=== PATIENT | male | born 1960 | race American Indian/Alaskan Native ===

== ENCOUNTER 2020-02-07 14:50 | Inpatient (IN) | payer MEDICARE ==
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
--- NOTE | 2020-02-07 17:32 | XRay Report ---
CHEST 1 VIEW 5:06 PM INDICATION / CLINICAL INFORMATION: AMS. COMPARISON: 01/20/2020. FINDINGS: SUPPORT DEVICES: None. HEART / MEDIASTINUM: The heart is mildly enlarged with a left ventricular configuration. Pulmonary va sculature is normal. There is mild aortic tortuosity without aneurysm. LUNGS / PLEURA: No significant pulmonary or pleural abnormality. No pneumothorax. ADDITIONAL FINDINGS: No significant additional findings. IMPRESSION: No acute abnormality or significant change. Signer Name: Musa Morley MD Signed: 02/07/2020 5:28 PM Workstation Name: [id number]
[2020-02-07 17:49] LABS: Basophils % (Auto) 0.3 % (0.0-1.8); Eosinophils % (Auto) 0.1 % (0.0-4.3); Hemoglobin 13.1 gm/dl (11.8-15.2); Lymphocytes # (Auto) 1.2 K/mm3 (1.2-5.4); Lymphocytes % (Auto) 12.7 % (13.4-35.0); Mean Corpuscular HGB Conc 34 % (32-34); Mean Corpuscular Volume 91 fl (84-94); Monocytes # (Auto) 1.1 K/mm3 (0.0-0.8); Monocytes % (Auto) 11.5 % (0.0-7.3); Platelet Count 199 K/mm3 (140-440); Red Blood Count 4.27 M/mm3 (3.65-5.03); Red Cell Distribution Width 14.4 % (13.2-15.2)
[2020-02-07 18:02] LABS: INR 0.97 (0.87-1.13)
[2020-02-07 18:09] LABS: Albumin 3.4 g/dL (3.9-5); Calcium 8.9 mg/dL (8.4-10.2)
--- NOTE | 2020-02-07 19:02 | Cat Scan Report ---
CT head/brain wo con INDICATION / CLINICAL INFORMATION: 59 years Male; AMS. TECHNIQUE: Routine CT head without contrast. All CT scans at this location are performed using CT dos e reduction for ALARA by means of automated exposure control. COMPARISON: 02/06/2020 FINDINGS: BRAIN / INTRACRANIAL CONTENTS: Encephalomalacia seen in the watershed distributions of the right cere bral hemisphere. Similar findings seen on prior. It would be difficult to evaluate for small areas of ischemia without diffusion imaging by MRI. Fairly prominent area of encephalomalacia seen in the rig ht occipital lobe as well, in a region which would involve posterior, calcarine cortex. Again, this i s unchanged from prior. 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 Otherwise, no acute hemorrhage, mass effect, midline shift, hydrocephalus, or acute, large territori al infarct. Mild cerebral and cerebellar atrophy. There are areas of decreased attenuation in the white matter of the cerebral hemispheres. These are n onspecific findings and may be related to microangiopathy (hypertension, diabetes, atherosclerosis), given the patient's age. It might be difficult to evaluate for small areas of ischemia without diffus ion imaging by MRI. CRANIOCERVICAL JUNCTION: No significant abnormality. ORBITS: No significant abnormality of visualized orbits. SINUSES / MASTOIDS: No significant abnormality in the visualized paranasal sinuses or mastoid air garth ls. ADDITIONAL FINDINGS: Atherosclerotic disease is seen in the anterior and posterior circulation. IMPRESSION: 1. No focal mass, hemorrhage, hydrocephalus, or acute, large territorial infarct. Signer Name: Nabeel Dietrich MD, III Signed: 02/07/2020 6:58 PM Workstation Name: [id number]
[2020-02-07] MEDS ORDERED: HEPARIN 10,000 UNITS/10 ML VIAL IV ONE (19:27)
[2020-02-07] MEDS: HEPARIN/ 0.45% NACL DRIP 25,000 UNIT/500 ML BAG IV SCH (20:42)
[2020-02-08 01:23] LABS: Creatine Kinase MB 8.3 ng/mL (0.0-4.0)
[2020-02-08 05:04] LABS: Cannabinoid Screen,Urine PRESUMPTIVE POSITIVE
[2020-02-08 05:16] LABS: Amphetamine Screen,Urine PRESUMPTIVE NEGATIVE; Benzodiazepines Screen,Urine PRESUMPTIVE NEGATIVE
[2020-02-08 05:17] LABS: Cocaine Screen,Urine PRESUMPTIVE NEGATIVE; Methadone Screen,Urine PRESUMPTIVE NEGATIVE; Opiate Screen,Urine PRESUMPTIVE NEGATIVE
[2020-02-08 05:23] LABS: Bilirubin,Urine NEG (Negative); Blood,Urine MOD (Negative); Color,Urine Yellow (Yellow)
[2020-02-08 07:44] LABS: Creatine Kinase MB 6.4 ng/mL (0.0-4.0)
--- NOTE | 2020-02-08 08:13 | History and Physical Report ---
History of Present Illness Date of examination: 02/07/20 Date of admission: 02/07/20 21:09 Chief complaint: Change in mental status History of present illness: History of presenting illness, patient is a 59-year-old male who initially presented to the emergency room with complaint of altered mental status and was found to also have elevated troponin level and patient was told that he was going to be admitted and he refused and signed out AMA and was later brought back with altered mental status. There was no history of chest pain, no history of fever or chills and no history of nausea or vomiting Past History Past Medical History: CAD, COPD, hypertension, migraines, seizures, other (kidney stone, lupus, Right Eye blindness) Social history: smoking Family history: no significant family history Medications and Allergies Allergies Allergy/AdvReac Type Severity Reaction Status Date / Time No Known Allergies Allergy Unverified 01/20/20 02:37 Home Medications Medication Instructions Recorded Confirmed Last Taken Type Ibuprofen [Motrin 600 MG tab] 600 mg PO Q8H PRN #20 tablet 01/20/20 Unknown Rx traMADoL [Ultram] 50 mg PO Q6HR PRN #12 tablet 01/20/20 Unknown Rx Active Meds: Active Medications Heparin Sodium/Sodium Chloride (Heparin/ 0.45% Nacl-25,000 Unit/500 Ml) 25,000 unit in 500 mls @ 23 mls/hr IV TITR JOHANN; Protocol Last Titration: 02/08/20 06:08 Dose: 1,050 units/hr, 21 mls/hr Documented by: Review of Systems Constitutional: no weight gain, no fever, no chills, no sweats, no weakness, no malaise Eyes: bilateral: other (No Bilateral Eye blindness) Ears, nose, mouth and throat: no deferred, no ear pain, no ear discharge, no decreased hearing, no nasal congestion, no nasal discharge Cardiovascular: no chest pain, no lightheadedness, no shortness of breath, no high blood pressure Respiratory: no cough, no cough with sputum, no excessive sputum, no hemoptysis, no shortness of breath, no congestion, no wheezing, no pleurisy Gastrointestinal: no abdominal pain, no nausea, no vomiting, no diarrhea, no constipation, no change in bowel habits, no hematochezia, no loss of appetite, no early satiety, no jaundice, no early satiety Genitourinary Male: no hematuria, no flank pain, no discharge, no urinary frequency, no urinary hesitancy, no nocturia, no incontinence, no erectile dysfunction, no testicular pain, no testicular lump, no polyuria Rectal: no pain, no itching Musculoskeletal: no neck stiffness, no neck pain, no shooting arm pain, no arm numbness/tingling, no low back pain, no morning stiffness, no muscle weakness, no muscle cramps Integumentary: no rash, no pruritis, no redness, no sores, no wounds, no jaundice, no lesions, no darkening of skin, no depigmentation, no acne, no dryness, no striae, no hirsutism, no foot/leg ulcers, no onychomycosis Exam - Constitutional Vitals: Temp Pulse Resp BP Pulse Ox 98.8 F 90 20 156/111 97 02/07/20 19:54 02/08/20 06:01 02/08/20 06:01 02/08/20 06:01 02/08/20 02:00 General appearance: Present: no acute distress - EENT ENT: hearing intact - Neck Neck: Present: supple, normal ROM - Respiratory Respiratory effort: normal - Cardiovascular Rhythm: regular Heart Sounds: Present: S1 & S2. Absent: gallop, systolic murmur, diastolic murmur, click - Extremities Extremities: no ischemia, No edema Peripheral Pulses: within normal limits - Abdominal General gastrointestinal: Present: soft, non-tender, non-distended. Absent: tender, distended, rigid, hepatomegaly, splenomegaly, hernia Male genitourinary: Present: deferred - Rectal Rectal Exam: deferred - Integumentary Integumentary: Present: clear, warm, dry - Musculoskeletal Musculoskeletal: strength equal bilaterally - Psychiatric Psychiatric: appropriate mood/affect - Neurologic Neurologic: CNII-XII intact HEART Score - HEART Score Troponin: Troponin T 0.045 ng/mL (0.00-0.029) H D 02/08/20 06:55 Results - Labs CBC & Chem 7: 02/07/20 17:22 02/07/20 17:22 Labs: Laboratory Last Values WBC 9.3 K/mm3 (4.5-11.0) 02/07/20 17:22 RBC 4.27 M/mm3 (3.65-5.03) 02/07/20 17: Hgb 13.1 gm/dl (11.8-15.2) 02/07/20 17: Hct 39.0 % (35.5-45.6) 02/07/20 17: MCV 91 fl (84-94) 02/07/20 17:22 MCH 31 pg (28-32) 02/07/20 17: MCHC 34 % (32-34) 02/07/20 17: RDW 14.4 % (13.2-15.2) 02/07/20 17: Plt Count 199 K/mm3 (140-440) 02/07/20 17: Lymph % (Auto) 12.7 % (13.4-35.0) L 02/07/20 17: [place] % (Auto) 11.5 % (0.0-7.3) H 02/07/20 17: Eos % (Auto) 0.1 % (0.0-4.3) 02/07/20: Baso % (Auto) 0.3 % (0.0-1.8) 02/07/20 17: Lymph # 1.2 K/mm3 (1.2-5.4) 02/07/20 17: [place] # 1.1 K/mm3 (0.0-0.8) H 02/07/20 17: Eos # 0.0 K/mm3 (0.0-0.4) 02/07/20 17: Baso # 0.0 K/mm3 (0.0-0.1) 02/07/20: Seg Neutrophils % 75.4 % (40.0-70.0) H 02/07/20 17: Seg Neutrophils # 7.0 K/mm3 (1.8-7.7) 02/07/20 17: PT 12.7 Sec. (12.2-14.9) 02/07/20 17: INR 0.97 (0.87-1.13) 02/07/20 17: APTT 27.0 Sec. (24.2-36.6) 02/07/20 17: Heparin Anti-Xa Level 1.16 U.I./ml (0.3-0.7) H 02/08/20 03:06 Sodium 137 mmol/L (137-145) 02/07/20 17:22 Potassium 3.6 mmol/L (3.6-5.0) 02/07/20 17:22 Chloride 99.0 mmol/L (98-107) 02/07/20 17:22 Carbon Dioxide 22 mmol/L (22-30) 02/07/20 17:22 Anion Gap 20 mmol/L 02/07/20 17:22 BUN 51 mg/dL (9-20) H 02/07/20 17:22 Creatinine 2.5 mg/dL (0.8-1.5) H 02/07/20 17:22 Estimated GFR 32 ml/min 02/07/20 17:22 BUN/Creatinine Ratio 20 % 02/07/20 17:22 Glucose 75 mg/dL (75-100) 02/07/20 17:22 Calcium 8.9 mg/dL (8.4-10.2) 02/07/20 17:22 Total Bilirubin 0.60 mg/dL (0.1-1.2) 02/07/20 17:22 AST 53 units/L (5-40) H 02/07/20 17:22 ALT 33 units/L (7-56) 02/07/20 17:22 Alkaline Phosphatase 119 units/L (35-129) 02/07/20 17:22 Ammonia 20.0 umol/L (25-60) L 02/07/20 17:22 Total Creatine Kinase 620 units/L (55-170) H 02/08/20 00:17 CK-MB (CK-2) 6.4 ng/mL (0.0-4.0) H 02/08/20 06:55 CK-MB (CK-2) Rel Index 1.3 (0-4) 02/08/20 00:17 Troponin T 0.045 ng/mL (0.00-0.029) H D 02/08/20 06:55 Total Protein 7.3 g/dL (6.3-8.2) 02/07/20 17:22 Albumin 3.4 g/dL (3.9-5) L 02/07/20 17:22 Albumin/Globulin Ratio 0.9 % 02/07/20 17:22 TSH 0.550 mlU/mL (0.270-4.200) 02/07/20 17:22 Urine Color Yellow (Yellow) 02/08/20 04:30 Urine Turbidity Clear (Clear) 02/08/20 04:30 Urine pH 7.0 (5.0-7.0) 02/08/20 04:30 Ur Specific [place] 1.012 (1.003-1.030) 02/08/20 04:30 Urine Protein 100 mg/dl mg/dL (Negative) 02/08/20 04:30 Urine Glucose (UA) Neg mg/dL (Negative) 02/08/20 04:30 Urine Ketones Tr mg/dL (Negative) 02/08/20 04:30 Urine Blood Mod (Negative) 02/08/20 04:30 Urine Nitrite Neg (Negative) 02/08/20 04:30 Urine Bilirubin Neg (Negative) 02/08/20 04:30 Urine Urobilinogen 4.0 mg/dL (<2.0) 02/08/20 04:30 Ur Leukocyte Esterase Neg (Negative) 02/08/20 04:30 Urine WBC (Auto) 1.0 /HPF (0.0-6.0) 02/08/20 04:30 Urine RBC (Auto) 5.0 /HPF (0.0-6.0) 02/08/20 04:30 Urine Opiates Screen Presumptive negative 02/08/20 04:30 Urine Methadone Screen Presumptive negative 02/08/20 04:30 Ur Barbiturates Screen Presumptive negative 02/08/20 04:30 Ur Phencyclidine Scrn Presumptive negative 02/08/20 04:30 Ur Amphetamines Screen Presumptive negative 02/08/20 04:30 U Benzodiazepines Scrn Presumptive negative 02/08/20 04:30 Urine Cocaine Screen Presumptive negative 02/08/20 04:30 U Marijuana (THC) Screen Presumptive positive 02/08/20 04:30 Drugs of Abuse Note Disclamer 02/08/20 04:30 Plasma/Serum Alcohol < 0.01 % (0-0.07) 02/07/20 17:22 Funez/IV: IV Catheter Type [Left Forearm INT / Saline Lock ] Assessment and Plan - Patient Problems (1) Acute renal failure Current Visit: Yes Status: Acute Qualifiers: Acute renal failure type: unspecified Qualified Code(s): N17.9 - Acute kidney failure, unspecified Plan to address problem: 1. Nephrology Consult 2. I. V Normal saline (2) Atrial fibrillation Current Visit: Yes Status: Acute Qualifiers: Atrial fibrillation type: unspecified Qualified Code(s): I48.91 - Unspecified atrial fibrillation Plan to address problem: 1. Continue I.V heparin 2. 2 D Echocardiogram 3. cardiology consult (3) Elevated troponin Current Visit: Yes Status: Acute Plan to address problem: 1. Serial cardiac enzyme 2. Cardiology consult 3.
--- NOTE | 2020-02-08 10:32 | Consultation ---
History of Present Illness - Reason for Consult Consult date: 02/08/20 acute renal failure - History of Present Illness patient was admitted for worsening altered mental status, lab results was s ignificant elevated creatinine and troponin. CT ehad was negative for acute intracranial process. CXR was negative for pulm edema. he was started on heparin drip and renal consult was requested for renal failure Past History Past Medical History: CAD, COPD, hypertension, migraines, seizures, other (kidney stone, lupus, Right Eye blindness) Social history: smoking Family history: no significant family history Medications and Allergies Allergies Allergy/AdvReac Type Severity Reaction Status Date / Time No Known Allergies Allergy Unverified 01/20/20 02:37 Home Medications Medication Instructions Recorded Confirmed Last Taken Type Ibuprofen [Motrin 600 MG tab] 600 mg PO Q8H PRN #20 tablet 01/20/20 Unknown Rx traMADoL [Ultram] 50 mg PO Q6HR PRN #12 tablet 01/20/20 Unknown Rx Aspirin 81 mg PO DAILY 02/08/20 02/08/20 Unknown History Atorvastatin Calcium 80 mg PO DAILY 02/08/20 02/08/20 Unknown History Brilinta 90 mg PO BID 02/08/20 02/08/20 Unknown History Furosemide [Lasix] 20 mg PO QDAY 02/08/20 02/08/20 Unknown History Isosorbide Mononitrate 30 mg PO DAILY 02/08/20 02/08/20 Unknown History Lisinopril 5 mg PO DAILY 02/08/20 02/08/20 Unknown History Nitroglycerin 0.4 mg SUBLINGUAL PRN 02/08/20 02/08/20 Unknown History amLODIPine 10 mg PO DAILY 02/08/20 02/08/20 Unknown History carvediloL 6.25 mg PO BID 02/08/20 02/08/20 Unknown History Active Meds: Active Medications Amlodipine Besylate (Amlodipine) 5 mg PO QDAY JOHANN Heparin Sodium/Sodium Chloride (Heparin/ 0.45% Nacl-25,000 Unit/500 Ml) 25,000 unit in 500 mls @ 23 mls/hr IV TITR JOHANN; Protocol Last Titration: 02/08/20 06:08 Dose: 1,050 units/hr, 21 mls/hr Documented by: Sodium Chloride (Nacl 0.9% 1000 Ml) 1,000 mls @ 100 mls/hr IV DIRECT JOHANN Review of Systems ROS unobtainable: due to mental status Exam - Vital Signs Vital signs: Vital Signs Temp 97.9 F 02/07/20 17:53 - General Appearance General appearance: well-developed, well-nourished EENT: ATNC, PERRL Neck: Present: neck supple Respiratory: Clear to Ascultation Heart: irregular Gastrointestinal: Present: normoactive bowel sounds. Absent: tenderness, distended Integumentary: no rash, warm and dry Neurologic: no focal deficit Musculoskeletal: Present: other (no edema in BLE) Psychiatric: other (answers simple questions) Results - Lab Results 02/07/20 17:22 02/07/20 17:22 Most recent lab results Calcium 8.9 mg/dL (8.4-10.2) 02/07/20 17:22 Assessment and Plan Acute renal failure, prerenal azotemia? NSTEMI HTN Afib Altered mental status will start NS 100 cc/h, CXR -ve for edema UA noted for proteinuria. urine lyes, eos and secondary GN/vasculitis work up ordered renal US ordered avoid nephrotoxins renally dose meds strict I&O daily weight Gil Boone MD [phone]
[2020-02-08] MEDS ORDERED: NITROGLYCERIN 0.4 MG TAB SUBL SL PRN (10:57)
[2020-02-08] MEDS: SODIUM CHLORIDE 0.9% 1000 ML 1,000 ML IV SCH (11:00)
[2020-02-08] MEDS ORDERED: amLODIPine 5 MG TAB PO SCH (11:00)
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
--- NOTE | 2020-02-08 13:39 | Ultrasound Report ---
ULTRASOUND RENAL INDICATION / CLINICAL INFORMATION: renal failure. COMPARISON: None available. FINDINGS: RIGHT KIDNEY: Length = 10.1 cm. [normal > 9 cm] - Parenchymal Thickness = 1.4 cm. [normal > 1.5 cm] - Echogenicity: Increased - Hydronephrosis: None. - Cyst or mass: No significant abnormality. - Stones: None seen. LEFT KIDNEY: Length = 9.5 cm. [normal > 9 cm] - Parenchymal Thickness = 1.7 cm. [normal > 1.5 cm] - Echogenicity: Increased - Hydronephrosis: None. - Cyst or mass: No significant abnormality. - Stones: None seen. URINARY BLADDER: No significant abnormality. FREE FLUID: None. ADDITIONAL FINDINGS: None. IMPRESSION: Both kidneys demonstrate increased parenchymal echotexture consistent with medical renal disease. No focal renal lesion or hydronephrosis. Signer Name: Milton Hernandes Jr, MD Signed: 02/08/2020 1:34 PM Workstation Name: [id number]
[2020-02-08] MEDS ORDERED: carvediloL 6.25 MG TAB PO SCH (22:00)
[2020-02-08] MEDS: TICAGRELOR 90 MG TAB PO SCH (22:25)
[2020-02-09] MEDS: HEPARIN/ 0.45% NACL DRIP 25,000 UNIT/500 ML BAG IV SCH (00:17)
[2020-02-09 00:27] LABS: Creatinine,Urine 42.1 mg/dL (0.1-20.0)
[2020-02-09 00:32] LABS: Protein/Creatinine Ratio,Urine 0.9
[2020-02-09] MEDS: SODIUM CHLORIDE 0.9% 1000 ML 1,000 ML IV SCH ×2 (02:19→11:36)
[2020-02-09 05:34] LABS: Basophils % (Auto) 0.5 % (0.0-1.8); Eosinophils % (Auto) 0.4 % (0.0-4.3); Hemoglobin 12.7 gm/dl (11.8-15.2); Lymphocytes # (Auto) 1.4 K/mm3 (1.2-5.4); Lymphocytes % (Auto) 17.6 % (13.4-35.0); Mean Corpuscular HGB Conc 34 % (32-34); Mean Corpuscular Volume 91 fl (84-94); Monocytes % (Auto) 12.8 % (0.0-7.3); Platelet Count 168 K/mm3 (140-440); Red Blood Count 4.16 M/mm3 (3.65-5.03); Red Cell Distribution Width 14.1 % (13.2-15.2)
[2020-02-09 05:52] LABS: BUN/Creatinine Ratio 23; Blood Urea Nitrogen 21 mg/dL (9-20); Calcium 8.1 mg/dL (8.4-10.2); Hemolysis Index 10
--- NOTE | 2020-02-09 07:42 | Progress Note ---
<GEORGEEILEEN HardwickSudha - Last Filed: 02/09/20 13:09> Assessment and Plan - Patient Problems (1) Altered mental status Current Visit: Yes Status: Acute Plan to address problem: - Still having period of confusion and nonsensical conversation - 02/06 CTH: no acute abnormality - Labs unremarkable - Psych eval ordered (2) NSTEMI (non-ST elevation myocardial infarction) Current Visit: Yes Status: Acute Plan to address problem: - Cardiology consulted - TTE shows EF 25-30% with a mildly dilated LV and moderately dilated LA with trace AR. - Plan for left hear cath once renal function improves - Already on BB, statin, systemic anticoagulation (3) Atrial fibrillation Current Visit: Yes Status: Acute Qualifiers: Atrial fibrillation type: unspecified Qualified Code(s): I48.91 - Unspecified atrial fibrillation Plan to address problem: - Rate control with BB - On Heparin gtt - On Telemetry - Monitor BP per protocol (4) Acute renal failure Current Visit: Yes Status: Acute Qualifiers: Acute renal failure type: unspecified Qualified Code(s): N17.9 - Acute kidney failure, unspecified Plan to address problem: -Nephrology consult - MIVF ordered per nephrology - Renal US: both kidneys demonstrate increased parenchymal echotexture consistent with medical renal disease. No focal renal lesion or hydronephrosis - Urine lytes ordered - Trend BMP - Monitor I&O, daily weight - Avoid nephrotoxic medications (5) Hypokalemia Current Visit: Yes Status: Acute Plan to address problem: - Repleted - f/u BMP (6) Hypophosphatemia Current Visit: Yes Status: Acute Plan to address problem: - Repleted (7) Lupus Current Visit: Yes Status: Chronic History Interval history: HD 2: 59 year old male with HFrEF (25-30%), Lupus, HTN, [place], GERD, COPD, ADD, and seizures presents to the ED after being found down at home on a wellness check with a NSTEMI and PRIYA. Cardiology and nephrology are consulted. CTH was negative for acute abnormality, UDS and UA were negative. Nursing notes reviewed. Patient had a 7 beat Vtach at 2200 on 02/07. At the time of my exam, the patient was able to answer orientation questions but often went on tangents and was able to be reorientated. This morning, he has hypokalemia and hypophosphatemia which has been repleted. Hospitalist Physical - Constitutional Vitals: Temp Pulse Resp BP Pulse Ox 98.5 F 47 L 16 125/101 100 02/09/20 03:41 02/09/20 03:41 02/09/20 03:41 02/09/20 03:41 02/09/20 03:41 General appearance: Present: no acute distress - EENT Eyes: Present: PERRL, EOM intact ENT: hearing intact - Neck Neck: Present: normal ROM - Respiratory Respiratory effort: normal Respiratory: bilateral: CTA - Cardiovascular Rhythm: irregularly irregular Heart Sounds: Present: S1 & S2. Absent: systolic murmur, diastolic murmur - Extremities Extremities: no ischemia, pulses intact, pulses symmetrical, No edema - Abdominal General gastrointestinal: soft, non-tender, non-distended, normal bowel sounds - Integumentary Integumentary: Present: warm, dry (several areas of hypopigmentation on chest and arms which is contributed to lupus per pt) - Psychiatric Psychiatric: cooperative, other (multiple tangents when conversing with pt) - Neurologic Neurologic: moves all extremities - Allied Health Allied health notes reviewed: nursing HEART Score - HEART Score Troponin: WBC 8.0 K/mm3 (4.5-11.0) 02/09/20 04:25 RBC 4.16 M/mm3 (3.65-5.03) 02/09/20 04:25 Hgb 12.7 gm/dl (11.8-15.2) 02/09/20 04:25 Hct 38.0 % (35.5-45.6) 02/09/20 04:25 MCV 91 fl (84-94) 02/09/20 04:25 MCH 31 pg (28-32) 02/09/20 04:25 MCHC 34 % (32-34) 02/09/20 04:25 RDW 14.1 % (13.2-15.2) 02/09/20 04:25 Plt Count 168 K/mm3 (140-440) 02/09/20 04:25 Lymph % (Auto) 17.6 % (13.4-35.0) 02/09/20 04:25 [place] % (Auto) 12.8 % (0.0-7.3) H 02/09/20 04:25 Eos % (Auto) 0.4 % (0.0-4.3) 02/09/20 04:25 Baso % (Auto) 0.5 % (0.0-1.8) 02/09/20 04:25 Lymph # 1.4 K/mm3 (1.2-5.4) 02/09/20 04:25 [place] # 1.0 K/mm3 (0.0-0.8) H 02/09/20 04:25 Eos # 0.0 K/mm3 (0.0-0.4) 02/09/20 04:25 Baso # 0.0 K/mm3 (0.0-0.1) 02/09/20 04:25 Seg Neutrophils % 68.7 % (40.0-70.0) 02/09/20 04:25 Seg Neutrophils # 5.5 K/mm3 (1.8-7.7) 02/09/20 04:25 PT 12.7 Sec. (12.2-14.9) 02/07/20 17:22 INR 0.97 (0.87-1.13) 02/07/20 17:22 APTT 27.0 Sec. (24.2-36.6) 02/07/20 17:22 Heparin Anti-Xa Level 0.47 U.I./ml (0.3-0.7) 02/08/20 12:35 Sodium 136 mmol/L (137-145) L 02/09/20 04:25 Potassium 3.2 mmol/L (3.6-5.0) L 02/09/20 04:25 Chloride 102.6 mmol/L (98-107) 02/09/20 04:25 Carbon Dioxide 19 mmol/L (22-30) L 02/09/20 04:25 Anion Gap 18 mmol/L 02/09/20 04:25 BUN 21 mg/dL (9-20) H 02/09/20 04:25 Creatinine 0.9 mg/dL (0.8-1.5) D 02/09/20 04:25 Estimated GFR > 60 ml/min 02/09/20 04:25 BUN/Creatinine Ratio 23 % 02/09/20 04:25 Glucose 86 mg/dL (75-100) 02/09/20 04:25 Calcium 8.1 mg/dL (8.4-10.2) L 02/09/20 04:25 Phosphorus 1.60 mg/dL (2.5-4.5) L 02/09/20 04:25 Total Bilirubin 0.60 mg/dL (0.1-1.2) 02/07/20 17:22 AST 53 units/L (5-40) H 02/07/20 17:22 ALT 33 units/L (7-56) 02/07/20 17:22 Alkaline Phosphatase 119 units/L (35-129) 02/07/20 17:22 Ammonia 20.0 umol/L (25-60) L 02/07/20 17:22 Lactate Dehydrogenase 256 units/L (91-180) H 02/08/20 12:35 Total Creatine Kinase 484 units/L (55-170) H 02/08/20 12:35 CK-MB (CK-2) 6.4 ng/mL (0.0-4.0) H 02/08/20 06:55 CK-MB (CK-2) Rel Index 1.1 (0-4) 02/08/20 06:55 Troponin T 0.045 ng/mL (0.00-0.029) H D 02/08/20 06:55 Total Protein 7.3 g/dL (6.3-8.2) 02/07/20 17:22 Albumin 3.4 g/dL (3.9-5) L 02/07/20 17:22 Albumin/Globulin Ratio 0.9 % 02/07/20 17:22 TSH 0.550 mlU/mL (0.270-4.200) 02/07/20 17:22 Urine Color Yellow (Yellow) 02/08/20 04:30 Urine Turbidity Clear (Clear) 02/08/20 04:30 Urine pH 7.0 (5.0-7.0) 02/08/20 04:30 Ur Specific [place] 1.012 (1.003-1.030) 02/08/20 04:30 Urine Protein 100 mg/dl mg/dL (Negative) 02/08/20 04:30 Urine Glucose (UA) Neg mg/dL (Negative) 02/08/20 04:30 Urine Ketones Tr mg/dL (Negative) 02/08/20 04:30 Urine Blood Mod (Negative) 02/08/20 04:30 Urine Nitrite Neg (Negative) 02/08/20 04:30 Urine Bilirubin Neg (Negative) 02/08/20 04:30 Urine Urobilinogen 4.0 mg/dL (<2.0) 02/08/20 04:30 Ur Leukocyte Esterase Neg (Negative) 02/08/20 04:30 Urine WBC (Auto) 1.0 /HPF (0.0-6.0) 02/08/20 04:30 Urine RBC (Auto) 5.0 /HPF (0.0-6.0) 02/08/20 04:30 Urine Eosinophils None seen (None Seen) 02/08/20 00:05 Urine Creatinine 41.0 mg/dL (0.1-20.0) H 02/08/20 00:05 Urine Creatinine 42.1 mg/dL (0.1-20.0) H 02/08/20 00:05 Protein/Creatinin Ratio 0.90 02/08/20 00:05 Urine Sodium 109 mmol/L 02/08/20 00:05 Urine Urea Nitrogen 626 02/08/20 00:05 Urine Total Protein 37 mg/dL (5-11.8) H 02/08/20 00:05 Urine Opiates Screen Presumptive negative 02/08/20 04:30 Urine Methadone Screen Presumptive negative 02/08/20 04:30 Ur Barbiturates Screen Presumptive negative 02/08/20 04:30 Ur Phencyclidine Scrn Presumptive negative 02/08/20 04:30 Ur Amphetamines Screen Presumptive negative 02/08/20 04:30 U Benzodiazepines Scrn Presumptive negative 02/08/20 04:30 Urine Cocaine Screen Presumptive negative 02/08/20 04:30 U Marijuana (THC) Screen Presumptive positive 02/08/20 04:30 Drugs of Abuse Note Disclamer 02/08/20 04:30 Plasma/Serum Alcohol < 0.01 % (0-0.07) 02/07/20 17:22 Hep Bs Antigen Non-reactive (Negative) 02/08/20 12:35 Hepatitis C Antibody Reactive (NonReactive) A 02/08/20 12:35 Schistocytes Smear Rare 02/08/20 12:35 Results - Labs CBC & Chem 7: 02/09/20 04:25 02/09/20 04:25 Labs: Laboratory Last Values WBC 8.0 K/mm3 (4.5-11.0) 02/09/20 04:25 RBC 4.16 M/mm3 (3.65-5.03) 02/09/20 04:25 Hgb 12.7 gm/dl (11.8-15.2) 02/09/20 04:25 Hct 38.0 % (35.5-45.6) 02/09/20 04:25 MCV 91 fl (84-94) 02/09/20 04:25 MCH 31 pg (28-32) 02/09/20 04:25 MCHC 34 % (32-34) 02/09/20 04:25 RDW 14.1 % (13.2-15.2) 02/09/20 04:25 Plt Count 168 K/mm3 (140-440) 02/09/20 04:25 Lymph % (Auto) 17.6 % (13.4-35.0) 02/09/20 04:25 [place] % (Auto) 12.8 % (0.0-7.3) H 02/09/20 04:25 Eos % (Auto) 0.4 % (0.0-4.3) 02/09/20 04:25 Baso % (Auto) 0.5 % (0.0-1.8) 02/09/20 04:25 Lymph # 1.4 K/mm3 (1.2-5.4) 02/09/20 04:25 [place] # 1.0 K/mm3 (0.0-0.8) H 02/09/20 04:25 Eos # 0.0 K/mm3 (0.0-0.4) 02/09/20 04:25 Baso # 0.0 K/mm3 (0.0-0.1) 02/09/20 04:25 Seg Neutrophils % 68.7 % (40.0-70.0) 02/09/20 04:25 Seg Neutrophils # 5.5 K/mm3 (1.8-7.7) 02/09/20 04:25 PT 12.7 Sec. (12.2-14.9) 02/07/20 17:22 INR 0.97 (0.87-1.13) 02/07/20 17:22 APTT 27.0 Sec. (24.2-36.6) 02/07/20 17:22 Heparin Anti-Xa Level 0.47 U.I./ml (0.3-0.7) 02/08/20 12:35 Sodium 136 mmol/L (137-145) L 02/09/20 04:25 Potassium 3.2 mmol/L (3.6-5.0) L 02/09/20 04:25 Chloride 102.6 mmol/L (98-107) 02/09/20 04:25 Carbon Dioxide 19 mmol/L (22-30) L 02/09/20 04:25 Anion Gap 18 mmol/L 02/09/20 04:25 BUN 21 mg/dL (9-20) H 02/09/20 04:25 Creatinine 0.9 mg/dL (0.8-1.5) D 02/09/20 04:25 Estimated GFR > 60 ml/min 02/09/20 04:25 BUN/Creatinine Ratio 23 % 02/09/20 04:25 Glucose 86 mg/dL (75-100) 02/09/20 04:25 Calcium 8.1 mg/dL (8.4-10.2) L 02/09/20 04:25 Phosphorus 1.60 mg/dL (2.5-4.5) L 02/09/20 04:25 Total Bilirubin 0.60 mg/dL (0.1-1.2) 02/07/20 17:22 AST 53 units/L (5-40) H 02/07/20 17:22 ALT 33 units/L (7-56) 02/07/20 17:22 Alkaline Phosphatase 119 units/L (35-129) 02/07/20 17:22 Ammonia 20.0 umol/L (25-60) L 02/07/20 17:22 Lactate Dehydrogenase 256 units/L (91-180) H 02/08/20 12:35 Total Creatine Kinase 484 units/L (55-170) H 02/08/20 12:35 CK-MB (CK-2) 6.4 ng/mL (0.0-4.0) H 02/08/20 06:55 CK-MB (CK-2) Rel Index 1.1 (0-4) 02/08/20 06:55 Troponin T 0.045 ng/mL (0.00-0.029) H D 02/08/20 06:55 Total Protein 7.3 g/dL (6.3-8.2) 02/07/20 17:22 Albumin 3.4 g/dL (3.9-5) L 02/07/20 17: Albumin/Globulin Ratio 0.9 % 02/07/20 17:22 TSH 0.550 mlU/mL (0.270-4.200) 02/07/20 17:22 Urine Color Yellow (Yellow) 02/08/20 04:30 Urine Turbidity Clear (Clear) 02/08/20 04:30 Urine pH 7.0 (5.0-7.0) 02/08/20 04:30 Ur Specific [place] 1.012 (1.003-1.030) 02/08/20 04:30 Urine Protein 100 mg/dl mg/dL (Negative) 02/08/20 04:30 Urine Glucose (UA) Neg mg/dL (Negative) 02/08/20 04:30 Urine Ketones Tr mg/dL (Negative) 02/08/20 04:30 Urine Blood Mod (Negative) 02/08/20 04:30 Urine Nitrite Neg (Negative) 02/08/20 04:30 Urine Bilirubin Neg (Negative) 02/08/20 04:30 Urine Urobilinogen 4.0 mg/dL (<2.0) 02/08/20 04:30 Ur Leukocyte Esterase Neg (Negative) 02/08/20 04:30 Urine WBC (Auto) 1.0 /HPF (0.0-6.0) 02/08/20 04:30 Urine RBC (Auto) 5.0 /HPF (0.0-6.0) 02/08/20 04:30 Urine Eosinophils None seen (None Seen) 02/08/20 00:05 Urine Creatinine 41.0 mg/dL (0.1-20.0) H 02/08/20 00:05 Urine Creatinine 42.1 mg/dL (0.1-20.0) H 02/08/20 00:05 Protein/Creatinin Ratio 0.90 02/08/20 00:05 Urine Sodium 109 mmol/L 02/08/20 00:05 Urine Urea Nitrogen 626 02/08/20 00:05 Urine Total Protein 37 mg/dL (5-11.8) H 02/08/20 00:05 Urine Opiates Screen Presumptive negative 02/08/20 04:30 Urine Methadone Screen Presumptive negative 02/08/20 04:30 Ur Barbiturates Screen Presumptive negative 02/08/20 04:30 Ur Phencyclidine Scrn Presumptive negative 02/08/20 04:30 Ur Amphetamines Screen Presumptive negative 02/08/20 04:30 U Benzodiazepines Scrn Presumptive negative 02/08/20 04:30 Urine Cocaine Screen Presumptive negative 02/08/20 04:30 U Marijuana (THC) Screen Presumptive positive 02/08/20 04:30 Drugs of Abuse Note Disclamer 02/08/20 04:30 Plasma/Serum Alcohol < 0.01 % (0-0.07) 02/07/20 17:22 Hep Bs Antigen Non-reactive (Negative) 02/08/20 12:35 Hepatitis C Antibody Reactive (NonReactive) A 02/08/20 12:35 Schistocytes Smear Rare 02/08/20 12:35 - Diagnostic Impressions Diagnostic Impressions: Echocardiogram 02/08/20 06:00 Transthoracic Echocardiogram Indication: Afib and Elevated Tropnin BP: 156/111 HR: 83 Conclusions *The left ventricular chamber size is mildly dilated. *There is diffuse global hypokinesis of the left ventricle. *The estimated ejection fraction is 25-30%. *Global left ventricular systolic function is moderate to severely decreased. *The left ventricular diastolic filling pattern is consistent with elevated left ventricular end-diastolic pressure. *The left atrium is moderately dilated. *The right ventricular cavity size is normal. *Moderate aortic leaflet calcification is visualized. *There is trace of aortic regurgitation. Findings Procedure Info: The study was technically limited due to the patient's inability to lay in the left lateral decubitus position. Patient has altered mental status. Patient unable to consent to optison. Left Ventricle: The left ventricular chamber size is mildly dilated. There is diffuse global hypokinesis of the left ventricle. Global left ventricular systolic function is moderate to severely decreased. There is "smoke" noted in LV,suggesting low cardiac output. The estimated ejection fraction is 25-30%. Abnormal left ventricular diastolic function is observed. The left ventricular diastolic filling pattern is consistent with elevated left ventricular end-diastolic pressure. Left Atrium: The left atrium is moderately dilated. Right Ventricle: The right ventricular cavity size is normal. Right Atrium: The right atrial cavity size is normal. Aortic Valve: The aortic valve is trileaflet. Moderate aortic leaflet calcification is visualized. There is trace of aortic regurgitation. Mitral Valve: The mitral valve leaflets are mildly thickened. There is mild mitral regurgitation. Tricuspid Valve: The tricuspid valve leaflets are normal. There is trace tricuspid regurgitation. The right ventricular systolic pressure is calculated at 16 mmHg. Pulmonic Valve: The pulmonic valve is not well visualized. There is trace pulmonic regurgitation. Pericardium: There is no pericardial effusion. Aorta: The aorta appears normal. Venous: The inferior vena cava appears normal in size. Measurements Chambers 2D Name Value Normal Range IVSd (2D) 0.99 cm (0.6 - 1.1) LVPWd (2D) 1.12 cm (0.6 - 1.1) LVIDd (2D) 5.32 cm (3.7 - 5.6) LVIDs (2D) 4.92 cm (2 - 3.8) LV FS (2D) 7.6 % - EF Teichholz (2D) 16.74 % - Ao root diameter (2D) 2.96 cm (2 - 3.7) Volumes/Mass Name Value Normal Range LA ESV SP 4CH (A/L) 96.01 ml - LA ESV SP 2CH (A/L) 132.95 ml - LA ESV BP (A/L) 113.42 ml - LA ESV BP (A/L) index 56.99 ml/m2 - LA ESV SP 4CH (MOD) 89.34 ml - LA ESV SP 2CH (MOD) 131.06 ml - LA ESV BP (MOD) 108.03 ml - LA ESV BP (MOD) index 54.29 ml/m2 - LV EDV SP 4CH (MOD) 194.84 ml - LV ESV SP 4CH (MOD) 146.24 ml - EF SP 4CH (MOD) 24.94 % - LV EDV SP 2CH (MOD) 210.28 ml - LV ESV SP 2CH (MOD) 174.07 ml - EF SP 2CH (MOD) 17.22 % - LV EDV BP 208.25 ml - LV ESV BP 165.16 ml - BP EF (MOD) 20.69 % - Diastolic/Systolic Function Name Value Normal Range MV E-wave Vmax 1.23 m/sec - MV deceleration time 152.48 msec - MV A-wave Vmax 0.82 m/sec - MV E:A ratio 1.51 ratio - Aortic Valve Name Value Normal Range AV Vmax 1.31 m/sec - AV VTI 19.56 cm - AV peak gradient 6.89 mmHg - AV mean gradient 3.88 mmHg - LVOT diameter 2.12 cm - LVOT Vmax 1.09 m/sec - LVOT VTI 14.03 cm - LVOT peak gradient 4.72 mmHg - LVOT mean gradient 2.13 mmHg - SV LVOT 49.69 ml - ANGELO (continuity Vmax) 2.93 cm2 - ANGELO (continuity VTI) 2.54 cm2 - Ascending Ao 3.3 cm - Mitral Valve Name Value Normal Range MV Vmax 1.29 m/sec - MV VTI 21.22 cm - MV peak gradient 6.65 mmHg - MV mean gradient 1.71 mmHg - MV PHT 72.99 msec - MVA (PHT) 3.01 cm2 - MVA (continuity VTI) 2.34 cm2 - Tricuspid Valve Name Value Normal Range TR Vmax 1.82 m/sec - TR peak gradient 13 mmHg - RAP 3 mmHg - RVSP 16 mmHg - IVC diameter 1.82 cm (1.2 - 2.3) Pulmonic Valve/Qp:Qs Name Value Normal Range PV Vmax 1 m/sec - PV VTI 14.44 cm - PV peak gradient 4.04 mmHg - PV mean gradient 1.91 mmHg - RVOT Vmax 0.92 m/sec - RVOT VTI 14.18 cm - RVOT peak gradient 3.38 mmHg - Funez/IV: Voiding Method Urinal IV Catheter Type [Right INT / Saline Lock Forearm] IV Catheter Type [Left Forearm INT / Saline Lock ] Active Medications - Current Medications Current Medications: Generic Name Dose Route Start Last Admin Trade Name Freq PRN Reason Stop Dose Admin Amlodipine Besylate 10 mg 02/09/20 10:00 Amlodipine PO DAILY [facility] Atorvastatin Calcium 80 mg 02/09/20 10:00 Lipitor PO DAILY [facility] Carvedilol 6.25 mg 02/08/20 22:00 02/08/20 22:25 Coreg PO 6.25 mg BID JOHANN Administration Furosemide 20 mg 02/09/20 10:00 Lasix PO QDAY [facility] Heparin Sodium/Sodium Chloride 25,000 unit in 500 mls @ 23 mls/hr 02/07/20 20:00 02/09/20 00:17 Heparin/ 0.45% Nacl-25,000 Unit/500 Ml IV 1,050 units/hr TITR JOHANN 21 mls/hr Administration Protocol 1,150 UNITS/HR Sodium Chloride 1,000 mls @ 100 mls/hr 02/08/20 10:30 02/09/20 02:19 Nacl 0.9% 1000 Ml IV 100 mls/hr DIRECT JOHANN Administration Isosorbide Mononitrate 30 mg 02/09/20 10:00 Imdur PO DAILY JOHANN Nitroglycerin 0.4 mg 02/08/20 10:57 Nitrostat SL .Q5MIN PRN Chest Pain Ticagrelor 90 mg 02/08/20 22:00 02/08/20 22:25 Brilinta PO 90 mg BID JOHANN Administration <YONATAN CARTER - Last Filed: 02/10/20 08:15> Assessment and Plan Assessment and plan: I saw and evaluated the patient. I agree with the findings and the plan of care as documented in the Nurse Practitioner's~note, with the following corrections and additions. Hospitalist Physical - Constitutional Vitals: Temp Pulse Resp BP Pulse Ox 98.0 F 48 L 20 132/97 100 02/10/20 03:55 02/10/20 03:55 02/10/20 03:55 02/10/20 03:55 02/10/20 03:55 HEART Score - HEART Score Troponin: Troponin T 0.045 ng/mL (0.00-0.029) H D 02/08/20 06:55 Results - Labs CBC & Chem 7: 02/10/20 05:43 02/10/20 05:43 Labs: Laboratory Last Values WBC 5.9 K/mm3 (4.5-11.0) 02/10/20 05:43 RBC 3.71 M/mm3 (3.65-5.03) 02/10/20 05:43 Hgb 11.6 gm/dl (11.8-15.2) L 02/10/20 05:43 Hct 33.7 % (35.5-45.6) L 02/10/20 05:43 MCV 91 fl (84-94) 02/10/20 05:43 MCH 31 pg (28-32) 02/10/20 05:43 MCHC 34 % (32-34) 02/10/20 05:43 RDW 14.2 % (13.2-15.2) 02/10/20 05:43 Plt Count 168 K/mm3 (140-440) 02/10/20 05:43 Lymph % (Auto) 21.5 % (13.4-35.0) 02/10/20 05:43 [place] % (Auto) 9.1 % (0.0-7.3) H 02/10/20 05:43 Eos % (Auto) 1.0 % (0.0-4.3) 02/10/20 05:43 Baso % (Auto) 0.7 % (0.0-1.8) 02/10/20 05:43 Lymph # 1.3 K/mm3 (1.2-5.4) 02/10/20 05:43 [place] # 0.5 K/mm3 (0.0-0.8) 02/10/20 05:43 Eos # 0.1 K/mm3 (0.0-0.4) 02/10/20 05:43 Baso # 0.0 K/mm3 (0.0-0.1) 02/10/20 05:43 Seg Neutrophils % 67.7 % (40.0-70.0) 02/10/20 05:43 Seg Neutrophils # 4.0 K/mm3 (1.8-7.7) 02/10/20 05:43 PT 12.7 Sec. (12.2-14.9) 02/07/20 17:22 INR 0.97 (0.87-1.13) 02/07/20 17:22 APTT 27.0 Sec. (24.2-36.6) 02/07/20 17:22 Heparin Anti-Xa Level 0.59 U.I./ml (0.3-0.7) 02/09/20 13:53 Sodium 132 mmol/L (137-145) L 02/10/20 05:43 Potassium 3.3 mmol/L (3.6-5.0) L 02/10/20 05:43 Chloride 101.8 mmol/L (98-107) 02/10/20 05:43 Carbon Dioxide 19 mmol/L (22-30) L 02/10/20 05:43 Anion Gap 15 mmol/L 02/10/20 05:43 BUN 20 mg/dL (9-20) 02/10/20 05:43 Creatinine 0.8 mg/dL (0.8-1.5) 02/10/20 05:43 Estimated GFR > 60 ml/min 02/10/20 05:43 BUN/Creatinine Ratio 25 % 02/10/20 05:43 Glucose 92 mg/dL (75-100) 02/10/20 05:43 Calcium 7.9 mg/dL (8.4-10.2) L 02/10/20 05:43 Phosphorus 2.60 mg/dL (2.5-4.5) D 02/10/20 05:43 Total Bilirubin 0.60 mg/dL (0.1-1.2) 02/07/20 17:22 AST 53 units/L (5-40) H 02/07/20 17:22 ALT 33 units/L (7-56) 02/07/20 17:22 Alkaline Phosphatase 119 units/L (35-129) 02/07/20 17:22 Ammonia 20.0 umol/L (25-60) L 02/07/20 17:22 Lactate Dehydrogenase 256 units/L (91-180) H 02/08/20 12:35 Total Creatine Kinase 484 units/L (55-170) H 02/08/20 12:35 CK-MB (CK-2) 6.4 ng/mL (0.0-4.0) H 02/08/20 06:55 CK-MB (CK-2) Rel Index 1.1 (0-4) 02/08/20 06:55 Troponin T 0.045 ng/mL (0.00-0.029) H D 02/08/20 06:55 Total Protein 7.3 g/dL (6.3-8.2) 02/07/20 17:22 Albumin 3.4 g/dL (3.9-5) L 02/07/20 17:22 Albumin/Globulin Ratio 0.9 % 02/07/20 17:22 TSH 0.550 mlU/mL (0.270-4.200) 02/07/20 17:22 Urine Color Yellow (Yellow) 02/08/20 04:30 Urine Turbidity Clear (Clear) 02/08/20 04:30 Urine pH 7.0 (5.0-7.0) 02/08/20 04:30 Ur Specific [place] 1.012 (1.003-1.030) 02/08/20 04:30 Urine Protein 100 mg/dl mg/dL (Negative) 02/08/20 04:30 Urine Glucose (UA) Neg mg/dL (Negative) 02/08/20 04:30 Urine Ketones Tr mg/dL (Negative) 02/08/20 04:30 Urine Blood Mod (Negative) 02/08/20 04:30 Urine Nitrite Neg (Negative) 02/08/20 04:30 Urine Bilirubin Neg (Negative) 02/08/20 04:30 Urine Urobilinogen 4.0 mg/dL (<2.0) 02/08/20 04:30 Ur Leukocyte Esterase Neg (Negative) 02/08/20 04:30 Urine WBC (Auto) 1.0 /HPF (0.0-6.0) 02/08/20 04:30 Urine RBC (Auto) 5.0 /HPF (0.0-6.0) 02/08/20 04:30 Urine Eosinophils None seen (None Seen) 02/08/20 00:05 Urine Creatinine 41.0 mg/dL (0.1-20.0) H 02/08/20 00:05 Urine Creatinine 42.1 mg/dL (0.1-20.0) H 02/08/20 00:05 Protein/Creatinin Ratio 0.90 02/08/20 00:05 Urine Sodium 109 mmol/L 02/08/20 00:05 Urine Urea Nitrogen 626 02/08/20 00:05 Urine Total Protein 37 mg/dL (5-11.8) H 02/08/20 00:05 Urine Opiates Screen Presumptive negative 02/08/20 04:30 Urine Methadone Screen Presumptive negative 02/08/20 04:30 Ur Barbiturates Screen Presumptive negative 02/08/20 04:30 Ur Phencyclidine Scrn Presumptive negative 02/08/20 04:30 Ur Amphetamines Screen Presumptive negative 02/08/20 04:30 U Benzodiazepines Scrn Presumptive negative 02/08/20 04:30 Urine Cocaine Screen Presumptive negative 02/08/20 04:30 U Marijuana (THC) Screen Presumptive positive 02/08/20 04:30 Drugs of Abuse Note Disclamer 02/08/20 04:30 Plasma/Serum Alcohol < 0.01 % (0-0.07) 02/07/20 17:22 Hep Bs Antigen Non-reactive (Negative) 02/08/20 12:35 Hepatitis C Antibody Reactive (NonReactive) A 02/08/20 12:35 Schistocytes Smear Rare 02/08/20 12:35 Microbiology: Microbiology 02/09/20 19:17 Peripheral/Venous Blood Culture - Preliminary Culture in Progress 02/09/20 19:17 Peripheral/Venous Blood Culture - Preliminary Culture in Progress - Diagnostic Impressions Diagnostic Impressions: Echocardiogram 02/08/20 06:00 Transthoracic Echocardiogram Indication: Afib and Elevated Tropnin BP: 156/111 HR: 83 Conclusions *The left ventricular chamber size is mildly dilated. *There is diffuse global hypokinesis of the left ventricle. *The estimated ejection fraction is 25-30%. *Global left ventricular systolic function is moderate to severely decreased. *The left ventricular diastolic filling pattern is consistent with elevated left ventricular end-diastolic pressure. *The left atrium is moderately dilated. *The right ventricular cavity size is normal. *Moderate aortic leaflet calcification is visualized. *There is trace of aortic regurgitation. Findings Procedure Info: The study was technically limited due to the patient's inability to lay in the left lateral decubitus position. Patient has altered mental status. Patient unable to consent to optison. Left Ventricle: The left ventricular chamber size is mildly dilated. There is diffuse global hypokinesis of the left ventricle. Global left ventricular systolic function is moderate to severely decreased. There is "smoke" noted in LV,suggesting low cardiac output. The estimated ejection fraction is 25-30%. Abnormal left ventricular diastolic function is observed. The left ventricular diastolic filling pattern is consistent with elevated left ventricular end-diastolic pressure. Left Atrium: The left atrium is moderately dilated. Right Ventricle: The right ventricular cavity size is normal. Right Atrium: The right atrial cavity size is normal. Aortic Valve: The aortic valve is trileaflet. Moderate aortic leaflet calcification is visualized. There is trace of aortic regurgitation. Mitral Valve: The mitral valve leaflets are mildly thickened. There is mild mitral regurgitation. Tricuspid Valve: The tricuspid valve leaflets are normal. There is trace tricuspid regurgitation. The right ventricular systolic pressure is calculated at 16 mmHg. Pulmonic Valve: The pulmonic valve is not well visualized. There is trace pulmonic regurgitation. Pericardium: There is no pericardial effusion. Aorta: The aorta appears normal. Venous: The inferior vena cava appears normal in size. Measurements Chambers 2D Name Value Normal Range IVSd (2D) 0.99 cm (0.6 - 1.1) LVPWd (2D) 1.12 cm (0.6 - 1.1) LVIDd (2D) 5.32 cm (3.7 - 5.6) LVIDs (2D) 4.92 cm (2 - 3.8) LV FS (2D) 7.6 % - EF Teichholz (2D) 16.74 % - Ao root diameter (2D) 2.96 cm (2 - 3.7) Volumes/Mass Name Value Normal Range LA ESV SP 4CH (A/L) 96.01 ml - LA ESV SP 2CH (A/L) 132.95 ml - LA ESV BP (A/L) 113.42 ml - LA ESV BP (A/L) index 56.99 ml/m2 - LA ESV SP 4CH (MOD) 89.34 ml - LA ESV SP 2CH (MOD) 131.06 ml - LA ESV BP (MOD) 108.03 ml - LA ESV BP (MOD) index 54.29 ml/m2 - LV EDV SP 4CH (MOD) 194.84 ml - LV ESV SP 4CH (MOD) 146.24 ml - EF SP 4CH (MOD) 24.94 % - LV EDV SP 2CH (MOD) 210.28 ml - LV ESV SP 2CH (MOD) 174.07 ml - EF SP 2CH (MOD) 17.22 % - LV EDV BP 208.25 ml - LV ESV BP 165.16 ml - BP EF (MOD) 20.69 % - Diastolic/Systolic Function Name Value Normal Range MV E-wave Vmax 1.23 m/sec - MV deceleration time 152.48 msec - MV A-wave Vmax 0.82 m/sec - MV E:A ratio 1.51 ratio - Aortic Valve Name Value Normal Range AV Vmax 1.31 m/sec - AV VTI 19.56 cm - AV peak gradient 6.89 mmHg - AV mean gradient 3.88 mmHg - LVOT diameter 2.12 cm - LVOT Vmax 1.09 m/sec - LVOT VTI 14.03 cm - LVOT peak gradient 4.72 mmHg - LVOT mean gradient 2.13 mmHg - SV LVOT 49.69 ml - ANGELO (continuity Vmax) 2.93 cm2 - ANGELO (continuity VTI) 2.54 cm2 - Ascending Ao 3.3 cm - Mitral Valve Name Value Normal Range MV Vmax 1.29 m/sec - MV VTI 21.22 cm - MV peak gradient 6.65 mmHg - MV mean gradient 1.71 mmHg - MV PHT 72.99 msec - MVA (PHT) 3.01 cm2 - MVA (continuity VTI) 2.34 cm2 - Tricuspid Valve Name Value Normal Range TR Vmax 1.82 m/sec - TR peak gradient 13 mmHg - RAP 3 mmHg - RVSP 16 mmHg - IVC diameter 1.82 cm (1.2 - 2.3) Pulmonic Valve/Qp:Qs Name Value Normal Range PV Vmax 1 m/sec - PV VTI 14.44 cm - PV peak gradient 4.04 mmHg - PV mean gradient 1.91 mmHg - RVOT Vmax 0.92 m/sec - RVOT VTI 14.18 cm - RVOT peak gradient 3.38 mmHg - Funez/IV: Voiding Method Condom Catheter IV Catheter Type [Right INT / Saline Lock Forearm] IV Catheter Type [Left Forearm INT / Saline Lock ] Active Medications - Current Medications Current Medications: Generic Name Dose Route Start Last Admin Trade Name Artemq PRN Reason Stop Dose Admin Amlodipine Besylate 10 mg 02/09/20 10:00 02/09/20 11:28 Amlodipine PO 10 mg DAILY JOHANN Administration Atorvastatin Calcium 80 mg 02/09/20 10:00 02/09/20 11:27 Lipitor PO 80 mg DAILY JOHANN Administration Carvedilol 3.125 mg 02/09/20 11:00 02/09/20 22:24 Coreg PO 3.125 mg BID JOHANN Administration Furosemide 20 mg 02/09/20 10:00 02/09/20 11:27 Lasix PO 20 mg QDAY JOHANN Administration Heparin Sodium/Sodium Chloride 25,000 unit in 500 mls @ 23 mls/hr 02/07/20 20:00 02/10/20 00:42 Heparin/ 0.45% Nacl-25,000 Unit/500 Ml IV 1,050 units/hr TITR JOHANN 21 mls/hr Administration Protocol 1,150 UNITS/HR Isosorbide Mononitrate 30 mg 02/09/20 10:00 02/09/20 11:27 Imdur PO 30 mg DAILY JOHANN Administration Nitroglycerin 0.4 mg 02/08/20 10:57 Nitrostat SL .Q5MIN PRN Chest Pain Ticagrelor 90 mg 02/08/20 22:00 02/09/20 22:29 Brilinta PO 90 mg BID JOHANN Administration Nutrition/Malnutrition Assess - Dietary Evaluation Nutrition/Malnutrition Findings: Nutrition Notes Start: 02/09/20 14:18 Freq: Status: Active Protocol: Document 02/09/20 14:18 LM (Rec: 02/09/20 14:33 LM [id number]) Nutrition Notes Need for 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 pt stated his UBW is 175 lb but does not know when he last weighed this. Pt with orbital and muscle wasting. Burn Absent Trauma Absent GI Symptoms None Minimum of two criteria Yes Body Fat Depletion Moderate depletion (severe) Muscle Mass Mild Depletion (non-severe) #1 Nutrition Diagnosis Malnutrition Etiology chronic illness As Evidenced by Signs and Symptoms pt with orbital and muscle wasting Is patient on ventilator? No Is Patient Ambulatory and/or Out of Bed Yes REE-([place]-St. Jeor-ambulatory/OOB) [ 1925.144 NUTR.[id number]] Kcal/Kg value to use for calculation 38 Approximate Energy Requirements Using 2345 kcal/Kg Calculation Used for Recommendations Kcal/kg Additional Notes Protein: (0.8-1.5g/kg) PRIYA and malnutrition Fluid: 1ml/kcal Nutrition Intervention Change Diet Order: continue Add Supplement/Snack (indicate name/kcal Ensure Enlive strawberry BID /protein ) Provides kCal: 700 Provides Protein (gm) 40 Goal #1 Meet at least 80% of energy and protein needs Anticipated Discharge Needs: cardiac with ONS daily Follow-Up By: 02/11/20 Additional Comments F/U for intakes
[2020-02-09] MEDS ORDERED: POTASSIUM CHLORIDE ER 20 MEQ TAB PO ONE (10:00)
--- NOTE | 2020-02-09 10:38 | Progress Note ---
Assessment and Plan Pt states today that he has "10 stents" in his heart and has been told he has a "weak heart" in the past. He is still withdrawn and lethargic, unable to obtain any additional medical history. Agree with present cardiac regimen, including home cardiac medications and heparin gtt. No ACEI/ARB at this time in setting of renal insufficiency. No current clinical evidence of acutely decompensated HF. Will attempt to obtain additional medical history and/or medical records once pt's mental status improves. Will follow. The patient has been seen in conjunction with Dr. Quiroz who agrees with the assessment and plan of care. - Patient Problems (1) Altered mental status Current Visit: Yes Status: Acute Plan to address problem: head CT NAF (2) NSTEMI (non-ST elevation myocardial infarction) Current Visit: Yes Status: Acute Plan to address problem: suspect type II (3) Acute renal failure Current Visit: Yes Status: Acute Qualifiers: Acute renal failure type: unspecified Qualified Code(s): N17.9 - Acute kidney failure, unspecified (4) Atrial fibrillation Current Visit: Yes Status: Acute Qualifiers: Atrial fibrillation type: unspecified Qualified Code(s): I48.91 - Unspecified atrial fibrillation (5) Cardiomyopathy Current Visit: Yes Status: Chronic (6) Hepatitis C Current Visit: Yes Status: Acute (7) Lupus Current Visit: Yes Status: Chronic Subjective Date of service: 02/09/20 Principal diagnosis: AMS Interval history: pt resting in bed, still withdrawn and lethargic. tele reviewed - in AFib with HR 60s, SVR HR 40s noted overnight while asleep. Objective Last Vital Signs Temp 100.1 F H 02/09/20 07:57 Pulse 55 L 02/09/20 07:57 Resp 18 02/09/20 07:57 BP 143/102 02/09/20 07:57 Pulse Ox 99 02/09/20 07:57 - Physical Examination General: No Apparent Distress (withdrawn, lethargic) HEENT: Positive: PERRL Neck: Positive: neck supple, trachea midline Cardiac: Positive: irregularly irregular, S1/S2 Lungs: Positive: Decreased Breath Sounds Neuro: Positive: Other (sleepy, no focal deficits noted) Abdomen: Negative: Tender Skin: Negative: Rash Musculoskeletal: No Pain Extremities: Absent: edema - Labs and Meds Cardiac Enzymes 02/08/20 Range/Units 12:35 Lactate Dehydrogenase 256 H (91-180) units/L CBC 02/09/20 Range/Units 04:25 WBC 8.0 (4.5-11.0) K/mm3 RBC 4.16 (3.65-5.03) M/mm3 Hgb 12.7 (11.8-15.2) gm/dl Hct 38.0 (35.5-45.6) % Plt Count 168 (140-440) K/mm3 Lymph # 1.4 (1.2-5.4) K/mm3 Roberts # 1.0 H (0.0-0.8) K/mm3 Eos # 0.0 (0.0-0.4) K/mm3 Baso # 0.0 (0.0-0.1) K/mm3 Comprehensive Metabolic Panel 02/09/20 Range/Units 04:25 Sodium 136 L (137-145) mmol/L Potassium 3.2 L (3.6-5.0) mmol/L Chloride 102.6 (98-107) mmol/L Carbon Dioxide 19 L (22-30) mmol/L BUN 21 H (9-20) mg/dL Creatinine 0.9 D (0.8-1.5) mg/dL Glucose 86 (75-100) mg/dL Calcium 8.1 L (8.4-10.2) mg/dL - Imaging and Cardiology EKG: report reviewed, image reviewed Echo: report reviewed (EF 25-30%, LV mildly dilated, LA mod dilated, trace AR. ) - Telemetry EKG Rhythm: Atrial Fibrillation
[2020-02-09] MEDS ORDERED: carvediloL 6.25 MG TAB PO SCH (10:40)
[2020-02-09] MEDS: FUROSEMIDE 20 MG TAB PO SCH (11:27)
[2020-02-09] MEDS: TICAGRELOR 90 MG TAB PO SCH ×2 (11:27→22:29)
[2020-02-09] MEDS: K-PHOS NEUTRAL 250 MG TAB PO SCH ×3 (11:27→22:24)
[2020-02-09] MEDS: amLODIPine 10 MG TAB PO SCH (11:28)
[2020-02-09] MEDS: carvediloL 3.125 MG TAB PO SCH ×2 (11:31→22:24)
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
--- NOTE | 2020-02-09 15:07 | Progress Note ---
Assessment and Plan Acute renal failure, prerenal azotemia? NSTEMI Hypertension Afib Altered mental status Hypophospahtemia Hypokalemia -Renal labs reviewed. Serum creatinine normalized to 0.9 today, has good UOP of 1300 ml -On NS@ 100 ml/hr, will D/C given patient's EF of 25-30%, monitor volume status -On Lasix 20 mg po daily -Urine lytes reviewed. No significant proteinuria and no urine eosinophils noted. -Secondary GN/vasculitis work up- in progress -Renal US showed Medical Renal Disease. No hydronephrosis -Hypophospatemia/Hypokalemia- in repletion with K-phos -Avoid nephrotoxic agents -Renally dose medications -Strict I&O monitoring -Obtain daily weights -Continue to monitor Subjective Date of service: 02/09/20 Principal diagnosis: AMS Interval history: Patient seen lying in bed. Patient speaks slowly but answers questions. No family at bedside. Objective - Vital Signs Vital signs: Vital Signs - 12hr 02/09/20 02/09/20 03:41 07:57 Temperature 98.5 F 100.1 F H Pulse Rate 47 L 55 L Respiratory 16 18 Rate Blood Pressure 125/101 143/102 O2 Sat by Pulse 100 99 Oximetry - General Appearance General appearance: chronically ill, fatigue EENT: ATNC, PERRL, hearing intact, vision intact Neck: no JVD, supple Respiratory: Present: Decreased Breath Sounds Cardiology: S1S2 Gastrointestinal: normoactive bowel sounds Integumentary: warm and dry Neurologic: alert and oriented x3 Musculoskeletal: joint swelling - Lab 02/09/20 04:25 02/09/20 04:25 Most recent lab results Calcium 8.1 mg/dL (8.4-10.2) L 02/09/20 04:25 Phosphorus 1.60 mg/dL (2.5-4.5) L 02/09/20 04:25 Urine Creatinine 41.0 mg/dL (0.1-20.0) H 02/08/20 00:05 Urine Creatinine 42.1 mg/dL (0.1-20.0) H 02/08/20 00:05 Urine Sodium 109 mmol/L 02/08/20 00:05 Urine Total Protein 37 mg/dL (5-11.8) H 02/08/20 00:05 Medications & Allergies - Medications Allergies/Adverse Reactions: Allergies No Known Allergies Allergy (Unverified 01/20/20 02:37) Home Medications: Home Medications Medication Instructions Recorded Confirmed Last Taken Type Ibuprofen [Motrin 600 MG tab] 600 mg PO Q8H PRN #20 tablet 01/20/20 Unknown Rx traMADoL [Ultram] 50 mg PO Q6HR PRN #12 tablet 01/20/20 Unknown Rx Aspirin 81 mg PO DAILY 02/08/20 02/08/20 Unknown History Atorvastatin Calcium 80 mg PO DAILY 02/08/20 02/08/20 Unknown History Brilinta 90 mg PO BID 02/08/20 02/08/20 Unknown History Furosemide [Lasix] 20 mg PO QDAY 02/08/20 02/08/20 Unknown History Isosorbide Mononitrate 30 mg PO DAILY 02/08/20 02/08/20 Unknown History Lisinopril 5 mg PO DAILY 02/08/20 02/08/20 Unknown History Nitroglycerin 0.4 mg SUBLINGUAL PRN 02/08/20 02/08/20 Unknown History amLODIPine 10 mg PO DAILY 02/08/20 02/08/20 Unknown History carvediloL 6.25 mg PO BID 02/08/20 02/08/20 Unknown History Active Medications: Generic Name Dose Route Start Last Admin Trade Name Blue PRN Reason Stop Dose Admin Amlodipine Besylate 10 mg 02/09/20 10:00 02/09/20 11:28 Amlodipine PO 10 mg DAILY JOHANN Administration Atorvastatin Calcium 80 mg 02/09/20 10:00 02/09/20 11:27 Lipitor PO 80 mg DAILY JOHANN Administration Carvedilol 3.125 mg 02/09/20 11:00 02/09/20 11:31 Coreg PO 3.125 mg BID JOHANN Administration Furosemide 20 mg 02/09/20 10:00 02/09/20 11:27 Lasix PO 20 mg QDAY JOHANN Administration Heparin Sodium/Sodium Chloride 25,000 unit in 500 mls @ 23 mls/hr 02/07/20 20:00 02/09/20 00:17 Heparin/ 0.45% Nacl-25,000 Unit/500 Ml IV 1,050 units/hr TITR JOHANN 21 mls/hr Administration Protocol 1,150 UNITS/HR Sodium Chloride 1,000 mls @ 100 mls/hr 02/08/20 10:30 02/09/20 11:36 Nacl 0.9% 1000 Ml IV 100 mls/hr DIRECT JOHANN Administration Isosorbide Mononitrate 30 mg 02/09/20 10:00 02/09/20 11:27 Imdur PO 30 mg DAILY JOHANN Administration Nitroglycerin 0.4 mg 02/08/20 10:57 Nitrostat SL .Q5MIN PRN Chest Pain Sodium Phosphate 250 mg 02/09/20 10:00 02/09/20 11:27 K-Phos Neutral PO 02/10/20 08:00 250 mg QID JOHANN Administration Ticagrelor 90 mg 02/08/20 22:00 02/09/20 11:27 Brilinta PO 90 mg BID JOHANN Administration
[2020-02-10] MEDS: HEPARIN/ 0.45% NACL DRIP 25,000 UNIT/500 ML BAG IV SCH ×2 (00:42→23:50)
[2020-02-10 06:03] LABS: Basophils % (Auto) 0.7 % (0.0-1.8); Eosinophils # (Auto) 0.1 K/mm3 (0.0-0.4); Hematocrit 33.7 % (35.5-45.6); Hemoglobin 11.6 gm/dl (11.8-15.2); Lymphocytes # (Auto) 1.3 K/mm3 (1.2-5.4); Lymphocytes % (Auto) 21.5 % (13.4-35.0); Mean Corpuscular HGB Conc 34 % (32-34); Mean Corpuscular Volume 91 fl (84-94); Monocytes # (Auto) 0.5 K/mm3 (0.0-0.8); Monocytes % (Auto) 9.1 % (0.0-7.3); Platelet Count 168 K/mm3 (140-440); Red Blood Count 3.71 M/mm3 (3.65-5.03); Red Cell Distribution Width 14.2 % (13.2-15.2)
[2020-02-10 06:15] LABS: BUN/Creatinine Ratio 25; Blood Urea Nitrogen 20 mg/dL (9-20); Calcium 7.9 mg/dL (8.4-10.2); Hemolysis Index 6
--- NOTE | 2020-02-10 10:09 | Progress Note ---
<GEORGEEILEEN MuluSudha - Last Filed: 02/10/20 16:01> Assessment and Plan Assessment and plan: 59 year old male with HFrEF (25-30%), Lupus, HTN, HI, GERD, COPD, ADD, and seizures presents to the ED after being found down at home on a wellness check with a NSTEMI and PRIYA. Cardiology and nephrology are consulted. CTH was negative for acute abnormality, UDS and UA were negative. - Patient Problems (1) Altered mental status Current Visit: Yes Status: Acute Plan to address problem: - Still having periods of confusion but drastically improved. Reported to be confused overnight - 02/06 CTH: no acute abnormality - Labs unremarkable, NH3 20 - Psych evaluation completed and signed off at this time (2) NSTEMI (non-ST elevation myocardial infarction) Current Visit: Yes Status: Acute Plan to address problem: - Cardiology consulted - TTE shows EF 25-30% with a mildly dilated LV and moderately dilated LA with trace AR. - Plan for left heart cath once renal function improves - Already on BB, statin, systemic anticoagulation; may need to decrease BB dose re bradycardia (3) Atrial fibrillation Current Visit: Yes Status: Acute Qualifiers: Atrial fibrillation type: unspecified Qualified Code(s): I48.91 - Unspecified atrial fibrillation Plan to address problem: - Rate control with BB - On Heparin gtt, will ask cardio if okay to transition over to PO anticoagulation - On Telemetry - Monitor BP per protocol (4) Acute renal failure Current Visit: Yes Status: Acute Qualifiers: Acute renal failure type: unspecified Qualified Code(s): N17.9 - Acute kidney failure, unspecified Plan to address problem: -Nephrology consult - Renal US: both kidneys demonstrate increased parenchymal echotexture consistent with medical renal disease. No focal renal lesion or hydronephrosis - Urine lytes ordered - Trend BMP - Monitor I&O, daily weight - Avoid nephrotoxic medications (5) Hypokalemia Current Visit: Yes Status: Acute Plan to address problem: - Replete as needed (6) Lupus Current Visit: Yes Status: Chronic (7) DVT prophylaxis Current Visit: Yes Status: Acute Plan to address problem: - On heparin gtt - SCDs while in bed History Interval history: HD 3: 59 year old male with HFrEF (25-30%), Lupus, HTN, HI, GERD, COPD, ADD, and seizures presents to the ED after being found down at home on a wellness check with a NSTEMI and PRIYA. Cardiology and nephrology are consulted. CTH was negative for acute abnormality, UDS and UA were negative. Still having periods of confusion but much more in the present today and able to hold a conversation. Per nursing he attempted to call 911 last night. Nursing notes reviewed. HD 2: Patient had a 7 beat Vtach at 2200.Electrolytes repleted (K and Phos). . Hospitalist Physical - Constitutional Vitals: Temp Pulse Resp BP Pulse Ox 98.0 F 48 L 20 132/97 100 02/10/20 03:55 02/10/20 03:55 02/10/20 03:55 02/10/20 03:55 02/10/20 03:55 General appearance: Present: no acute distress HEART Score - HEART Score Troponin: Troponin T 0.045 ng/mL (0.00-0.029) H D 02/08/20 06:55 Results - Labs CBC & Chem 7: 02/10/20 05:43 02/10/20 05:43 Labs: Laboratory Last Values WBC 5.9 K/mm3 (4.5-11.0) 02/10/20 05:43 RBC 3.71 M/mm3 (3.65-5.03) 02/10/20 05:43 Hgb 11.6 gm/dl (11.8-15.2) L 02/10/20 05:43 Hct 33.7 % (35.5-45.6) L 02/10/20 05:43 MCV 91 fl (84-94) 02/10/20 05:43 MCH 31 pg (28-32) 02/10/20 05:43 MCHC 34 % (32-34) 02/10/20 05:43 RDW 14.2 % (13.2-15.2) 02/10/20 05:43 Plt Count 168 K/mm3 (140-440) 02/10/20 05:43 Lymph % (Auto) 21.5 % (13.4-35.0) 02/10/20 05:43 Hall % (Auto) 9.1 % (0.0-7.3) H 02/10/20 05:43 Eos % (Auto) 1.0 % (0.0-4.3) 02/10/20 05:43 Baso % (Auto) 0.7 % (0.0-1.8) 02/10/20 05:43 Lymph # 1.3 K/mm3 (1.2-5.4) 02/10/20 05:43 Hall # 0.5 K/mm3 (0.0-0.8) 02/10/20 05:43 Eos # 0.1 K/mm3 (0.0-0.4) 02/10/20 05:43 Baso # 0.0 K/mm3 (0.0-0.1) 02/10/20 05:43 Seg Neutrophils % 67.7 % (40.0-70.0) 02/10/20 05:43 Seg Neutrophils # 4.0 K/mm3 (1.8-7.7) 02/10/20 05:43 PT 12.7 Sec. (12.2-14.9) 02/07/20 17:22 INR 0.97 (0.87-1.13) 02/07/20 17:22 APTT 27.0 Sec. (24.2-36.6) 02/07/20 17:22 Heparin Anti-Xa Level 0.59 U.I./ml (0.3-0.7) 02/09/20 13:53 Sodium 132 mmol/L (137-145) L 02/10/20 05:43 Potassium 3.3 mmol/L (3.6-5.0) L 02/10/20 05:43 Chloride 101.8 mmol/L (98-107) 02/10/20 05:43 Carbon Dioxide 19 mmol/L (22-30) L 02/10/20 05:43 Anion Gap 15 mmol/L 02/10/20 05:43 BUN 20 mg/dL (9-20) 02/10/20 05:43 Creatinine 0.8 mg/dL (0.8-1.5) 02/10/20 05:43 Estimated GFR > 60 ml/min 02/10/20 05:43 BUN/Creatinine Ratio 25 % 02/10/20 05:43 Glucose 92 mg/dL (75-100) 02/10/20 05:43 Calcium 7.9 mg/dL (8.4-10.2) L 02/10/20 05:43 Phosphorus 2.60 mg/dL (2.5-4.5) D 02/10/20 05:43 Total Bilirubin 0.60 mg/dL (0.1-1.2) 02/07/20 17:22 AST 53 units/L (5-40) H 02/07/20 17:22 ALT 33 units/L (7-56) 02/07/20 17:22 Alkaline Phosphatase 119 units/L (35-129) 02/07/20 17:22 Ammonia 20.0 umol/L (25-60) L 02/07/20 17:22 Lactate Dehydrogenase 256 units/L (91-180) H 02/08/20 12:35 Total Creatine Kinase 484 units/L (55-170) H 02/08/20 12:35 CK-MB (CK-2) 6.4 ng/mL (0.0-4.0) H 02/08/20 06:55 CK-MB (CK-2) Rel Index 1.1 (0-4) 02/08/20 06:55 Troponin T 0.045 ng/mL (0.00-0.029) H D 02/08/20 06:55 Total Protein 7.3 g/dL (6.3-8.2) 02/07/20 17:22 Albumin 3.4 g/dL (3.9-5) L 02/07/20 17:22 Albumin/Globulin Ratio 0.9 % 02/07/20 17:22 TSH 0.550 mlU/mL (0.270-4.200) 02/07/20 17:22 Urine Color Yellow (Yellow) 02/08/20 04:30 Urine Turbidity Clear (Clear) 02/08/20 04:30 Urine pH 7.0 (5.0-7.0) 02/08/20 04:30 Ur Specific Stephens 1.012 (1.003-1.030) 02/08/20 04:30 Urine Protein 100 mg/dl mg/dL (Negative) 02/08/20 04:30 Urine Glucose (UA) Neg mg/dL (Negative) 02/08/20 04:30 Urine Ketones Tr mg/dL (Negative) 02/08/20 04:30 Urine Blood Mod (Negative) 02/08/20 04:30 Urine Nitrite Neg (Negative) 02/08/20 04:30 Urine Bilirubin Neg (Negative) 02/08/20 04:30 Urine Urobilinogen 4.0 mg/dL (<2.0) 02/08/20 04:30 Ur Leukocyte Esterase Neg (Negative) 02/08/20 04:30 Urine WBC (Auto) 1.0 /HPF (0.0-6.0) 02/08/20 04:30 Urine RBC (Auto) 5.0 /HPF (0.0-6.0) 02/08/20 04:30 Urine Eosinophils None seen (None Seen) 02/08/20 00:05 Urine Creatinine 41.0 mg/dL (0.1-20.0) H 02/08/20 00:05 Urine Creatinine 42.1 mg/dL (0.1-20.0) H 02/08/20 00:05 Protein/Creatinin Ratio 0.90 02/08/20 00:05 Urine Sodium 109 mmol/L 02/08/20 00:05 Urine Urea Nitrogen 626 02/08/20 00:05 Urine Total Protein 37 mg/dL (5-11.8) H 02/08/20 00:05 Urine Opiates Screen Presumptive negative 02/08/20 04:30 Urine Methadone Screen Presumptive negative 02/08/20 04:30 Ur Barbiturates Screen Presumptive negative 02/08/20 04:30 Ur Phencyclidine Scrn Presumptive negative 02/08/20 04:30 Ur Amphetamines Screen Presumptive negative 02/08/20 04:30 U Benzodiazepines Scrn Presumptive negative 02/08/20 04:30 Urine Cocaine Screen Presumptive negative 02/08/20 04:30 U Marijuana (THC) Screen Presumptive positive 02/08/20 04:30 Drugs of Abuse Note Disclamer 02/08/20 04:30 Plasma/Serum Alcohol < 0.01 % (0-0.07) 02/07/20 17:22 Hep Bs Antigen Non-reactive (Negative) 02/08/20 12:35 Hepatitis C Antibody Reactive (NonReactive) A 02/08/20 12:35 Schistocytes Smear Rare 02/08/20 12:35 Microbiology: Microbiology 02/09/20 19:17 Peripheral/Venous Blood Culture - Preliminary Culture in Progress 02/09/20 19:17 Peripheral/Venous Blood Culture - Preliminary Culture in Progress - Diagnostic Impressions Diagnostic Impressions: Echocardiogram 02/08/20 06:00 Transthoracic Echocardiogram Indication: Afib and Elevated Tropnin BP: 156/111 HR: 83 Conclusions *The left ventricular chamber size is mildly dilated. *There is diffuse global hypokinesis of the left ventricle. *The estimated ejection fraction is 25-30%. *Global left ventricular systolic function is moderate to severely decreased. *The left ventricular diastolic filling pattern is consistent with elevated left ventricular end-diastolic pressure. *The left atrium is moderately dilated. *The right ventricular cavity size is normal. *Moderate aortic leaflet calcification is visualized. *There is trace of aortic regurgitation. Findings Procedure Info: The study was technically limited due to the patient's inability to lay in the left lateral decubitus position. Patient has altered mental status. Patient unable to consent to optison. Left Ventricle: The left ventricular chamber size is mildly dilated. There is diffuse global hypokinesis of the left ventricle. Global left ventricular systolic function is moderate to severely decreased. There is "smoke" noted in LV,suggesting low cardiac output. The estimated ejection fraction is 25-30%. Abnormal left ventricular diastolic function is observed. The left ventricular diastolic filling pattern is consistent with elevated left ventricular end-diastolic pressure. Left Atrium: The left atrium is moderately dilated. Right Ventricle: The right ventricular cavity size is normal. Right Atrium: The right atrial cavity size is normal. Aortic Valve: The aortic valve is trileaflet. Moderate aortic leaflet calcification is visualized. There is trace of aortic regurgitation. Mitral Valve: The mitral valve leaflets are mildly thickened. There is mild mitral regurgitation. Tricuspid Valve: The tricuspid valve leaflets are normal. There is trace tricuspid regurgitation. The right ventricular systolic pressure is calculated at 16 mmHg. Pulmonic Valve: The pulmonic valve is not well visualized. There is trace pulmonic regurgitation. Pericardium: There is no pericardial effusion. Aorta: The aorta appears normal. Venous: The inferior vena cava appears normal in size. Measurements Chambers 2D Name Value Normal Range IVSd (2D) 0.99 cm (0.6 - 1.1) LVPWd (2D) 1.12 cm (0.6 - 1.1) LVIDd (2D) 5.32 cm (3.7 - 5.6) LVIDs (2D) 4.92 cm (2 - 3.8) LV FS (2D) 7.6 % - EF Teichholz (2D) 16.74 % - Ao root diameter (2D) 2.96 cm (2 - 3.7) Volumes/Mass Name Value Normal Range LA ESV SP 4CH (A/L) 96.01 ml - LA ESV SP 2CH (A/L) 132.95 ml - LA ESV BP (A/L) 113.42 ml - LA ESV BP (A/L) index 56.99 ml/m2 - LA ESV SP 4CH (MOD) 89.34 ml - LA ESV SP 2CH (MOD) 131.06 ml - LA ESV BP (MOD) 108.03 ml - LA ESV BP (MOD) index 54.29 ml/m2 - LV EDV SP 4CH (MOD) 194.84 ml - LV ESV SP 4CH (MOD) 146.24 ml - EF SP 4CH (MOD) 24.94 % - LV EDV SP 2CH (MOD) 210.28 ml - LV ESV SP 2CH (MOD) 174.07 ml - EF SP 2CH (MOD) 17.22 % - LV EDV BP 208.25 ml - LV ESV BP 165.16 ml - BP EF (MOD) 20.69 % - Diastolic/Systolic Function Name Value Normal Range MV E-wave Vmax 1.23 m/sec - MV deceleration time 152.48 msec - MV A-wave Vmax 0.82 m/sec - MV E:A ratio 1.51 ratio - Aortic Valve Name Value Normal Range AV Vmax 1.31 m/sec - AV VTI 19.56 cm - AV peak gradient 6.89 mmHg - AV mean gradient 3.88 mmHg - LVOT diameter 2.12 cm - LVOT Vmax 1.09 m/sec - LVOT VTI 14.03 cm - LVOT peak gradient 4.72 mmHg - LVOT mean gradient 2.13 mmHg - SV LVOT 49.69 ml - ANGELO (continuity Vmax) 2.93 cm2 - ANGELO (continuity VTI) 2.54 cm2 - Ascending Ao 3.3 cm - Mitral Valve Name Value Normal Range MV Vmax 1.29 m/sec - MV VTI 21.22 cm - MV peak gradient 6.65 mmHg - MV mean gradient 1.71 mmHg - MV PHT 72.99 msec - MVA (PHT) 3.01 cm2 - MVA (continuity VTI) 2.34 cm2 - Tricuspid Valve Name Value Normal Range TR Vmax 1.82 m/sec - TR peak gradient 13 mmHg - RAP 3 mmHg - RVSP 16 mmHg - IVC diameter 1.82 cm (1.2 - 2.3) Pulmonic Valve/Qp:Qs Name Value Normal Range PV Vmax 1 m/sec - PV VTI 14.44 cm - PV peak gradient 4.04 mmHg - PV mean gradient 1.91 mmHg - RVOT Vmax 0.92 m/sec - RVOT VTI 14.18 cm - RVOT peak gradient 3.38 mmHg - Funez/IV: Voiding Method Condom Catheter IV Catheter Type [Right INT / Saline Lock Forearm] IV Catheter Type [Left Forearm INT / Saline Lock ] Active Medications - Current Medications Current Medications: Generic Name Dose Route Start Last Admin Trade Name Freq PRN Reason Stop Dose Admin Amlodipine Besylate 10 mg 02/09/20 10:00 02/09/20 11:28 Amlodipine PO 10 mg DAILY JOHANN Administration Atorvastatin Calcium 80 mg 02/09/20 10:00 02/09/20 11:27 Lipitor PO 80 mg DAILY JOHANN Administration Carvedilol 3.125 mg 02/09/20 11:00 02/09/20 22:24 Coreg PO 3.125 mg BID JOHANN Administration Furosemide 20 mg 02/09/20 10:00 02/09/20 11:27 Lasix PO 20 mg QDAY JOHANN Administration Heparin Sodium/Sodium Chloride 25,000 unit in 500 mls @ 23 mls/hr 02/07/20 20:00 02/10/20 00:42 Heparin/ 0.45% Nacl-25,000 Unit/500 Ml IV 1,050 units/hr TITR JOHANN 21 mls/hr Administration Protocol 1,150 UNITS/HR Isosorbide Mononitrate 30 mg 02/09/20 10:00 02/09/20 11:27 Imdur PO 30 mg DAILY JOHANN Administration Nitroglycerin 0.4 mg 02/08/20 10:57 Nitrostat SL .Q5MIN PRN Chest Pain Ticagrelor 90 mg 02/08/20 22:00 02/09/20 22:29 Brilinta PO 90 mg BID JOHANN Administration Nutrition/Malnutrition Assess - Dietary Evaluation Nutrition/Malnutrition Findings: Nutrition Notes Start: 02/09/20 14:18 Freq: Status: Active Protocol: Document 02/09/20 14:18 LM (Rec: 02/09/20 14:33 LM [id number]) Nutrition Notes Need for 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 Pt stated he ate his breakfast this AM and was eating well [employer]. pt stated his UBW is 175 lb but does not know when he last weighed this. Pt with orbital and muscle wasting. Burn Absent Trauma Absent GI Symptoms None Minimum of two criteria Yes Body Fat Depletion Moderate depletion (severe) Muscle Mass Mild Depletion (non-severe) #1 Nutrition Diagnosis Malnutrition Etiology chronic illness As Evidenced by Signs and Symptoms pt with orbital and muscle wasting Is patient on ventilator? No Is Patient Ambulatory and/or Out of Bed Yes REE-([place]-St. Jeor-ambulatory/OOB) [ 1925.144 [id number]] Kcal/Kg value to use for calculation 38 Approximate Energy Requirements Using 2345 kcal/Kg Calculation Used for Recommendations Kcal/kg Additional Notes Protein: (0.8-1.5g/kg) PRIYA and malnutrition Fluid: 1ml/kcal Nutrition Intervention Change Diet Order: continue Add Supplement/Snack (indicate name/kcal Ensure Enlive strawberry BID /protein ) Provides kCal: 700 Provides Protein (gm) 40 Goal #1 Meet at least 80% of energy and protein needs Anticipated Discharge Needs: cardiac with ONS daily Follow-Up By: 02/11/20 Additional Comments F/U for intakes <YONATAN CARTER - Last Filed: 02/10/20 18:49> Assessment and Plan Assessment and plan: I saw and evaluated the patient. I agree with the findings and the plan of care as documented in the Nurse Practitioner's~note, with the following corrections and additions. Replace K, Monitor renal improvement. Await final cardiology plan Hospitalist Physical - Constitutional Vitals: Temp Pulse Resp BP Pulse Ox 98.0 F 75 20 132/97 96 07/16/20 03:55 02/10/20 14:00 02/10/20 03:55 02/10/20 03:55 02/10/20 10:00 HEART Score - HEART Score Troponin: Troponin T 0.045 ng/mL (0.00-0.029) H D 02/08/20 06:55 Results - Labs CBC & Chem 7: 02/10/20 05:43 02/10/20 05:43 Labs: Laboratory Last Values WBC 5.9 K/mm3 (4.5-11.0) 02/10/20 05:43 RBC 3.71 M/mm3 (3.65-5.03) 02/10/20 05:43 Hgb 11.6 gm/dl (11.8-15.2) L 02/10/20 05:43 Hct 33.7 % (35.5-45.6) L 02/10/20 05:43 MCV 91 fl (84-94) 02/10/20 05:43 MCH 31 pg (28-32) 02/10/20 05:43 MCHC 34 % (32-34) 02/10/20 05:43 RDW 14.2 % (13.2-15.2) 02/10/20 05:43 Plt Count 168 K/mm3 (140-440) 02/10/20 05:43 Lymph % (Auto) 21.5 % (13.4-35.0) 02/10/20 05:43 Hall % (Auto) 9.1 % (0.0-7.3) H 02/10/20 05:43 Eos % (Auto) 1.0 % (0.0-4.3) 02/10/20 05:43 Baso % (Auto) 0.7 % (0.0-1.8) 02/10/20 05:43 Lymph # 1.3 K/mm3 (1.2-5.4) 02/10/20 05:43 Hall # 0.5 K/mm3 (0.0-0.8) 02/10/20 05:43 Eos # 0.1 K/mm3 (0.0-0.4) 02/10/20 05:43 Baso # 0.0 K/mm3 (0.0-0.1) 02/10/20 05:43 Seg Neutrophils % 67.7 % (40.0-70.0) 02/10/20 05:43 Seg Neutrophils # 4.0 K/mm3 (1.8-7.7) 02/10/20 05:43 PT 12.7 Sec. (12.2-14.9) 02/07/20 17:22 INR 0.97 (0.87-1.13) 02/07/20 17:22 APTT 27.0 Sec. (24.2-36.6) 02/07/20 17:22 Heparin Anti-Xa Level 0.71 U.I./ml (0.3-0.7) H 02/10/20 13:41 Sodium 132 mmol/L (137-145) L 02/10/20 05:43 Potassium 3.3 mmol/L (3.6-5.0) L 02/10/20 05:43 Chloride 101.8 mmol/L (98-107) 02/10/20 05:43 Carbon Dioxide 19 mmol/L (22-30) L 02/10/20 05:43 Anion Gap 15 mmol/L 02/10/20 05:43 BUN 20 mg/dL (9-20) 02/10/20 05:43 Creatinine 0.8 mg/dL (0.8-1.5) 02/10/20 05:43 Estimated GFR > 60 ml/min 02/10/20 05:43 BUN/Creatinine Ratio 25 % 02/10/20 05:43 Glucose 92 mg/dL (75-100) 02/10/20 05:43 Calcium 7.9 mg/dL (8.4-10.2) L 02/10/20 05:43 Phosphorus 2.60 mg/dL (2.5-4.5) D 02/10/20 05:43 Total Bilirubin 0.60 mg/dL (0.1-1.2) 02/07/20 17:22 AST 53 units/L (5-40) H 02/07/20 17:22 ALT 33 units/L (7-56) 02/07/20 17:22 Alkaline Phosphatase 119 units/L (35-129) 02/07/20 17:22 Ammonia 20.0 umol/L (25-60) L 02/07/20 17:22 Lactate Dehydrogenase 256 units/L (91-180) H 02/08/20 12:35 Total Creatine Kinase 484 units/L (55-170) H 02/08/20 12:35 CK-MB (CK-2) 6.4 ng/mL (0.0-4.0) H 02/08/20 06:55 CK-MB (CK-2) Rel Index 1.1 (0-4) 02/08/20 06:55 Troponin T 0.045 ng/mL (0.00-0.029) H D 02/08/20 06:55 Total Protein 7.3 g/dL (6.3-8.2) 02/07/20 17:22 Albumin 3.4 g/dL (3.9-5) L 02/07/20 17:22 Albumin/Globulin Ratio 0.9 % 02/07/20 17:22 TSH 0.550 mlU/mL (0.270-4.200) 02/07/20 17:22 Urine Color Yellow (Yellow) 02/08/20 04:30 Urine Turbidity Clear (Clear) 02/08/20 04:30 Urine pH 7.0 (5.0-7.0) 02/08/20 04:30 Ur Specific Stephens 1.012 (1.003-1.030) 02/08/20 04:30 Urine Protein 100 mg/dl mg/dL (Negative) 02/08/20 04:30 Urine Glucose (UA) Neg mg/dL (Negative) 02/08/20 04:30 Urine Ketones Tr mg/dL (Negative) 02/08/20 04:30 Urine Blood Mod (Negative) 02/08/20 04:30 Urine Nitrite Neg (Negative) 02/08/20 04:30 Urine Bilirubin Neg (Negative) 02/08/20 04:30 Urine Urobilinogen 4.0 mg/dL (<2.0) 02/08/20 04:30 Ur Leukocyte Esterase Neg (Negative) 02/08/20 04:30 Urine WBC (Auto) 1.0 /HPF (0.0-6.0) 02/08/20 04:30 Urine RBC (Auto) 5.0 /HPF (0.0-6.0) 02/08/20 04:30 Urine Eosinophils None seen (None Seen) 02/08/20 00:05 Urine Creatinine 41.0 mg/dL (0.1-20.0) H 02/08/20 00:05 Urine Creatinine 42.1 mg/dL (0.1-20.0) H 02/08/20 00:05 Protein/Creatinin Ratio 0.90 02/08/20 00:05 Urine Sodium 109 mmol/L 02/08/20 00:05 Urine Urea Nitrogen 626 02/08/20 00:05 Urine Total Protein 37 mg/dL (5-11.8) H 02/08/20 00:05 Urine Opiates Screen Presumptive negative 02/08/20 04:30 Urine Methadone Screen Presumptive negative 02/08/20 04:30 Ur Barbiturates Screen Presumptive negative 02/08/20 04:30 Ur Phencyclidine Scrn Presumptive negative 02/08/20 04:30 Ur Amphetamines Screen Presumptive negative 02/08/20 04:30 U Benzodiazepines Scrn Presumptive negative 02/08/20 04:30 Urine Cocaine Screen Presumptive negative 02/08/20 04:30 U Marijuana (THC) Screen Presumptive positive 02/08/20 04:30 Drugs of Abuse Note Disclamer 02/08/20 04:30 Plasma/Serum Alcohol < 0.01 % (0-0.07) 02/07/20 17:22 Hep Bs Antigen Non-reactive (Negative) 02/08/20 12:35 Hepatitis C Antibody Reactive (NonReactive) A 02/08/20 12:35 Schistocytes Smear Rare 02/08/20 12:35 Microbiology: Microbiology 02/09/20 19:17 Peripheral/Venous Blood Culture - Preliminary Culture in Progress 02/09/20 19:17 Peripheral/Venous Blood Culture - Preliminary Culture in Progress - Diagnostic Impressions Diagnostic Impressions: Echocardiogram 02/08/20 06:00 Transthoracic Echocardiogram Indication: Afib and Elevated Tropnin BP: 156/111 HR: 83 Conclusions *The left ventricular chamber size is mildly dilated. *There is diffuse global hypokinesis of the left ventricle. *The estimated ejection fraction is 25-30%. *Global left ventricular systolic function is moderate to severely decreased. *The left ventricular diastolic filling pattern is consistent with elevated left ventricular end-diastolic pressure. *The left atrium is moderately dilated. *The right ventricular cavity size is normal. *Moderate aortic leaflet calcification is visualized. *There is trace of aortic regurgitation. Findings Procedure Info: The study was technically limited due to the patient's inability to lay in the left lateral decubitus position. Patient has altered mental status. Patient unable to consent to optison. Left Ventricle: The left ventricular chamber size is mildly dilated. There is diffuse global hypokinesis of the left ventricle. Global left ventricular systolic function is moderate to severely decreased. There is "smoke" noted in LV,suggesting low cardiac output. The estimated ejection fraction is 25-30%. Abnormal left ventricular diastolic function is observed. The left ventricular diastolic filling pattern is consistent with elevated left ventricular end-diastolic pressure. Left Atrium: The left atrium is moderately dilated. Right Ventricle: The right ventricular cavity size is normal. Right Atrium: The right atrial cavity size is normal. Aortic Valve: The aortic valve is trileaflet. Moderate aortic leaflet calcification is visualized. There is trace of aortic regurgitation. Mitral Valve: The mitral valve leaflets are mildly thickened. There is mild mitral regurgitation. Tricuspid Valve: The tricuspid valve leaflets are normal. There is trace tricuspid regurgitation. The right ventricular systolic pressure is calculated at 16 mmHg. Pulmonic Valve: The pulmonic valve is not well visualized. There is trace pulmonic regurgitation. Pericardium: There is no pericardial effusion. Aorta: The aorta appears normal. Venous: The inferior vena cava appears normal in size. Measurements Chambers 2D Name Value Normal Range IVSd (2D) 0.99 cm (0.6 - 1.1) LVPWd (2D) 1.12 cm (0.6 - 1.1) LVIDd (2D) 5.32 cm (3.7 - 5.6) LVIDs (2D) 4.92 cm (2 - 3.8) LV FS (2D) 7.6 % - EF Teichholz (2D) 16.74 % - Ao root diameter (2D) 2.96 cm (2 - 3.7) Volumes/Mass Name Value Normal Range LA ESV SP 4CH (A/L) 96.01 ml - LA ESV SP 2CH (A/L) 132.95 ml - LA ESV BP (A/L) 113.42 ml - LA ESV BP (A/L) index 56.99 ml/m2 - LA ESV SP 4CH (MOD) 89.34 ml - LA ESV SP 2CH (MOD) 131.06 ml - LA ESV BP (MOD) 108.03 ml - LA ESV BP (MOD) index 54.29 ml/m2 - LV EDV SP 4CH (MOD) 194.84 ml - LV ESV SP 4CH (MOD) 146.24 ml - EF SP 4CH (MOD) 24.94 % - LV EDV SP 2CH (MOD) 210.28 ml - LV ESV SP 2CH (MOD) 174.07 ml - EF SP 2CH (MOD) 17.22 % - LV EDV BP 208.25 ml - LV ESV BP 165.16 ml - BP EF (MOD) 20.69 % - Diastolic/Systolic Function Name Value Normal Range MV E-wave Vmax 1.23 m/sec - MV deceleration time 152.48 msec - MV A-wave Vmax 0.82 m/sec - MV E:A ratio 1.51 ratio - Aortic Valve Name Value Normal Range AV Vmax 1.31 m/sec - AV VTI 19.56 cm - AV peak gradient 6.89 mmHg - AV mean gradient 3.88 mmHg - LVOT diameter 2.12 cm - LVOT Vmax 1.09 m/sec - LVOT VTI 14.03 cm - LVOT peak gradient 4.72 mmHg - LVOT mean gradient 2.13 mmHg - SV LVOT 49.69 ml - ANGELO (continuity Vmax) 2.93 cm2 - ANGELO (continuity VTI) 2.54 cm2 - Ascending Ao 3.3 cm - Mitral Valve Name Value Normal Range MV Vmax 1.29 m/sec - MV VTI 21.22 cm - MV peak gradient 6.65 mmHg - MV mean gradient 1.71 mmHg - MV PHT 72.99 msec - MVA (PHT) 3.01 cm2 - MVA (continuity VTI) 2.34 cm2 - Tricuspid Valve Name Value Normal Range TR Vmax 1.82 m/sec - TR peak gradient 13 mmHg - RAP 3 mmHg - RVSP 16 mmHg - IVC diameter 1.82 cm (1.2 - 2.3) Pulmonic Valve/Qp:Qs Name Value Normal Range PV Vmax 1 m/sec - PV VTI 14.44 cm - PV peak gradient 4.04 mmHg - PV mean gradient 1.91 mmHg - RVOT Vmax 0.92 m/sec - RVOT VTI 14.18 cm - RVOT peak gradient 3.38 mmHg - Funez/IV: Voiding Method Condom Catheter IV Catheter Type [Right INT / Saline Lock Forearm] IV Catheter Type [Left Forearm INT / Saline Lock ] Active Medications - Current Medications Current Medications: Generic Name Dose Route Start Last Admin Trade Name Freq PRN Reason Stop Dose Admin Amlodipine Besylate 10 mg 02/09/20 10:00 02/10/20 12:54 Amlodipine PO 10 mg DAILY JOHANN Administration Atorvastatin Calcium 80 mg 02/09/20 10:00 02/10/20 12:57 Lipitor PO 80 mg DAILY JOHANN Administration Carvedilol 3.125 mg 02/09/20 11:00 02/10/20 12:55 Coreg PO 3.125 mg BID JOHANN Administration Furosemide 20 mg 02/09/20 10:00 02/10/20 12:55 Lasix PO 20 mg QDAY JOHANN Administration Heparin Sodium/Sodium Chloride 25,000 unit in 500 mls @ 23 mls/hr 02/07/20 20:00 02/10/20 16:00 Heparin/ 0.45% Nacl-25,000 Unit/500 Ml IV 1,000 units/hr TITR JOHANN 20 mls/hr Titration Protocol 1,150 UNITS/HR Isosorbide Mononitrate 30 mg 02/09/20 10:00 02/10/20 12:54 Imdur PO 30 mg DAILY JOHANN Administration Nitroglycerin 0.4 mg 02/08/20 10:57 Nitrostat SL .Q5MIN PRN Chest Pain Ticagrelor 90 mg 02/08/20 22:00 02/10/20 12:54 Brilinta PO 90 mg BID JOHANN Administration Nutrition/Malnutrition Assess - Dietary Evaluation Nutrition/Malnutrition Findings: Nutrition Notes Start: 02/09/20 14:18 Freq: Status: Active Protocol: Document 02/09/20 14:18 LM (Rec: 02/09/20 14:33 LM [id number]) Nutrition Notes Need for 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 Pt stated he ate his breakfast this AM and was eating well [employer]. pt stated his UBW is 175 lb but does not know when he last weighed this. Pt with orbital and muscle wasting. Burn Absent Trauma Absent GI Symptoms None Minimum of two criteria Yes Body Fat Depletion Moderate depletion (severe) Muscle Mass Mild Depletion (non-severe) #1 Nutrition Diagnosis Malnutrition Etiology chronic illness As Evidenced by Signs and Symptoms pt with orbital and muscle wasting Is patient on ventilator? No Is Patient Ambulatory and/or Out of Bed Yes REE-([place]-St. Jeor-ambulatory/OOB) [ 1925.144 NUTR.[id number]] Kcal/Kg value to use for calculation 38 Approximate Energy Requirements Using 2345 kcal/Kg Calculation Used for Recommendations Kcal/kg Additional Notes Protein: (0.8-1.5g/kg) PRIYA and malnutrition Fluid: 1ml/kcal Nutrition Intervention Change Diet Order: continue Add Supplement/Snack (indicate name/kcal Ensure Enlive strawberry BID /protein ) Provides kCal: 700 Provides Protein (gm) 40 Goal #1 Meet at least 80% of energy and protein needs Anticipated Discharge Needs: cardiac with ONS daily Follow-Up By: 02/11/20 Additional Comments F/U for intakes
[2020-02-10] MEDS ORDERED: POTASSIUM CHLORIDE ER 20 MEQ TAB PO ONE (11:00)
--- NOTE | 2020-02-10 11:09 | Progress Note ---
Assessment and Plan Pt states today that he has "10 stents" in his heart and has been told he has a "weak heart" in the past. He is still withdrawn and lethargic, unable to obtain any additional medical history. Agree with present cardiac regimen, including home cardiac medications and heparin gtt. No ACEI/ARB at this time in setting of renal insufficiency. No current clinical evidence of acutely decompensated HF. Will attempt to obtain additional medical history and/or medical records once pt's mental status improves. Psych w/u in progress. Will follow. The patient has been seen in conjunction with Dr. Quiroz who agrees with the assessment and plan of care. - Patient Problems (1) Altered mental status Current Visit: Yes Status: Acute Plan to address problem: head CT NAF (2) NSTEMI (non-ST elevation myocardial infarction) Current Visit: Yes Status: Acute Plan to address problem: suspect type II (3) Acute renal failure Current Visit: Yes Status: Acute Qualifiers: Acute renal failure type: unspecified Qualified Code(s): N17.9 - Acute kidney failure, unspecified (4) Atrial fibrillation Current Visit: Yes Status: Acute Qualifiers: Atrial fibrillation type: unspecified Qualified Code(s): I48.91 - Unspecified atrial fibrillation (5) Cardiomyopathy Current Visit: Yes Status: Chronic (6) Hepatitis C Current Visit: Yes Status: Acute (7) Lupus Current Visit: Yes Status: Chronic Subjective Date of service: 02/10/20 Principal diagnosis: AMS Interval history: pt resting in bed, still withdrawn and lethargic. tele reviewed - in AFib with HR 80s with 10 and 16 beat runs NSVT noted overnight. Objective Last Vital Signs Temp 98.0 F 02/10/20 03:55 Pulse 48 L 02/10/20 03:55 Resp 20 02/10/20 03:55 BP 132/97 02/10/20 03:55 Pulse Ox 100 02/10/20 03:55 - Physical Examination General: No Apparent Distress (withdrawn, lethargic) HEENT: Positive: PERRL Neck: Positive: neck supple, trachea midline Cardiac: Positive: irregularly irregular, S1/S2 Lungs: Positive: Decreased Breath Sounds Neuro: Positive: Other (sleepy, no focal deficits noted) Abdomen: Negative: Tender Skin: Negative: Rash Musculoskeletal: No Pain Extremities: Absent: edema - Labs and Meds CBC 02/10/20 Range/Units 05:43 WBC 5.9 (4.5-11.0) K/mm3 RBC 3.71 (3.65-5.03) M/mm3 Hgb 11.6 L (11.8-15.2) gm/dl Hct 33.7 L (35.5-45.6) % Plt Count 168 (140-440) K/mm3 Lymph # 1.3 (1.2-5.4) K/mm3 [place] # 0.5 (0.0-0.8) K/mm3 Eos # 0.1 (0.0-0.4) K/mm3 Baso # 0.0 (0.0-0.1) K/mm3 Comprehensive Metabolic Panel 02/10/20 Range/Units 05:43 Sodium 132 L (137-145) mmol/L Potassium 3.3 L (3.6-5.0) mmol/L Chloride 101.8 (98-107) mmol/L Carbon Dioxide 19 L (22-30) mmol/L BUN 20 (9-20) mg/dL Creatinine 0.8 (0.8-1.5) mg/dL Glucose 92 (75-100) mg/dL Calcium 7.9 L (8.4-10.2) mg/dL - Imaging and Cardiology EKG: report reviewed, image reviewed Echo: report reviewed (EF 25-30%, LV mildly dilated, LA mod dilated, trace AR. )
[2020-02-10] MEDS: TICAGRELOR 90 MG TAB PO SCH ×2 (12:54→22:44)
[2020-02-10] MEDS: amLODIPine 10 MG TAB PO SCH (12:54)
[2020-02-10] MEDS: carvediloL 3.125 MG TAB PO SCH ×2 (12:55→22:44)
[2020-02-10] MEDS: FUROSEMIDE 20 MG TAB PO SCH (12:55)
--- NOTE | 2020-02-10 13:16 | Progress Note ---
Assessment and Plan Acute renal failure, prerenal azotemia? NSTEMI Hypertension Afib Altered mental status Hypophospahtemia Hypokalemia -Cr is stable, off IVF -On Lasix 20 mg po daily -Urine lytes reviewed. No significant proteinuria and no urine eosinophils noted. -Secondary GN/vasculitis work up- in progress -Renal US showed Medical Renal Disease. No hydronephrosis -Hypophospatemia/Hypokalemia- in repletion with K-phos -Avoid nephrotoxic agents -Renally dose medications -Strict I&O monitoring -Obtain daily weights -Continue to monitor Gil Boone MD [phone] Subjective Date of service: 02/10/20 Principal diagnosis: AMS Interval history: denies acute issues Objective - Vital Signs Vital signs: Vital Signs - 12hr 02/10/20 02/10/20 02:55 03:55 Temperature 98.0 F Pulse Rate 48 L 48 L Respiratory 20 Rate Blood Pressure 132/97 O2 Sat by Pulse 100 Oximetry - General Appearance General appearance: well-developed, cachectic EENT: ATNC, PERRL, mucous membranes moist Neck: no JVD, no carotid bruit Respiratory: Present: Clear to Ascultation. Absent: Rales, Ronchi Cardiology: regular, S1S2 Gastrointestinal: normoactive bowel sounds, no tenderness, no distended Integumentary: no rash, warm and dry Neurologic: no focal deficit, no asterixis Musculoskeletal: other (no edema in BLE) Psychiatric: cooperative - Lab 02/10/20 05:43 02/10/20 05:43 Most recent lab results Calcium 7.9 mg/dL (8.4-10.2) L 02/10/20 05:43 Phosphorus 2.60 mg/dL (2.5-4.5) D 02/10/20 05:43 Urine Creatinine 41.0 mg/dL (0.1-20.0) H 02/08/20 00:05 Urine Creatinine 42.1 mg/dL (0.1-20.0) H 02/08/20 00:05 Urine Sodium 109 mmol/L 02/08/20 00:05 Urine Total Protein 37 mg/dL (5-11.8) H 02/08/20 00:05 Medications & Allergies - Medications Allergies/Adverse Reactions: Allergies No Known Allergies Allergy (Unverified 01/20/20 02:37) Home Medications: Home Medications Medication Instructions Recorded Confirmed Last Taken Type Ibuprofen [Motrin 600 MG tab] 600 mg PO Q8H PRN #20 tablet 01/20/20 Unknown Rx traMADoL [Ultram] 50 mg PO Q6HR PRN #12 tablet 01/20/20 Unknown Rx Aspirin 81 mg PO DAILY 02/08/20 02/08/20 Unknown History Atorvastatin Calcium 80 mg PO DAILY 02/08/20 02/08/20 Unknown History Brilinta 90 mg PO BID 02/08/20 02/08/20 Unknown History Furosemide [Lasix] 20 mg PO QDAY 02/08/20 02/08/20 Unknown History Isosorbide Mononitrate 30 mg PO DAILY 02/08/20 02/08/20 Unknown History Lisinopril 5 mg PO DAILY 02/08/20 02/08/20 Unknown History Nitroglycerin 0.4 mg SUBLINGUAL PRN 02/08/20 02/08/20 Unknown History amLODIPine 10 mg PO DAILY 02/08/20 02/08/20 Unknown History carvediloL 6.25 mg PO BID 02/08/20 02/08/20 Unknown History Active Medications: Generic Name Dose Route Start Last Admin Trade Name Freq PRN Reason Stop Dose Admin Amlodipine Besylate 10 mg 02/09/20 10:00 02/10/20 12:54 Amlodipine PO 10 mg DAILY JOHANN Administration Atorvastatin Calcium 80 mg 02/09/20 10:00 02/10/20 12:57 Lipitor PO 80 mg DAILY JOHANN Administration Carvedilol 3.125 mg 02/09/20 11:00 02/10/20 12:55 Coreg PO 3.125 mg BID JOHANN Administration Furosemide 20 mg 02/09/20 10:00 02/10/20 12:55 Lasix PO 20 mg QDAY JOHANN Administration Heparin Sodium/Sodium Chloride 25,000 unit in 500 mls @ 23 mls/hr 02/07/20 20:00 02/10/20 00:42 Heparin/ 0.45% Nacl-25,000 Unit/500 Ml IV 1,050 units/hr TITR JOHANN 21 mls/hr Administration Protocol 1,150 UNITS/HR Isosorbide Mononitrate 30 mg 02/09/20 10:00 02/10/20 12:54 Imdur PO 30 mg DAILY JOHANN Administration Nitroglycerin 0.4 mg 02/08/20 10:57 Nitrostat SL .Q5MIN PRN Chest Pain Ticagrelor 90 mg 02/08/20 22:00 02/10/20 12:54 Brilinta PO 90 mg BID JOHANN Administration
[2020-02-11 04:48] LABS: Basophils # (Auto) 0.1 K/mm3 (0.0-0.1); Basophils % (Auto) 1.3 % (0.0-1.8); Eosinophils # (Auto) 0.1 K/mm3 (0.0-0.4); Eosinophils % (Auto) 1.2 % (0.0-4.3); Hematocrit 31.4 % (35.5-45.6); Hemoglobin 10.4 gm/dl (11.8-15.2); Lymphocytes # (Auto) 1.3 K/mm3 (1.2-5.4); Lymphocytes % (Auto) 15.6 % (13.4-35.0); Mean Corpuscular HGB Conc 33 % (32-34); Mean Corpuscular Volume 95 fl (84-94); Monocytes # (Auto) 0.7 K/mm3 (0.0-0.8); Monocytes % (Auto) 8.7 % (0.0-7.3); Platelet Count 179 K/mm3 (140-440); Red Blood Count 3.29 M/mm3 (3.65-5.03); Red Cell Distribution Width 14.9 % (13.2-15.2)
[2020-02-11 06:17] LABS: BUN/Creatinine Ratio 25; Blood Urea Nitrogen 20 mg/dL (9-20); Calcium 8.5 mg/dL (8.4-10.2); Hemolysis Index 4
--- NOTE | 2020-02-11 08:20 | Progress Note ---
<GEORGEEILEEN MuluSudha - Last Filed: 02/11/20 15:05> Assessment and Plan Assessment and plan: 59 year old male with HFrEF (25-30%), Lupus, HTN, [place], GERD, COPD, ADD, and seizures presents to the ED for a second visit on the same day after leaving AMA for confusion after being found in a parking lot with Metabolic encephalopathy, Afib w/ RVR and PRIYA.Cardiology and nephrology are consulted. CTH was negative for acute abnormality, UDS and UA were negative.He was started on heparin gtt but transitioned to PO anticoagulation, PRIYA has resolved and metabolic encephalopathy improved. - Patient Problems (1) Metabolic encephalopathy Current Visit: Yes Status: Acute Plan to address problem: Still having periods of confusion but drastically improved. Reported to be confused overnight - 02/06 CTH: no acute abnormality - Labs unremarkable, NH3 20 - Psych evaluation completed and signed off at this time (2) NSTEMI (non-ST elevation myocardial infarction) Current Visit: Yes Status: Acute Plan to address problem: - Cardiology consulted - TTE shows EF 25-30% with a mildly dilated LV and moderately dilated LA with trace AR. - Plan for left heart cath once renal function improves per cardiology - Continue Coreg , Atorvastatin, Lasix, Imdur, Amlodipine, systemic anticoagulation (3) Atrial fibrillation Current Visit: Yes Status: Acute Qualifiers: Atrial fibrillation type: unspecified Qualified Code(s): I48.91 - Unspecified atrial fibrillation Plan to address problem: - Cardiology consulted - TTE shows EF 25-30% with a mildly dilated LV and moderately dilated LA with trace AR. - Plan for left heart cath once renal function improves per cardiology - Continue on Coreg, systemic anticoagulation, Lasix, Imdur, Amlodipine - On Telemetry - Monitor BP per protocol (4) Acute renal failure Current Visit: Yes Status: Acute Qualifiers: Acute renal failure type: unspecified Qualified Code(s): N17.9 - Acute kidney failure, unspecified Plan to address problem: -Nephrology consult - Renal US: both kidneys demonstrate increased parenchymal echotexture consistent with medical renal disease. No focal renal lesion or hydronephrosis - Trend BMP - Monitor I&O, daily weight - Avoid nephrotoxic medications (5) Lupus Current Visit: Yes Status: Chronic (6) HTN (hypertension) Current Visit: Yes Status: Acute Plan to address problem: -Cardiology consulted - TTE shows EF 25-30% with a mildly dilated LV and moderately dilated LA with trace AR. - Continue on Coreg, Lasix, Imdur, Amlodipine - On Telemetry - Monitor BP per protocol (7) DVT prophylaxis Current Visit: Yes Status: Acute Plan to address problem: - On PO Brilinta and plavix - SCDs while in bed History Interval history: HD 4: 59 year old male with HFrEF (25-30%), Lupus, HTN, [place], GERD, COPD, ADD, and seizures presents to the ED for a second visit on the same day after leaving AMA for confusion after being found in a parking lot with AMS, Afib w/ RVR and PRIYA. Cardiology and nephrology are consulted. CTH was negative for acute abnormality, UDS and UA were negative. Today he is more alert and orientated and more conve rsant. HD 3: Started on brilintia PO, mental status seems improved during the day but nursing reports attempts to call 911 overnight. HD 2: Patient had a 7 beat Vtach at 2200.Electrolytes repleted (K and Phos). . Hospitalist Physical - Constitutional Vitals: Temp Pulse Resp BP Pulse Ox 98.7 F 75 16 132/105 100 02/10/20 22:12 02/11/20 06:00 02/10/20 23:00 02/10/20 22:44 02/10/20 22:12 General appearance: Present: no acute distress HEART Score - HEART Score Troponin: Troponin T 0.045 ng/mL (0.00-0.029) H D 02/08/20 06:55 Results - Labs CBC & Chem 7: 02/11/20 04:14 02/11/20 05:47 Labs: Laboratory Last Values WBC 8.2 K/mm3 (4.5-11.0) 02/11/20 04:14 RBC 3.29 M/mm3 (3.65-5.03) L 02/11/20 04:14 Hgb 10.4 gm/dl (11.8-15.2) L 02/11/20 04:14 Hct 31.4 % (35.5-45.6) L 02/11/20 04:14 MCV 95 fl (84-94) H 02/11/20 04:14 MCH 32 pg (28-32) 02/11/20 04:14 MCHC 33 % (32-34) 02/11/20 04:14 RDW 14.9 % (13.2-15.2) 02/11/20 04:14 Plt Count 179 K/mm3 (140-440) 02/11/20 04:14 Lymph % (Auto) 15.6 % (13.4-35.0) 02/11/20 04:14 [place] % (Auto) 8.7 % (0.0-7.3) H 02/11/20 04:14 Eos % (Auto) 1.2 % (0.0-4.3) 02/11/20 04:14 Baso % (Auto) 1.3 % (0.0-1.8) 02/11/20 04:14 Lymph # 1.3 K/mm3 (1.2-5.4) 02/11/20 04:14 [place] # 0.7 K/mm3 (0.0-0.8) 02/11/20 04:14 Eos # 0.1 K/mm3 (0.0-0.4) 02/11/20 04:14 Baso # 0.1 K/mm3 (0.0-0.1) 02/11/20 04:14 Seg Neutrophils % 73.2 % (40.0-70.0) H 02/11/20 04:14 Seg Neutrophils # 6.0 K/mm3 (1.8-7.7) 02/11/20 04:14 PT 12.7 Sec. (12.2-14.9) 02/07/20 17:22 INR 0.97 (0.87-1.13) 02/07/20 17:22 APTT 27.0 Sec. (24.2-36.6) 02/07/20 17:22 Heparin Anti-Xa Level 0.96 U.I./ml (0.3-0.7) H 02/11/20 05:47 Sodium 135 mmol/L (137-145) L 02/11/20 05:47 Potassium 4.1 mmol/L (3.6-5.0) D 02/11/20 05:47 Chloride 102.1 mmol/L (98-107) 02/11/20 05:47 Carbon Dioxide 21 mmol/L (22-30) L 02/11/20 05:47 Anion Gap 16 mmol/L 02/11/20 05:47 BUN 20 mg/dL (9-20) 02/11/20 05:47 Creatinine 0.8 mg/dL (0.8-1.5) 02/11/20 05:47 Estimated GFR > 60 ml/min 02/11/20 05:47 BUN/Creatinine Ratio 25 % 02/11/20 05:47 Glucose 94 mg/dL (75-100) 02/11/20 05:47 Calcium 8.5 mg/dL (8.4-10.2) 02/11/20 05:47 Phosphorus 3.00 mg/dL (2.5-4.5) 02/11/20 05:47 Total Bilirubin 0.60 mg/dL (0.1-1.2) 02/07/20 17:22 AST 53 units/L (5-40) H 02/07/20 17:22 ALT 33 units/L (7-56) 02/07/20 17:22 Alkaline Phosphatase 119 units/L (35-129) 02/07/20 17:22 Ammonia 20.0 umol/L (25-60) L 02/07/20 17:22 Lactate Dehydrogenase 256 units/L (91-180) H 02/08/20 12:35 Total Creatine Kinase 484 units/L (55-170) H 02/08/20 12:35 CK-MB (CK-2) 6.4 ng/mL (0.0-4.0) H 02/08/20 06:55 CK-MB (CK-2) Rel Index 1.1 (0-4) 02/08/20 06:55 Troponin T 0.045 ng/mL (0.00-0.029) H D 02/08/20 06:55 Total Protein 7.3 g/dL (6.3-8.2) 02/07/20 17:22 Albumin 3.4 g/dL (3.9-5) L 02/07/20 17:22 Albumin/Globulin Ratio 0.9 % 02/07/20 17:22 TSH 0.550 mlU/mL (0.270-4.200) 02/07/20 17:22 Urine Color Yellow (Yellow) 02/08/20 04:30 Urine Turbidity Clear (Clear) 02/08/20 04:30 Urine pH 7.0 (5.0-7.0) 02/08/20 04:30 Ur Specific [place] 1.012 (1.003-1.030) 02/08/20 04:30 Urine Protein 100 mg/dl mg/dL (Negative) 02/08/20 04:30 Urine Glucose (UA) Neg mg/dL (Negative) 02/08/20 04:30 Urine Ketones Tr mg/dL (Negative) 02/08/20 04:30 Urine Blood Mod (Negative) 02/08/20 04:30 Urine Nitrite Neg (Negative) 02/08/20 04:30 Urine Bilirubin Neg (Negative) 02/08/20 04:30 Urine Urobilinogen 4.0 mg/dL (<2.0) 02/08/20 04:30 Ur Leukocyte Esterase Neg (Negative) 02/08/20 04:30 Urine WBC (Auto) 1.0 /HPF (0.0-6.0) 02/08/20 04:30 Urine RBC (Auto) 5.0 /HPF (0.0-6.0) 02/08/20 04:30 Urine Eosinophils None seen (None Seen) 02/08/20 00:05 Urine Creatinine 41.0 mg/dL (0.1-20.0) H 02/08/20 00:05 Urine Creatinine 42.1 mg/dL (0.1-20.0) H 02/08/20 00:05 Protein/Creatinin Ratio 0.90 02/08/20 00:05 Urine Sodium 109 mmol/L 02/08/20 00:05 Urine Urea Nitrogen 626 02/08/20 00:05 Urine Total Protein 37 mg/dL (5-11.8) H 02/08/20 00:05 Urine Opiates Screen Presumptive negative 02/08/20 04:30 Urine Methadone Screen Presumptive negative 02/08/20 04:30 Ur Barbiturates Screen Presumptive negative 02/08/20 04:30 Ur Phencyclidine Scrn Presumptive negative 02/08/20 04:30 Ur Amphetamines Screen Presumptive negative 02/08/20 04:30 U Benzodiazepines Scrn Presumptive negative 02/08/20 04:30 Urine Cocaine Screen Presumptive negative 02/08/20 04:30 U Marijuana (THC) Screen Presumptive positive 07/14/20 04:30 Drugs of Abuse Note Disclamer 02/08/20 04:30 Plasma/Serum Alcohol < 0.01 % (0-0.07) 02/07/20 17:22 Hep Bs Antigen Non-reactive (Negative) 02/08/20 12:35 Hepatitis C Antibody Reactive (NonReactive) A 02/08/20 12:35 Schistocytes Smear Rare 02/08/20 12:35 Microbiology: Microbiology 02/09/20 19:17 Peripheral/Venous Blood Culture - Preliminary NO GROWTH AFTER 24 HOURS 02/09/20 19:17 Peripheral/Venous Blood Culture - Preliminary NO GROWTH AFTER 24 HOURS - Diagnostic Impressions Diagnostic Impressions: Echocardiogram 02/08/20 06:00 Transthoracic Echocardiogram Indication: Afib and Elevated Tropnin BP: 156/111 HR: 83 Conclusions *The left ventricular chamber size is mildly dilated. *There is diffuse global hypokinesis of the left ventricle. *The estimated ejection fraction is 25-30%. *Global left ventricular systolic function is moderate to severely decreased. *The left ventricular diastolic filling pattern is consistent with elevated left ventricular end-diastolic pressure. *The left atrium is moderately dilated. *The right ventricular cavity size is normal. *Moderate aortic leaflet calcification is visualized. *There is trace of aortic regurgitation. Findings Procedure Info: The study was technically limited due to the patient's inability to lay in the left lateral decubitus position. Patient has altered mental status. Patient unable to consent to optison. Left Ventricle: The left ventricular chamber size is mildly dilated. There is diffuse global hypokinesis of the left ventricle. Global left ventricular systolic function is moderate to severely decreased. There is "smoke" noted in LV,suggesting low cardiac output. The estimated ejection fraction is 25-30%. Abnormal left ventricular diastolic function is observed. The left ventricular diastolic filling pattern is consistent with elevated left ventricular end-diastolic pressure. Left Atrium: The left atrium is moderately dilated. Right Ventricle: The right ventricular cavity size is normal. Right Atrium: The right atrial cavity size is normal. Aortic Valve: The aortic valve is trileaflet. Moderate aortic leaflet calcification is visualized. There is trace of aortic regurgitation. Mitral Valve: The mitral valve leaflets are mildly thickened. There is mild mitral regurgitation. Tricuspid Valve: The tricuspid valve leaflets are normal. There is trace tricuspid regurgitation. The right ventricular systolic pressure is calculated at 16 mmHg. Pulmonic Valve: The pulmonic valve is not well visualized. There is trace pulmonic regurgitation. Pericardium: There is no pericardial effusion. Aorta: The aorta appears normal. Venous: The inferior vena cava appears normal in size. Measurements Chambers 2D Name Value Normal Range IVSd (2D) 0.99 cm (0.6 - 1.1) LVPWd (2D) 1.12 cm (0.6 - 1.1) LVIDd (2D) 5.32 cm (3.7 - 5.6) LVIDs (2D) 4.92 cm (2 - 3.8) LV FS (2D) 7.6 % - EF Teichholz (2D) 16.74 % - Ao root diameter (2D) 2.96 cm (2 - 3.7) Volumes/Mass Name Value Normal Range LA ESV SP 4CH (A/L) 96.01 ml - LA ESV SP 2CH (A/L) 132.95 ml - LA ESV BP (A/L) 113.42 ml - LA ESV BP (A/L) index 56.99 ml/m2 - LA ESV SP 4CH (MOD) 89.34 ml - LA ESV SP 2CH (MOD) 131.06 ml - LA ESV BP (MOD) 108.03 ml - LA ESV BP (MOD) index 54.29 ml/m2 - LV EDV SP 4CH (MOD) 194.84 ml - LV ESV SP 4CH (MOD) 146.24 ml - EF SP 4CH (MOD) 24.94 % - LV EDV SP 2CH (MOD) 210.28 ml - LV ESV SP 2CH (MOD) 174.07 ml - EF SP 2CH (MOD) 17.22 % - LV EDV BP 208.25 ml - LV ESV BP 165.16 ml - BP EF (MOD) 20.69 % - Diastolic/Systolic Function Name Value Normal Range MV E-wave Vmax 1.23 m/sec - MV deceleration time 152.48 msec - MV A-wave Vmax 0.82 m/sec - MV E:A ratio 1.51 ratio - Aortic Valve Name Value Normal Range AV Vmax 1.31 m/sec - AV VTI 19.56 cm - AV peak gradient 6.89 mmHg - AV mean gradient 3.88 mmHg - LVOT diameter 2.12 cm - LVOT Vmax 1.09 m/sec - LVOT VTI 14.03 cm - LVOT peak gradient 4.72 mmHg - LVOT mean gradient 2.13 mmHg - SV LVOT 49.69 ml - ANGELO (continuity Vmax) 2.93 cm2 - ANGELO (continuity VTI) 2.54 cm2 - Ascending Ao 3.3 cm - Mitral Valve Name Value Normal Range MV Vmax 1.29 m/sec - MV VTI 21.22 cm - MV peak gradient 6.65 mmHg - MV mean gradient 1.71 mmHg - MV PHT 72.99 msec - MVA (PHT) 3.01 cm2 - MVA (continuity VTI) 2.34 cm2 - Tricuspid Valve Name Value Normal Range TR Vmax 1.82 m/sec - TR peak gradient 13 mmHg - RAP 3 mmHg - RVSP 16 mmHg - IVC diameter 1.82 cm (1.2 - 2.3) Pulmonic Valve/Qp:Qs Name Value Normal Range PV Vmax 1 m/sec - PV VTI 14.44 cm - PV peak gradient 4.04 mmHg - PV mean gradient 1.91 mmHg - RVOT Vmax 0.92 m/sec - RVOT VTI 14.18 cm - RVOT peak gradient 3.38 mmHg - Funez/IV: Voiding Method Condom Catheter IV Catheter Type [Right INT / Saline Lock Forearm] IV Catheter Type [Left Forearm INT / Saline Lock ] Active Medications - Current Medications Current Medications: Generic Name Dose Route Start Last Admin Trade Name Freq PRN Reason Stop Dose Admin Amlodipine Besylate 10 mg 02/09/20 10:00 02/10/20 12:54 Amlodipine PO 10 mg DAILY JOHANN Administration Atorvastatin Calcium 80 mg 02/09/20 10:02/10/20 12:57 Lipitor PO 80 mg DAILY JOHANN Administration Carvedilol 3.125 mg 02/09/20 11:00 02/10/20 22:44 Coreg PO 3.125 mg BID JOHANN Administration Furosemide 20 mg 02/09/20 10:02/10/20 12:55 Lasix PO 20 mg QDAY JOHANN Administration Heparin Sodium/Sodium Chloride 25,000 unit in 500 mls @ 23 mls/hr 02/07/20 20:00 02/11/20 06:27 Heparin/ 0.45% Nacl-25,000 Unit/500 Ml IV 0 units/hr TITR JOHANN 0 mls/hr Titration Protocol 1,150 UNITS/HR Isosorbide Mononitrate 30 mg 02/09/20 10:00 02/10/20 12:54 Imdur PO 30 mg DAILY JOHANN Administration Nitroglycerin 0.4 mg 02/08/20 10:57 Nitrostat SL .Q5MIN PRN Chest Pain Ticagrelor 90 mg 02/08/20 22:00 02/10/20 22:44 Brilinta PO 90 mg BID JOHANN Administration Nutrition/Malnutrition Assess - Dietary Evaluation Nutrition/Malnutrition Findings: Nutrition Notes Start: 02/09/20 14:18 Freq: Status: Active Protocol: Document 02/09/20 14:18 LM (Rec: 02/09/20 14:33 LM [id number]) Nutrition Notes Need for Assessment generated from: [email or web address] [email or web address],MST Initial or Follow up Assessment Current Diagnosis Acute Kidney Injury,COPD, Coronary Artery Disease, Hypertension Other Pertinent Diagnosis afib, seizures, lupus Current Diet low sodium Labs/Tests Na 136 K 3.2 BUN 21 Phos 1.6 Pertinent Medications NS at 100ml/hr Height 6 ft 1 in Weight 61.7 kg [place] Body Weight (kg) 83.63 BMI 17.9 Weight change and time frame 22% wt loss (time frame unknown) Weight Status Underweight Subjective/Other Information RN screen for MST. Pt stated he ate his breakfast this AM and was eating well [employer]. pt stated his UBW is 175 lb but does not know when he last weighed this. Pt with orbital and muscle wasting. Burn Absent Trauma Absent GI Symptoms None Minimum of two criteria Yes Body Fat Depletion Moderate depletion (severe) Muscle Mass Mild Depletion (non-severe) #1 Nutrition Diagnosis Malnutrition Etiology chronic illness As Evidenced by Signs and Symptoms pt with orbital and muscle wasting Is patient on ventilator? No Is Patient Ambulatory and/or Out of Bed Yes REE-([place]-St. Jeor-ambulatory/OOB) [ 1925.144 [id number]] Kcal/Kg value to use for calculation 38 Approximate Energy Requirements Using 2345 kcal/Kg Calculation Used for Recommendations Kcal/kg Additional Notes Protein: (0.8-1.5g/kg) PRIYA and malnutrition Fluid: 1ml/kcal Nutrition Intervention Change Diet Order: continue Add Supplement/Snack (indicate name/kcal Ensure Enlive strawberry BID /protein ) Provides kCal: 700 Provides Protein (gm) 40 Goal #1 Meet at least 80% of energy and protein needs Anticipated Discharge Needs: cardiac with ONS daily Follow-Up By: 02/11/20 Additional Comments F/U for intakes <YONATAN CARTER - Last Filed: 02/12/20 07:33> Assessment and Plan Assessment and plan: I saw and evaluated the patient. I agree with the findings and the plan of care as documented in the Nurse Practitioner's~note, with the following corrections and additions. Patients mental status remains a concern. I have reviewed prior charts, and have tried to contact family but without success Hospitalist Physical - Constitutional Vitals: Temp Pulse Resp BP Pulse Ox 98.2 F 60 16 130/88 100 02/12/20 04:07 02/12/20 04:07 02/12/20 04:07 02/12/20 04:07 02/12/20 04:07 HEART Score - HEART Score Troponin: Troponin T 0.045 ng/mL (0.00-0.029) H D 02/08/20 06:55 Results - Labs CBC & Chem 7: 02/12/20 04:50 02/12/20 04:50 Labs: Laboratory Last Values WBC 10.6 K/mm3 (4.5-11.0) 02/12/20 04:50 RBC 2.93 M/mm3 (3.65-5.03) L 02/12/20 04:50 Hgb 9.1 gm/dl (11.8-15.2) L 02/12/20 04:50 Hct 26.8 % (35.5-45.6) L 02/12/20 04:50 MCV 92 fl (84-94) 02/12/20 04:50 MCH 31 pg (28-32) 02/12/20 04:50 MCHC 34 % (32-34) 02/12/20 04:50 RDW 13.9 % (13.2-15.2) 02/12/20 04:50 Plt Count 161 K/mm3 (140-440) 02/12/20 04:50 Lymph % (Auto) 14.3 % (13.4-35.0) 02/12/20 04:50 [place] % (Auto) 9.3 % (0.0-7.3) H 02/12/20 04:50 Eos % (Auto) 0.5 % (0.0-4.3) 02/12/20 04:50 Baso % (Auto) 0.4 % (0.0-1.8) 02/12/20 04:50 Lymph # 1.5 K/mm3 (1.2-5.4) 02/12/20 04:50 [place] # 1.0 K/mm3 (0.0-0.8) H 02/12/20 04:50 Eos # 0.1 K/mm3 (0.0-0.4) 02/12/20 04:50 Baso # 0.0 K/mm3 (0.0-0.1) 02/12/20 04:50 Seg Neutrophils % 75.5 % (40.0-70.0) H 02/12/20 04:50 Seg Neutrophils # 8.0 K/mm3 (1.8-7.7) H 02/12/20 04:50 PT 12.7 Sec. (12.2-14.9) 02/07/20 17:22 INR 0.97 (0.87-1.13) 02/07/20 17:22 APTT 27.0 Sec. (24.2-36.6) 02/07/20 17:22 Heparin Anti-Xa Level 0.96 U.I./ml (0.3-0.7) H 02/11/20 05:47 Sodium 134 mmol/L (137-145) L 02/12/20 04:50 Potassium 3.9 mmol/L (3.6-5.0) 02/12/20 04:50 Chloride 102.1 mmol/L (98-107) 02/12/20 04:50 Carbon Dioxide 18 mmol/L (22-30) L 02/12/20 04:50 Anion Gap 18 mmol/L 02/12/20 04:50 BUN 26 mg/dL (9-20) H 02/12/20 04:50 Creatinine 1.1 mg/dL (0.8-1.5) 02/12/20 04:50 Estimated GFR > 60 ml/min 02/12/20 04:50 BUN/Creatinine Ratio 24 % 02/12/20 04:50 Glucose 93 mg/dL (75-100) 02/12/20 04:50 Calcium 8.6 mg/dL (8.4-10.2) 02/12/20 04:50 Phosphorus 3.60 mg/dL (2.5-4.5) 02/12/20 04:50 Total Bilirubin 0.60 mg/dL (0.1-1.2) 02/07/20 17:22 AST 53 units/L (5-40) H 02/07/20 17:22 ALT 33 units/L (7-56) 02/07/20 17:22 Alkaline Phosphatase 119 units/L (35-129) 02/07/20 17:22 Ammonia 20.0 umol/L (25-60) L 02/07/20 17:22 Lactate Dehydrogenase 256 units/L (91-180) H 02/08/20 12:35 Total Creatine Kinase 484 units/L (55-170) H 02/08/20 12:35 CK-MB (CK-2) 6.4 ng/mL (0.0-4.0) H 02/08/20 06:55 CK-MB (CK-2) Rel Index 1.1 (0-4) 02/08/20 06:55 Troponin T 0.045 ng/mL (0.00-0.029) H D 02/08/20 06:55 Total Protein 7.3 g/dL (6.3-8.2) 02/07/20 17:22 Albumin 3.4 g/dL (3.9-5) L 02/07/20 17:22 Albumin/Globulin Ratio 0.9 % 02/07/20 17:22 TSH 0.550 mlU/mL (0.270-4.200) 02/07/20 17:22 Urine Color Yellow (Yellow) 02/08/20 04:30 Urine Turbidity Clear (Clear) 02/08/20 04:30 Urine pH 7.0 (5.0-7.0) 02/08/20 04:30 Ur Specific [place] 1.012 (1.003-1.030) 02/08/20 04:30 Urine Protein 100 mg/dl mg/dL (Negative) 02/08/20 04:30 Urine Glucose (UA) Neg mg/dL (Negative) 02/08/20 04:30 Urine Ketones Tr mg/dL (Negative) 02/08/20 04:30 Urine Blood Mod (Negative) 02/08/20 04:30 Urine Nitrite Neg (Negative) 02/08/20 04:30 Urine Bilirubin Neg (Negative) 02/08/20 04:30 Urine Urobilinogen 4.0 mg/dL (<2.0) 02/08/20 04:30 Ur Leukocyte Esterase Neg (Negative) 02/08/20 04:30 Urine WBC (Auto) 1.0 /HPF (0.0-6.0) 02/08/20 04:30 Urine RBC (Auto) 5.0 /HPF (0.0-6.0) 02/08/20 04:30 Urine Eosinophils None seen (None Seen) 02/08/20 00:05 Urine Creatinine 41.0 mg/dL (0.1-20.0) H 02/08/20 00:05 Urine Creatinine 42.1 mg/dL (0.1-20.0) H 02/08/20 00:05 Protein/Creatinin Ratio 0.90 02/08/20 00:05 Urine Sodium 109 mmol/L 02/08/20 00:05 Urine Urea Nitrogen 626 02/08/20 00:05 Urine Total Protein 37 mg/dL (5-11.8) H 02/08/20 00:05 Urine Opiates Screen Presumptive negative 02/08/20 04:30 Urine Methadone Screen Presumptive negative 02/08/20 04:30 Ur Barbiturates Screen Presumptive negative 02/08/20 04:30 Ur Phencyclidine Scrn Presumptive negative 02/08/20 04:30 Ur Amphetamines Screen Presumptive negative 02/08/20 04:30 U Benzodiazepines Scrn Presumptive negative 02/08/20 04:30 Urine Cocaine Screen Presumptive negative 02/08/20 04:30 U Marijuana (THC) Screen Presumptive positive 02/08/20 04:30 Drugs of Abuse Note Disclamer 02/08/20 04:30 Plasma/Serum Alcohol < 0.01 % (0-0.07) 02/07/20 17:22 Hep Bs Antigen Non-reactive (Negative) 02/08/20 12:35 Hepatitis C Antibody Reactive (NonReactive) A 02/08/20 12:35 Schistocytes Smear Rare 02/08/20 12:35 Microbiology: Microbiology 02/09/20 19:17 Peripheral/Venous Blood Culture - Preliminary NO GROWTH AFTER 48 HOURS 02/09/20 19:17 Peripheral/Venous Blood Culture - Preliminary NO GROWTH AFTER 48 HOURS - Diagnostic Impressions Diagnostic Impressions: Echocardiogram 02/08/20 06:00 Transthoracic Echocardiogram Indication: Afib and Elevated Tropnin BP: 156/111 HR: 83 Conclusions *The left ventricular chamber size is mildly dilated. *There is diffuse global hypokinesis of the left ventricle. *The estimated ejection fraction is 25-30%. *Global left ventricular systolic function is moderate to severely decreased. *The left ventricular diastolic filling pattern is consistent with elevated left ventricular end-diastolic pressure. *The left atrium is moderately dilated. *The right ventricular cavity size is normal. *Moderate aortic leaflet calcification is visualized. *There is trace of aortic regurgitation. Findings Procedure Info: The study was technically limited due to the patient's inability to lay in the left lateral decubitus position. Patient has altered mental status. Patient unable to consent to optison. Left Ventricle: The left ventricular chamber size is mildly dilated. There is diffuse global hypokinesis of the left ventricle. Global left ventricular systolic function is moderate to severely decreased. There is "smoke" noted in LV,suggesting low cardiac output. The estimated ejection fraction is 25-30%. Abnormal left ventricular diastolic function is observed. The left ventricular diastolic filling pattern is consistent with elevated left ventricular end-diastolic pressure. Left Atrium: The left atrium is moderately dilated. Right Ventricle: The right ventricular cavity size is normal. Right Atrium: The right atrial cavity size is normal. Aortic Valve: The aortic valve is trileaflet. Moderate aortic leaflet calcification is visualized. There is trace of aortic regurgitation. Mitral Valve: The mitral valve leaflets are mildly thickened. There is mild mitral regurgitation. Tricuspid Valve: The tricuspid valve leaflets are normal. There is trace tricuspid regurgitation. The right ventricular systolic pressure is calculated at 16 mmHg. Pulmonic Valve: The pulmonic valve is not well visualized. There is trace pulmonic regurgitation. Pericardium: There is no pericardial effusion. Aorta: The aorta appears normal. Venous: The inferior vena cava appears normal in size. Measurements Chambers 2D Name Value Normal Range IVSd (2D) 0.99 cm (0.6 - 1.1) LVPWd (2D) 1.12 cm (0.6 - 1.1) LVIDd (2D) 5.32 cm (3.7 - 5.6) LVIDs (2D) 4.92 cm (2 - 3.8) LV FS (2D) 7.6 % - EF Teichholz (2D) 16.74 % - Ao root diameter (2D) 2.96 cm (2 - 3.7) Volumes/Mass Name Value Normal Range LA ESV SP 4CH (A/L) 96.01 ml - LA ESV SP 2CH (A/L) 132.95 ml - LA ESV BP (A/L) 113.42 ml - LA ESV BP (A/L) index 56.99 ml/m2 - LA ESV SP 4CH (MOD) 89.34 ml - LA ESV SP 2CH (MOD) 131.06 ml - LA ESV BP (MOD) 108.03 ml - LA ESV BP (MOD) index 54.29 ml/m2 - LV EDV SP 4CH (MOD) 194.84 ml - LV ESV SP 4CH (MOD) 146.24 ml - EF SP 4CH (MOD) 24.94 % - LV EDV SP 2CH (MOD) 210.28 ml - LV ESV SP 2CH (MOD) 174.07 ml - EF SP 2CH (MOD) 17.22 % - LV EDV BP 208.25 ml - LV ESV BP 165.16 ml - BP EF (MOD) 20.69 % - Diastolic/Systolic Function Name Value Normal Range MV E-wave Vmax 1.23 m/sec - MV deceleration time 152.48 msec - MV A-wave Vmax 0.82 m/sec - MV E:A ratio 1.51 ratio - Aortic Valve Name Value Normal Range AV Vmax 1.31 m/sec - AV VTI 19.56 cm - AV peak gradient 6.89 mmHg - AV mean gradient 3.88 mmHg - LVOT diameter 2.12 cm - LVOT Vmax 1.09 m/sec - LVOT VTI 14.03 cm - LVOT peak gradient 4.72 mmHg - LVOT mean gradient 2.13 mmHg - SV LVOT 49.69 ml - ANGELO (continuity Vmax) 2.93 cm2 - ANGELO (continuity VTI) 2.54 cm2 - Ascending Ao 3.3 cm - Mitral Valve Name Value Normal Range MV Vmax 1.29 m/sec - MV VTI 21.22 cm - MV peak gradient 6.65 mmHg - MV mean gradient 1.71 mmHg - MV PHT 72.99 msec - MVA (PHT) 3.01 cm2 - MVA (continuity VTI) 2.34 cm2 - Tricuspid Valve Name Value Normal Range TR Vmax 1.82 m/sec - TR peak gradient 13 mmHg - RAP 3 mmHg - RVSP 16 mmHg - IVC diameter 1.82 cm (1.2 - 2.3) Pulmonic Valve/Qp:Qs Name Value Normal Range PV Vmax 1 m/sec - PV VTI 14.44 cm - PV peak gradient 4.04 mmHg - PV mean gradient 1.91 mmHg - RVOT Vmax 0.92 m/sec - RVOT VTI 14.18 cm - RVOT peak gradient 3.38 mmHg - Funez/IV: Voiding Method Diaper IV Catheter Type [Right INT / Saline Lock Forearm] IV Catheter Type [Left Forearm INT / Saline Lock ] Active Medications - Current Medications Current Medications: Generic Name Dose Route Start Last Admin Trade Name Freq PRN Reason Stop Dose Admin Amlodipine Besylate 10 mg 02/09/20 10:00 02/11/20 11:22 Amlodipine PO 10 mg DAILY JOHANN Administration Apixaban 5 mg 02/11/20 22:00 02/12/20 00:32 Eliquis PO 5 mg Q12HR JOHANN Administration Protocol Atorvastatin Calcium 80 mg 02/09/20 10:00 02/11/20 11:29 Lipitor PO 80 mg DAILY JOHANN Administration Carvedilol 3.125 mg 02/09/20 11:00 02/12/20 00:32 Coreg PO 3.125 mg BID JOHANN Administration Clopidogrel Bisulfate 75 mg 02/12/20 10:00 Plavix PO QDAY JOHANN Furosemide 20 mg 02/09/20 10:00 02/11/20 11:23 Lasix PO 20 mg QDAY JOHANN Administration Isosorbide Mononitrate 30 mg 02/09/20 10:00 02/11/20 11:23 Imdur PO 30 mg DAILY JOHANN Administration Nitroglycerin 0.4 mg 02/08/20 10:57 Nitrostat SL .Q5MIN PRN Chest Pain Nutrition/Malnutrition Assess - Dietary Evaluation Nutrition/Malnutrition Findings: Nutrition Notes Start: 02/09/20 14:18 Freq: Status: Active Protocol: Document 02/11/20 14:51 LM (Rec: 02/11/20 14:55 LM [email or web address]) Nutrition Notes Initial or Follow up Reassessment Current Diagnosis Acute Kidney Injury,COPD, Coronary Artery Disease, Hypertension Other Pertinent Diagnosis afib, seizures, lupus Current Diet low sodium Labs/Tests Na 135 Pertinent Medications Reviewed Height 6 ft 1 in Weight 61.7 kg [place] Body Weight (kg) 83.63 BMI 17.9 Weight Status Underweight Subjective/Other Information Pt ate 100% of breakfast and Ensure. Pt likes Ensure. Percent of energy/protein needs met: 100%/100% (PO and ONS) Burn Absent Trauma Absent GI Symptoms None Current % PO Good (75-100%) Minimum of two criteria Yes Body Fat Depletion Moderate depletion (severe) Muscle Mass Mild Depletion (non-severe) #1 Nutrition Diagnosis Malnutrition Diagnosis Progress(for reassessment Continues documentation) Is patient on ventilator? No Is Patient Ambulatory and/or Out of Bed Yes REE-([place]-St. Jeor-ambulatory/OOB) [ 1925.144 NUTR.[id number]] Kcal/Kg value to use for calculation 38 Approximate Energy Requirements Using 2345 kcal/Kg Calculation Used for Recommendations Kcal/kg Additional Notes Protein: 50-93g (0.8-1.5g/kg) PRIYA and malnutrition Fluid: 1ml/kcal Nutrition Intervention Change Diet Order: continue Add Supplement/Snack (indicate name/kcal Ensure Enlive strawberry BID /protein ) Provides kCal: 700 Provides Protein (gm) 40 Goal #1 Meet at least 80% of energy and protein needs Anticipated Discharge Needs: cardiac with ONS daily Follow-Up By: 02/16/20 Additional Comments F/U for stable intakes
--- NOTE | 2020-02-11 10:24 | Progress Note ---
Assessment and Plan Currently stable cardiac status. Pt may discharge from cardiology standpoint. Pt states today that he has "10 stents" in his heart and has been told he has a "weak heart" in the past. He is still unable to obtain any additional medical history. D/c heparin gtt and initiate Eliquis 5mg BID. Convert brilinta to plavix. No ASA to avoid triple anticoagulant therapy. Cont all other present cardiac management. Recommend pt follow up in our office with Dr. Quiroz within 2 weeks of discharge ([phone]). The patient has been seen in conjunction with Dr. Quiroz who agrees with the assessment and plan of care. - Patient Problems (1) Altered mental status Current Visit: Yes Status: Acute Plan to address problem: head CT NAF (2) NSTEMI (non-ST elevation myocardial infarction) Current Visit: Yes Status: Acute Plan to address problem: suspect type II (3) Acute renal failure Current Visit: Yes Status: Acute Qualifiers: Acute renal failure type: unspecified Qualified Code(s): N17.9 - Acute kidney failure, unspecified (4) Atrial fibrillation Current Visit: Yes Status: Acute Qualifiers: Atrial fibrillation type: unspecified Qualified Code(s): I48.91 - Unspecified atrial fibrillation (5) Cardiomyopathy Current Visit: Yes Status: Chronic (6) Hepatitis C Current Visit: Yes Status: Acute (7) Lupus Current Visit: Yes Status: Chronic Subjective Date of service: 02/11/20 Principal diagnosis: AMS Interval history: pt resting in bed, alert, no current complaints. tele reviewed - in AFib with HR 80s. Objective Last Vital Signs Temp 98.7 F 02/10/20 22:12 Pulse 75 02/11/20 06:00 Resp 16 02/11/20 08:23 BP 132/105 02/10/20 22:44 Pulse Ox 100 02/10/20 22:12 - Physical Examination General: No Apparent Distress HEENT: Positive: PERRL Neck: Positive: neck supple, trachea midline Cardiac: Positive: irregularly irregular, S1/S2 Lungs: Positive: Decreased Breath Sounds Neuro: Positive: Grossly Intact Abdomen: Negative: Tender Skin: Negative: Rash Musculoskeletal: No Pain Extremities: Absent: edema - Labs and Meds CBC 02/11/20 Range/Units 04:14 WBC 8.2 (4.5-11.0) K/mm3 RBC 3.29 L (3.65-5.03) M/mm3 Hgb 10.4 L (11.8-15.2) gm/dl Hct 31.4 L (35.5-45.6) % Plt Count 179 (140-440) K/mm3 Lymph # 1.3 (1.2-5.4) K/mm3 [place] # 0.7 (0.0-0.8) K/mm3 Eos # 0.1 (0.0-0.4) K/mm3 Baso # 0.1 (0.0-0.1) K/mm3 Comprehensive Metabolic Panel 02/11/20 Range/Units 05:47 Sodium 135 L (137-145) mmol/L Potassium 4.1 D (3.6-5.0) mmol/L Chloride 102.1 (98-107) mmol/L Carbon Dioxide 21 L (22-30) mmol/L BUN 20 (9-20) mg/dL Creatinine 0.8 (0.8-1.5) mg/dL Glucose 94 (75-100) mg/dL Calcium 8.5 (8.4-10.2) mg/dL - Imaging and Cardiology EKG: report reviewed, image reviewed Echo: report reviewed (EF 25-30%, LV mildly dilated, LA mod dilated, trace AR. ) - Telemetry EKG Rhythm: Atrial Fibrillation
--- NOTE | 2020-02-11 10:25 | Progress Note ---
Assessment and Plan Acute renal failure, prerenal azotemia? NSTEMI Hypertension Afib Altered mental status Hypophospahtemia Hypokalemia -PRIYA resolved -Avoid nephrotoxic agents -Renally dose medications -Strict I&O monitoring -Obtain daily weights -Continue to monitor will sign off, please reconsult if needed. Gil Boone MD [phone] Subjective Date of service: 02/11/20 Principal diagnosis: AMS Interval history: no overnight events Objective - Vital Signs Vital signs: Vital Signs - 12hr 02/10/20 02/10/20 02/11/20 22:44 23:00 06:00 Pulse Rate 77 75 Respiratory 16 Rate Blood Pressure 132/105 02/11/20 08:23 Pulse Rate Respiratory 16 Rate Blood Pressure - Lab 02/11/20 04:14 02/11/20 05:47 Most recent lab results Calcium 8.5 mg/dL (8.4-10.2) 02/11/20 05:47 Phosphorus 3.00 mg/dL (2.5-4.5) 02/11/20 05:47 Urine Creatinine 41.0 mg/dL (0.1-20.0) H 02/08/20 00:05 Urine Creatinine 42.1 mg/dL (0.1-20.0) H 02/08/20 00:05 Urine Sodium 109 mmol/L 02/08/20 00:05 Urine Total Protein 37 mg/dL (5-11.8) H 02/08/20 00:05 Medications & Allergies - Medications Allergies/Adverse Reactions: Allergies No Known Allergies Allergy (Unverified 01/20/20 02:37) Home Medications: Home Medications Medication Instructions Recorded Confirmed Last Taken Type Ibuprofen [Motrin 600 MG tab] 600 mg PO Q8H PRN #20 tablet 01/20/20 Unknown Rx traMADoL [Ultram] 50 mg PO Q6HR PRN #12 tablet 01/20/20 Unknown Rx Aspirin 81 mg PO DAILY 02/08/20 02/08/20 Unknown History Atorvastatin Calcium 80 mg PO DAILY 02/08/20 02/08/20 Unknown History Brilinta 90 mg PO BID 02/08/20 02/08/20 Unknown History Furosemide [Lasix] 20 mg PO QDAY 02/08/20 02/08/20 Unknown History Isosorbide Mononitrate 30 mg PO DAILY 02/08/20 02/08/20 Unknown History Lisinopril 5 mg PO DAILY 02/08/20 02/08/20 Unknown History Nitroglycerin 0.4 mg SUBLINGUAL PRN 02/08/20 02/08/20 Unknown History amLODIPine 10 mg PO DAILY 02/08/20 02/08/20 Unknown History carvediloL 6.25 mg PO BID 02/08/20 02/08/20 Unknown History Active Medications: Generic Name Dose Route Start Last Admin Trade Name Blue PRN Reason Stop Dose Admin Amlodipine Besylate 10 mg 02/09/20 10:00 02/10/20 12:54 Amlodipine PO 10 mg DAILY JOHANN Administration Apixaban 5 mg 02/11/20 22:00 Eliquis PO Q12HR [facility] Protocol Atorvastatin Calcium 80 mg 02/09/20 10:00 02/10/20 12:57 Lipitor PO 80 mg DAILY JOHANN Administration Carvedilol 3.125 mg 02/09/20 11:00 02/10/20 22:44 Coreg PO 3.125 mg BID JOHANN Administration Clopidogrel Bisulfate 300 mg 02/11/20 10:19 Plavix PO 02/11/20 10:20 ONCE ONE Clopidogrel Bisulfate 75 mg 02/12/20 10:00 Plavix PO QDAY JOHANN Furosemide 20 mg 02/09/20 10:00 02/10/20 12:55 Lasix PO 20 mg QDAY JOHANN Administration Isosorbide Mononitrate 30 mg 02/09/20 10:00 02/10/20 12:54 Imdur PO 30 mg DAILY JOHANN Administration Nitroglycerin 0.4 mg 02/08/20 10:57 Nitrostat SL .Q5MIN PRN Chest Pain
[2020-02-11] MEDS: amLODIPine 10 MG TAB PO SCH (11:22)
[2020-02-11] MEDS: carvediloL 3.125 MG TAB PO SCH (11:23)
[2020-02-11] MEDS: FUROSEMIDE 20 MG TAB PO SCH (11:23)
--- NOTE | 2020-02-11 11:32 | Discharge Summary ---
<GEORGEEILEEN HSudha - Last Filed: 02/11/20 12:00> Providers - Providers Date of Admission: 02/07/20 21:09 Attending physician: YONATAN CARTER MD 02/08/20 06:00 Consult to Physician [CONS] Routine Comment: Consulting Provider: JOYCE KUHN Physician Instructions: Reason For Exam: A. Fibralation , Elevated Troponin, History of CHF Physical Therapy Evaluation and Treat [CONS] Routine Comment: Reason For Exam: weakness 02/08/20 08:22 Consult to Physician [CONS] Routine Comment: Consulting Provider: CAMERON HELLER Physician Instructions: Reason For Exam: brigette 02/09/20 12:34 psychiatry consult [Consult to Mental Health] [CONS] Routine Reason For Exam: AMS Primary care physician: INSTRUCTOR WARPER Hospitalization Reason for admission: Atrial fibrallatioan with Rapis Ventricular response, acute kidney injury Condition: Fair Hospital course: 59 year old male with HFrEF (25-30%), Lupus, HTN, MO, GERD, COPD, ADD, and seizures presented to the ED confusion found to be in Atrial fibrillation with rapid ventricular response,a cute kidney injury and metabolic encephalopathy. He was initiated on heparin IV and eventually transitioned to oral Eliqus 5mg BID. He will also be discharged on Plavix and instructed to avoid aspirin. His acute kidney injury and metabolic encephalopathy have resolved. His hypertension is controlled on amlodipine, coreg, lasix and imdur. Cardiology recommends he follows up with Dr. Tidwell within 2 weeks of discharge ([phone]). - Patient Problems (1) Metabolic encephalopathy (2) NSTEMI (non-ST elevation myocardial infarction) (3) Atrial fibrillation (4) Acute renal failure (5) Lupus (6) HTN (hypertension) Disposition: DC- TO HOME OR SELFCARE - Discharge Diagnoses (1) Atrial fibrillation Status: Acute Qualifiers: Atrial fibrillation type: unspecified Qualified Code(s): I48.91 - Unspecified atrial fibrillation (2) Lupus Status: Chronic (3) HTN (hypertension) Status: Acute Core Measure Documentation - Palliative Care Palliative Care/ Comfort Measures: Not Applicable - Core Measures Any of the following diagnoses?: history only Exam - Constitutional Vitals: Temp Pulse Resp BP Pulse Ox 98.7 F 66 16 113/81 100 02/10/20 22:12 02/11/20 11:23 02/11/20 08:23 02/11/20 11:23 02/10/20 22:12 General appearance: Present: no acute distress - EENT Eyes: Present: PERRL, EOM intact ENT: hearing intact - Neck Neck: Present: supple, normal ROM - Respiratory Respiratory effort: normal Respiratory: bilateral: CTA - Cardiovascular Rhythm: irregularly irregular Heart Sounds: Present: S1 & S2. Absent: gallop, systolic murmur, diastolic murmur - Extremities Extremities: no ischemia, pulses intact, pulses symmetrical, No edema Peripheral Pulses: within normal limits - Abdominal General gastrointestinal: Present: soft, non-tender, normal bowel sounds - Integumentary Integumentary: Present: warm, dry - Musculoskeletal Musculoskeletal: strength equal bilaterally - Psychiatric Psychiatric: appropriate mood/affect, cooperative - Neurologic Neurologic: CNII-XII intact, no focal deficits, moves all extremities - Allied Health Allied health notes reviewed: nursing, PT, OT, social work Plan Activity: no restrictions Weight Bearing Status: Full Weight Bearing Diet: low fat, low cholesterol Follow up with: MATA SINCLAIR MD [Primary Care Provider] - 3-5 Days NANDO TIDWELL MD [Staff Physician] - 7 Days MARLENA LABOY MD [Staff Physician] - 7 Days Prescriptions: carvediloL [Coreg] 3.125 mg PO BID #60 tablet Apixaban [Eliquis] 5 mg PO Q12HR #60 tablet Clopidogrel [Plavix] 75 mg PO QDAY #30 tablet <YONATAN CARTER - Last Filed: 02/13/20 09:53> Providers - Providers Date of Admission: 02/07/20 21:09 Attending physician: YONATAN CARTER MD 02/08/20 06:00 Consult to Physician [CONS] Routine Comment: Consulting Provider: JOYCE KUHN Physician Instructions: Reason For Exam: A. Fibralation , Elevated Troponin, History of CHF Physical Therapy Evaluation and Treat [CONS] Routine Comment: Reason For Exam: weakness 02/08/20 08:22 Consult to Physician [CONS] Routine Comment: Consulting Provider: CAMERON HELLER Physician Instructions: Reason For Exam: brigette 02/09/20 12:34 psychiatry consult [Consult to Mental Health] [CONS] Routine Reason For Exam: AMS Primary care physician: INSTRUCTOR WARPER Hospitalization Hospital course: [place] [phone] - she answered and was states that the spouse does not have a phone but that his son has, she gave me the sons number as Pratik Gaines [phone] which I could not leave a message but sent a sms notification to call the floor. No information was given to Ms rodriguez Patient still has periods of confusion and I believe he has a baseline dementia. Exam - Constitutional Vitals: Temp Pulse Resp BP Pulse Ox 98.7 F 66 16 113/81 100 02/10/20 22:12 02/11/20 11:23 02/11/20 08:23 02/11/20 11:23 02/10/20 22:12
[2020-02-11] MEDS ORDERED: CLOPIDOGREL 300 MG TAB PO ONE (12:00)
[2020-02-11] MEDS: TICAGRELOR 90 MG TAB PO SCH (13:09)
[2020-02-12] MEDS: APIXABAN 5 MG TAB PO SCH ×3 (00:32→22:28)
[2020-02-12] MEDS: carvediloL 3.125 MG TAB PO SCH ×3 (00:32→22:28)
[2020-02-12 06:22] LABS: Basophils % (Auto) 0.4 % (0.0-1.8); Eosinophils # (Auto) 0.1 K/mm3 (0.0-0.4); Eosinophils % (Auto) 0.5 % (0.0-4.3); Hematocrit 26.8 % (35.5-45.6); Hemoglobin 9.1 gm/dl (11.8-15.2); Lymphocytes # (Auto) 1.5 K/mm3 (1.2-5.4); Lymphocytes % (Auto) 14.3 % (13.4-35.0); Mean Corpuscular HGB Conc 34 % (32-34); Mean Corpuscular Volume 92 fl (84-94); Monocytes % (Auto) 9.3 % (0.0-7.3); Platelet Count 161 K/mm3 (140-440); Red Blood Count 2.93 M/mm3 (3.65-5.03); Red Cell Distribution Width 13.9 % (13.2-15.2)
[2020-02-12 06:41] LABS: BUN/Creatinine Ratio 24; Blood Urea Nitrogen 26 mg/dL (9-20); Calcium 8.6 mg/dL (8.4-10.2); Hemolysis Index 2
[2020-02-12] MEDS: CLOPIDOGREL 75 MG TAB PO SCH (10:59)
[2020-02-12] MEDS: FUROSEMIDE 20 MG TAB PO SCH (11:00)
[2020-02-12] MEDS: amLODIPine 10 MG TAB PO SCH (11:00)
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
[2020-02-12 11:47] LABS: Myeloperoxidase Antibody <1.0 AI (<1.0)
[2020-02-13 06:10] LABS: Basophils % (Auto) 0.3 % (0.0-1.8); Eosinophils % (Auto) 0.3 % (0.0-4.3); Hematocrit 25.8 % (35.5-45.6); Hemoglobin 8.7 gm/dl (11.8-15.2); Lymphocytes # (Auto) 1.2 K/mm3 (1.2-5.4); Mean Corpuscular HGB Conc 34 % (32-34); Mean Corpuscular Volume 92 fl (84-94); Monocytes # (Auto) 1.2 K/mm3 (0.0-0.8); Monocytes % (Auto) 7.8 % (0.0-7.3); Platelet Count 182 K/mm3 (140-440); Red Blood Count 2.79 M/mm3 (3.65-5.03); Red Cell Distribution Width 14.8 % (13.2-15.2)
[2020-02-13 06:24] LABS: BUN/Creatinine Ratio 26; Blood Urea Nitrogen 29 mg/dL (9-20); Calcium 8.7 mg/dL (8.4-10.2); Hemolysis Index 6
[2020-02-13] MEDS: FUROSEMIDE 20 MG TAB PO SCH (10:20)
[2020-02-13] MEDS: carvediloL 3.125 MG TAB PO SCH ×2 (10:20→21:39)
[2020-02-13] MEDS: CLOPIDOGREL 75 MG TAB PO SCH (10:20)
[2020-02-13] MEDS: amLODIPine 10 MG TAB PO SCH (10:20)
[2020-02-13] MEDS: APIXABAN 5 MG TAB PO SCH ×2 (10:20→21:38)
[2020-02-13] MEDS ORDERED: ACETAMINOPHEN 325 MG TAB PO PRN (21:44)
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
[2020-02-14 06:33] LABS: Basophils # (Auto) 0.2 K/mm3 (0.0-0.1); Basophils % (Auto) 1.3 % (0.0-1.8); Eosinophils # (Auto) 0.1 K/mm3 (0.0-0.4); Eosinophils % (Auto) 0.5 % (0.0-4.3); Hematocrit 23.2 % (35.5-45.6); Hemoglobin 7.8 gm/dl (11.8-15.2); Lymphocytes # (Auto) 1.2 K/mm3 (1.2-5.4); Lymphocytes % (Auto) 9.6 % (13.4-35.0); Mean Corpuscular HGB Conc 34 % (32-34); Mean Corpuscular Volume 93 fl (84-94); Monocytes # (Auto) 0.7 K/mm3 (0.0-0.8); Monocytes % (Auto) 5.8 % (0.0-7.3); Platelet Count 203 K/mm3 (140-440); Red Cell Distribution Width 14.6 % (13.2-15.2)
[2020-02-14 06:47] LABS: BUN/Creatinine Ratio 22; Blood Urea Nitrogen 20 mg/dL (9-20); Calcium 8.4 mg/dL (8.4-10.2); Hemolysis Index 2
[2020-02-14] MEDS: APIXABAN 5 MG TAB PO SCH ×2 (09:09→21:25)
[2020-02-14] MEDS: CLOPIDOGREL 75 MG TAB PO SCH (09:09)
[2020-02-14] MEDS: carvediloL 3.125 MG TAB PO SCH ×2 (09:09→21:25)
[2020-02-14] MEDS: FUROSEMIDE 20 MG TAB PO SCH (09:10)
[2020-02-14] MEDS: amLODIPine 10 MG TAB PO SCH (09:10)
--- NOTE | 2020-02-14 09:22 | Progress Note ---
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 LA ESV BP (MOD) 108.03 ml - LA ESV BP (MOD) index 54.29 ml/m2 - LV EDV SP 4CH (MOD) 194.84 ml - LV ESV SP 4CH (MOD) 146.24 ml - EF SP 4CH (MOD) 24.94 % - LV EDV SP 2CH (MOD) 210.28 ml - LV ESV SP 2CH (MOD) 174.07 ml - EF SP 2CH (MOD) 17.22 % - LV EDV BP 208.25 ml - LV ESV BP 165.16 ml - BP EF (MOD) 20.69 % - Diastolic/Systolic Function Name Value Normal Range MV E-wave Vmax 1.23 m/sec - MV deceleration time 152.48 msec - MV A-wave Vmax 0.82 m/sec - MV E:A ratio 1.51 ratio - Aortic Valve Name Value Normal Range AV Vmax 1.31 m/sec - AV VTI 19.56 cm - AV peak gradient 6.89 mmHg - AV mean gradient 3.88 mmHg - LVOT diameter 2.12 cm - LVOT Vmax 1.09 m/sec - LVOT VTI 14.03 cm - LVOT peak gradient 4.72 mmHg - LVOT mean gradient 2.13 mmHg - SV LVOT 49.69 ml - ANGELO (continuity Vmax) 2.93 cm2 - ANGELO (continuity VTI) 2.54 cm2 - Ascending Ao 3.3 cm - Mitral Valve Name Value Normal Range MV Vmax 1.29 m/sec - MV VTI 21.22 cm - MV peak gradient 6.65 mmHg - MV mean gradient 1.71 mmHg - MV PHT 72.99 msec - MVA (PHT) 3.01 cm2 - MVA (continuity VTI) 2.34 cm2 - Tricuspid Valve Name Value Normal Range TR Vmax 1.82 m/sec - TR peak gradient 13 mmHg - RAP 3 mmHg - RVSP 16 mmHg - IVC diameter 1.82 cm (1.2 - 2.3) Pulmonic Valve/Qp:Qs Name Value Normal Range PV Vmax 1 m/sec - PV VTI 14.44 cm - PV peak gradient 4.04 mmHg - PV mean gradient 1.91 mmHg - RVOT Vmax 0.92 m/sec - RVOT VTI 14.18 cm - RVOT peak gradient 3.38 mmHg - Funez/IV: Voiding Method Toilet IV Catheter Type [Right INT / Saline Lock Forearm] IV Catheter Type [Left Forearm INT / Saline Lock ] Active Medications - Current Medications Current Medications: Generic Name Dose Route Start Last Admin Trade Name Freq PRN Reason Stop Dose Admin Acetaminophen 650 mg 02/13/20 21:44 02/13/20 21:54 Tylenol PO 650 mg Q4H PRN Administration Pain, Mild (1-3) Amlodipine Besylate 10 mg 02/09/20 10:00 02/14/20 09:10 Amlodipine PO 10 mg DAILY JOHANN Administration Apixaban 5 mg 02/11/20 22:00 02/14/20 09:09 Eliquis PO 5 mg Q12HR JOHANN Administration Protocol Atorvastatin Calcium 80 mg 02/09/20 10:00 02/14/20 09:09 Lipitor PO 80 mg DAILY JOHANN Administration Carvedilol 3.125 mg 02/09/20 11:00 02/14/20 09:09 Coreg PO 3.125 mg BID JOHANN Administration Clopidogrel Bisulfate 75 mg 02/12/20 10:00 02/14/20 09:09 Plavix PO 75 mg QDAY JOHANN Administration Furosemide 20 mg 02/09/20 10:00 02/14/20 09:10 Lasix PO 20 mg QDAY JOHANN Administration Isosorbide Mononitrate 30 mg 02/09/20 10:00 02/14/20 09:10 Imdur PO 30 mg DAILY JOHANN Administration Nitroglycerin 0.4 mg 02/08/20 10:57 Nitrostat SL .Q5MIN PRN Chest Pain Pantoprazole Sodium 40 mg 02/14/20 20:00 Protonix IV QDAY JOHANN Nutrition/Malnutrition Assess - Dietary Evaluation Nutrition/Malnutrition Findings: Nutrition Notes Start: 02/09/20 14:18 Freq: Status: Active Protocol: Document 02/11/20 14:51 LM (Rec: 02/11/20 14:55 LM [email or web address]) Nutrition Notes Initial or Follow up Reassessment Current Diagnosis Acute Kidney Injury,COPD, Coronary Artery Disease, Hypertension Other Pertinent Diagnosis afib, seizures, lupus Current Diet low sodium Labs/Tests Na 135 Pertinent Medications Reviewed Height 6 ft 1 in Weight 61.7 kg [place] Body Weight (kg) 83.63 BMI 17.9 Weight Status Underweight Subjective/Other Information Pt ate 100% of breakfast and Ensure. Pt likes Ensure. Percent of energy/protein needs met: 100%/100% (PO and ONS) Burn Absent Trauma Absent GI Symptoms None Current % PO Good (75-100%) Minimum of two criteria Yes Body Fat Depletion Moderate depletion (severe) Muscle Mass Mild Depletion (non-severe) #1 Nutrition Diagnosis Malnutrition Diagnosis Progress(for reassessment Continues documentation) Is patient on ventilator? No Is Patient Ambulatory and/or Out of Bed Yes REE-([place]-St. Jeor-ambulatory/OOB) [ 1925.144 NUTR.MSJOOB] Kcal/Kg value to use for calculation 38 Approximate Energy Requirements Using 2345 kcal/Kg Calculation Used for Recommendations Kcal/kg Additional Notes Protein: 50-93g (0.8-1.5g/kg) PRIYA and malnutrition Fluid: 1ml/kcal Nutrition Intervention Change Diet Order: continue Add Supplement/Snack (indicate name/kcal Ensure Enlive strawberry BID /protein ) Provides kCal: 700 Provides Protein (gm) 40 Goal #1 Meet at least 80% of energy and protein needs Anticipated Discharge Needs: cardiac with ONS daily Follow-Up By: 02/16/20 Additional Comments F/U for stable intakes
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
[2020-02-14] MEDS: PANTOPRAZOLE 40 MG INJ IV SCH (21:25)
[2020-02-15] MEDS: PANTOPRAZOLE 40 MG INJ IV SCH (05:34)
[2020-02-15 06:19] LABS: Basophils % (Auto) 0.3 % (0.0-1.8); Eosinophils # (Auto) 0.1 K/mm3 (0.0-0.4); Eosinophils % (Auto) 0.6 % (0.0-4.3); Hematocrit 22.8 % (35.5-45.6); Hemoglobin 7.8 gm/dl (11.8-15.2); Lymphocytes # (Auto) 1.4 K/mm3 (1.2-5.4); Lymphocytes % (Auto) 12.9 % (13.4-35.0); Mean Corpuscular HGB Conc 34 % (32-34); Mean Corpuscular Volume 91 fl (84-94); Monocytes # (Auto) 0.9 K/mm3 (0.0-0.8); Monocytes % (Auto) 8.3 % (0.0-7.3); Platelet Count 227 K/mm3 (140-440); Red Cell Distribution Width 14.5 % (13.2-15.2)
[2020-02-15 06:31] LABS: BUN/Creatinine Ratio 27; Blood Urea Nitrogen 19 mg/dL (9-20); Calcium 8.7 mg/dL (8.4-10.2); Hemolysis Index 0
--- NOTE | 2020-02-15 08:32 | Discharge Summary ---
<GEORGEEILEEN MuluSudha - Last Filed: 02/15/20 14:13> Providers - Providers Date of Admission: 02/07/20 21:09 Attending physician: MICHELLE CARTER 02/08/20 06:00 Consult to Physician [CONS] Routine Comment: Consulting Provider: JOYCE KUHN Physician Instructions: Reason For Exam: A. Fibralation , Elevated Troponin, History of CHF Physical Therapy Evaluation and Treat [CONS] Routine Comment: Reason For Exam: weakness 02/08/20 08:22 Consult to Physician [CONS] Routine Comment: Consulting Provider: CAMERON HELLER Physician Instructions: Reason For Exam: brigette 02/09/20 12:34 psychiatry consult [Consult to Mental Health] [CONS] Routine Reason For Exam: AMS Primary care physician: EMBEDDED DEVELOPER Hospitalization Condition: Good Hospital course: Hospital course: 59 year old male with HFrEF (25-30%), Lupus, HTN, [place], GERD, COPD, ADD, and seizures presented to the ED confusion found to be in Atrial fibrillation with rapid ventricular response,a cute kidney injury and metabolic encephalopathy. He was initiated on heparin IV and eventually transitioned to oral Eliqus 5mg BID. He will also be discharged on Plavix and instructed to avoid aspirin. His acute kidney injury and metabolic encephalopathy have resolved. His hypertension is controlled on amlodipine, coreg, lasix and imdur. Cardiology recommends he follows up with Dr. Tidwell within 2 weeks of discharge ([phone]). COVID- 19 negative on 02/12. Disposition: DC/[place]-03 SN[facility] - Discharge Diagnoses (1) Metabolic encephalopathy Status: Resolved (2) NSTEMI (non-ST elevation myocardial infarction) Status: Acute (3) Atrial fibrillation Status: Chronic Qualifiers: Atrial fibrillation type: unspecified Qualified Code(s): I48.91 - Unspecified atrial fibrillation (4) Lupus Status: Chronic (5) HTN (hypertension) Status: Chronic Core Measure Documentation - Palliative Care Palliative Care/ Comfort Measures: Not Applicable Exam - Constitutional Vitals: Temp Pulse Resp BP Pulse Ox 98.1 F 89 20 116/75 100 02/15/20 04:21 02/15/20 04:21 02/15/20 04:21 02/15/20 04:21 02/15/20 04:21 General appearance: Present: no acute distress - EENT Eyes: Present: PERRL, EOM intact ENT: hearing intact, clear oral mucosa - Neck Neck: Present: supple, normal ROM - Respiratory Respiratory effort: normal Respiratory: bilateral: CTA - Cardiovascular Rhythm: regularly irregular Heart Sounds: Present: S1 & S2 - Extremities Extremities: no ischemia, pulses intact, pulses symmetrical - Abdominal General gastrointestinal: Present: soft, non-tender, normal bowel sounds - Integumentary Integumentary: Present: warm, dry - Musculoskeletal Musculoskeletal: strength equal bilaterally - Psychiatric Psychiatric: appropriate mood/affect, cooperative - Neurologic Neurologic: CNII-XII intact, no focal deficits, moves all extremities - Allied Health Allied health notes reviewed: nursing, social work, case management Plan Diet: low fat, low cholesterol Follow up with: MARLENA LABOY MD [Staff Physician] - 7 Days NANDO TIDWELL MD [Staff Physician] - 7 Days PRIMARY CARE, [Primary Care Provider] - 3-5 Days Prescriptions: carvediloL [Coreg] 3.125 mg PO BID #60 tablet Apixaban [Eliquis] 5 mg PO Q12HR #60 tablet Clopidogrel [Plavix] 75 mg PO QDAY #30 tablet Pantoprazole [Protonix TAB] 40 mg PO QDAY #30 tablet <MICHELLE CARTER - Last Filed: 02/16/20 07:23> Providers - Providers Date of Admission: 02/07/20 21:09 Attending physician: MICHELLE CARTER 02/08/20 06:00 Physical Therapy Evaluation and Treat [CONS] Routine Comment: Reason For Exam: weakness 02/08/20 08:22 Consult to Physician [CONS] Routine Comment: Consulting Provider: CAMERON HELLER Physician Instructions: Reason For Exam: brigette 02/09/20 12:34 psychiatry consult [Consult to Mental Health] [CONS] Routine Reason For Exam: AMS Primary care physician: EMBEDDED DEVELOPER Core Measure Documentation - Palliative Care Palliative Care/ Comfort Measures: Not Applicable - Core Measures Any of the following diagnoses?: none Exam - Constitutional Vitals: Temp Pulse Resp BP Pulse Ox 98.2 F 89 19 122/67 99 02/15/20 07:31 02/15/20 10:00 02/15/20 10:00 02/15/20 09:39 02/15/20 10:00
[2020-02-15] MEDS: FUROSEMIDE 20 MG TAB PO SCH (09:37)
[2020-02-15] MEDS: APIXABAN 5 MG TAB PO SCH (09:37)
[2020-02-15 09:38] VITALS: BP 122/67
[2020-02-15] MEDS: CLOPIDOGREL 75 MG TAB PO SCH (09:38)
[2020-02-15] MEDS: amLODIPine 10 MG TAB PO SCH (09:39)
[2020-02-15] MEDS: carvediloL 3.125 MG TAB PO SCH (09:39)
[2020-02-15] MEDS ORDERED: PANTOPRAZOLE 40 MG TAB PO SCH (10:00)
[2020-02-15 21:14] LABS: ANA Screen, IFA Negative (Negative)
[2020-02-16 23:59] LABS: Albumin 2.5 g/dL (3.8-4.8); Gamma Globulin 1.1 g/dL (0.8-1.7)
[2020-02-17 10:06] LABS: HIV-1 Antibody Differentiation SEE SCANNED RESULTS; HIV-2 Antibody Differentiation SEE SCANNED RESULTS
== END 2020-02-15 20:45 | disposition home or self-care (01) | DRG 682 ==
LOC: ED 14:50 → 4A 21:09 → UNDOADMIN 21:09
PROVIDERS: ADMIT Internal Medicine; ATTEND Hospitalist
DX: N17.0 Acute kidney failure with tubular necrosis (principal); G93.41 Metabolic encephalopathy; I21.A1 Myocardial infarction type 2; I42.9 Cardiomyopathy, unspecified; I48.91 Unspecified atrial fibrillation; I11.0 Hypertensive heart disease with heart failure; I50.9 Heart failure, unspecified; F98.8 Other specified behavioral and emotional disorders with onset usually occurring in childhood and adolescence; H54.40 Blindness, one eye, unspecified eye; Z95.818 Presence of other cardiac implants and grafts; F17.200 Nicotine dependence, unspecified, uncomplicated; Z79.899 Other long term (current) drug therapy; Z79.01 Long term (current) use of anticoagulants; I25.10 Atherosclerotic heart disease of native coronary artery without angina pectoris; J44.9 Chronic obstructive pulmonary disease, unspecified; G43.909 Migraine, unspecified, not intractable, without status migrainosus; Z87.442 Personal history of urinary calculi; E87.6 Hypokalemia; E83.39 Other disorders of phosphorus metabolism; L93.0 Discoid lupus erythematosus; Z20.828 Contact with and (suspected) exposure to other viral communicable diseases; K21.9 Gastro-esophageal reflux disease without esophagitis
CPT/HCPCS: 36415; 70450; 71045; 76770; 80048; 80053; 80061; 80076; 80307; 80320; 81001; 82140; 82164; 82550; 82553; 82570; 83520; 83615; 84100; 84156; 84165; 84300; 84443; 84484; 84520; 85025; 85027; 85520; 85610; 85730; 86021; 86038; 86160; 86689; 86706; 86803; 87040; 89050; 93005; 93306; 96360; 99406; G0378; A9270-GY; C9113; G0480; J1644; J7030; U0003-CS

== ENCOUNTER 2020-05-13 08:29 | Inpatient (IN) | payer MEDICARE ==
[2020-05-13] MEDS ORDERED: ASPIRIN 325 MG TAB PO ONE (08:39)
--- NOTE | 2020-05-13 09:14 | XRay Report ---
CHEST 1 VIEW INDICATION / CLINICAL INFORMATION: Chest Pain. COMPARISON: 02/07/2020 FINDINGS: SUPPORT DEVICES: None. HEART / MEDIASTINUM: Mild cardiomegaly LUNGS / PLEURA: No significant pulmonary or pleural abnormality. No pneumothorax. ADDITIONAL FINDINGS: No significant additional findings. IMPRESSION: Mild cardiomegaly without acute disease or interval change from 02/07/2020 Signer Name: Rudy Dong MD FACIvonne Signed: 05/13/2020 9:09 AM Workstation Name: [id number]
[2020-05-13 10:08] LABS: Basophils % (Auto) 0.7 % (0.0-1.8); Eosinophils % (Auto) 0.5 % (0.0-4.3); Hematocrit 42.5 % (35.5-45.6); Hemoglobin 14.3 gm/dl (11.8-15.2); Lymphocytes # (Auto) 1.1 K/mm3 (1.2-5.4); Lymphocytes % (Auto) 18.9 % (13.4-35.0); Mean Corpuscular HGB Conc 34 % (32-34); Mean Corpuscular Volume 94 fl (84-94); Monocytes # (Auto) 0.3 K/mm3 (0.0-0.8); Monocytes % (Auto) 5.8 % (0.0-7.3); Platelet Count 175 K/mm3 (140-440); Red Cell Distribution Width 16.1 % (13.2-15.2)
[2020-05-13 10:46] LABS: BUN/Creatinine Ratio 21; Blood Urea Nitrogen 19 mg/dL (9-20); Calcium 9.1 mg/dL (8.4-10.2); Chol/HDL Ratio 3.29 %; HDL Cholesterol 41 mg/dL (40-59); Hemolysis Index 25; LDL Cholesterol,Direct 88 mg/dL (50-130)
--- NOTE | 2020-05-13 11:28 | Emergency Department Report ---
ED Chest Pain HPI - General Chief Complaint: Chest Pain Stated Complaint: hypertension Time Seen by Provider: 05/13/20 11:08 Source: patient, family Mode of arrival: Ambulatory Limitations: No Limitations - History of Present Illness Initial Comments: Patient is 60 years old male with history of congestive heart failure, atrial fibrillation and hypertension. Patient brought to the emergency room for evaluation of chest pain since yesterday. Patient describes his chest pain as pressure mainly to the left side with no radiation. Patient stated that pain associated with shortness of breath. Patient denied any fever or chills. No nausea or vomiting. Patient was discharged from the hospital yesterday for similar complaint. MD Complaint: chest pain Onset: during rest Pain Location: left chest Severity: moderate Severity scale (0 -10): 5 - Related Data Home Medications Medication Instructions Recorded Confirmed Last Taken Atorvastatin Calcium 80 mg PO DAILY 02/08/20 02/08/20 Unknown Furosemide [Lasix TAB] 20 mg PO QDAY 02/08/20 02/08/20 Unknown Isosorbide Mononitrate 30 mg PO DAILY 02/08/20 02/08/20 Unknown Nitroglycerin 0.4 mg SUBLINGUAL PRN 02/08/20 02/08/20 Unknown amLODIPine 10 mg PO DAILY 02/08/20 02/08/20 Unknown Previous Rx's Medication Instructions Recorded Last Taken Type traMADoL [Ultram 50 MG tab] 50 mg PO Q6HR PRN #12 tablet 01/20/20 Unknown Rx Apixaban [Eliquis] 5 mg PO Q12HR #60 tablet 02/11/20 Unknown Rx Clopidogrel [Plavix] 75 mg PO QDAY #30 tablet 02/11/20 Unknown Rx carvediloL [Coreg] 3.125 mg PO BID #60 tablet 02/11/20 Unknown Rx Pantoprazole [Protonix TAB] 40 mg PO QDAY #30 tablet 02/14/20 Unknown Rx Allergies Allergy/AdvReac Type Severity Reaction Status Date / Time No Known Allergies Allergy Unverified 01/20/20 02:37 Heart Score - HEART Score History: Moderately suspicious EKG: Non-specific Age: 45-65 Risk factors: > 3 risk factors or hx of atherosclerotic disease Troponin: 1-3x normal limit HEART Score: 6 - Critical Actions Critical Actions: 4-6 pts:12-16.6% risk of adverse cardiac event. Should be admitted ED Review of Systems ROS: Stated complaint: hypertension Other details as noted in HPI Comment: All other systems reviewed and negative Constitutional: denies: chills, fever Respiratory: shortness of breath, SOB with exertion, SOB at rest. denies: cough, wheezing Cardiovascular: denies: chest pain, palpitations Gastrointestinal: denies: abdominal pain, nausea, vomiting Musculoskeletal: denies: back pain Neurological: denies: headache, weakness, numbness, paresthesias, confusion, abnormal gait ED Past Medical Hx - Past Medical History Previous Medical History?: Yes Hx Hypertension: Yes Hx CVA: No Hx Heart Attack/AMI: Yes Hx Congestive Heart Failure: Yes Hx Deep Vein Thrombosis: No Hx Pulmonary Embolism: No Hx GERD: Yes Hx Liver Disease: No Hx Renal Disease: Yes Hx Sickle Cell Disease: No Hx Arthritis: No Hx Headaches / Migraines: Yes Hx Seizures: Yes Hx Kidney Stones: Yes Hx Psychiatric Treatment: No Hx Asthma: No Hx COPD: Yes Hx Tuberculosis: No Hx HIV: No Additional medical history: Lupus, nerve damage, blind in right eye, ADD - Surgical History Past Surgical History?: Yes Hx Coronary Stent: Yes Hx Open Heart Surgery: No Hx Internal Defibrillator: No Hx Appendectomy: No Additional Surgical History: 10 stents placed in heart, broken femur - Social History Smoking Status: Former Smoker Substance Use Type: None - Medications Home Medications: Home Medications Medication Instructions Recorded Confirmed Last Taken Type traMADoL [Ultram 50 MG tab] 50 mg PO Q6HR PRN #12 tablet 01/20/20 02/15/20 Unknown Rx Atorvastatin Calcium 80 mg PO DAILY 02/08/20 02/08/20 Unknown History Furosemide [Lasix TAB] 20 mg PO QDAY 02/08/20 02/08/20 Unknown History Isosorbide Mononitrate 30 mg PO DAILY 02/08/20 02/08/20 Unknown History Nitroglycerin 0.4 mg SUBLINGUAL PRN 02/08/20 02/08/20 Unknown History amLODIPine 10 mg PO DAILY 02/08/20 02/08/20 Unknown History Apixaban [Eliquis] 5 mg PO Q12HR #60 tablet 02/11/20 Unknown Rx Clopidogrel [Plavix] 75 mg PO QDAY #30 tablet 02/11/20 Unknown Rx carvediloL [Coreg] 3.125 mg PO BID #60 tablet 02/11/20 Unknown Rx Pantoprazole [Protonix TAB] 40 mg PO QDAY #30 tablet 02/14/20 Unknown Rx ED Physical Exam - General Limitations: No Limitations General appearance: alert, in no apparent distress - Head Head exam: Present: atraumatic, normocephalic, normal inspection - Eye Eye exam: Present: normal appearance, PERRL - ENT ENT exam: Present: normal exam, normal orophraynx, mucous membranes moist - Neck Neck exam: Present: normal inspection, full ROM. Absent: tenderness, meningismus, lymphadenopathy, thyromegaly - Respiratory Respiratory exam: Present: normal lung sounds bilaterally - Cardiovascular Cardiovascular Exam: Present: irregular rhythm - GI/Abdominal GI/Abdominal exam: Present: soft, normal bowel sounds. Absent: distended, tenderness, guarding, rebound, rigid, organomegaly, mass, bruit, pulsatile mass, hernia - Extremities Exam Extremities exam: Present: normal inspection, full ROM, normal capillary refill. Absent: tenderness - Back Exam Back exam: Present: normal inspection, full ROM. Absent: CVA tenderness (R), CVA tenderness (L) - Neurological Exam Neurological exam: Present: alert, oriented X3, CN II-XII intact, normal gait, reflexes normal. Absent: motor sensory deficit - Psychiatric Psychiatric exam: Present: normal mood, anxious - Skin Skin exam: Present: warm, intact, normal color ED Course Vital Signs 05/13/20 05/13/20 08:34 11:46 Temperature 97.6 F Pulse Rate 52 L 110 H Respiratory 26 H 38 H Rate Blood Pressure 185/142 176/110 O2 Sat by Pulse 94 98 Oximetry ED Medical Decision Making - Lab Data Result diagrams: 05/13/20 08:51 05/13/20 08:51 - EKG Data -: EKG Interpreted by Pr - EKG Data 05/13/20 12:14 Atrial fibrillation. - Radiology Data Radiology results: report reviewed - Medical Decision Making Patient is 60 years old male with history of congestive heart failure, atrial fibrillation and hypertension. Patient brought to the emergency room for evaluation of chest pain since yesterday. Patient describes his chest pain as pressure mainly to the left side with no radiation. Patient stated that pain associated with shortness of breath. Patient denied any fever or chills. No nausea or vomiting. Patient was discharged from the hospital yesterday for similar complaint. EKG showed atrial fibrillation with couplets PVCs. Patient is significant shortness of breath. Patient chest x-ray showed pulmonary edema. BNP is more than 10,000. Patient received Lasix 60 mg IV. I discussed the patient with Dr. Lamb, he agreed to admit the patient to medical service for further management. Critical Care Time: Yes Critical care time in (mins) excluding proc time.: 30 Critical care attestation.: If time is entered above; I have spent that time in minutes in the direct care of this critically ill patient, excluding procedure time. ED Disposition Clinical Impression: CHF exacerbation, Volume overload, Chest pain, Elevated troponin, Hypertensive urgency Disposition: OP ADMIT IP TO THIS HOSP Is pt being admited?: Yes Condition: Stable Instructions: Chest Pain (ED) Referrals: KRISTI MICHELLE [Primary Care Provider] - 3-5 Days
[2020-05-13] MEDS ORDERED: ASPIRIN 325 MG TAB ONE (11:45)
[2020-05-13] MEDS ORDERED: FUROSEMIDE 40 MG/4 ML INJ IV ONE ×2 (11:53→12:32)
[2020-05-13 12:08] LABS: INR 1.3 (0.87-1.13); Partial Thromboplastin Time 34.9 Sec. (24.2-36.6)
--- NOTE | 2020-05-13 12:17 | History and Physical Report ---
History of Present Illness Chief complaint: My chest hurts and I cannot breathe History of present illness: 60 YO Male with CAD S/P Stent Placement x10 on Antiplatelet therapy with Plavix, HTN, HLD, LA, Systolic/Diastolic CHF(EF 25%), Atrial Fib on Therapeutic Anticoagulation with Eliquis, Migraine ESQUEDA, Seizure Disorder, Nicotine Dependence presents to ED for evaluation. Patient states that he had experienced chest pain over the last 3 days with worsening symptoms over the last 8 hours. Patient states that his pain is currently 5/10, constant, localized to the left chest, nonradiating, worsened with exertion, relieved with rest, associated with shortness of breath. Patient acknowledges orthopnea as well as paroxysmal nocturnal dyspnea, decreased exercise tolerance. Patient transported to [facility] via private vehicle for further care and evaluation of the aforementioned symptoms. Patient seen and evaluated in the emergency department. All lab and imaging studies reviewed. Patient found to have symptoms consistent with CHF decompensation, metabolic acidosis, as well as hyponatremia. Patient admitted to telemetry and initiated on CHF protocol due to increased risk of cardiac decompensation. Cardiology team consulted in ED. Patient denies fever, chills, palpitations, productive cough, skin rash, recent ill contacts, unilateral leg swelling, calf pain, prolonged travel/immobility, medication noncompliance, known exposure to COVID-19. All medication listed at time of admission has been reconciled. Prior admission on 02/07/2020 reviewed. Advanced care planning conducted in ED. Past History Past Medical History: acute LA, atrial fib, CAD, heart failure, hypertension, hyperlipidemia, other (See HPI) Past Surgical History: Other (Cardiac stent placement, leg surgery) Social history: , lives with family. denies: smoking, alcohol abuse, prescription drug abuse Family history: diabetes, hypertension Medications and Allergies Allergies Allergy/AdvReac Type Severity Reaction Status Date / Time No Known Allergies Allergy Unverified 01/20/20 02:37 Home Medications Medication Instructions Recorded Confirmed Last Taken Type Atorvastatin Calcium 10 mg PO DAILY 02/08/20 05/13/20 05/12/20 History carvediloL [Coreg] 3.125 mg PO BID #60 tablet 02/11/20 05/13/20 05/13/20 Rx Pantoprazole [Protonix TAB] 40 mg PO QDAY #30 tablet 02/14/20 05/13/20 05/13/20 Rx Apixaban [Eliquis] 5 mg PO BID 05/13/20 05/13/20 05/12/20 History Aspirin [Adult Aspirin] 81 mg PO DAILY 05/13/20 05/13/20 05/13/20 History FLUoxetine [PROzac] 10 mg PO QDAY 05/13/20 05/13/20 05/13/20 History Lisinopril [Zestril] 5 mg PO DAILY 05/13/20 05/13/20 05/13/20 History Melatonin [Melatonin 10MG CAP] 30 mg PO QHS 05/13/20 05/13/20 05/12/20 History Tamsulosin [Flomax] 0.4 mg PO QHS 05/13/20 05/13/20 05/12/20 History Review of Systems Constitutional: no weight loss, no weight gain, no fever, no chills Ears, nose, mouth and throat: no ear pain, no ear discharge, no tinnitis, no decreased hearing, no nose pain Cardiovascular: chest pain, orthopnea, shortness of breath, dyspnea on exertion, paroxysmal nocturnal dyspnea, decreased exercise tolerance Gastrointestinal: no abdominal pain, no nausea, no vomiting, no diarrhea Genitourinary Male: no hematuria, no flank pain, no discharge, no urinary frequency, no urinary hesitancy Rectal: no pain, no incontinence, no bleeding Musculoskeletal: no neck stiffness, no neck pain, no arm numbness/tingling, no low back pain Integumentary: no rash, no pruritis, no redness, no sores, no jaundice Neurological: no transient paralysis, no paralysis, no weakness, no numbness, no tingling, no tremors Psychiatric: no anxiety, no insomnia, no change in appetite, no change in libido, no disorientation Endocrine: no cold intolerance, no polyphagia, no polydipsia, no polyuria, no excessive sweating, no flushing Hematologic/Lymphatic: no easy bruising, no lymphedema Allergic/Immunologic: no urticaria, no allergic rhinitis, no persistent infections, no anaphylaxis Exam - Constitutional Vitals: Temp Pulse Resp BP Pulse Ox 97.6 F 110 H 38 H 176/110 98 05/13/20 08:34 05/13/20 11:46 05/13/20 11:46 05/13/20 11:46 05/13/20 11:46 General appearance: Present: mild distress - EENT Eyes: Present: PERRL ENT: hearing intact, clear oral mucosa - Neck Neck: Present: supple, normal ROM - Respiratory Respiratory effort: labored, accessory muscle use Respiratory: bilateral: diminished - Cardiovascular Heart Sounds: Present: S1 & S2. Absent: rub, click - Extremities Extremities: pulses symmetrical Extremity abnormal: edema Peripheral Pulses: within normal limits - Abdominal General gastrointestinal: Present: soft, non-tender, non-distended, normal bowel sounds Male genitourinary: Present: normal - Integumentary Integumentary: Present: clear, warm, dry - Musculoskeletal Musculoskeletal: generalized weakness - Psychiatric Psychiatric: appropriate mood/affect, intact judgment & insight - Neurologic Neurologic: CNII-XII intact, moves all extremities HEART Score - HEART Score EKG: Non-specific Age: 45-65 Risk factors: > 3 risk factors or hx of atherosclerotic disease Troponin: Troponin T 0.048 ng/mL (0.00-0.029) H 05/13/20 11:23 Troponin: 1-3x normal limit - Critical Actions Critical Actions: 4-6 pts:12-16.6% risk of adverse cardiac event. Should be admitted Results - Labs CBC & Chem 7: 05/13/20 08:51 05/13/20 08:51 Labs: Abnormal lab results 05/13/20 05/13/20 05/13/20 Range/Units 08:51 08:51 11:23 RDW 16.1 H (13.2-15.2) % Lymph # (Auto) 1.1 L (1.2-5.4) K/mm3 Seg Neutrophils % 74.1 H (40.0-70.0) % PT (12.2-14.9) Sec. INR (0.87-1.13) Sodium 135 L (137-145) mmol/L Chloride 107.4 H (98-107) mmol/L Carbon Dioxide 13 L (22-30) mmol/L Glucose 129 H (75-100) mg/dL Troponin T 0.041 H 0.048 H (0.00-0.029) ng/mL NT-Pro-B Natriuret Pep (0-900) pg/mL 05/13/20 05/13/20 Range/Units 11:37 Unknown RDW (13.2-15.2) % Lymph # (Auto) (1.2-5.4) K/mm3 Seg Neutrophils % (40.0-70.0) % PT 16.5 H (12.2-14.9) Sec. INR 1.30 H (0.87-1.13) Sodium (137-145) mmol/L Chloride (98-107) mmol/L Carbon Dioxide (22-30) mmol/L Glucose (75-100) mg/dL Troponin T (0.00-0.029) ng/mL NT-Pro-B Natriuret Pep [id number] H (0-900) pg/mL Assessment and Plan - Patient Problems (1) CHF exacerbation Current Visit: Yes Status: Acute Qualifiers: Heart failure type: systolic Qualified Code(s): I50.23 - Acute on chronic systolic (congestive) heart failure Plan to address problem: Strict I/O, monitor application, daily weight, cardiology team consulted in ED, diuresis, monitor fluid balance, supplemental oxygen, afterload reduction, blood pressure control, echocardiogram from January 2020 reviewed. Further care and evaluation as per cardiology team. (2) Atrial fibrillation Current Visit: Yes Status: Acute Qualifiers: Atrial fibrillation type: longstanding persistent Qualified Code(s): I48.11 - Longstanding persistent atrial fibrillation Plan to address problem: Continue therapeutic anticoagulation, continue rate control with beta-taj therapy. Telemetry monitoring. (3) Metabolic acidosis Current Visit: Yes Status: Acute Plan to address problem: IV bicarbonate therapy, BMP, repeat BMP in a.m. (4) Hyponatremia Current Visit: Yes Status: Acute Plan to address problem: Supportive care, BMP, repeat BMP in a.m. (5) CAD (coronary artery disease) Current Visit: Yes Status: Acute Plan to address problem: Risk factor reduction therapy, antiplatelet therapy, supportive care. (6) HTN (hypertension) Current Visit: Yes Status: Acute Qualifiers: Hypertension type: essential hypertension Qualified Code(s): I10 - Essential (primary) hypertension Plan to address problem: Monitor blood pressure every shift, continue medical management, continue prehospital antihypertensive therapy. (7) Nicotine dependence Current Visit: Yes Status: Acute Qualifiers: Nicotine product type: cigarettes Substance use status: in withdrawal Qualified Code(s): F17.213 - Nicotine dependence, cigarettes, with withdrawal Plan to address problem: Supportive care, smoking cessation counseling, behavior change counseling +15 minutes (8) DVT prophylaxis Current Visit: Yes Status: Acute Plan to address problem: SCD to bilateral lower extremities while in bed, patient is ambulatory. Continue therapeutic anticoagulation (9) Advance care planning Current Visit: Yes Status: Acute Plan to address problem: Disease education conducted, patient is full code, patient knowledges understan ding and agreement with care plan, prognosis discussed, +30 minutes.
[2020-05-13] MEDS ORDERED: FUROSEMIDE 20 MG/2 ML INJ IV ONE (12:32)
[2020-05-13] MEDS ORDERED: ALBUTEROL 2.5 MG/3 ML NEBU IH PRN (12:34)
[2020-05-13] MEDS ORDERED: ACETAMINOPHEN 325 MG TAB PO PRN (12:34)
[2020-05-13] MEDS ORDERED: ONDANSETRON 4 MG/2 ML INJ IV PRN (12:34)
[2020-05-13] MEDS ORDERED: SODIUM BICARB 8.4% 50 MEQ/50 ML SYRINGE IV ONE (12:37)
[2020-05-13] MEDS ORDERED: traMADol 50 MG TAB PO PRN (12:38)
[2020-05-13] MEDS ORDERED: NON-FORMULARY EACH (Nitroglycerin 0.4 MG) SUBLINGUAL SCH (12:45)
[2020-05-13] MEDS ORDERED: NITROGLYCERIN 0.4 MG TAB SUBL SL PRN (12:47)
[2020-05-13] MEDS ORDERED: amLODIPine 10 MG TAB ONE (13:31)
[2020-05-13] MEDS: amLODIPine 10 MG TAB PO SCH (13:33)
[2020-05-13 14:01] LABS: Free T4 (Free Thyroxine) 1.43 ng/dL (0.76-1.46)
--- NOTE | 2020-05-13 15:22 | Consultation ---
History of Present Illness Consult date: 05/13/20 Requesting physician: HELENA REYES Consult reason: chest pain, congestive heart failure History of present illness: Pt is a 60 y.o. AA male who presented with complaints of SOB/REECE x 3 days prior to arrival. He states he is unable to walk more than a few steps without resting. SOB present at rest as well. Pt also reports mild intermittent left- sided chest pressure x approximately 3 days. He denies any additional cardiac complaints. No recent fever/chills. Trop minimally elevated, flat. ECG reveals no acute ischemic changes. BNP elevated. CXR reveals mild cardiomegaly and pulmonary vascular congestion. Past History Past Medical History: atrial fib, CAD (pt reported), heart failure, hepatitis, other (lupus) Past Surgical History: PTCA (pt reported) Social history: denies: smoking Medications and Allergies Allergies Allergy/AdvReac Type Severity Reaction Status Date / Time No Known Allergies Allergy Unverified 01/20/20 02:37 Home Medications Medication Instructions Recorded Confirmed Last Taken Type Atorvastatin Calcium 10 mg PO DAILY 02/08/20 05/13/20 05/12/20 History carvediloL [Coreg] 3.125 mg PO BID #60 tablet 02/11/20 05/13/20 05/13/20 Rx Pantoprazole [Protonix TAB] 40 mg PO QDAY #30 tablet 02/14/20 05/13/20 05/13/20 Rx Apixaban [Eliquis] 5 mg PO BID 05/13/20 05/13/20 05/12/20 History Aspirin [Adult Aspirin] 81 mg PO DAILY 05/13/20 05/13/20 05/13/20 History FLUoxetine [PROzac] 10 mg PO QDAY 05/13/20 05/13/20 05/13/20 History Lisinopril [Zestril] 5 mg PO DAILY 05/13/20 05/13/20 05/13/20 History Melatonin [Melatonin 10MG CAP] 30 mg PO QHS 05/13/20 05/13/20 05/12/20 History Tamsulosin [Flomax] 0.4 mg PO QHS 05/13/20 05/13/20 05/12/20 History Active Meds: Active Medications Acetaminophen (Tylenol) 650 mg PO Q4H PRN PRN Reason: Pain MILD(1-3)/Fever >100.5/ESQUEDA Albuterol (Proventil) 2.5 mg IH Q4HRT PRN PRN Reason: Shortness Of Breath Amlodipine Besylate (Amlodipine) 10 mg PO DAILY [facility] Last Admin: 05/13/20 13:33 Dose: Not Given Documented by: Apixaban (Eliquis) 5 mg PO Q12HR [facility]; Protocol Atorvastatin Calcium (Lipitor) 80 mg PO QHS [facility] Carvedilol (Coreg) 3.125 mg PO BID [facility] Clopidogrel Bisulfate (Plavix) 75 mg PO QDAY [facility] Furosemide (Lasix) 20 mg IV BID@0600,1800 [facility] Isosorbide Mononitrate (Imdur) 30 mg PO DAILY [facility] Last Admin: 05/13/20 13:32 Dose: Not Given Documented by: Nitroglycerin (Nitrostat) 0.4 mg SL .Q5MIN PRN PRN Reason: Chest Pain Ondansetron HCl (Zofran) 4 mg IV Q8H PRN PRN Reason: Nausea And Vomiting Pantoprazole Sodium (Protonix) 40 mg PO QDAY [facility] Sodium Chloride (Sodium Chloride Flush Syringe 10 Ml) 10 ml IV BID [facility] Sodium Chloride (Sodium Chloride Flush Syringe 10 Ml) 10 ml IV PRN PRN PRN Reason: LINE FLUSH Tramadol HCl (Ultram) 50 mg PO Q6HR PRN PRN Reason: PAIN Review of Systems Constitutional: no fever, no chills, no sweats Ears, nose, mouth and throat: no nasal congestion, no sore throat Cardiovascular: chest pain, orthopnea, shortness of breath, dyspnea on exertion, paroxysmal nocturnal dyspnea, no palpitations, no edema, no syncope, no lightheadedness, no claudication Respiratory: shortness of breath, dyspnea on exertion, no cough Gastrointestinal: no abdominal pain, no nausea, no vomiting, no diarrhea, no constipation Genitourinary Male: no dysuria, no flank pain Musculoskeletal: no neck stiffness, no neck pain, no myalgias Integumentary: no rash, no wounds Neurological: no head injury, no paralysis, no weakness, no parathesias, no numbness, no tingling, no seizures, no syncope, no vertigo, no headaches Endocrine: no cold intolerance, no heat intolerance, no polydipsia, no polyuria Hematologic/Lymphatic: no easy bruising, no easy bleeding Allergic/Immunologic: no urticaria Physical Examination Last Vital Signs Temp 98.1 F 05/13/20 13:00 Pulse 90 05/13/20 12:30 Resp 30 H 05/13/20 12:30 BP 150/112 05/13/20 12:30 Pulse Ox 100 05/13/20 12:30 General appearance: no acute distress HEENT: Positive: EOMI, Normocephaly, Mucus Membranes Moist Neck: Positive: neck supple, trachea midline. Negative: JVD/HJR Cardiac: Positive: irregularly irregular, S1/S2 Lungs: Positive: Decreased Breath Sounds (bilaterally) Neuro: Positive: Grossly Intact Abdomen: Positive: Soft, Active Bowel Sounds. Negative: Tender Skin: Negative: Rash Musculoskeletal: No Pain Extremities: Present: upper extr. pulses, lower extr. pulses. Absent: edema Results 05/13/20 08:51 05/13/20 08:51 Coagulation 05/13/20 Range/Units 11:37 PT 16.5 H (12.2-14.9) Sec. INR 1.30 H (0.87-1.13) APTT 34.9 (24.2-36.6) Sec. Lipids 05/13/20 Range/Units 08:51 Triglycerides 54 (2-149) mg/dL Cholesterol 135 (50-199) mg/dL HDL Cholesterol 41 (40-59) mg/dL Cholesterol/HDL Ratio 3.29 % CBC 05/13/20 Range/Units 08:51 WBC 5.6 (4.5-11.0) K/mm3 RBC 4.50 (3.65-5.03) M/mm3 Hgb 14.3 (11.8-15.2) gm/dl Hct 42.5 (35.5-45.6) % Plt Count 175 (140-440) K/mm3 Lymph # (Auto) 1.1 L (1.2-5.4) K/mm3 [place] # (Auto) 0.3 (0.0-0.8) K/mm3 Eos # (Auto) 0.0 (0.0-0.4) K/mm3 Baso # (Auto) 0.0 (0.0-0.1) K/mm3 Comprehensive Metabolic Panel 05/13/20 Range/Units 08:51 Sodium 135 L (137-145) mmol/L Potassium 4.3 (3.6-5.0) mmol/L Chloride 107.4 H (98-107) mmol/L Carbon Dioxide 13 L (22-30) mmol/L BUN 19 (9-20) mg/dL Creatinine 0.9 (0.8-1.3) mg/dL Glucose 129 H (75-100) mg/dL Calcium 9.1 (8.4-10.2) mg/dL - Imaging and Cardiology Echo: report reviewed (02/08/2020 - LV mildly dilated; EF 25-30%; LV sys fxn mod- severely reduced; elevated LVEDP; LA mod dilated; mod aortic leaflet calcification; trace AR) EKG: report reviewed, image reviewed - EKG Interpretation EKG: no acute changes EKG interpretations - EKG Supraventricular dysrhythmia: atrial fibrillation Assessment and Plan S/p IV Lasix 60mg. Initiate IV Lasix BID with strict I/Os. Closely monitor renal indices. Suspect chest pain in the setting of accelerated HTN. Trend Frank. Tele monitoring. Resume home cardiac regimen. Will optimize antihypertensive regimen as needed. Will consider ischemic eval if sx persist. Pt seen in conjunction with Dr. Quiroz, who agrees with the assessment and plan of care. - Patient Problems (1) Acute on chronic HFrEF (heart failure with reduced ejection fraction) Current Visit: Yes Status: Acute (2) Chest pain Current Visit: Yes Status: Acute (3) NSTEMI (non-ST elevation myocardial infarction) Current Visit: Yes Status: Acute Plan to address problem: suspect Type 2 in the setting of acutely decompensated HF (4) Cardiomyopathy Current Visit: Yes Status: Chronic (5) Atrial fibrillation Current Visit: Yes Status: Chronic Qualifiers: Atrial fibrillation type: unspecified Qualified Code(s): I48.91 - Unspecified atrial fibrillation Plan to address problem: on Eliquis (6) HTN (hypertension) Current Visit: Yes Status: Chronic Qualifiers: Hypertension type: essential hypertension Qualified Code(s): I10 - Essential (primary) hypertension (7) Hepatitis C Current Visit: Yes Status: Chronic (8) Lupus Current Visit: Yes Status: Chronic
[2020-05-13] MEDS: FUROSEMIDE 20 MG/2 ML INJ IV SCH (17:56)
[2020-05-13] MEDS: carvediloL 3.125 MG TAB PO SCH (21:07)
[2020-05-13] MEDS: APIXABAN 5 MG TAB PO SCH (21:07)
[2020-05-13] MEDS: TAMSULOSIN 0.4 MG CAP PO SCH (21:08)
[2020-05-13] MEDS ORDERED: APIXABAN 5 MG TAB PO SCH (22:00)
[2020-05-14 06:13] LABS: BUN/Creatinine Ratio 23; Blood Urea Nitrogen 25 mg/dL (9-20); Calcium 8.6 mg/dL (8.4-10.2); Hemolysis Index 9
[2020-05-14] MEDS: FUROSEMIDE 20 MG/2 ML INJ IV SCH ×2 (06:22→17:32)
[2020-05-14] MEDS ORDERED: ATORVASTATIN CALCIUM 80 MG PO SCH (10:00)
[2020-05-14] MEDS ORDERED: NON-FORMULARY EACH (Isosorbide Mononitrate 30 MG) PO SCH (10:00)
[2020-05-14] MEDS ORDERED: NON-FORMULARY EACH (Amlodipine 10 MG) PO SCH (10:00)
[2020-05-14] MEDS: APIXABAN 5 MG TAB PO SCH ×2 (10:04→21:51)
[2020-05-14] MEDS: FLUoxetine 10 MG TAB PO SCH (10:04)
[2020-05-14] MEDS: PANTOPRAZOLE 40 MG TAB PO SCH (10:04)
[2020-05-14] MEDS: ASPIRIN EC 81 MG TAB PO SCH (10:04)
[2020-05-14] MEDS: CLOPIDOGREL 75 MG TAB PO SCH (10:05)
[2020-05-14] MEDS: amLODIPine 10 MG TAB PO SCH (10:06)
[2020-05-14] MEDS: carvediloL 3.125 MG TAB PO SCH ×2 (10:06→21:50)
[2020-05-14] MEDS: LISINOPRIL 5 MG TAB PO SCH (10:06)
--- NOTE | 2020-05-14 20:18 | Progress Note ---
Assessment and Plan Cont IV Lasix 20mg BID with strict I/Os. Closely monitor renal indices. Suspect NSTEMI Type 2 in the setting of accelerated HTN. Cont tele monitoring. Cont other present cardiac mgmt. Plan for LifeVest placement prior to discharge. Pt seen in conjunction with Dr. Quiroz, who agrees with the assessment and plan of care. - Patient Problems (1) Acute on chronic HFrEF (heart failure with reduced ejection fraction) Current Visit: Yes Status: Acute (2) Chest pain Current Visit: Yes Status: Resolved (3) NSTEMI (non-ST elevation myocardial infarction) Current Visit: Yes Status: Acute Plan to address problem: suspect Type 2 in the setting of acutely decompensated HF (4) NSVT (nonsustained ventricular tachycardia) Current Visit: Yes Status: Acute (5) Cardiomyopathy Current Visit: Yes Status: Chronic (6) Atrial fibrillation Current Visit: Yes Status: Chronic Qualifiers: Atrial fibrillation type: unspecified Qualified Code(s): I48.91 - Unspecified atrial fibrillation Plan to address problem: on Eliquis (7) HTN (hypertension) Current Visit: Yes Status: Chronic Qualifiers: Hypertension type: essential hypertension Qualified Code(s): I10 - Essential (primary) hypertension (8) Hepatitis C Current Visit: Yes Status: Chronic (9) Lupus Current Visit: Yes Status: Chronic (10) H/O: CVA (cerebrovascular accident) Current Visit: Yes Status: Chronic (11) Medical non-compliance Current Visit: Yes Status: Chronic Subjective Date of service: 05/14/20 Principal diagnosis: A/C HFrEF Interval history: Pt resting comfortably in bed upon exam. He states he is feeling better but is still significantly short of breath. Pt denies chest pain or additional cardiac complaints. BP better today. Tele reviewed - AF w/brief runs of VT noted. Pt asymptomatic. Objective Last Vital Signs Temp 98.4 F 05/14/20 15:53 Pulse 90 05/14/20 18:00 Resp 20 05/14/20 18:00 BP 132/106 05/14/20 15:53 Pulse Ox 98 05/14/20 18:00 - Physical Examination General: No Apparent Distress HEENT: Positive: EOMI, Normocephaly, Mucus Membranes Moist Neck: Positive: neck supple, trachea midline. Negative: JVD/HJR Cardiac: Positive: irregularly irregular, S1/S2 Lungs: Positive: Decreased Breath Sounds Neuro: Positive: Grossly Intact Abdomen: Positive: Soft, Active Bowel Sounds. Negative: Tender Skin: Negative: Rash Musculoskeletal: No Pain Extremities: Present: upper extr. pulses, lower extr. pulses. Absent: edema - Labs and Meds Comprehensive Metabolic Panel 05/14/20 Range/Units 05:23 Sodium 140 (137-145) mmol/L Potassium 3.7 (3.6-5.0) mmol/L Chloride 104.0 (98-107) mmol/L Carbon Dioxide 21 L D (22-30) mmol/L BUN 25 H (9-20) mg/dL Creatinine 1.1 (0.8-1.3) mg/dL Glucose 103 H (75-100) mg/dL Calcium 8.6 (8.4-10.2) mg/dL - Imaging and Cardiology EKG: report reviewed, image reviewed Echo: report reviewed (02/08/2020 - LV mildly dilated; EF 25-30%; LV sys fxn mod- severely reduced; elevated LVEDP; LA mod dilated; mod aortic leaflet calcification; trace AR) - Telemetry EKG Rhythm: Atrial Fibrillation - EKG Supraventricular dysrhythmia: atrial fibrillation
[2020-05-14] MEDS: TAMSULOSIN 0.4 MG CAP PO SCH (21:50)
[2020-05-15] MEDS: FUROSEMIDE 20 MG/2 ML INJ IV SCH ×2 (05:16→18:01)
[2020-05-15 06:30] LABS: BUN/Creatinine Ratio 25; Blood Urea Nitrogen 25 mg/dL (9-20); Calcium 9.2 mg/dL (8.4-10.2); Hemolysis Index 2
[2020-05-15] MEDS: ASPIRIN EC 81 MG TAB PO SCH (10:14)
[2020-05-15] MEDS: LISINOPRIL 5 MG TAB PO SCH (10:15)
[2020-05-15] MEDS: carvediloL 3.125 MG TAB PO SCH (10:15)
[2020-05-15] MEDS: CLOPIDOGREL 75 MG TAB PO SCH (10:16)
[2020-05-15] MEDS: amLODIPine 10 MG TAB PO SCH (10:16)
[2020-05-15] MEDS: APIXABAN 5 MG TAB PO SCH (10:16)
[2020-05-15] MEDS: PANTOPRAZOLE 40 MG TAB PO SCH (10:16)
[2020-05-15] MEDS: FLUoxetine 10 MG TAB PO SCH (10:16)
[2020-05-15] MEDS ORDERED: SODIUM CHLORIDE 0.9% 500 ML 500 ML IV SCH (12:00)
--- NOTE | 2020-05-15 13:01 | Progress Note ---
Assessment and Plan Plan for [facility] in AM. NPO after midnight. Hold Eliquis. Continue IV Lasix 20mg BID with strict I/Os. Closely monitor renal indices. Continue tele monitoring. Continue other present cardiac mgmt. Increase Coreg as tolerated. Pt will likely require LifeVest prior to discharge or possibly as an outpatient. 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 He does not have a Site Safety Manager in [place]. Unable to obtain medical records thus far. Pt seen in conjunction with Dr. Diaz, who agrees with the assessment and plan of care. - Patient Problems (1) Acute on chronic HFrEF (heart failure with reduced ejection fraction) Current Visit: Yes Status: Acute (2) Chest pain Current Visit: Yes Status: Resolved (3) CAD (coronary artery disease) Current Visit: Yes Status: Suspected Plan to address problem: Pt reports hx of "10 heart stents" (4) NSTEMI (non-ST elevation myocardial infarction) Current Visit: Yes Status: Acute Plan to address problem: suspect Type 2 in the setting of acutely decompensated HF & accelerated HTN (5) Cardiomyopathy Current Visit: Yes Status: Chronic (6) NSVT (nonsustained ventricular tachycardia) Current Visit: Yes Status: Acute (7) Atrial fibrillation Current Visit: Yes Status: Chronic Qualifiers: Atrial fibrillation type: unspecified Qualified Code(s): I48.91 - Unspecified atrial fibrillation Plan to address problem: on Eliquis (8) HTN (hypertension) Current Visit: Yes Status: Chronic Qualifiers: Hypertension type: essential hypertension Qualified Code(s): I10 - Essential (primary) hypertension (9) Hepatitis C Current Visit: Yes Status: Chronic (10) Lupus Current Visit: Yes Status: Chronic (11) H/O: CVA (cerebrovascular accident) Current Visit: Yes Status: Chronic Plan to address problem: on Plavix (12) Medical non-compliance Current Visit: Yes Status: Chronic Subjective Date of service: 05/15/20 Principal diagnosis: A/C HFrEF Interval history: Pt resting comfortably in bed upon exam. SOB significantly improved. Pt remains orthopnic. He denies chest pain or additional cardiac complaints. Tele reviewed - AF w/brief runs of VT noted. Pt asymptomatic. BP remains stable on current regimen. Objective Last Vital Signs Temp 98.0 F 05/15/20 11:59 Pulse 54 L 10/19/20 11:59 Resp 18 05/15/20 11:59 BP 135/101 05/15/20 11:59 Pulse Ox 98 05/15/20 11:59 - Physical Examination General: No Apparent Distress HEENT: Positive: EOMI, Normocephaly, Mucus Membranes Moist Neck: Positive: neck supple, trachea midline. Negative: JVD/HJR Cardiac: Positive: irregularly irregular, S1/S2 Lungs: Positive: Decreased Breath Sounds Neuro: Positive: Grossly Intact Abdomen: Positive: Soft, Active Bowel Sounds. Negative: Tender Skin: Negative: Rash Musculoskeletal: No Pain Extremities: Present: upper extr. pulses, lower extr. pulses. Absent: edema - Labs and Meds Comprehensive Metabolic Panel 05/15/20 Range/Units 05:53 Sodium 143 (137-145) mmol/L Potassium 3.5 L (3.6-5.0) mmol/L Chloride 104.5 (98-107) mmol/L Carbon Dioxide 23 (22-30) mmol/L BUN 25 H (9-20) mg/dL Creatinine 1.0 (0.8-1.3) mg/dL Glucose 106 H (75-100) mg/dL Calcium 9.2 (8.4-10.2) mg/dL - Imaging and Cardiology EKG: report reviewed, image reviewed Echo: report reviewed (02/08/2020 - LV mildly dilated; EF 25-30%; LV sys fxn mod- severely reduced; elevated LVEDP; LA mod dilated; mod aortic leaflet calcification; trace AR) - Telemetry EKG Rhythm: Atrial Fibrillation
--- NOTE | 2020-05-15 16:59 | Progress Note ---
Assessment and Plan (1) CHF exacerbation Current Visit: Yes Status: Acute Qualifiers: Heart failure type: systolic Qualified Code(s): I50.23 - Acute on chronic systolic (congestive) heart failure Plan to address problem: Strict I/O, monitor application, daily weight, cardiology team consulted in ED, diuresis, monitor fluid balance, supplemental oxygen, afterload reduction, blood pressure control, echocardiogram from January 2020 reviewed. Further care and evaluation as per cardiology team. Cardiology consult appreciated (2) Atrial fibrillation Current Visit: Yes Status: Acute Qualifiers: Atrial fibrillation type: longstanding persistent Qualified Code(s): I48.11 - Longstanding persistent atrial fibrillation Plan to address problem: Continue therapeutic anticoagulation, continue rate control with beta-taj therapy. Telemetry monitoring. (3) Metabolic acidosis Current Visit: Yes Status: Acute Plan to address problem: IV bicarbonate therapy, BMP, repeat BMP in a.m. (4) Hyponatremia Current Visit: Yes Status: Acute Plan to address problem: Supportive care, BMP, repeat BMP in a.m. (5) CAD (coronary artery disease) Current Visit: Yes Status: Acute Plan to address problem: Risk factor reduction therapy, antiplatelet therapy, supportive care. (6) HTN (hypertension) Current Visit: Yes Status: Acute Qualifiers: Hypertension type: essential hypertension Qualified Code(s): I10 - Essential (primary) hypertension Plan to address problem: Monitor blood pressure every shift, continue medical management, continue prehospital antihypertensive therapy. (7) Nicotine dependence Current Visit: Yes Status: Acute Qualifiers: Nicotine product type: cigarettes Substance use status: in withdrawal Qualified Code(s): F17.213 - Nicotine dependence, cigarettes, with withdrawal Plan to address problem: Supportive care, smoking cessation counseling, behavior change counseling +15 minutes (8) DVT prophylaxis Current Visit: Yes Status: Acute Plan to address problem: SCD to bilateral lower extremities while in bed, patient is ambulatory. Continue therapeutic anticoagulation (9) Advance care planning Current Visit: Yes Status: Acute Plan to address problem: Disease education conducted, patient is full code, patient knowledges u nderstanding and agreement with care plan, prognosis discussed, +30 minutes. Subjective Date of service: 05/14/20 Principal diagnosis: A/C HFrEF, atrial fibrillation Interval history: 60 YO Male with CAD S/P Stent Placement x10 on Antiplatelet therapy with Plavix, HTN, HLD, HI, Systolic/Diastolic CHF(EF 25%), Atrial Fib on Therapeutic Anticoagulation with Eliquis, Migraine ESQUEDA, Seizure Disorder, Nicotine Dependence presents to ED for evaluation. Patient states that he had experienced chest pain over the last 3 days with worsening symptoms over the last 8 hours. Patient states that his pain is currently 5/10, constant, localized to the left chest, nonradiating, worsened with exertion, relieved with rest, associated with shortness of breath. Patient acknowledges orthopnea as well as paroxysmal n octurnal dyspnea, decreased exercise tolerance. Patient transported to [facility] via private vehicle for further care and evaluation of the aforementioned symptoms. Patient seen and evaluated in the emergency department. All lab and imaging studies reviewed. Patient found to have symptoms consistent with CHF decompensation, metabolic acidosis, as well as hyponatremia. Patient admitted to telemetry and initiated on CHF protocol due to increased risk of cardiac decompensation. Cardiology team consulted in ED. Patient denies fever, chills, palpitations, productive cough, skin rash, recent ill contacts, unilateral leg swelling, calf pain, prolonged travel/immobility, medication noncompliance, k nown exposure to COVID-19. All medication listed at time of admission has been reconciled. Prior admission on 02/07/2020 reviewed. Advanced care planning conducted in ED. 05/14/2020 Patient CHF orthopnea present Cardiology consult appreciated Objective - Constitutional Vitals: Vital Signs - 12hr 05/15/20 05/15/20 05/15/20 07:45 10:15 10:16 Temperature 97.6 F Pulse Rate 45 L Respiratory 20 Rate Blood Pressure 127/106 127/106 127/106 O2 Sat by Pulse 99 Oximetry 05/15/20 05/15/20 11:59 15:38 Temperature 98.0 F 98.3 F Pulse Rate 54 L 55 L Respiratory 18 18 Rate Blood Pressure 135/101 98/73 O2 Sat by Pulse 98 99 Oximetry General appearance: Present: mild distress, well-nourished - EENT Eyes: PERRL, EOM intact ENT: hearing intact, clear oral mucosa Ears: bilateral: normal - Neck Neck: supple, normal ROM - Respiratory Respiratory effort: normal Respiratory: bilateral: CTA - Breasts Breasts: normal - Cardiovascular Heart rate: 78 Rhythm: irregularly irregular Heart Sounds: Present: S1 & S2. Absent: gallop, rub Extremities: pulses intact, No edema, normal color, Full ROM - Gastrointestinal General gastrointestinal: Present: soft, non-tender, non-distended, normal bowel sounds - Genitourinary Male genitourinary: normal - Integumentary Integumentary: clear, warm, dry - Musculoskeletal Musculoskeletal: 1, strength equal bilaterally - Neurologic Neurologic: moves all extremities - Psychiatric Psychiatric: memory intact, appropriate mood/affect, intact judgment & insight - Labs CBC & Chem 7: 05/16/20 05:50 05/16/20 05:50 Labs: Abnormal lab results 05/14/20 05/15/20 Range/Units 21:26 05:53 Potassium 3.5 L (3.6-5.0) mmol/L BUN 25 H (9-20) mg/dL Glucose 106 H (75-100) mg/dL POC Glucose 122 H (70-105) HEART Score - HEART Score EKG: Non-specific Age: 45-65 Risk factors: > 3 risk factors or hx of atherosclerotic disease Troponin: Troponin T 0.045 ng/mL (0.00-0.029) H 05/13/20 12:55 Troponin: 1-3x normal limit - Critical Actions Critical Actions: 4-6 pts:12-16.6% risk of adverse cardiac event. Should be admitted
--- NOTE | 2020-05-15 17:00 | Progress Note ---
Assessment and Plan (1) CHF exacerbation Current Visit: Yes Status: Acute Qualifiers: Heart failure type: systolic Qualified Code(s): I50.23 - Acute on chronic systolic (congestive) heart failure Plan to address problem: Strict I/O, monitor application, daily weight, cardiology team consulted in ED, diuresis, monitor fluid balance, supplemental oxygen, afterload reduction, blood pressure control, echocardiogram from January 2020 reviewed. Further care and evaluation as per cardiology team. Plan for LHC in AM. NPO after midnight. Hold Eliquis. Continue IV Lasix 20mg BID with strict I/Os. Closely monitor renal indices. Continue tele monitoring. Continue other present cardiac mgmt. Increase Coreg as tolerated. Pt will likely require LifeVest prior to discharge or possibly as an outpatient. 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 He does not have a Milling Supervisor in [place]. Unable to obtain medical records thus far. (2) Atrial fibrillation Current Visit: Yes Status: Acute Qualifiers: Atrial fibrillation type: longstanding persistent Qualified Code(s): I48.11 - Longstanding persistent atrial fibrillation Plan to address problem: Continue therapeutic anticoagulation, continue rate control with beta-taj therapy. Telemetry monitoring. (3) Metabolic acidosis Current Visit: Yes Status: Acute Plan to address problem: IV bicarbonate therapy, BMP, repeat BMP in a.m. (4) Hyponatremia Current Visit: Yes Status: Acute Plan to address problem: Supportive care, BMP, repeat BMP in a.m. (5) CAD (coronary artery disease) Current Visit: Yes Status: Acute Plan to address problem: Risk factor reduction therapy, antiplatelet therapy, supportive care. (6) HTN (hypertension) Current Visit: Yes Status: Acute Qualifiers: Hypertension type: essential hypertension Qualified Code(s): I10 - Essential (primary) hypertension Plan to address problem: Monitor blood pressure every shift, continue medical management, continue prehospital antihypertensive therapy. (7) Nicotine dependence Current Visit: Yes Status: Acute Qualifiers: Nicotine product type: cigarettes Substance use status: in withdrawal Qualified Code(s): F17.213 - Nicotine dependence, cigarettes, with withdrawal Plan to address problem: Supportive care, smoking cessation counseling, behavior change counseling +15 minutes (8) DVT prophylaxis Current Visit: Yes Status: Acute Plan to address problem: SCD to bilateral lower extremities while in bed, patient is ambulatory. Continue therapeutic anticoagulation (9) Advance care planning Current Visit: Yes Status: Acute Plan to address problem: Disease education conducted, patient is full code, patient knowledges understanding and agreement with care plan, prognosis discussed, +30 minutes. Subjective Date of service: 05/15/20 Principal diagnosis: A/C HFrEF Interval history: 60 YO Male with CAD S/P Stent Placement x10 on Antiplatelet therapy with Plavix, HTN, HLD, SC, Systolic/Diastolic CHF(EF 25%), Atrial Fib on Therapeutic Anticoagulation with Eliquis, Migraine ESQUEDA, Seizure Disorder, Nicotine Dependence presents to ED for evaluation. Patient states that he had experienced chest pain over the last 3 days with worsening symptoms over the last 8 hours. Patient states that his pain is currently 5/10, constant, localized to the left chest, nonradiating, worsened with exertion, relieved with rest, associated with shortness of breath. Patient acknowledges orthopnea as well as paroxysmal nocturnal dyspnea, decreased exercise tolerance. Patient transported to [facility] via private vehicle for further care and evaluation of the aforementioned symptoms. Patient seen and evaluated in the emergency department. All lab and imaging studies reviewed. Patient found to have symptoms consistent with CHF decompensation, metabolic acidosis, as well as hyponatremia. Patient admitted to telemetry and initiated on CHF protocol due to increased risk of cardiac decompensation. Cardiology team consulted in ED. Patient denies fever, chills, palpitations, productive cough, skin rash, recent ill contacts, unilateral leg swelling, calf pain, prolonged travel/immobility, medication noncompliance, known exposure to COVID-19. All medication listed at time of admission has been reconciled. Prior admission on 02/07/2020 reviewed. Advanced care planning conducted in ED. 05/14/2020 Patient CHF orthopnea present 05/15/2020 Respiratory distress better Patient in A. fib Patient for left heart cath in the morning Objective - Constitutional Vitals: Vital Signs - 12hr 05/15/20 05/15/20 05/15/20 07:45 10:15 10:16 Temperature 97.6 F Pulse Rate 45 L Respiratory 20 Rate Blood Pressure 127/106 127/106 127/106 O2 Sat by Pulse 99 Oximetry 05/15/20 05/15/20 11:59 15:38 Temperature 98.0 F 98.3 F Pulse Rate 54 L 55 L Respiratory 18 18 Rate Blood Pressure 135/101 98/73 O2 Sat by Pulse 98 99 Oximetry General appearance: Present: no acute distress, well-nourished - EENT Eyes: PERRL, EOM intact ENT: hearing intact, clear oral mucosa Ears: bilateral: normal - Neck Neck: supple, normal ROM - Respiratory Respiratory effort: normal Respiratory: bilateral: CTA - Breasts Breasts: normal - Cardiovascular Heart rate: 78 Rhythm: irregularly irregular Heart Sounds: Present: S1 & S2. Absent: gallop, rub Extremities: pulses intact, No edema, normal color, Full ROM - Gastrointestinal General gastrointestinal: Present: soft, non-tender, non-distended, normal bowel sounds - Genitourinary Male genitourinary: normal - Integumentary Integumentary: clear, warm, dry - Musculoskeletal Musculoskeletal: 1, strength equal bilaterally - Neurologic Neurologic: moves all extremities - Psychiatric Psychiatric: memory intact, appropriate mood/affect, intact judgment & insight - Labs CBC & Chem 7: 05/16/20 05:50 05/16/20 05:50 Labs: Abnormal lab results 05/14/20 05/15/20 Range/Units 21:26 05:53 Potassium 3.5 L (3.6-5.0) mmol/L BUN 25 H (9-20) mg/dL Glucose 106 H (75-100) mg/dL POC Glucose 122 H (70-105) HEART Score - HEART Score EKG: Non-specific Age: 45-65 Risk factors: > 3 risk factors or hx of atherosclerotic disease Troponin: Troponin T 0.045 ng/mL (0.00-0.029) H 05/13/20 12:55 Troponin: 1-3x normal limit - Critical Actions Critical Actions: 4-6 pts:12-16.6% risk of adverse cardiac event. Should be admitted
[2020-05-15] MEDS ORDERED: MELATONIN 5 MG TAB PO SCH (22:00)
[2020-05-15] MEDS: carvediloL 6.25 MG TAB PO SCH (22:50)
[2020-05-15] MEDS: TAMSULOSIN 0.4 MG CAP PO SCH (22:50)
[2020-05-16] MEDS: FUROSEMIDE 20 MG/2 ML INJ IV SCH (06:03)
[2020-05-16 06:13] LABS: Basophils # (Auto) 0.1 K/mm3 (0.0-0.1); Basophils % (Auto) 1.2 % (0.0-1.8); Eosinophils # (Auto) 0.1 K/mm3 (0.0-0.4); Eosinophils % (Auto) 2.9 % (0.0-4.3); Hematocrit 37.7 % (35.5-45.6); Hemoglobin 12.6 gm/dl (11.8-15.2); Lymphocytes # (Auto) 1.1 K/mm3 (1.2-5.4); Lymphocytes % (Auto) 24.9 % (13.4-35.0); Mean Corpuscular HGB Conc 33 % (32-34); Mean Corpuscular Volume 92 fl (84-94); Monocytes # (Auto) 0.6 K/mm3 (0.0-0.8); Monocytes % (Auto) 13.6 % (0.0-7.3); Platelet Count 206 K/mm3 (140-440); Red Blood Count 4.11 M/mm3 (3.65-5.03); Red Cell Distribution Width 15.6 % (13.2-15.2)
[2020-05-16 06:23] LABS: INR 1.14 (0.87-1.13)
[2020-05-16 06:32] LABS: BUN/Creatinine Ratio 21; Blood Urea Nitrogen 25 mg/dL (9-20); Calcium 9.3 mg/dL (8.4-10.2); Hemolysis Index 13
[2020-05-16] MEDS ORDERED: SODIUM CHLORIDE 0.9% 500 ML 500 ML ONE (07:27)
[2020-05-16] MEDS ORDERED: CLOPIDOGREL 75 MG TAB ONE (07:28)
[2020-05-16] MEDS ORDERED: ASPIRIN EC 81 MG TAB PO ONE (07:28)
[2020-05-16] MEDS: ASPIRIN EC 81 MG TAB PO SCH ×2 (07:30→09:46)
[2020-05-16] MEDS: CLOPIDOGREL 75 MG TAB PO SCH ×2 (07:31→09:35)
[2020-05-16] MEDS ORDERED: HEPARIN/NS 5000 UNIT/500ML 1,000 ML IR ONE (07:58)
[2020-05-16] MEDS ORDERED: MIDAZOLAM 2 MG/2 ML INJ ONE (07:59)
[2020-05-16] MEDS ORDERED: fentaNYL 100 MCG/2 ML INJ ONE (07:59)
[2020-05-16] MEDS: NITROGLYCERIN SYRINGE 3 ML ONE ×3 (08:40→08:48)
[2020-05-16] MEDS: LIDOCAINE (2%) 20 MG/1 ML VIAL 20 ML MDV INFILTRATI ONE ×2 (08:43→08:46)
[2020-05-16] MEDS: HEPARIN 10,000 UNITS/10 ML VIAL ONE ×3 (08:45→08:48)
[2020-05-16] MEDS: VERAPAMIL 5 MG/2 ML INJ ONE ×3 (08:45→08:48)
[2020-05-16] MEDS ORDERED: traMADol 50 MG TAB PO PRN (09:17)
[2020-05-16] MEDS ORDERED: HYDROcodone/ACETAMINOPHEN 5-325 MG TAB PO PRN (09:17)
[2020-05-16] MEDS: carvediloL 6.25 MG TAB PO SCH (09:46)
[2020-05-16] MEDS: PANTOPRAZOLE 40 MG TAB PO SCH (09:46)
[2020-05-16] MEDS: FLUoxetine 10 MG TAB PO SCH (09:47)
--- NOTE | 2020-05-16 09:56 | Cardiac Catherization Report ---
LEFT HEART CATHETERIZATION CLINICAL INFORMATION: This is a 60-year-old patient with known coronary artery disease, systolic heart failure, having runs of nonsustained ventricular tachycardia with atrial fibrillation, hypertension, hyperlipidemia, here for left heart catheterization after being compensated for heart failure. Procedure was done with moderate sedation, started at 8:46, finished at 9:01, 50 minutes of moderate sedation. Procedure was done via the right radial artery, sterile technique, local anesthesia, 6-Anguillan radial sheath inserted. There was moderate to severe tortuosity of the right innominate and subclavian, engaged the left system with a JL3.5 catheter. The left main is large and patent, mild luminal irregularities. LAD is a large caliber vessel, proximal is patent, mid stent is patent. Rest of the vessel is patent. Diagonal 1 at the ostium where the stent was crossing over has a 90% lesion but is a small diagonal. Diagonal 2 is small caliber vessel, patent. Circumflex is a medium caliber vessel, proximal mid is patent. OM1 is small caliber and patent. OM2 is medium caliber and patent. Before OM3, there is a focal 95% lesion noted and then RCA engaged with JR4, is a large dominant vessel, proximal and distal stents are widely patent. PDA, PLV are medium caliber vessel with long branches are patent. LV gram done in [place] view shows severe LV dysfunction, LVEDP at 24 mmHg, LV is 119. Aortic is 116/84. No gradient across the aortic valve on pullback. 5-Anguillan catheters all taken over guidewire, 6-Anguillan radial sheath was discontinued. Radial dressing applied. No hematoma, no bleeding. SUMMARY: Left main large and patent, mild luminal irregularities. LAD mid stent patent. Diagonal 1 ostial 90% where the stent was crossed over. Diagonal 2 patent. Circumflex distally had a 95% lesion and OM1 is small caliber and patent. OM2 patent. RCA proximal to distal stents are patent. PDA, PLV are patent. Severe left ventricular dysfunction. The patient's disease in the distal circumflex is out of portion of the patient's cardiomyopathy. We will treat the patient medically. If the patient's LV function improves, consider PCI of the circumflex and discussed this in detail with the patient's mother. JOB# [id number] RUSTY/RUBI
[2020-05-16] MEDS ORDERED: FUROSEMIDE 40 MG TAB PO SCH (10:00)
[2020-05-16] MEDS ORDERED: LISINOPRIL 20 MG TAB PO SCH (10:00)
[2020-05-16] MEDS ORDERED: SPIRONOLACTONE 25 MG TAB PO SCH (10:00)
--- NOTE | 2020-05-16 10:28 | Progress Note ---
Assessment and Plan pt is compensated chf, cont lasix and aldactone and stop norvasc, cont imdur, increase lisinopril 20mg and cont coreg and asa and elquis, treat medically distal lcx lesion as pt lv dsyfunction is out of portion to lcx stenosis , life vest and discharge home and followup in office with dr guerrero and discuss with pt mother in detail. - Patient Problems (1) Hyperlipemia, mixed Current Visit: Yes Status: Chronic (2) Acute on chronic HFrEF (heart failure with reduced ejection fraction) Current Visit: Yes Status: Acute (3) Advance care planning Current Visit: Yes Status: Acute (4) Atrial fibrillation Current Visit: Yes Status: Chronic Qualifiers: Atrial fibrillation type: longstanding persistent Qualified Code(s): I48.11 - Longstanding persistent atrial fibrillation (5) HTN (hypertension) Current Visit: Yes Status: Chronic Qualifiers: Hypertension type: essential hypertension Qualified Code(s): I10 - Essential (primary) hypertension (6) NSTEMI (non-ST elevation myocardial infarction) Current Visit: Yes Status: Acute (7) NSVT (nonsustained ventricular tachycardia) Current Visit: Yes Status: Acute (8) H/O: CVA (cerebrovascular accident) Current Visit: Yes Status: Chronic (9) Hepatitis C Current Visit: Yes Status: Chronic (10) Medical non-compliance Current Visit: Yes Status: Chronic (11) CAD (coronary artery disease) Current Visit: Yes Status: Chronic Qualifiers: Coronary Disease-Associated Artery/Lesion type: [place] artery Associated angina: with stable angina Subjective Date of service: 05/16/20 Principal diagnosis: A/C HFrEF, atrial fibrillation Interval history: pt has no sob Objective Vital Signs Temp Pulse Resp BP Pulse Ox 05/16/20 04:05 98.0 F 61 18 125/81 98 05/16/20 02:00 82 05/15/20 23:38 98.0 F 42 L 18 103/60 89 05/15/20 22:50 95 H 108/85 05/15/20 19:24 97.7 F 43 L 18 108/85 95 05/15/20 15:38 98.3 F 55 L 18 98/73 99 05/15/20 11:59 98.0 F 54 L 18 135/101 98 - Physical Examination General: No Apparent Distress HEENT: Positive: EOMI, Normocephaly, Mucus Membranes Moist Neck: Positive: neck supple, trachea midline. Negative: JVD/HJR Cardiac: Positive: Irregularly Regular Lungs: Positive: clear to auscultation Neuro: Positive: Grossly Intact Abdomen: Positive: Soft, Active Bowel Sounds. Negative: Tender Skin: Negative: Rash Musculoskeletal: No Pain Extremities: Present: upper extr. pulses, lower extr. pulses. Absent: edema - Labs and Meds Coagulation 05/16/20 Range/Units 05:50 PT 14.8 (12.2-14.9) Sec. INR 1.14 H (0.87-1.13) CBC 05/16/20 Range/Units 05:50 WBC 4.5 (4.5-11.0) K/mm3 RBC 4.11 (3.65-5.03) M/mm3 Hgb 12.6 (11.8-15.2) gm/dl Hct 37.7 (35.5-45.6) % Plt Count 206 (140-440) K/mm3 Lymph # (Auto) 1.1 L (1.2-5.4) K/mm3 Ogle # (Auto) 0.6 (0.0-0.8) K/mm3 Eos # (Auto) 0.1 (0.0-0.4) K/mm3 Baso # (Auto) 0.1 (0.0-0.1) K/mm3 Comprehensive Metabolic Panel 05/16/20 Range/Units 05:50 Sodium 139 (137-145) mmol/L Potassium 3.7 (3.6-5.0) mmol/L Chloride 100.5 (98-107) mmol/L Carbon Dioxide 25 (22-30) mmol/L BUN 25 H (9-20) mg/dL Creatinine 1.2 (0.8-1.3) mg/dL Glucose 99 (75-100) mg/dL Calcium 9.3 (8.4-10.2) mg/dL - Imaging and Cardiology EKG: report reviewed, image reviewed Echo: report reviewed (02/08/2020 - LV mildly dilated; EF 25-30%; LV sys fxn mod- severely reduced; elevated LVEDP; LA mod dilated; mod aortic leaflet calcification; trace AR) Cardiac cath: report reviewed (lt main patent lad stent patent lcx distal 95% rca stents patent and severe lv dsyfunction ) - Telemetry EKG Rhythm: Atrial Fibrillation
[2020-05-16 12:16] VITALS: BP 115/65
--- NOTE | 2020-05-16 13:13 | Discharge Summary ---
Providers - Providers Date of Admission: 05/13/20 13:12 Date of discharge: 05/16/20 Attending physician: ADDY RINALDI 05/16/20 09:17 Consult to Cardiac Rehabilitation [CONS] Routine Reason For Exam: Cardiac Rehab Evaluation Primary care physician: KRISTI MICHELLE Hospitalization Condition: Stable Hospital course: 60 YO Male with CAD S/P Stent Placement x10 on Antiplatelet therapy with Plavix, HTN, HLD, MA, Systolic/Diastolic CHF(EF 25%), Atrial Fib on Therapeutic Anticoagulation with Eliquis, Migraine ESQUEDA, Seizure Disorder, Nicotine Dependence presents to ED for evaluation. Patient states that he had experienced chest pain over the last 3 days with worsening symptoms over the last 8 hours. Patient states that his pain is currently 5/10, constant, localized to the left chest, nonradiating, worsened with exertion, relieved with rest, associated with shortness of breath. Patient acknowledges orthopnea as well as paroxysmal nocturnal dyspnea, decreased exercise tolerance. Patient transported to [facility] via private vehicle for further care and evaluation of the aforementioned symptoms. Patient seen and evaluated in the emergency department. All lab and imaging studies reviewed. Patient found to have symptoms consistent with CHF decompensation, metabolic acidosis, as well as hyponatremia. Patient admitted to telemetry and initiated on CHF protocol due to increased risk of cardiac decompensation. Cardiology team consulted in ED. Patient denies fever, chills, palpitations, productive cough, skin rash, recent ill contacts, unilateral leg swelling, calf pain, prolonged travel/immobility, medication noncompliance, known exposure to COVID-19. All medication listed at time of admission has been reconciled. Prior admission on 02/07/2020 reviewed. Advanced care planning conducted in ED. 05/14/2020 Patient CHF orthopnea present 05/15/2020 Respiratory distress better Patient in A. fib Patient for left heart cath in the morning 05/16/2020. LHC showed distal lcx lesion. He will need medical treatment as per cardiology as lesion is out of proportion to cardiac dysfunction He will continue lasix, imdur, coreg, aldactone, aspirin and eliquis at discharge. He will need a lifevest which will be provided before discharge Plan to follow up with cardiology Dr Quiroz in the office in 1-2 weeks Disposition: - TO HOME OR SELFCARE Core Measure Documentation - Palliative Care Palliative Care/ Comfort Measures: Not Applicable - Core Measures Any of the following diagnoses?: none Exam - Constitutional Vitals: Temp Pulse Resp BP Pulse Ox 97.3 F L 42 L 20 115/65 97 05/16/20 12:06 05/16/20 12:06 05/16/20 12:06 05/16/20 12:06 05/16/20 12:06 General appearance: Present: no acute distress, well-nourished - EENT Eyes: Present: PERRL ENT: hearing intact, clear oral mucosa - Neck Neck: Present: supple, normal ROM - Respiratory Respiratory effort: normal Respiratory: bilateral: CTA - Cardiovascular Heart Sounds: Present: S1 & S2. Absent: rub, click - Extremities Extremities: pulses symmetrical, No edema Peripheral Pulses: within normal limits - Abdominal General gastrointestinal: Present: soft, non-tender, non-distended, normal bowel sounds Male genitourinary: Present: normal - Integumentary Integumentary: Present: clear, warm, dry - Musculoskeletal Musculoskeletal: gait normal, strength equal bilaterally - Psychiatric Psychiatric: appropriate mood/affect, intact judgment & insight - Neurologic Neurologic: CNII-XII intact, moves all extremities Plan Diet: low fat, low cholesterol, low salt Additional Instructions: Continue medications as prescribed. Coreg doise has been increased to 6.25mg twice daily. Follow up with cardiology (Dr Quiroz) in the office in 1-2 weeks. Wear lifevest at all times. Follow up with: KRISTI MICHELLE [Primary Care Provider] - 3-5 Days Prescriptions: AtorvaSTATin [Lipitor] 80 mg PO QHS #30 tablet Spironolactone [Aldactone] 25 mg PO QDAY #30 tablet carvediloL [Coreg] 6.25 mg PO BID #60 tablet Apixaban [Eliquis] 5 mg PO Q12HR #60 tablet ISOSORBIDE MONOnitrate [Imdur ER] 30 mg PO DAILY #30 tablet Furosemide [Lasix TAB] 40 mg PO QDAY #30 tablet lisinopriL [Zestril TAB] 20 mg PO DAILY #30 tablet
[2020-05-16] MEDS ORDERED: APIXABAN 5 MG TAB PO SCH (22:00)
== END 2020-05-16 18:35 | disposition home or self-care (01) | DRG 280 ==
LOC: ED 08:29 → 4A 13:12
PROVIDERS: ADMIT Internal Medicine; ATTEND Internal Medicine
PROC: 4A023N7 Measurement of Cardiac Sampling and Pressure, Left Heart, Percutaneous Approach (ICD-10-PCS; principal; 2020-05-16)
PROC: B2111ZZ Fluoroscopy of Multiple Coronary Arteries using Low Osmolar Contrast (ICD-10-PCS; 2020-05-16)
PROC: B2151ZZ Fluoroscopy of Left Heart using Low Osmolar Contrast (ICD-10-PCS; 2020-05-16)
DX: I21.4 Non-ST elevation (NSTEMI) myocardial infarction (principal); I50.23 Acute on chronic systolic (congestive) heart failure; E87.2 Acidosis; E87.1 Hypo-osmolality and hyponatremia; I42.9 Cardiomyopathy, unspecified; I48.91 Unspecified atrial fibrillation; I25.10 Atherosclerotic heart disease of native coronary artery without angina pectoris; I11.0 Hypertensive heart disease with heart failure; E78.5 Hyperlipidemia, unspecified; G43.909 Migraine, unspecified, not intractable, without status migrainosus; B19.20 Unspecified viral hepatitis C without hepatic coma; M32.9 Systemic lupus erythematosus, unspecified; G40.909 Epilepsy, unspecified, not intractable, without status epilepticus; Z83.3 Family history of diabetes mellitus; Z79.899 Other long term (current) drug therapy; Z82.49 Family history of ischemic heart disease and other diseases of the circulatory system; Z91.14 Patient's other noncompliance with medication regimen; Z86.73 Personal history of transient ischemic attack (TIA), and cerebral infarction without residual deficits
CPT/HCPCS: 36415; 71045; 80048; 80061; 82962; 83735; 83880; 84439; 84443; 84484; 85025; 85610; 85730; 87641; 93005; 93458; 96374; 96375; G0378; A9270-GY; C1894; J1644; J1940; J2250; J3010; J7040; Q9967

== ENCOUNTER 2020-12-12 09:49 | Inpatient (IN) | payer MEDICARE ==
--- NOTE | 2020-12-12 13:45 | Event Note ---
ED Screening Note Date of service: 12/12/20 Time: 13:44 ED Screening Note: 60-year-old male patient with history of seizure disorder and prior stroke presents to the emergency department for neurological evaluation. Patient states his mother called the ambulance today "because she is afraid he is going to have another stroke or seizure." Last seizure was reportedly 2 days ago, according to what the patient's mother told him. He himself cannot recall whether he experienced a seizure or a syncopal episode. He cannot recall the names of his medications. He states he has been compliant with his medications. His last stroke was 3 months ago. Poor historian. Tachycardic in triage. General: Awake, appropriately interactive, no acute distress. Neck: Supple. Full range of motion intact. Cardiovascular: Normal peripheral perfusion. Pulmonary: No respiratory distress. Patient is speaking normally without use of accessory muscles. Skin: No apparent rashes or lesions. Neurological: No facial asymmetry. Speech is clear. Follows commands. Patient is alert and oriented. Musculoskeletal: Moves all four extremities spontaneously with normal range of motion. Psych: Cooperative. Appropriate mood and affect. I have greeted and performed a focused rapid initial assessment of this patient. A comprehensive ED assessment and evaluation of the patient, analysis of all test results, and completion of the medical decision-making process will be conducted by additional ED providers. This initial assessment/diagnostic orders/clinical plan/treatment(s) is/are subject to change based on patients health status, clinical progression and re-assessment. Further treatment and workup at subsequent clinical provider's discretion. Patient/guardian urged not to elope from the ED as their condition may be serious if not clinically assessed and managed.
[2020-12-12 14:42] LABS: Hematocrit 36.4 % (35.5-45.6); Hemoglobin 12.1 gm/dl (11.8-15.2); Mean Corpuscular HGB Conc 33 % (32-34); Mean Corpuscular Volume 94 fl (84-94); Platelet Count 221 K/mm3 (140-440); Red Blood Count 3.89 M/mm3 (3.65-5.03); Red Cell Distribution Width 14.3 % (13.2-15.2)
[2020-12-12 15:08] LABS: Alanine Aminotransferase 16 units/L (7-56); BUN/Creatinine Ratio 20; Blood Urea Nitrogen 20 mg/dL (9-20); Calcium 9.6 mg/dL (8.4-10.2); Hemolysis Index 6
[2020-12-12 15:58] LABS: Total Cells Counted 100
[2020-12-12 15:59] LABS: Platelet Estimate Consistent w Auto
[2020-12-12 16:00] LABS: Ovalocytes Few
--- NOTE | 2020-12-12 17:07 | Emergency Department Report ---
HPI - General Chief Complaint: Seizure Time Seen by Provider: 12/12/20 16:44 - HPI HPI: Room 25 The patient is a 60-year-old male present with chief complaint of confusion. The patient has history of previous CVA and the mother states since then he has persistent confusion. Approximately 2 to 3 weeks ago the patient fell striking his head prompting admission to the hospital to [facility]. The patient was eventually discharged the mother states that he is still confused. She states that he does not sleep at night continuously tries to leave the house. She states she has had 3 falls since his discharge from the hospital. The mother states she is unable to care for the patient and is looking for long-term care ED Past Medical Hx - Past Medical History Previous Medical History?: Yes Hx Hypertension: Yes Hx Heart Attack/AMI: Yes Hx Congestive Heart Failure: Yes Hx GERD: Yes Hx Renal Disease: Yes Hx Headaches / Migraines: Yes Hx Seizures: Yes Hx Kidney Stones: Yes Hx COPD: Yes Additional medical history: Lupus, nerve damage, blind in right eye, ADD - Surgical History Hx Coronary Stent: Yes Additional Surgical History: 10 stents placed in heart, broken femur - Family History Family history: no significant - Social History Smoking Status: Former Smoker Substance Use Type: None - Medications Home Medications: Home Medications Medication Instructions Recorded Confirmed Last Taken Type Pantoprazole [Protonix TAB] 40 mg PO QDAY #30 tablet 02/14/20 05/13/20 05/13/20 Rx Apixaban [Eliquis] 5 mg PO BID 05/13/20 05/13/20 05/12/20 History Aspirin [Adult Aspirin] 81 mg PO DAILY 05/13/20 05/13/20 05/13/20 History FLUoxetine [PROzac] 10 mg PO QDAY 05/13/20 05/13/20 05/13/20 History Melatonin [Melatonin 10MG CAP] 30 mg PO QHS 05/13/20 05/13/20 05/12/20 History Tamsulosin [Flomax] 0.4 mg PO QHS 05/13/20 05/13/20 05/12/20 History Apixaban [Eliquis] 5 mg PO Q12HR #60 tablet 05/16/20 Unknown Rx AtorvaSTATin [Lipitor] 80 mg PO QHS #30 tablet 05/16/20 Unknown Rx Furosemide [Lasix TAB] 40 mg PO QDAY #30 tablet 05/16/20 Unknown Rx ISOSORBIDE MONOnitrate [Imdur ER] 30 mg PO DAILY #30 tablet 05/16/20 Unknown Rx Spironolactone [Aldactone] 25 mg PO QDAY #30 tablet 05/16/20 Unknown Rx carvediloL [Coreg] 6.25 mg PO BID #60 tablet 05/16/20 Unknown Rx lisinopriL [Zestril TAB] 20 mg PO DAILY #30 tablet 05/16/20 Unknown Rx ED Review of Systems ROS: Stated complaint: SEIZURE Other details as noted in HPI Comment: Unobtainable due to pts medical conditions Physical Exam - Physical Exam Vital Signs: Vital Signs 12/12/20 12/12/20 10:06 13:09 Temperature 99.2 F 98.2 F Pulse Rate 113 H 96 H Respiratory 20 20 Rate Blood Pressure 130/92 Blood Pressure 114/66 [Right] O2 Sat by Pulse 97 96 Oximetry Physical Exam: GENERAL: The patient is well-developed well-nourished male lying on stretcher not appearing to be in acute distress but slightly confused. [] HEENT: Normocephalic. Atraumatic. Extraocular motions are intact. Patient has moist mucous membranes. Blind in right eye NECK: Supple. Trachea midline CHEST/LUNGS: Clear to auscultation. There is no respiratory distress noted. HEART/CARDIOVASCULAR: Regular. There is no tachycardia. There is no gallop rub or murmur. ABDOMEN: Abdomen is soft, nontender. Patient has normal bowel sounds. There is no abdominal distention. SKIN: There is no rash. There is no edema. There is no diaphoresis. NEURO: The patient is awake, and oriented to self and year. Patient appears distracted/confused. The patient is cooperative. GCS 15. The patient has normal speech. Moves all extremities exhibits weakness in the left upper extremity from previous CVA MUSCULOSKELETAL: There is no evidence of acute injury. ED Course Vital Signs 12/12/20 12/12/20 10:06 13:09 Temperature 99.2 F 98.2 F Pulse Rate 113 H 96 H Respiratory 20 20 Rate Blood Pressure 130/92 Blood Pressure 114/66 [Right] O2 Sat by Pulse 97 96 Oximetry ED Medical Decision Making - Lab Data Result diagrams: 12/12/20 14:01 12/12/20 14:01 - EKG Data -: EKG Interpreted by Wa EKG shows normal: sinus rhythm Rate: normal - EKG Data When compared to previous EKG there are: previous EKG unavailable Interpretation: nonspecific ST-T wave jhon (T wave inversions in leads V2, V3, V5, V6) - Radiology Data Radiology results: report reviewed (CT head), image reviewed (CT head) [facility] [address] [place] [address] Cat Scan Report Signed Patient: MELINA KOVACS MR#: [id number] 5 : 1960 Acct:[id number] Age/Sex: 60 / M ADM Date: 12/12/20 Loc: ED Attending Dr: Neil soni Physician: PIPPA GREENWOOD MD Date of Service: 12/12/20 Procedure(s): CT head/brain wo con Accession Number(s): [id number] cc: PIPPA GREENWOOD MD CT head/brain wo con INDICATION / CLINICAL INFORMATION: 60 years Male; Frequent falls. TECHNIQUE: Routine CT head without contrast. All CT scans at this location are performed using CT dose reduction for ALARA by means of automated exposure control. COMPARISON: The study is compared to previous CT of 02/07/2020. FINDINGS: BRAIN / INTRACRANIAL CONTENTS: There are continued extensive areas of encephalomalacia involving right cerebral hemisphere along the border zone vascular distributions most consistent with old infarcts. There also appears to be developmental relative encephalomalacia involving lateral right temporal lobe now with prominence of the right sylvian fissure. This finding would also be compatible with old infarct though has developed from the previous study. There is a persistent old infarct involving medial right occipital lobe. There is otherwise moderate cerebral white matter disease most consistent with microvascular angiopathy. There is an old small infarct involving the right cerebellum. The motion degrades the image quality. However, there is no clear CT evidence of acute intracranial hemorrhage or significant mass effect. ORBITS: There is again notable enophthalmos which correlates with the prior study. SINUSES / MASTOIDS: No significant abnormality in the visualized paranasal sinuses or mastoid air cells. CRANIOCERVICAL JUNCTION: No significant abnormality. ADDITIONAL FINDINGS: None. IMPRESSION: 1. There is extensive microvascular angiopathy and multiple old infarcts as detailed above without clear CT evidence of acute intracranial hemorrhage. Signer Name: Adriel Garland MD Signed: 12/12/2020 7:01 PM Workstation Name: [id number] Transcribed By: MR Dictated By: Adriel Garland MD Electronically Authenticated By: Adriel Garland MD Signed Date/Time: 12/12/201900 DD/ 55 TD/TT: Print Cancel - Differential Diagnosis Dementia, closed head injury, ICH, electrolyte imbalance Critical care attestation.: If time is entered above; I have spent that time in minutes in the direct care of this critically ill patient, excluding procedure time. ED Disposition Clinical Impression: Dementia Disposition: DC/TX-70 ANOTHER TYPE HLTHCARE Is pt being admited?: No Does the pt Need Aspirin: No Condition: Stable Referrals: [facility] [Other] - 3-5 Days
--- NOTE | 2020-12-12 19:05 | Cat Scan Report ---
CT head/brain wo con INDICATION / CLINICAL INFORMATION: 60 years Male; Frequent falls. TECHNIQUE: Routine CT head without contrast. All CT scans at this location are performed using CT dos e reduction for ALARA by means of automated exposure control. COMPARISON: The study is compared to previous CT of 02/07/2020. FINDINGS: BRAIN / INTRACRANIAL CONTENTS: There are continued extensive areas of encephalomalacia involving righ t cerebral hemisphere along the border zone vascular distributions most consistent with old infarcts. There also appears to be developmental relative encephalomalacia involving lateral right temporal lo be now with prominence of the right sylvian fissure. This finding would also be compatible with old i nfarct though has developed from the previous study. There is a persistent old infarct involving medial right occipital lobe. There is otherwise moderate cerebral white matter disease most consistent with microvascular angiopathy. There is an old small in farct involving the right cerebellum. The motion degrades the image quality. However, there is no pierce ar CT evidence of acute intracranial hemorrhage or significant mass effect. ORBITS: There is again notable enophthalmos which correlates with the prior study. SINUSES / MASTOIDS: No significant abnormality in the visualized paranasal sinuses or mastoid air garth ls. CRANIOCERVICAL JUNCTION: No significant abnormality. ADDITIONAL FINDINGS: None. IMPRESSION: 1. There is extensive microvascular angiopathy and multiple old infarcts as detailed above without cl ear CT evidence of acute intracranial hemorrhage. Signer Name: Adriel Garland MD Signed: 12/12/2020 7:01 PM Workstation Name: [id number]
[2020-12-12] MEDS ORDERED: HALOPERIDOL LACTATE 5 MG/1 ML INJ IM ONE (20:03)
[2020-12-12 21:24] LABS: Bilirubin,Urine NEG (Negative); Blood,Urine NEG (Negative); Color,Urine Yellow (Yellow); Hyaline Casts,Urine 1 /LPF; Protein,Urine <15 mg/dL mg/dL (Negative); Urobilinogen,Urine < 2.0 mg/dL (<2.0); WBC,Urine < 1.0 /HPF (0.0-6.0)
[2020-12-12 21:31] LABS: Amphetamine Screen,Urine Negative; Benzodiazepines Screen,Urine Negative; Cannabinoid Screen,Urine Negative; Cocaine Screen,Urine Negative; Methadone Screen,Urine Negative; Opiate Screen,Urine Negative
[2020-12-12] MEDS ORDERED: diphenhydrAMINE 50 MG/ML VIAL IM PRN (22:17)
[2020-12-12] MEDS ORDERED: diphenhydrAMINE 50 MG/ML VIAL IM ONE ×2 (22:18→22:19)
[2020-12-13] MEDS ORDERED: cloNIDine 0.2 MG TAB PO ONE (05:46)
[2020-12-13] MEDS: PANTOPRAZOLE 40 MG TAB PO SCH (10:03)
[2020-12-13] MEDS: carvediloL 6.25 MG TAB PO SCH ×2 (10:03→22:14)
[2020-12-13] MEDS: APIXABAN 5 MG TAB PO SCH ×2 (10:04→22:14)
[2020-12-13] MEDS: LISINOPRIL 20 MG TAB PO SCH (10:04)
[2020-12-13] MEDS: SPIRONOLACTONE 25 MG TAB PO SCH (10:33)
[2020-12-13] MEDS: FUROSEMIDE 40 MG TAB PO SCH (10:33)
--- NOTE | 2020-12-13 10:49 | Electrocardiograph Report ---
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
[2020-12-13] MEDS: HALOPERIDOL LACTATE 5 MG/1 ML INJ IM PRN (10:52)
--- NOTE | 2020-12-13 11:51 | Event Note ---
Date: 12/13/20 The patient was evaluated in the emergency department for symptoms described in the history of present illness. He/she was evaluated in the context of the global COVID-19 pandemic, which necessitated consideration that the patient might be at risk for infection with the virus that causes COVID-19. Institutional protocols and algorithms that pertain to the evaluation of patients at risk for COVID-19 are in a state of rapid change based on information released by regulatory bodies including the CDC and federal and state organizations. These policies and algorithms were followed during the patient's care in the emergency department. Please note that these policies, procedures and recommendations changed on a rapid basis. Patient is in stretcher. He was agitated, and required chemical restraint. He is now currently in soft restraints at this time. He is protecting his airway. He appears to be somewhat agitated, and is tachycardic. Home medications were reconciled. Have requested twelve-lead EKG. Case management and psychiatric recommendations are pending. Vital Signs 12/12/20 12/12/20 12/12/20 10:06 13:09 14:52 Temperature 99.2 F 98.2 F Pulse Rate 113 H 96 H 102 H Respiratory 20 20 14 Rate Blood Pressure 130/92 125/53 Blood Pressure 114/66 [Right] O2 Sat by Pulse 97 96 99 Oximetry 12/12/20 12/12/20 12/12/20 16:56 17:05 17:30 Temperature Pulse Rate 102 H 98 H 103 H Respiratory 23 18 25 H Rate Blood Pressure 125/53 134/95 Blood Pressure [Right] O2 Sat by Pulse 98 99 Oximetry 12/12/20 12/12/20 12/12/20 18:01 19:23 19:31 Temperature Pulse Rate 101 H 116 H Respiratory 21 21 Rate Blood Pressure 131/88 156/94 156/94 Blood Pressure [Right] O2 Sat by Pulse 99 100 100 Oximetry 12/12/20 12/13/20 12/13/20 19:35 05:45 06:14 Temperature 98.1 F 98.2 F Pulse Rate 108 H 76 76 Respiratory 15 18 Rate Blood Pressure 188/120 Blood Pressure 132/97 188/120 [Right] O2 Sat by Pulse 100 98 Oximetry 12/13/20 12/13/20 12/13/20 06:30 07:01 07:31 Temperature Pulse Rate 123 H 118 H 101 H Respiratory 14 Rate Blood Pressure 151/95 147/96 106/73 Blood Pressure [Right] O2 Sat by Pulse 95 99 97 Oximetry 12/13/20 12/13/20 12/13/20 09:01 10:03 10:04 Temperature Pulse Rate 116 H 110 H 116 H Respiratory 27 H Rate Blood Pressure 144/96 153/59 153/59 Blood Pressure [Right] O2 Sat by Pulse 89 Oximetry 12/13/20 10:33 Temperature Pulse Rate 121 H Respiratory Rate Blood Pressure 153/59 Blood Pressure [Right] O2 Sat by Pulse Oximetry Lab Results 12/12/20 12/12/20 12/12/20 Range/Units 14:00 14:01 14:01 WBC 4.0 L (4.5-11.0) K/mm3 RBC 3.89 (3.65-5.03) M/mm3 Hgb 12.1 (11.8-15.2) gm/dl Hct 36.4 (35.5-45.6) % MCV 94 (84-94) fl MCH 31 (28-32) pg MCHC 33 (32-34) % RDW 14.3 (13.2-15.2) % Plt Count 221 (140-440) K/mm3 Peach % (Auto) Supervisor Gelatin Plant Add Manual Diff Complete Total Counted 100 Seg Neuts % (Manual) 67.0 (40.0-70.0) % Lymphocytes % (Manual) 22.0 (13.4-35.0) % Monocytes % (Manual) 9.0 H (0.0-7.3) % Eosinophils % (Manual) 2.0 (0.0-4.3) % Promyelocytes % 0 % Nucleated RBC % Not Reportable Seg Neutrophils # Man 2.7 (1.8-7.7) K/mm3 Band Neutrophils # 0.0 K/mm3 Lymphocytes # (Manual) 0.9 L (1.2-5.4) K/mm3 Abs React Lymphs (Man) 0.0 K/mm3 Monocytes # (Manual) 0.4 (0.0-0.8) K/mm3 Eosinophils # (Manual) 0.1 (0.0-0.4) K/mm3 Basophils # (Manual) 0.0 (0.0-0.1) K/mm3 Metamyelocytes # 0.0 K/mm3 Myelocytes # 0.0 K/mm3 Promyelocytes # 0.0 K/mm3 Blast Cells # 0.0 K/mm3 WBC Morphology Not Reportable Hypersegmented Neuts Not Reportable Hyposegmented Neuts Not Reportable Hypogranular Neuts Not Reportable Smudge Cells Not Reportable Toxic Granulation Not Reportable Toxic Vacuolation Not Reportable Dohle Bodies Not Reportable Pelger-Huet Anomaly Not Reportable Komal Rods Not Reportable Platelet Estimate Consistent w auto Clumped Platelets Not Reportable Plt Clumps, EDTA Not Reportable Large Platelets Not Reportable Giant Platelets Not Reportable Platelet Satelliting Not Reportable Plt Morphology Comment Not Reportable RBC Morphology Not Reportable Dimorphic RBCs Not Reportable Polychromasia Not Reportable Hypochromasia Not Reportable Poikilocytosis Not Reportable Anisocytosis Not Reportable Microcytosis Not Reportable Macrocytosis Not Reportable Spherocytes Not Reportable Pappenheimer Bodies Not Reportable Sickle Cells Not Reportable Target Cells Not Reportable Tear Drop Cells Not Reportable Ovalocytes Few Helmet Cells Not Reportable [place] Bodies Not Reportable [place] Rings Not Reportable [place] Cells Not Reportable Bite Cells Not Reportable Crenated Cell Not Reportable Elliptocytes Not Reportable Acanthocytes (Spur) Not Reportable Rouleaux Not Reportable Hemoglobin C Crystals Not Reportable Schistocytes Not Reportable Malaria parasites Not Reportable Chencho Bodies Not Reportable Hem Pathologist Commnt No Sodium 134 L (137-145) mmol/L Potassium 4.4 (3.6-5.0) mmol/L Chloride 100.2 (98-107) mmol/L Carbon Dioxide 22 (22-30) mmol/L Anion Gap 16 mmol/L BUN 20 (9-20) mg/dL Creatinine 1.0 (0.8-1.3) mg/dL Estimated GFR > 60 ml/min BUN/Creatinine Ratio 20 % Glucose 90 (75-100) mg/dL Calcium 9.6 (8.4-10.2) mg/dL Magnesium 1.90 (1.7-2.3) mg/dL Total Bilirubin 0.60 (0.1-1.2) mg/dL AST 34 (5-40) units/L ALT 16 (7-56) units/L Alkaline Phosphatase 113 (35-129) units/L Troponin T 0.011 (0.00-0.029) ng/mL Total Protein 8.2 (6.3-8.2) g/dL Albumin 4.0 (3.9-5) g/dL Albumin/Globulin Ratio 1.0 % Urine Color (Yellow) Urine Turbidity (Clear) Urine pH (5.0-7.0) Ur Specific Edelstein (1.003-1.030) Urine Protein (Negative) mg/dL Urine Glucose (UA) (Negative) mg/dL Urine Ketones (Negative) mg/dL Urine Blood (Negative) Urine Nitrite (Negative) Urine Bilirubin (Negative) Urine Urobilinogen (<2.0) mg/dL Ur Leukocyte Esterase (Negative) Urine WBC (Auto) (0.0-6.0) /HPF Urine RBC (Auto) (0.0-6.0) /HPF U Epithel Cells (Auto) (0-13.0) /HPF Hyaline Casts /LPF Urine Opiates Screen Urine Methadone Screen Ur Barbiturates Screen Ur Phencyclidine Scrn Ur Amphetamines Screen U Benzodiazepines Scrn Urine Cocaine Screen U Marijuana (THC) Screen Drugs of Abuse Note Plasma/Serum Alcohol < 0.01 (0-0.07) % 12/12/20 12/12/20 Range/Units 21:04 21:04 WBC (4.5-11.0) K/mm3 RBC (3.65-5.03) M/mm3 Hgb (11.8-15.2) gm/dl Hct (35.5-45.6) % MCV (84-94) fl MCH (28-32) pg MCHC (32-34) % RDW (13.2-15.2) % Plt Count (140-440) K/mm3 Peach % (Auto) Add Manual Diff Total Counted Seg Neuts % (Manual) (40.0-70.0) % Lymphocytes % (Manual) (13.4-35.0) % Monocytes % (Manual) (0.0-7.3) % Eosinophils % (Manual) (0.0-4.3) % Promyelocytes % % Nucleated RBC % Seg Neutrophils # Man (1.8-7.7) K/mm3 Band Neutrophils # K/mm3 Lymphocytes # (Manual) (1.2-5.4) K/mm3 Abs React Lymphs (Man) K/mm3 Monocytes # (Manual) (0.0-0.8) K/mm3 Eosinophils # (Manual) (0.0-0.4) K/mm3 Basophils # (Manual) (0.0-0.1) K/mm3 Metamyelocytes # K/mm3 Myelocytes # K/mm3 Promyelocytes # K/mm3 Blast Cells # K/mm3 WBC Morphology Hypersegmented Neuts Hyposegmented Neuts Hypogranular Neuts Smudge Cells Toxic Granulation Toxic Vacuolation Dohle Bodies Pelger-Huet Anomaly Komal Rods Platelet Estimate Clumped Platelets Plt Clumps, EDTA Large Platelets Giant Platelets Platelet Satelliting Plt Morphology Comment RBC Morphology Dimorphic RBCs Polychromasia Hypochromasia Poikilocytosis Anisocytosis Microcytosis Macrocytosis Spherocytes Pappenheimer Bodies Sickle Cells Target Cells Tear Drop Cells Ovalocytes Helmet Cells [place] Bodies [place] Rings Lenard Cells Bite Cells Crenated Cell Elliptocytes Acanthocytes (Spur) Rouleaux Hemoglobin C Crystals Schistocytes Malaria parasites Chencho Bodies Hem Pathologist Commnt Sodium (137-145) mmol/L Potassium (3.6-5.0) mmol/L Chloride (98-107) mmol/L Carbon Dioxide (22-30) mmol/L Anion Gap mmol/L BUN (9-20) mg/dL Creatinine (0.8-1.3) mg/dL Estimated GFR ml/min BUN/Creatinine Ratio % Glucose (75-100) mg/dL Calcium (8.4-10.2) mg/dL Magnesium (1.7-2.3) mg/dL Total Bilirubin (0.1-1.2) mg/dL AST (5-40) units/L ALT (7-56) units/L Alkaline Phosphatase (35-129) units/L Troponin T (0.00-0.029) ng/mL Total Protein (6.3-8.2) g/dL Albumin (3.9-5) g/dL Albumin/Globulin Ratio % Urine Color Yellow (Yellow) Urine Turbidity Clear (Clear) Urine pH 5.0 (5.0-7.0) Ur Specific Edelstein 1.010 (1.003-1.030) Urine Protein <15 mg/dl (Negative) mg/dL Urine Glucose (UA) Neg (Negative) mg/dL Urine Ketones Neg (Negative) mg/dL Urine Blood Neg (Negative) Urine Nitrite Neg (Negative) Urine Bilirubin Neg (Negative) Urine Urobilinogen < 2.0 (<2.0) mg/dL Ur Leukocyte Esterase Neg (Negative) Urine WBC (Auto) < 1.0 (0.0-6.0) /HPF Urine RBC (Auto) 1.0 (0.0-6.0) /HPF U Epithel Cells (Auto) < 1.0 (0-13.0) /HPF Hyaline Casts 1 /LPF Urine Opiates Screen Negative Urine Methadone Screen Negative Ur Barbiturates Screen Positive Ur Phencyclidine Scrn Negative Ur Amphetamines Screen Negative U Benzodiazepines Scrn Negative Urine Cocaine Screen Negative U Marijuana (THC) Screen Negative Drugs of Abuse Note Disclamer Plasma/Serum Alcohol (0-0.07) %
[2020-12-13] MEDS ORDERED: METOPROLOL TARTRATE 50 MG TAB PO ONE (13:18)
--- NOTE | 2020-12-14 10:53 | Electrocardiograph Report ---
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
--- NOTE | 2020-12-14 13:54 | Event Note ---
I evaluated patient today. He is calm and cooperative. I spoke with mother who is also at the bedside. He has had increasing confusion over the past weeks. I suspect vascular dementia. Patient has history of CVA requiring extensive outpatient assistance. According to mother, she removed him from a long term in April which was located in [facility] for away from relatives. Prior to patient living in a long term, patient resided with his son. His son no longer desired to take care of him consequently he was placed in a long term. Mother states that "I thought I could take care of him but I cannot." I have reviewed vital signs which are stable. Also reviewed previous discharge summary. Assessment: Vascular dementia, severe debility due to previous CVA, Plan: Since placement to longterm facility
[2020-12-14] MEDS: HALOPERIDOL LACTATE 5 MG/1 ML INJ IM PRN (16:03)
[2020-12-14] MEDS: PANTOPRAZOLE 40 MG TAB PO SCH (18:42)
[2020-12-14] MEDS: LISINOPRIL 20 MG TAB PO SCH (18:42)
[2020-12-14] MEDS: FUROSEMIDE 40 MG TAB PO SCH (18:42)
[2020-12-14] MEDS: APIXABAN 5 MG TAB PO SCH ×2 (18:43→22:41)
[2020-12-14] MEDS: carvediloL 6.25 MG TAB PO SCH (18:43)
[2020-12-14] MEDS: SPIRONOLACTONE 25 MG TAB PO SCH (18:43)
[2020-12-15] MEDS: HALOPERIDOL LACTATE 5 MG/1 ML INJ IM PRN ×2 (03:03→16:14)
[2020-12-15] MEDS: carvediloL 6.25 MG TAB PO SCH ×2 (10:59→20:53)
[2020-12-15] MEDS: FUROSEMIDE 40 MG TAB PO SCH ×2 (11:00→11:07)
[2020-12-15] MEDS: LISINOPRIL 20 MG TAB PO SCH (11:00)
[2020-12-15] MEDS: SPIRONOLACTONE 25 MG TAB PO SCH ×2 (11:00→11:10)
[2020-12-15] MEDS: APIXABAN 5 MG TAB PO SCH ×2 (11:05→21:48)
[2020-12-15] MEDS: PANTOPRAZOLE 40 MG TAB PO SCH (11:07)
[2020-12-16] MEDS: carvediloL 6.25 MG TAB PO SCH ×2 (08:10→18:40)
--- NOTE | 2020-12-16 10:34 | Event Note ---
S: Patient points to right leg when asked if in pain. O: stable vital signs, responds slowly to voice A: vascular dementia, Failure to thrive P: [facility] [place] will accept patient with negative COVID test, charge nurse is expediting lab collection
[2020-12-16] MEDS: FUROSEMIDE 40 MG TAB PO SCH (13:50)
[2020-12-16] MEDS: LISINOPRIL 20 MG TAB PO SCH (13:50)
[2020-12-16] MEDS: SPIRONOLACTONE 25 MG TAB PO SCH (13:51)
[2020-12-16] MEDS: PANTOPRAZOLE 40 MG TAB PO SCH (13:51)
[2020-12-16] MEDS: APIXABAN 5 MG TAB PO SCH (13:51)
[2020-12-17] MEDS: carvediloL 6.25 MG TAB PO SCH ×2 (07:52→16:29)
--- NOTE | 2020-12-17 09:59 | Event Note ---
S: Patient has no complaints O: stable vital signs, responds slowly to voice A: vascular dementia, Failure to thrive P: COVID test negative, PT/OT ordered
[2020-12-17] MEDS: APIXABAN 5 MG TAB PO SCH ×3 (10:02→22:30)
[2020-12-17] MEDS: PANTOPRAZOLE 40 MG TAB PO SCH (10:02)
[2020-12-17] MEDS: LISINOPRIL 20 MG TAB PO SCH (10:02)
[2020-12-17] MEDS: FUROSEMIDE 40 MG TAB PO SCH (10:18)
[2020-12-17] MEDS: SPIRONOLACTONE 25 MG TAB PO SCH (10:18)
[2020-12-18] MEDS: PANTOPRAZOLE 40 MG TAB PO SCH (09:45)
[2020-12-18] MEDS: FUROSEMIDE 40 MG TAB PO SCH (09:45)
[2020-12-18] MEDS: LISINOPRIL 20 MG TAB PO SCH (09:45)
[2020-12-18] MEDS: carvediloL 6.25 MG TAB PO SCH ×2 (09:45→19:12)
[2020-12-18] MEDS: SPIRONOLACTONE 25 MG TAB PO SCH (09:45)
[2020-12-18] MEDS: APIXABAN 5 MG TAB PO SCH ×2 (09:46→22:45)
[2020-12-18] MEDS ORDERED: SODIUM CHLORIDE 0.9% 1000 ML 1,000 ML IV ONE ×2 (14:13)
--- NOTE | 2020-12-18 14:48 | XRay Report ---
CHEST 1 VIEW 12/18/2020 2:13 PM INDICATION / CLINICAL INFORMATION: Hypotension. COMPARISON: 05/13/2020 FINDINGS: SUPPORT DEVICES: None. HEART / MEDIASTINUM: Stable. LUNGS / PLEURA: No significant pulmonary or pleural abnormality. No pneumothorax. ADDITIONAL FINDINGS: No significant additional findings. IMPRESSION: 1. No acute findings. Signer Name: Musa Pardo MD Signed: 12/18/2020 2:44 PM Workstation Name: [id number]
[2020-12-18 14:58] LABS: Basophils % (Auto) 0.5 % (0.0-1.8); Eosinophils % (Auto) 0.2 % (0.0-4.3); Hematocrit 34.4 % (35.5-45.6); Hemoglobin 11.4 gm/dl (11.8-15.2); Lymphocytes # (Auto) 0.8 K/mm3 (1.2-5.4); Lymphocytes % (Auto) 13.8 % (13.4-35.0); Mean Corpuscular HGB Conc 33 % (32-34); Mean Corpuscular Volume 94 fl (84-94); Monocytes # (Auto) 0.7 K/mm3 (0.0-0.8); Monocytes % (Auto) 12.6 % (0.0-7.3); Platelet Count 233 K/mm3 (140-440); Red Blood Count 3.65 M/mm3 (3.65-5.03); Red Cell Distribution Width 14.2 % (13.2-15.2)
[2020-12-18 15:14] LABS: Calcium 8.5 mg/dL (8.4-10.2)
--- NOTE | 2020-12-18 15:52 | Event Note ---
Date: 12/18/20 Informed by nursing that patient became hypotensive with a systolic in the 60s. Patient complained of not having any energy. Patient was hydrated with 2 L normal saline with improvement of blood pressure to 115 systolic. Repeat labs reveals acute kidney injury with creatinine going from 1.0 to 3.9 We will admit the patient to the hospital for acute kidney injury and further evaluation. Hospitalist notified (Dr. Castillo)
[2020-12-18] MEDS ORDERED: NON-FORMULARY EACH (Apixaban 5 MG Tablet) PO SCH (23:45)
--- NOTE | 2020-12-19 06:07 | History and Physical Report ---
History of Present Illness Date of examination: 12/18/20 Date of admission: 12/18/20 15:52 Chief complaint: General weakness low blood pressure since a.m. History of present illness: 60-year-old male brought in for altered sensorium. Patient has a history of previous cerebrovascular accident and the mother says that he has persistent confusion. Patient has been in the emergency room since December 12 and for some reason was not admitted at that point. The emergency room was trying to do the placement to [facility] and they wanted a Covid test which was negative. His creatinine was normal on December 12 and today it has increased from 20/1.0 on December 12 to 98/3.9 2 to 3 weeks ago patient had a head concussion injury after a fall which resulted in admission to . Patient was kept in observation and was discharged. As per the mother patient was apparently confused all others and tries to leave the house. Apparently had 3 falls since his discharge from the last admission at [facility]. The mother states that she is unable to care for the patient and is looking for long-term care. In the emergency room blood pressure was low in the 60s and was given 2 L of normal saline bolus after which the blood pressure came upto systolic 115 mm Hg. No fever or chills. No exposure to coronavirus. Patient toxin and low volume and says that is in the hospital. Patient is not able to give much history. Patient able to move the right side but not the left upper extremity. Also has weakness on the left lower extremity. - Past Medical History Previous Medical History?: Yes --Hypertension: Yes --Heart Attack/AMI: Yes --Congestive Heart Failure: Yes --GERD: Yes --Renal Disease: Yes --Headaches / Migraines: Yes --Seizures: Yes --Kidney Stones: Yes --COPD: Yes --Additional medical history: Lupus, nerve damage, blind in right eye, ADD - Surgical History --Coronary Stent: Yes --Additional Surgical History: 10 stents placed in heart, broken femur - Family History Family history: no significant - Social History Smoking Status: Former Smoker Substance Use Type: None - Medications Home Medications: Home Medications Medication Instructions Recorded Confirmed Last Taken Type Pantoprazole [Protonix TAB] 40 mg PO QDAY #30 tablet 02/14/20 05/13/20 05/13/20 Rx Apixaban [Eliquis] 5 mg PO BID 05/13/20 05/13/20 05/12/20 History Aspirin [Adult Aspirin] 81 mg PO DAILY 05/13/20 05/13/20 05/13/20 History FLUoxetine [PROzac] 10 mg PO QDAY 05/13/20 05/13/20 05/13/20 History Melatonin [Melatonin 10MG CAP] 30 mg PO QHS 05/13/20 05/13/20 05/12/20 History Tamsulosin [Flomax] 0.4 mg PO QHS 05/13/20 05/13/20 05/12/20 History Apixaban [Eliquis] 5 mg PO Q12HR #60 tablet 05/16/20 Unknown Rx AtorvaSTATin [Lipitor] 80 mg PO QHS #30 tablet 05/16/20 Unknown Rx Furosemide [Lasix TAB] 40 mg PO QDAY #30 tablet 05/16/20 Unknown Rx ISOSORBIDE MONOnitrate [Imdur ER] 30 mg PO DAILY #30 tablet 05/16/20 Unknown Rx Spironolactone [Aldactone] 25 mg PO QDAY #30 tablet 05/16/20 Unknown Rx carvediloL [Coreg] 6.25 mg PO BID #60 tablet 05/16/20 Unknown Rx lisinopriL [Zestril TAB] 20 mg PO DAILY #30 tablet 05/16/20 Unknown Rx Review of Systems ROS: Constitutional chronic confusion and increasing lethargy and weakness HEENT no sore throat no post nasal drip no diplopia Neck no neck stiffness no lymph gland enlargement Chest and lungs no shortness of breath cough or wheezing CVS no chest pain no diaphoresis no palpitations GI no nausea no vomiting no diarrhea Genitourinary system no dysuria no flank pain Musculoskeletal system no muscle pains no joint pains [employer] left-sided weakness, frequent falls Skin no rash no itching Psychiatric depressed Hematologic no lymphedema or bruising Endocrine no polydipsia no polyuria no cold intolerance no heat intolerance Medications and Allergies Allergies Allergy/AdvReac Type Severity Reaction Status Date / Time No Known Allergies Allergy Verified 12/12/20 17:07 Home Medications Medication Instructions Recorded Confirmed Last Taken Type Pantoprazole [Protonix TAB] 40 mg PO QDAY #30 tablet 02/14/20 05/13/20 05/13/20 Rx Apixaban [Eliquis] 5 mg PO BID 05/13/20 05/13/20 05/12/20 History Aspirin [Adult Aspirin] 81 mg PO DAILY 05/13/20 05/13/20 05/13/20 History FLUoxetine [PROzac] 10 mg PO QDAY 05/13/20 05/13/20 05/13/20 History Melatonin [Melatonin 10MG CAP] 30 mg PO QHS 05/13/20 05/13/20 05/12/20 History Tamsulosin [Flomax] 0.4 mg PO QHS 05/13/20 05/13/20 05/12/20 History Apixaban [Eliquis] 5 mg PO Q12HR #60 tablet 05/16/20 Unknown Rx AtorvaSTATin [Lipitor] 80 mg PO QHS #30 tablet 05/16/20 Unknown Rx Furosemide [Lasix TAB] 40 mg PO QDAY #30 tablet 05/16/20 Unknown Rx ISOSORBIDE MONOnitrate [Imdur ER] 30 mg PO DAILY #30 tablet 05/16/20 Unknown Rx Spironolactone [Aldactone] 25 mg PO QDAY #30 tablet 05/16/20 Unknown Rx carvediloL [Coreg] 6.25 mg PO BID #60 tablet 05/16/20 Unknown Rx lisinopriL [Zestril TAB] 20 mg PO DAILY #30 tablet 05/16/20 Unknown Rx Active Meds: Active Medications Acetaminophen (Acetaminophen 325 Mg Tab) 650 mg PO Q6HR PRN PRN Reason: PAIN Apixaban (Apixaban 5 Mg Tab) 5 mg PO Q12HR [facility] Aspirin (Aspirin Ec 81 Mg Tab) 81 mg PO DAILY [facility] Atorvastatin Calcium (Atorvastatin 40 Mg Tab) 80 mg PO QHS [facility] Last Admin: 12/18/20 22:45 Dose: 80 mg Documented by: Carvedilol (Carvedilol 6.25 Mg Tab) 6.25 mg PO BID@0800,1700 [facility] Last Admin: 12/18/20 19:12 Dose: Not Given Documented by: Diphenhydramine HCl (Diphenhydramine 25 Mg Cap) 50 mg PO QHS PRN PRN Reason: Insomnia Fluoxetine HCl (Fluoxetine 10 Mg Tab) 10 mg PO QDAY [facility] Furosemide (Furosemide 40 Mg Tab) 40 mg PO QDAY [facility] Last Admin: 12/18/20 09:45 Dose: 40 mg Documented by: Haloperidol Lactate (Haloperidol Lactate 5 Mg/1 Ml Inj) 10 mg IM Q8H PRN PRN Reason: Agitation Last Admin: 12/15/20 16:14 Dose: 10 mg Documented by: Isosorbide Mononitrate (Isosorbide Mononitrate Er 30 Mg Tab) 30 mg PO DAILY [facility] Last Admin: 12/18/20 09:46 Dose: 30 mg Documented by: Lisinopril (Lisinopril 20 Mg Tab) 20 mg PO DAILY [facility] Last Admin: 12/18/20 09:45 Dose: 20 mg Documented by: Melatonin (Melatonin 5 Mg Tab) 30 mg PO QHS [facility] Pantoprazole Sodium (Pantoprazole 40 Mg Tab) 40 mg PO QDAY [facility] Last Admin: 12/18/20 09:45 Dose: 40 mg Documented by: Spironolactone (Spironolactone 25 Mg Tab) 25 mg PO QDAY [facility] Last Admin: 12/18/20 09:45 Dose: 25 mg Documented by: Tamsulosin HCl (Tamsulosin 0.4 Mg Cap) 0.4 mg PO QHS [facility] Exam - Constitutional Vitals: Temp Pulse Resp BP Pulse Ox 98.5 F 72 16 119/76 96 12/19/20 03:30 12/19/20 03:30 12/19/20 03:30 12/19/20 03:30 12/19/20 03:30 General appearance: Present: no acute distress, well-nourished - EENT Eyes: Present: PERRL ENT: hearing intact, clear oral mucosa - Neck Neck: Present: supple, normal ROM - Respiratory Respiratory effort: normal Respiratory: bilateral: CTA - Cardiovascular Heart rate: 78 Rhythm: regular Heart Sounds: Present: S1 & S2. Absent: rub, click - Extremities Extremities: no ischemia, pulses intact, pulses symmetrical, No edema Peripheral Pulses: within normal limits - Abdominal General gastrointestinal: Present: soft, non-tender, non-distended, normal bowel sounds Male genitourinary: Present: normal - Rectal Rectal Exam: deferred - Integumentary Integumentary: Present: clear, warm, dry - Musculoskeletal Musculoskeletal: strength equal bilaterally, left sided weakness, other (Lethargic and altered sensorium) - Psychiatric Psychiatric: depressed - Neurologic Neurologic: CNII-XII intact, focal deficits (Left upper extremity weakness, left lower extremity weakness with 3 / 5 power), moves all extremities - Allied Health Allied health notes reviewed: nursing, case management HEART Score - HEART Score History: Slightly suspicious Age: 45-65 Risk factors: > 3 risk factors or hx of atherosclerotic disease Troponin: Troponin T 0.011 ng/mL (0.00-0.029) 12/12/20 14:01 Troponin: < normal limit - Critical Actions Critical Actions: 0-3 pts:0.9-1.7%risk of adverse cardiac event.Candidate for discharge Results - Labs CBC & Chem 7: 12/18/20 14:35 12/18/20 14:35 Labs: Laboratory Last Values WBC 5.7 K/mm3 (4.5-11.0) 12/18/20 14:35 RBC 3.65 M/mm3 (3.65-5.03) 12/18/20 14:35 Hgb 11.4 gm/dl (11.8-15.2) L 12/18/20 14:35 Hct 34.4 % (35.5-45.6) L 12/18/20 14:35 MCV 94 fl (84-94) 12/18/20 14:35 MCH 31 pg (28-32) 12/18/20 14:35 MCHC 33 % (32-34) 12/18/20 14:35 RDW 14.2 % (13.2-15.2) 12/18/20 14:35 Plt Count 233 K/mm3 (140-440) 12/18/20 14:35 Lymph % (Auto) 13.8 % (13.4-35.0) 12/18/20 14:35 [place] % (Auto) 12.6 % (0.0-7.3) H 12/18/20 14:35 Eos % (Auto) 0.2 % (0.0-4.3) 12/18/20 14:35 Baso % (Auto) 0.5 % (0.0-1.8) 12/18/20 14:35 Lymph # (Auto) 0.8 K/mm3 (1.2-5.4) L 12/18/20 14:35 [place] # (Auto) 0.7 K/mm3 (0.0-0.8) 12/18/20 14:35 Eos # (Auto) 0.0 K/mm3 (0.0-0.4) 12/18/20 14:35 Baso # (Auto) 0.0 K/mm3 (0.0-0.1) 12/18/20 14:35 Add Manual Diff Complete 12/12/20 14:01 Total Counted 100 12/12/20 14:01 Seg Neutrophils % 72.9 % (40.0-70.0) H 12/18/20 14:35 Seg Neuts % (Manual) 67.0 % (40.0-70.0) 12/12/20 14:01 Lymphocytes % (Manual) 22.0 % (13.4-35.0) 12/12/20 14:01 Monocytes % (Manual) 9.0 % (0.0-7.3) H 12/12/20 14:01 Eosinophils % (Manual) 2.0 % (0.0-4.3) 12/12/20 14:01 Promyelocytes % 0 % 12/12/20 14:01 Nucleated RBC % Not Reportable 12/12/20 14:01 Seg Neutrophils # 4.2 K/mm3 (1.8-7.7) 12/18/20 14:35 Seg Neutrophils # Man 2.7 K/mm3 (1.8-7.7) 12/12/20 14:01 Band Neutrophils # 0.0 K/mm3 12/12/20 14:01 Lymphocytes # (Manual) 0.9 K/mm3 (1.2-5.4) L 12/12/20 14:01 Abs React Lymphs (Man) 0.0 K/mm3 12/12/20 14:01 Monocytes # (Manual) 0.4 K/mm3 (0.0-0.8) 12/12/20 14:01 Eosinophils # (Manual) 0.1 K/mm3 (0.0-0.4) 12/12/20 14:01 Basophils # (Manual) 0.0 K/mm3 (0.0-0.1) 12/12/20 14:01 Metamyelocytes # 0.0 K/mm3 12/12/20 14:01 Myelocytes # 0.0 K/mm3 12/12/20 14:01 Promyelocytes # 0.0 K/mm3 12/12/20 14:01 Blast Cells # 0.0 K/mm3 12/12/20 14:01 WBC Morphology Not Reportable 12/12/20 14:01 Hypersegmented Neuts Not Reportable 12/12/20 14:01 Hyposegmented Neuts Not Reportable 12/12/20 14:01 Hypogranular Neuts Not Reportable 12/12/20 14:01 Smudge Cells Not Reportable 12/12/20 14:01 Toxic Granulation Not Reportable 12/12/20 14:01 Toxic Vacuolation Not Reportable 12/12/20 14:01 Dohle Bodies Not Reportable 12/12/20 14:01 Pelger-Huet Anomaly Not Reportable 12/12/20 14:01 Komal Rods Not Reportable 12/12/20 14:01 Platelet Estimate Consistent w auto 12/12/20 14:01 Clumped Platelets Not Reportable 12/12/20 14:01 Plt Clumps, EDTA Not Reportable 12/12/20 14:01 Large Platelets Not Reportable 12/12/20 14:01 Giant Platelets Not Reportable 12/12/20 14:01 Platelet Satelliting Not Reportable 12/12/20 14:01 Plt Morphology Comment Not Reportable 12/12/20 14:01 RBC Morphology Not Reportable 12/12/20 14:01 Dimorphic RBCs Not Reportable 12/12/20 14:01 Polychromasia Not Reportable 12/12/20 14:01 Hypochromasia Not Reportable 12/12/20 14:01 Poikilocytosis Not Reportable 12/12/20 14:01 Anisocytosis Not Reportable 12/12/20 14:01 Microcytosis Not Reportable 12/12/20 14:01 Macrocytosis Not Reportable 12/12/20 14:01 Spherocytes Not Reportable 12/12/20 14:01 Pappenheimer Bodies Not Reportable 12/12/20 14:01 Sickle Cells Not Reportable 12/12/20 14:01 Target Cells Not Reportable 12/12/20 14:01 Tear Drop Cells Not Reportable 12/12/20 14:01 Ovalocytes Few 12/12/20 14:01 Helmet Cells Not Reportable 12/12/20 14:01 [place] Bodies Not Reportable 12/12/20 14:01 [place] Rings Not Reportable 12/12/20 14:01 [place] Cells Not Reportable 12/12/20 14:01 Bite Cells Not Reportable 12/12/20 14:01 Crenated Cell Not Reportable 12/12/20 14:01 Elliptocytes Not Reportable 12/12/20 14:01 Acanthocytes (Spur) Not Reportable 12/12/20 14:01 Rouleaux Not Reportable 12/12/20 14:01 Hemoglobin C Crystals Not Reportable 12/12/20 14:01 Schistocytes Not Reportable 12/12/20 14:01 Malaria parasites Not Reportable 12/12/20 14:01 [place] Bodies Not Reportable 12/12/20 14:01 Hem Pathologist Commnt No 12/12/20 14:01 Sodium 139 mmol/L (137-145) 12/18/20 14:35 Potassium 4.1 mmol/L (3.6-5.0) 12/18/20 14:35 Chloride 104.6 mmol/L (98-107) 12/18/20 14:35 Carbon Dioxide 18 mmol/L (22-30) L 12/18/20 14:35 Anion Gap 21 mmol/L 12/18/20 14:35 BUN 98 mg/dL (9-20) H 12/18/20 14:35 Creatinine 3.9 mg/dL (0.8-1.3) H 12/18/20 14:35 Estimated GFR 19 ml/min 12/18/20 14:35 BUN/Creatinine Ratio 25 % 12/18/20 14:35 Glucose 105 mg/dL (75-100) H 12/18/20 14:35 Lactic Acid 1.20 mmol/L (0.7-2.0) 12/18/20 14:35 Calcium 8.5 mg/dL (8.4-10.2) 12/18/20 14:35 Magnesium 1.90 mg/dL (1.7-2.3) 12/12/20 14:01 Total Bilirubin 0.60 mg/dL (0.1-1.2) 12/12/20 14:01 AST 34 units/L (5-40) 12/12/20 14:01 ALT 16 units/L (7-56) 12/12/20 14:01 Alkaline Phosphatase 113 units/L (35-129) 12/12/20 14:01 Troponin T 0.011 ng/mL (0.00-0.029) 12/12/20 14:01 Total Protein 8.2 g/dL (6.3-8.2) 12/12/20 14:01 Albumin 4.0 g/dL (3.9-5) 12/12/20 14:01 Albumin/Globulin Ratio 1.0 % 12/12/20 14:01 Urine Color Yellow (Yellow) 12/12/20 21:04 Urine Turbidity Clear (Clear) 12/12/20 21:04 Urine pH 5.0 (5.0-7.0) 12/12/20 21:04 Ur Specific [place] 1.010 (1.003-1.030) 12/12/20 21:04 Urine Protein <15 mg/dl mg/dL (Negative) 12/12/20 21:04 Urine Glucose (UA) Neg mg/dL (Negative) 12/12/20 21:04 Urine Ketones Neg mg/dL (Negative) 12/12/20 21:04 Urine Blood Neg (Negative) 12/12/20 21:04 Urine Nitrite Neg (Negative) 12/12/20 21:04 Urine Bilirubin Neg (Negative) 12/12/20 21:04 Urine Urobilinogen < 2.0 mg/dL (<2.0) 12/12/20 21:04 Ur Leukocyte Esterase Neg (Negative) 12/12/20 21:04 Urine WBC (Auto) < 1.0 /HPF (0.0-6.0) 12/12/20 21:04 Urine RBC (Auto) 1.0 /HPF (0.0-6.0) 12/12/20 21:04 U Epithel Cells (Auto) < 1.0 /HPF (0-13.0) 12/12/20 21:04 Hyaline Casts 1 /LPF 12/12/20 21:04 Urine Opiates Screen Negative 12/12/20 21:04 Urine Methadone Screen Negative 12/12/20 21:04 Ur Barbiturates Screen Positive 12/12/20 21:04 Ur Phencyclidine Scrn Negative 12/12/20 21:04 Ur Amphetamines Screen Negative 12/12/20 21:04 U Benzodiazepines Scrn Negative 12/12/20 21:04 Urine Cocaine Screen Negative 12/12/20 21:04 U Marijuana (THC) Screen Negative 12/12/20 21:04 Drugs of Abuse Note Disclamer 05/18/21 21:04 Plasma/Serum Alcohol < 0.01 % (0-0.07) 12/12/20 14:00 Coronavirus (PCR) Negative (Negative) 12/16/20 11:18 Short CBC 12/18/20 Range/Units 14:35 WBC 5.7 (4.5-11.0) K/mm3 Hgb 11.4 L (11.8-15.2) gm/dl Hct 34.4 L (35.5-45.6) % Plt Count 233 (140-440) K/mm3 [facility] 12/18/20 14:35 Sodium 139 Potassium 4.1 Chloride 104.6 Carbon Dioxide 18 L BUN 98 H Creatinine 3.9 H Glucose 105 H Calcium 8.5 Short CBC 12/18/20 Range/Units 14:35 WBC 5.7 (4.5-11.0) K/mm3 Hgb 11.4 L (11.8-15.2) gm/dl Hct 34.4 L (35.5-45.6) % Plt Count 233 (140-440) K/mm3 [facility] 12/18/20 14:35 Sodium 139 Potassium 4.1 Chloride 104.6 Carbon Dioxide 18 L BUN 98 H Creatinine 3.9 H Glucose 105 H Calcium 8.5 Microbiology: Microbiology 12/18/20 14:35 Peripheral/Venous Blood Culture - Preliminary Culture in Progress 12/18/20 14:42 Peripheral/Venous Blood Culture - Preliminary Culture in Progress - Imaging and Cardiology EKG: report reviewed Funez/IV: Voiding Method Condom Catheter Assessment and Plan Advance Directives: Yes (Full code) VTE prophylaxis?: Chemical Plan of care discussed with patient/family: Yes - Patient Problems (1) Acute encephalopathy Current Visit: Yes Status: Acute Plan to address problem: Acute on chronic Vascular dementia Recurrent falls and chronic confusion Needs placement MRI of the brain for better delineation of the recent stroke (2) CVA (cerebral vascular accident) Current Visit: Yes Status: Chronic Qualifiers: CVA mechanism: unspecified Qualified Code(s): I63.9 - Cerebral infarction, unspecified Plan to address problem: Recent CVA with left-sided weakness Was admitted to [facility] and was in the emergency room here from December 12, 2018 for placement MRI brain Placement to [facility] Neurology consult (3) PRIYA (acute kidney injury) Current Visit: Yes Status: Acute Plan to address problem: Possible ATN IV fluids for now Creatinine was 1.0 on December 12 and today it is 3.9 Nephrology consult (4) Hypertension Current Visit: Yes Status: Chronic Qualifiers: Hypertension type: essential hypertension Qualified Code(s): I10 - Essential (primary) hypertension Plan to address problem: Patient was hypotensive in the emergency room Resuscitated with IV normal saline We will restart antihypertensives as necessary and when the blood pressure goes up (5) Coronary artery disease Current Visit: Yes Status: Chronic Qualifiers: Coronary Disease-Associated Artery/Lesion type: [place] artery [place] vs. transplanted heart: [place] heart Plan to address problem: Multiple stents in the past On isosorbide and Eliquis (6) CHF (congestive heart failure) Current Visit: Yes Status: Chronic Qualifiers: Heart failure type: combined systolic and diastolic Plan to address problem: Continue diuretics Echocardiogram for ejection fraction We will try to get the records from [facility] Communication order put in (7) Hyperlipidemia Current Visit: Yes Status: Chronic Qualifiers: Hyperlipidemia type: mixed hyperlipidemia Qualified Code(s): E78.2 - Mixed hyperlipidemia Plan to address problem: On statins (8) DVT prophylaxis Current Visit: Yes Status: Acute Plan to address problem: On Eliquis and GI prophylaxis (9) Discharge planning issues Current Visit: Yes Status: Acute Plan to address problem: Patient is placement in subacute rehab versus [facility] facility once the acute kidney injury is corrected (10) Advance care planning Current Visit: Yes Status: Acute Plan to address problem: Patient is a full code. Discussed with family
--- NOTE | 2020-12-19 09:09 | Consultation ---
History of Present Illness Consult date: 12/19/20 Reason for Consult: Weakness History of present illness: 12/18/20 15:52 Chief complaint: General weakness low blood pressure since a.m. History of present illness: 60-year-old male brought in for altered sensorium. Patient has a history of previous cerebrovascular accident and the mother says that he has persistent confusion. Patient has been in the emergency room since December 12 and for some reason was not admitted at that point. The emergency room was trying to do the placement to [facility] and they wanted a Covid test which was negative. His creatinine was normal on December 12 and today it has increased from 20/1.0 on December 12 to 98/3.9 2 to 3 weeks ago patient had a head concussion injury after a fall which resulted in admission to [facility]. Patient was kept in observation and was discharged. As per the mother patient was apparently confused all others and tries to leave the house. Apparently had 3 falls since his discharge from the last admission at [place]. The mother states that she is unable to care for the patient and is looking for long-term care. In the emergency room blood pressure was low in the 60s and was given 2 L of normal saline bolus after which the blood pressure came upto systolic 115 mm Hg. No fever or chills. No exposure to coronavirus. Patient toxin and low volume and says that is in the hospital. Patient is not able to give much history. Patient able to move the right side but not the left upper extremity. Also has weakness on both lower extremity. he is oriented to place and date today according to him he is weak and unable to ambulate In ER CT brain is remarkable for multi infarct subcortical MRI brain is pending - Past Medical History Previous Medical History?: Yes --Hypertension: Yes --Heart Attack/AMI: Yes --Congestive Heart Failure: Yes --GERD: Yes --Renal Disease: Yes --Headaches / Migraines: Yes --Seizures: Yes --Kidney Stones: Yes --COPD: Yes --Additional medical history: Lupus, nerve damage, blind in right eye, ADD - Surgical History --Coronary Stent: Yes --Additional Surgical History: 10 stents placed in heart, broken femur - Family History Family history: no significant - Social History Smoking Status: Former Smoker Substance Use Type: None - Medications Home Medications: Home Medications Medication Instructions Recorded Confirmed Last Taken Type Pantoprazole [Protonix TAB] 40 mg PO QDAY #30 tablet 02/14/20 05/13/20 05/13/20 Rx Apixaban [Eliquis] 5 mg PO BID 05/13/20 05/13/20 05/12/20 History Aspirin [Adult Aspirin] 81 mg PO DAILY 05/13/20 05/13/20 05/13/20 History FLUoxetine [PROzac] 10 mg PO QDAY 05/13/20 05/13/20 05/13/20 History Melatonin [Melatonin 10MG CAP] 30 mg PO QHS 05/13/20 05/13/20 05/12/20 History Tamsulosin [Flomax] 0.4 mg PO QHS 05/13/20 05/13/20 05/12/20 History Apixaban [Eliquis] 5 mg PO Q12HR #60 tablet 05/16/20 Unknown Rx AtorvaSTATin [Lipitor] 80 mg PO QHS #30 tablet 05/16/20 Unknown Rx Furosemide [Lasix TAB] 40 mg PO QDAY #30 tablet 05/16/20 Unknown Rx ISOSORBIDE MONOnitrate [Imdur ER] 30 mg PO DAILY #30 tablet 05/16/20 Unknown Rx Spironolactone [Aldactone] 25 mg PO QDAY #30 tablet 05/16/20 Unknown Rx carvediloL [Coreg] 6.25 mg PO BID #60 tablet 05/16/20 Unknown Rx lisinopriL [Zestril TAB] 20 mg PO DAILY #30 tablet 05/16/20 Unknown Rx Review of Systems ROS: Constitutional chronic confusion and increasing lethargy and weakness HEENT no sore throat no post nasal drip no diplopia Neck no neck stiffness no lymph gland enlargement Chest and lungs no shortness of breath cough or wheezing CVS no chest pain no diaphoresis no palpitations GI no nausea no vomiting no diarrhea Genitourinary system no dysuria no flank pain Musculoskeletal system no muscle pains no joint pains [employer] left-sided weakness, frequent falls Skin no rash no itching Psychiatric depressed Hematologic no lymphedema or bruising Endocrine no polydipsia no polyuria no cold intolerance no heat intolerance Past History Past Medical History: atrial fib, stroke Medications and Allergies Allergies Allergy/AdvReac Type Severity Reaction Status Date / Time No Known Allergies Allergy Verified 12/12/20 17:07 Home Medications Medication Instructions Recorded Confirmed Last Taken Type Pantoprazole [Protonix TAB] 40 mg PO QDAY #30 tablet 02/14/20 05/13/20 05/13/20 Rx Apixaban [Eliquis] 5 mg PO BID 05/13/20 05/13/20 05/12/20 History Aspirin [Adult Aspirin] 81 mg PO DAILY 05/13/20 05/13/20 05/13/20 History FLUoxetine [PROzac] 10 mg PO QDAY 05/13/20 05/13/20 05/13/20 History Melatonin [Melatonin 10MG CAP] 30 mg PO QHS 05/13/20 05/13/20 05/12/20 History Tamsulosin [Flomax] 0.4 mg PO QHS 05/13/20 05/13/20 05/12/20 History Apixaban [Eliquis] 5 mg PO Q12HR #60 tablet 05/16/20 Unknown Rx AtorvaSTATin [Lipitor] 80 mg PO QHS #30 tablet 05/16/20 Unknown Rx Furosemide [Lasix TAB] 40 mg PO QDAY #30 tablet 05/16/20 Unknown Rx ISOSORBIDE MONOnitrate [Imdur ER] 30 mg PO DAILY #30 tablet 05/16/20 Unknown Rx Spironolactone [Aldactone] 25 mg PO QDAY #30 tablet 05/16/20 Unknown Rx carvediloL [Coreg] 6.25 mg PO BID #60 tablet 05/16/20 Unknown Rx lisinopriL [Zestril TAB] 20 mg PO DAILY #30 tablet 05/16/20 Unknown Rx Active Meds: Active Medications Acetaminophen (Acetaminophen 325 Mg Tab) 650 mg PO Q6HR PRN PRN Reason: PAIN Apixaban (Apixaban 5 Mg Tab) 5 mg PO Q12HR [facility] Aspirin (Aspirin Ec 81 Mg Tab) 81 mg PO DAILY [facility] Atorvastatin Calcium (Atorvastatin 40 Mg Tab) 80 mg PO QHS [facility] Last Admin: 12/18/20 22:45 Dose: 80 mg Documented by: Carvedilol (Carvedilol 6.25 Mg Tab) 6.25 mg PO BID@0800,1700 [facility] Last Admin: 12/18/20 19:12 Dose: Not Given Documented by: Diphenhydramine HCl (Diphenhydramine 25 Mg Cap) 50 mg PO QHS PRN PRN Reason: Insomnia Fluoxetine HCl (Fluoxetine 10 Mg Tab) 10 mg PO QDAY [facility] Furosemide (Furosemide 40 Mg Tab) 40 mg PO QDAY [facility] Last Admin: 12/18/20 09:45 Dose: 40 mg Documented by: Haloperidol Lactate (Haloperidol Lactate 5 Mg/1 Ml Inj) 10 mg IM Q8H PRN PRN Reason: Agitation Last Admin: 12/15/20 16:14 Dose: 10 mg Documented by: Isosorbide Mononitrate (Isosorbide Mononitrate Er 30 Mg Tab) 30 mg PO DAILY [facility] Last Admin: 12/18/20 09:46 Dose: 30 mg Documented by: Lisinopril (Lisinopril 20 Mg Tab) 20 mg PO DAILY [facility] Last Admin: 12/18/20 09:45 Dose: 20 mg Documented by: Melatonin (Melatonin 5 Mg Tab) 30 mg PO QHS [facility] Pantoprazole Sodium (Pantoprazole 40 Mg Tab) 40 mg PO QDAY [facility] Last Admin: 12/18/20 09:45 Dose: 40 mg Documented by: Spironolactone (Spironolactone 25 Mg Tab) 25 mg PO QDAY [facility] Last Admin: 12/18/20 09:45 Dose: 25 mg Documented by: Tamsulosin HCl (Tamsulosin 0.4 Mg Cap) 0.4 mg PO QHS [facility] Physical Examination - Vital Signs Vital Signs: Vital Signs Temp Pulse Resp BP Pulse Ox 99.2 F 113 H 20 130/92 97 12/12/20 10:06 12/12/20 10:06 12/12/20 10:06 12/12/20 10:06 12/12/20 10:06 - Constitutional General appearance: other (alert he is with mumble speech , follow simple command oriented to self and place he is with mumble speech ) - EENT EENT: Present: PERRL, mucous membranes moist - Respiratory Respiratory: Present: chest non-tender, lungs clear, rhonchi - Cardiovascular Cardiovascular: Present: other (irregular ) Extremities: Present: no peripheral edema bilatateraly - Gastrointestinal Gastrointestinal: Present: normoactive bowel sounds - Integumentary Integumentary: Present: normal - Neurologic Cranial nerve examination: PERRL, EOMI Speech examination: other (mumble low tone speech) Sensorimotor examination: intact Detailed motor examination: other (weakness in left upper with increased tone , as well as both lower right > left with increase tone ,reflexes 2+,gait is unable to check) - Level of Consciousness 1a. Level of Consciousness: alert/keenly responsive - LOC Questions 1b. LOC Questions: answers both correctly - LOC Command 1c. LOC Commands: performs tasks correctly - Best Gaze 2. Best Gaze: normal - Visual 3. Visual: no visual loss - Facial Palsy 4. Facial Palsy: normal symmetrical movement - Motor Arm 5a. Motor Arm Left: some gravity effort 5b. Motor Arm Right: drift - Motor Leg 6a. Motor Leg Left: drift 6b. Motor Leg Right: some gravity effort - Limb Ataxia 7. Limb Ataxia: absent - Sensory 8. Sensory: normal - Best Language 9. Best Language: no aphasia - Dysarthria 10. Dysarthria: normal - Extinction and Inattention 11. Extinction/Inattention: no abnormality - Scoring Total Score: 6 Stroke Severity: Moderate Stroke Results - Laboratory Findings CBC and BMP: 12/18/20 14:35 12/18/20 14:35 Abnormal Lab Findings: Abnormal Labs 12/12/20 12/12/20 12/18/20 14:01 14:01 14:35 WBC 4.0 L Hgb 11.4 L Hct 34.4 L Carter % (Auto) 12.6 H Lymph # (Auto) 0.8 L Seg Neutrophils % 72.9 H Monocytes % (Manual) 9.0 H Lymphocytes # (Manual) 0.9 L Sodium 134 L Carbon Dioxide BUN Creatinine Glucose 12/18/20 14:35 WBC Hgb Hct Carter % (Auto) Lymph # (Auto) Seg Neutrophils % Monocytes % (Manual) Lymphocytes # (Manual) Sodium Carbon Dioxide 18 L BUN 98 H Creatinine 3.9 H Glucose 105 H Assessment and Plan Assessment and Plan (1) Acute encephalopathy Acute on on initial evaluation as well as aphasi as per mom Vascular dementia Recurrent falls and chronic confusion with diffuse weakness and increse tone left upper and both lower extremities Needs placement MRI of the brain for better delineation of the recent stroke MRI cervical spine r/o mylopathy (2) CVA (cerebral vascular accident) Recent CVA with left-sided weakness Was admitted to [facility] and was in the emergency room here from December 12, 2018 for placement MRI brain ? Placement to long-term (3) PRIYA (acute kidney injury) Possible ATN IV fluids for now Creatinine was 1.0 on December 12 and today it is 3.9 (4) Hypertension Patient was hypotensive in the emergency room Resuscitated with IV normal saline We will restart antihypertensives as necessary and when the blood pressure goes up (5) Coronary artery disease Multiple stents in the past On isosorbide and Eliquis (6) CHF (congestive heart failure) Heart failure type: combined systolic and diastolic Continue diuretics Echocardiogram for ejection fraction We will try to get the records from [facility] order put in (7) Hyperlipidemia On statins (8) DVT prophylaxis On Eliquis and GI prophylaxis (9) Discharge planning issues Patient is placement in subacute rehab versus custodial facility once the acute kidney injury is corrected (10) Advance care planning Patient is a full code. Discussed with family PLAN 1- Brain and neck mri 2- maintain Eliquis and ASA 3- maintain lipitor 4- echo/US carotid 5- Pt therapy 6- swallow evaluation 7- LDL ? will follow
[2020-12-19] MEDS: carvediloL 6.25 MG TAB PO SCH ×2 (09:20→17:32)
[2020-12-19] MEDS: APIXABAN 5 MG TAB PO SCH ×2 (09:21→23:00)
[2020-12-19] MEDS: LISINOPRIL 20 MG TAB PO SCH (09:21)
[2020-12-19] MEDS: ASPIRIN EC 81 MG TAB PO SCH (09:21)
[2020-12-19] MEDS: FLUoxetine 10 MG TAB PO SCH (09:21)
[2020-12-19] MEDS: FUROSEMIDE 40 MG TAB PO SCH (09:21)
[2020-12-19] MEDS: SPIRONOLACTONE 25 MG TAB PO SCH (09:21)
--- NOTE | 2020-12-19 09:30 | Consultation ---
History of Present Illness - Reason for Consult Consult date: 12/19/20 acute renal failure Requesting physician: RAMAN ARNOLD - History of Present Illness 60-year-old male brought in for altered sensorium. Patient has a history of previous cerebrovascular accident and the mother stated that he has persistent confusion. Patient has been in the emergency room since December 12 and for some reason was not admitted at that point. The emergency room was trying to do the [facility] to [facility] and they wanted a Covid test which was negative. His creatinine was normal on December 12 and today it had increased from 20/1.0 on December 12 to 98/3.9 2 to 3 weeks ago patient had a head concussion injury after a fall which resulted in admission to [facility]. Patient was kept in observation and was discharged. As per the mother patient was apparently con fused all others and tries to leave the house. Apparently had 3 falls since his discharge from the last admission at [place]. The mother states that she is unable to care for the patient and is looking for long-term care. In the emergency room blood pressure was low in the 60s and was given 2 L of normal saline bolus after which the blood pressure came upto systolic 115 mm Hg. No fever or chills. No exposure to coronavirus. Patient toxin and low volume and says that is in the hospital. Patient is not able to give much history. Information obtained from patient's admission notes. Past History Past Medical History: stroke Past Surgical History: Other (Unknown) Social history: other (Unknown) Family history: other (Unknown) Medications and Allergies Allergies Allergy/AdvReac Type Severity Reaction Status Date / Time No Known Allergies Allergy Verified 12/12/20 17:07 Home Medications Medication Instructions Recorded Confirmed Last Taken Type Pantoprazole [Protonix TAB] 40 mg PO QDAY #30 tablet 02/14/20 05/13/20 05/13/20 Rx Apixaban [Eliquis] 5 mg PO BID 05/13/20 05/13/20 05/12/20 History Aspirin [Adult Aspirin] 81 mg PO DAILY 05/13/20 05/13/20 05/13/20 History FLUoxetine [PROzac] 10 mg PO QDAY 05/13/20 05/13/20 05/13/20 History Melatonin [Melatonin 10MG CAP] 30 mg PO QHS 05/13/20 05/13/2005/12/20 History Tamsulosin [Flomax] 0.4 mg PO QHS 05/13/20 05/13/20 05/12/20 History Apixaban [Eliquis] 5 mg PO Q12HR #60 tablet 05/16/20 Unknown Rx AtorvaSTATin [Lipitor] 80 mg PO QHS #30 tablet 05/16/20 Unknown Rx Furosemide [Lasix TAB] 40 mg PO QDAY #30 tablet 05/16/20 Unknown Rx ISOSORBIDE MONOnitrate [Imdur ER] 30 mg PO DAILY #30 tablet 05/16/20 Unknown Rx Spironolactone [Aldactone] 25 mg PO QDAY #30 tablet 05/16/20 Unknown Rx carvediloL [Coreg] 6.25 mg PO BID #60 tablet 05/16/20 Unknown Rx lisinopriL [Zestril TAB] 20 mg PO DAILY #30 tablet 05/16/20 Unknown Rx Active Meds: Active Medications Acetaminophen (Acetaminophen 325 Mg Tab) 650 mg PO Q6HR PRN PRN Reason: PAIN Apixaban (Apixaban 5 Mg Tab) 5 mg PO Q12HR [facility] Aspirin (Aspirin Ec 81 Mg Tab) 81 mg PO DAILY [facility] Atorvastatin Calcium (Atorvastatin 40 Mg Tab) 80 mg PO QHS [facility] Last Admin: 12/18/20 22:45 Dose: 80 mg Documented by: Carvedilol (Carvedilol 6.25 Mg Tab) 6.25 mg PO BID@0800,1700 [facility] Last Admin: 12/18/20 19:12 Dose: Not Given Documented by: Diphenhydramine HCl (Diphenhydramine 25 Mg Cap) 50 mg PO QHS PRN PRN Reason: Insomnia Fluoxetine HCl (Fluoxetine 10 Mg Tab) 10 mg PO QDAY [facility] Furosemide (Furosemide 40 Mg Tab) 40 mg PO QDAY [facility] Last Admin: 12/18/20 09:45 Dose: 40 mg Documented by: Haloperidol Lactate (Haloperidol Lactate 5 Mg/1 Ml Inj) 10 mg IM Q8H PRN PRN Reason: Agitation Last Admin: 12/15/20 16:14 Dose: 10 mg Documented by: Isosorbide Mononitrate (Isosorbide Mononitrate Er 30 Mg Tab) 30 mg PO DAILY [facility] Last Admin: 12/18/20 09:46 Dose: 30 mg Documented by: Lisinopril (Lisinopril 20 Mg Tab) 20 mg PO DAILY [facility] Last Admin: 12/18/20 09:45 Dose: 20 mg Documented by: Melatonin (Melatonin 5 Mg Tab) 30 mg PO QHS [facility] Pantoprazole Sodium (Pantoprazole 40 Mg Tab) 40 mg PO QDAY [facility] Last Admin: 12/18/20 09:45 Dose: 40 mg Documented by: Spironolactone (Spironolactone 25 Mg Tab) 25 mg PO QDAY [facility] Last Admin: 12/18/20 09:45 Dose: 25 mg Documented by: Tamsulosin HCl (Tamsulosin 0.4 Mg Cap) 0.4 mg PO QHS [facility] Review of Systems ROS unobtainable: due to mental status Exam - Vital Signs Vital signs: Vital Signs Temp Pulse Resp BP Pulse Ox 99.2 F 113 H 20 130/92 97 12/12/20 10:06 12/12/20 10:06 12/12/20 10:06 12/12/20 10:06 12/12/20 10:06 - General Appearance General appearance: well-developed, well-nourished, appears stated age EENT: PERRL, mucous membranes moist Neck: Present: neck supple, trachea midline. Absent: JVD/HJR, Masses Respiratory: Clear to Ascultation Heart: regular, normal heart rate Gastrointestinal: Present: normal, normoactive bowel sounds Integumentary: no rash, other (No edema) Results - Lab Results 12/18/20 14:35 12/18/20 14:35 Most recent lab results Calcium 8.5 mg/dL (8.4-10.2) 12/18/20 14:35 Magnesium 1.90 mg/dL (1.7-2.3) 12/12/20 14:01 Assessment and Plan Impression * Acute kidney injury. Baseline creatinine approximately 1.0 * History of CVA * Altered mental status * Metabolic acidosis Recommendations * Suspect etiology of his acute kidney injury most likely prerenal * However need to consider a component of obstructive uropathy as well * Patient was hypotensive in the ER and received fluid bolus. He is currently nonoliguric. He has a condom catheter in place * Shall check a UA as well as a fractional excretion of sodium. If patient has an active urine sediment, he will need additional work-up * Check renal ultrasound * Shall check a bladder scan as well * Monitor fluid status and electrolytes closely * Shall hydrate patient gently * Avoid nephrotoxins * Thank you very much for the consultation. Shall follow along with you
[2020-12-19 10:57] LABS: Basophils % (Auto) 0.7 % (0.0-1.8); Eosinophils % (Auto) 0.5 % (0.0-4.3); Hematocrit 34.5 % (35.5-45.6); Hemoglobin 11.8 gm/dl (11.8-15.2); Lymphocytes # (Auto) 0.9 K/mm3 (1.2-5.4); Lymphocytes % (Auto) 16.4 % (13.4-35.0); Mean Corpuscular HGB Conc 34 % (32-34); Mean Corpuscular Volume 94 fl (84-94); Monocytes # (Auto) 0.5 K/mm3 (0.0-0.8); Monocytes % (Auto) 9.1 % (0.0-7.3); Platelet Count 232 K/mm3 (140-440); Red Blood Count 3.69 M/mm3 (3.65-5.03)
[2020-12-19 11:11] LABS: Albumin 3.2 g/dL (3.9-5); Calcium 8.8 mg/dL (8.4-10.2)
--- NOTE | 2020-12-19 11:53 | Progress Note ---
Assessment and Plan Assessment and plan: (1) Acute encephalopathy Current Visit: Yes Status: Acute Plan to address problem: Acute on chronic Vascular dementia Recurrent falls and chronic confusion Needs placement MRI of the brain for better delineation of the recent stroke (2) CVA (cerebral vascular accident) Current Visit: Yes Status: Chronic Qualifiers: CVA mechanism: unspecified Qualified Code(s): I63.9 - Cerebral infarction, unspecified Plan to address problem: Aspirin Statins Echocardiogram, ultrasound Doppler carotids MRI brain Neurology evaluation PT (3) PRIYA (acute kidney injury) Current Visit: Yes Status: Acute Plan to address problem: Possible ATN IV fluids for now Cr 2.1 Nephrology evaluation (4) Hypertension Current Visit: Yes Status: Chronic Qualifiers: Hypertension type: essential hypertension Qualified Code(s): I10 - Essential (primary) hypertension Plan to address problem: Hold BP medications for now (5) Coronary artery disease Current Visit: Yes Status: Chronic Qualifiers: Coronary Disease-Associated Artery/Lesion type: [place] artery [place] vs. transplanted heart: [place] heart Plan to address problem: Multiple stents in the past On isosorbide and Eliquis (6) CHF (congestive heart failure) Current Visit: Yes Status: Chronic Qualifiers: Heart failure type: combined systolic and diastolic Plan to address problem: Continue diuretics Echocardiogram for ejection fraction (7) Hyperlipidemia Current Visit: Yes Status: Chronic Qualifiers: Hyperlipidemia type: mixed hyperlipidemia Qualified Code(s): E78.2 - Mixed hyperlipidemia Plan to address problem: On statins (8) DVT prophylaxis Current Visit: Yes Status: Acute Plan to address problem: On Eliquis and GI prophylaxis (9) Discharge planning issues Current Visit: Yes Status: Acute Plan to address problem: Patient is placement in subacute rehab versus penitentiary facility once the acute kidney injury is corrected (10) Advance care planning Current Visit: Yes Status: Acute Plan to address problem: Patient is a full code. Discussed with family History Interval history: 60-year-old male brought in for altered sensorium. Patient has a history of previous cerebrovascular accident and the mother says that he has persistent confusion. Patient has been in the emergency room since December 12 and for some reason was not admitted at that point. The emergency room was trying to do the placement to [facility] and they wanted a Covid test which was negative. His creatinine was normal on December 12 and today it has increased from 20/1.0 on December 12 to 98/3.9. 2 to 3 weeks ago patient had a head concussion injury after a fall which resulted in admission to [facility]. Patient was kept in observation and was discharged. As per the mother patient was apparently confused all others and tries to leave the house. Apparently had 3 falls since his discharge from the last admission at [facility]. The mother states that she is unable to care for the patient and is looking for long-term care. In the emergency room blood pressure was low in the 60s and was given 2 L of normal saline bolus after which the blood pressure came upto systolic 115 mm Hg. No fever or chills. No exposure to coronavirus. Patient toxin and low volume and says that is in the hospital. Patient is not able to give much history. Patient able to move the right side but not the left upper extremity. Also has weakness on the left lower extremity. Hospital course. 12/19. He is stable. BP better. Plan to get MRI brain to rule out CVA. His renal function is better. Cr 2.1 this AM. Hospitalist Physical - Physical exam Narrative exam: VITAL SIGNS: Reviewed. GENERAL: Awake HEAD: No signs of head trauma. EYES: Pupils are equal. Extraocular motions intact. MOUTH: Oropharynx is normal. NECK: No adenopathy, no JVD. CHEST: Chest with diminished breath sounds bilaterally. No wheezes, rales, or rhonchi. CARDIAC: normal S1 and S2, without murmurs, gallops, or rubs. ABDOMEN: Soft, non tender and non distended. No rebound or guarding, and no masses palpated. Bowel Sounds normal. MUSCULOSKELETAL: No edema NEUROLOGIC EXAM: Alert and oriented x3. No focal neurologic deficits SKIN: No obvious lesions - Constitutional Vitals: Temp Pulse Resp BP Pulse Ox 98.5 F 79 14 131/97 97 12/19/20 03:30 12/19/20 08:45 12/19/20 09:00 12/19/20 08:45 12/19/20 08:45 HEART Score - HEART Score Age: 45-65 Risk factors: > 3 risk factors or hx of atherosclerotic disease Troponin: Troponin T 0.011 ng/mL (0.00-0.029) 12/12/20 14:01 Troponin: < normal limit - Critical Actions Critical Actions: 0-3 pts:0.9-1.7%risk of adverse cardiac event.Candidate for discharge Results - Labs CBC & Chem 7: 12/19/20 10:36 12/19/20 10:35 Labs: Laboratory Last Values WBC 5.4 K/mm3 (4.5-11.0) 12/19/20 10:36 RBC 3.69 M/mm3 (3.65-5.03) 12/19/20 10:36 Hgb 11.8 gm/dl (11.8-15.2) 12/19/20 10:36 Hct 34.5 % (35.5-45.6) L 12/19/20 10:36 MCV 94 fl (84-94) 12/19/20 10:36 MCH 32 pg (28-32) 12/19/20 10:36 MCHC 34 % (32-34) 12/19/20 10:36 RDW 14.0 % (13.2-15.2) 12/19/20 10:36 Plt Count 232 K/mm3 (140-440) 12/19/20 10:36 Lymph % (Auto) 16.4 % (13.4-35.0) 12/19/20 10:36 [place] % (Auto) 9.1 % (0.0-7.3) H 12/19/20 10:36 Eos % (Auto) 0.5 % (0.0-4.3) 12/19/20 10:36 Baso % (Auto) 0.7 % (0.0-1.8) 12/19/20 10:36 Lymph # (Auto) 0.9 K/mm3 (1.2-5.4) L 12/19/20 10:36 [place] # (Auto) 0.5 K/mm3 (0.0-0.8) 12/19/20 10:36 Eos # (Auto) 0.0 K/mm3 (0.0-0.4) 12/19/20 10:36 Baso # (Auto) 0.0 K/mm3 (0.0-0.1) 12/19/20 10:36 Add Manual Diff Complete 12/12/20 14:01 Total Counted 100 12/12/20 14:01 Seg Neutrophils % 73.3 % (40.0-70.0) H 12/19/20 10:36 Seg Neuts % (Manual) 67.0 % (40.0-70.0) 12/12/20 14:01 Lymphocytes % (Manual) 22.0 % (13.4-35.0) 12/12/20 14:01 Monocytes % (Manual) 9.0 % (0.0-7.3) H 12/12/20 14:01 Eosinophils % (Manual) 2.0 % (0.0-4.3) 12/12/20 14:01 Promyelocytes % 0 % 12/12/20 14:01 Nucleated RBC % Not Reportable 12/12/20 14:01 Seg Neutrophils # 4.0 K/mm3 (1.8-7.7) 12/19/20 10:36 Seg Neutrophils # Man 2.7 K/mm3 (1.8-7.7) 12/12/20 14:01 Band Neutrophils # 0.0 K/mm3 12/12/20 14:01 Lymphocytes # (Manual) 0.9 K/mm3 (1.2-5.4) L 12/12/20 14:01 Abs React Lymphs (Man) 0.0 K/mm3 12/12/20 14:01 Monocytes # (Manual) 0.4 K/mm3 (0.0-0.8) 12/12/20 14:01 Eosinophils # (Manual) 0.1 K/mm3 (0.0-0.4) 12/12/20 14:01 Basophils # (Manual) 0.0 K/mm3 (0.0-0.1) 12/12/20 14:01 Metamyelocytes # 0.0 K/mm3 12/12/20 14:01 Myelocytes # 0.0 K/mm3 12/12/20 14:01 Promyelocytes # 0.0 K/mm3 12/12/20 14:01 Blast Cells # 0.0 K/mm3 12/12/20 14:01 WBC Morphology Not Reportable 12/12/20 14:01 Hypersegmented Neuts Not Reportable 12/12/20 14:01 Hyposegmented Neuts Not Reportable 12/12/20 14:01 Hypogranular Neuts Not Reportable 12/12/20 14:01 Smudge Cells Not Reportable 12/12/20 14:01 Toxic Granulation Not Reportable 12/12/20 14:01 Toxic Vacuolation Not Reportable 12/12/20 14:01 Dohle Bodies Not Reportable 12/12/20 14:01 Pelger-Huet Anomaly Not Reportable 12/12/20 14:01 Komal Rods Not Reportable 12/12/20 14:01 Platelet Estimate Consistent w auto 12/12/20 14:01 Clumped Platelets Not Reportable 12/12/20 14:01 Plt Clumps, EDTA Not Reportable 12/12/20 14:01 Large Platelets Not Reportable 12/12/20 14:01 Giant Platelets Not Reportable 12/12/20 14:01 Platelet Satelliting Not Reportable 12/12/20 14:01 Plt Morphology Comment Not Reportable 12/12/20 14:01 RBC Morphology Not Reportable 12/12/20 14:01 Dimorphic RBCs Not Reportable 12/12/20 14:01 Polychromasia Not Reportable 12/12/20 14:01 Hypochromasia Not Reportable 12/12/20 14:01 Poikilocytosis Not Reportable 12/12/20 14:01 Anisocytosis Not Reportable 12/12/20 14:01 Microcytosis Not Reportable 12/12/20 14:01 Macrocytosis Not Reportable 12/12/20 14:01 Spherocytes Not Reportable 12/12/20 14:01 Pappenheimer Bodies Not Reportable 12/12/20 14:01 Sickle Cells Not Reportable 12/12/20 14:01 Target Cells Not Reportable 12/12/20 14:01 Tear Drop Cells Not Reportable 12/12/20 14:01 Ovalocytes Few 12/12/20 14:01 Helmet Cells Not Reportable 12/12/20 14:01 [place] Bodies Not Reportable 12/12/20 14:01 [place] Rings Not Reportable 12/12/20 14:01 [place] Cells Not Reportable 12/12/20 14:01 Bite Cells Not Reportable 12/12/20 14:01 Crenated Cell Not Reportable 12/12/20 14:01 Elliptocytes Not Reportable 12/12/20 14:01 Acanthocytes (Spur) Not Reportable 12/12/20 14:01 Rouleaux Not Reportable 12/12/20 14:01 Hemoglobin C Crystals Not Reportable 12/12/20 14:01 Schistocytes Not Reportable 12/12/20 14:01 Malaria parasites Not Reportable 12/12/20 14:01 [place] Bodies Not Reportable 12/12/20 14:01 Hem Pathologist Commnt No 12/12/20 14:01 Sodium 137 mmol/L (137-145) 12/19/20 10:35 Potassium 3.9 mmol/L (3.6-5.0) 12/19/20 10:35 Chloride 106.7 mmol/L (98-107) 12/19/20 10:35 Carbon Dioxide 18 mmol/L (22-30) L 12/19/20 10:35 Anion Gap 16 mmol/L 12/19/20 10:35 BUN 77 mg/dL (9-20) H 12/19/20 10:35 Creatinine 2.1 mg/dL (0.8-1.3) H 12/19/20 10:35 Estimated GFR 39 ml/min 12/19/20 10:35 BUN/Creatinine Ratio 37 % 12/19/20 10:35 Glucose 85 mg/dL (75-100) 12/19/20 10:35 Lactic Acid 1.20 mmol/L (0.7-2.0) 12/18/20 14:35 Calcium 8.8 mg/dL (8.4-10.2) 12/19/20 10:35 Magnesium 1.90 mg/dL (1.7-2.3) 12/12/20 14:01 Total Bilirubin 0.80 mg/dL (0.1-1.2) 12/19/20 10:35 AST 194 units/L (5-40) H 12/19/20 10:35 ALT 48 units/L (7-56) 12/19/20 10:35 Alkaline Phosphatase 95 units/L (35-129) 12/19/20 10:35 Troponin T 0.011 ng/mL (0.00-0.029) 12/12/20 14:01 Total Protein 7.6 g/dL (6.3-8.2) 12/19/20 10:35 Albumin 3.2 g/dL (3.9-5) L 12/19/20 10:35 Albumin/Globulin Ratio 0.7 % 12/19/20 10:35 Urine Color Yellow (Yellow) 12/12/20 21:04 Urine Turbidity Clear (Clear) 12/12/20 21:04 Urine pH 5.0 (5.0-7.0) 12/12/20 21:04 Ur Specific [place] 1.010 (1.003-1.030) 12/12/20 21:04 Urine Protein <15 mg/dl mg/dL (Negative) 12/12/20 21:04 Urine Glucose (UA) Neg mg/dL (Negative) 12/12/20 21:04 Urine Ketones Neg mg/dL (Negative) 12/12/20 21:04 Urine Blood Neg (Negative) 12/12/20 21:04 Urine Nitrite Neg (Negative) 12/12/20 21:04 Urine Bilirubin Neg (Negative) 12/12/20 21:04 Urine Urobilinogen < 2.0 mg/dL (<2.0) 12/12/20 21:04 Ur Leukocyte Esterase Neg (Negative) 12/12/20 21:04 Urine WBC (Auto) < 1.0 /HPF (0.0-6.0) 12/12/20 21:04 Urine RBC (Auto) 1.0 /HPF (0.0-6.0) 12/12/20 21:04 U Epithel Cells (Auto) < 1.0 /HPF (0-13.0) 12/12/20 21:04 Hyaline Casts 1 /LPF 12/12/20 21:04 Urine Opiates Screen Negative 12/12/20 21:04 Urine Methadone Screen Negative 12/12/20 21:04 Ur Barbiturates Screen Positive 12/12/20 21:04 Ur Phencyclidine Scrn Negative 12/12/20 21:04 Ur Amphetamines Screen Negative 12/12/20 21:04 U Benzodiazepines Scrn Negative 12/12/20 21:04 Urine Cocaine Screen Negative 12/12/20 21:04 U Marijuana (THC) Screen Negative 12/12/20 21:04 Drugs of Abuse Note Disclamer 12/12/20 21:04 Plasma/Serum Alcohol < 0.01 % (0-0.07) 12/12/20 14:00 Coronavirus (PCR) Negative (Negative) 12/16/20 11:18 Microbiology: Microbiology 12/18/20 14:35 Peripheral/Venous Blood Culture - Preliminary Culture in Progress 12/18/20 14:42 Peripheral/Venous Blood Culture - Preliminary Culture in Progress Funez/IV: Voiding Method Condom Catheter Active Medications - Current Medications Current Medications: Generic Name Dose Route Start Last Admin Trade Name Freq PRN Reason Stop Dose Admin Acetaminophen 650 mg 12/13/20 11:49 Acetaminophen 325 Mg Tab PO Q6HR PRN PAIN Apixaban 5 mg 12/19/20 10:00 12/19/20 09:21 Apixaban 5 Mg Tab PO 5 mg Q12HR JOHANN Administration Aspirin 81 mg 12/19/20 10:00 12/19/20 09:21 Aspirin Ec 81 Mg Tab PO 81 mg DAILY JOHANN Administration Atorvastatin Calcium 80 mg 12/13/20 22:00 12/18/20 22:45 Atorvastatin 40 Mg Tab PO 80 mg QHS JOHANN Administration Carvedilol 6.25 mg 12/13/20 08:00 12/19/20 09:20 Carvedilol 6.25 Mg Tab PO 6.25 mg BID@0800,1700 JOHANN Administration Diphenhydramine HCl 50 mg 12/13/20 11:49 Diphenhydramine 25 Mg Cap PO QHS PRN Insomnia Fluoxetine HCl 10 mg 12/19/20 10:00 12/19/20 09:21 Fluoxetine 10 Mg Tab PO 10 mg QDAY JOHANN Administration Furosemide 40 mg 12/13/20 10:00 12/19/20 09:21 Furosemide 40 Mg Tab PO 40 mg QDAY JOHANN Administration Haloperidol Lactate 10 mg 12/12/20 22:57 12/15/20 16:14 Haloperidol Lactate 5 Mg/1 Ml Inj IM 10 mg Q8H PRN Administration Agitation Sodium Bicarbonate 50 meq/ 1,050 mls @ 75 mls/hr 12/19/20 10:30 Dextrose/Sodium Chloride IV DIRECT [facility] Isosorbide Mononitrate 30 mg 12/13/20 10:00 12/19/20 09:20 Isosorbide Mononitrate Er 30 Mg Tab PO 30 mg DAILY JOHANN Administration Lisinopril 20 mg 12/13/20 10:00 12/19/20 09:21 Lisinopril 20 Mg Tab PO 20 mg DAILY JOHANN Administration Melatonin 30 mg 12/19/20 22:00 Melatonin 5 Mg Tab PO QHS JOHANN Pantoprazole Sodium 40 mg 12/13/20 10:00 12/18/20 09:45 Pantoprazole 40 Mg Tab PO 40 mg QDAY JOHANN Administration Spironolactone 25 mg 12/13/20 10:00 12/19/20 09:21 Spironolactone 25 Mg Tab PO 25 mg QDAY JOHANN Administration Tamsulosin HCl 0.4 mg 12/19/20 22:00 Tamsulosin 0.4 Mg Cap PO QHS JOHANN
--- NOTE | 2020-12-19 12:36 | Magnetic Resonance Report ---
MR cervical spine wo con INDICATION / CLINICAL INFORMATION: 60 years Male; MAIN. TECHNIQUE: Multisequence, multiplanar images of the cervical spine were obtained. COMPARISON: None available. FINDINGS: CRANIOCERVICAL JUNCTION:No significant abnormality. ALIGNMENT: There is mild exaggeration of the cervical lordosis. However, there is no significant spon dylolisthesis. VERTEBRAE:There is milder disc space narrowing and endplate changes at C6-7 and anteriorly at C4-5 an d C5-6. However, there is no significant edema of the cervical vertebral bodies. VISUALIZED SPINAL CORD: The motion degrades the image quality at. However, the cervical spinal cord a ppears to demonstrate appropriate signal intensity on the combination of sequences. [id number] ANALYSIS: C2-3: There is no disc protrusion or central stenosis at. There does appear to be component of mild t o moderate foraminal narrowing, greater on the right. C3-4: There is a slight disc bulge without ossific and central spinal stenosis at. There also appears be mild to moderate left foraminal narrowing. C4-5: There is a slight disc bulge without central spinal stenosis. There is mild to moderate foramin al narrowing bilaterally. C5-6: There is a broad-based right-sided disc bulge which minimally encroaches on the right ventral c ord. Additionally, there is effacement of the right lateral recess with moderate to marked right fora elton narrowing. Milder narrowing is seen on the left. C6-7: There is a milder disc bulge without direct cord compression at. There again appears be moderat e to marked right and milder left neural foraminal narrowing. C7-T1: There is no disc protrusion or central spinal stenosis. There appears be milder right foramina l narrowing. PARASPINAL SOFT TISSUES: No significant abnormality. ADDITIONAL FINDINGS: No epidural collections are identified. IMPRESSION: 1. The motion degrades image quality. However, there are multilevel degenerative changes involving th e cervical spine with spondylosis and neural foraminal narrowing as detailed above. Signer Name: Adriel Garland MD Signed: 12/19/2020 12:32 PM Workstation Name: [id number]
--- NOTE | 2020-12-19 13:27 | Magnetic Resonance Report ---
MRI BRAIN WITHOUT CONTRAST INDICATION / CLINICAL INFORMATION: Cerebrovascular accident. Progressive extremity weakness and frequent falling. TECHNIQUE: Multiplanar, multisequence MR images of the brain were obtained. COMPARISON: Head CT examinations dated 02/07/2020 and 12/12/2020. FINDINGS: BRAIN / INTRACRANIAL CONTENTS: Moderate parenchymal volume loss is demonstrated. Dilatation of the co rtical sulci and ventricular system is noted. This is substantially greater than expected for the pat ient's stated age of 60 years. Encephalomalacia is observed in several locations in the right cerebra l hemisphere. Findings are present in the right frontal, temporal and parietal lobe secondary to yoly te left middle cerebral artery infarction. Similar findings are seen in the medial and posterior aspe ct of the right occipital lobe secondary to remote posterior cerebral artery infarction. Periventricu lar and deep white matter hyperintensities are noted consistent with moderate microvascular ischemic changes. There is no mass effect. No evidence of intracranial hemorrhage or extra-axial fluid collect ion is seen. There is no indication of remote cortical infarction. Diffusion weighted scans are negat anastacio. There is no indication of acute ischemic injury. The brainstem and cerebellum have an unremarkable appearance. CRANIOCERVICAL JUNCTION: No abnormalities are identified at the craniocervical junction. VASCULAR FLOW-VOIDS: Normal flow-voids are present within the major intracranial vessels. ORBITS: Bilateral enophthalmos is noted. The orbits have an otherwise unremarkable appearance. SINUSES / MASTOIDS: There is no indication of inflammatory disease in the paranasal sinuses or mastoi d air cells. IMPRESSION: 1. Advanced involutional changes of atrophy and microvascular ischemia. 2. Remote right MCA and right [employer] infarctions. 3. No acute intracranial abnormalities are identified. Signer Name: Sourav Sena MD Signed: 12/19/2020 1:22 PM Workstation Name: [id number]
[2020-12-19] MEDS: PANTOPRAZOLE 40 MG TAB PO SCH (13:45)
[2020-12-19 14:31] LABS: Bilirubin,Urine NEG (Negative); Blood,Urine MOD (Negative); Color,Urine Yellow (Yellow); Mucus,Urine FEW /HPF; Protein,Urine <15 mg/dL mg/dL (Negative); Urobilinogen,Urine < 2.0 mg/dL (<2.0)
--- NOTE | 2020-12-19 15:57 | Ultrasound Report ---
Renal ultrasound INDICATION: Kidney disease FINDINGS: Right kidney measures 10.1 cm in left kidney 11.2 cm. Bilateral kidneys are echogenic. No h ydronephrosis. No renal stone or mass is seen. IMPRESSION: Kidneys are echogenic suggesting medical renal disease. Signer Name: Ha Shin MD Signed: 12/19/2020 3:52 PM Workstation Name: [id number]
[2020-12-19] MEDS ORDERED: NON-FORMULARY EACH (Melatonin [Melatonin 10mg Cap] 10 MG Capsule) PO SCH (22:00)
[2020-12-19] MEDS: TAMSULOSIN 0.4 MG CAP PO SCH (22:59)
[2020-12-19] MEDS: MELATONIN 5 MG TAB PO SCH (23:00)
[2020-12-20 05:55] LABS: Basophils % (Auto) 0.6 % (0.0-1.8); Hematocrit 33.1 % (35.5-45.6); Hemoglobin 11.3 gm/dl (11.8-15.2); Lymphocytes # (Auto) 0.8 K/mm3 (1.2-5.4); Mean Corpuscular HGB Conc 34 % (32-34); Mean Corpuscular Volume 94 fl (84-94); Monocytes # (Auto) 0.6 K/mm3 (0.0-0.8); Monocytes % (Auto) 11.5 % (0.0-7.3); Platelet Count 210 K/mm3 (140-440); Red Blood Count 3.54 M/mm3 (3.65-5.03); Red Cell Distribution Width 14.2 % (13.2-15.2)
[2020-12-20 06:11] LABS: Albumin 3.2 g/dL (3.9-5); Calcium 8.8 mg/dL (8.4-10.2)
[2020-12-20] MEDS: ASPIRIN EC 81 MG TAB PO SCH (09:11)
[2020-12-20] MEDS: PANTOPRAZOLE 40 MG TAB PO SCH (09:12)
[2020-12-20] MEDS: SPIRONOLACTONE 25 MG TAB PO SCH (09:12)
[2020-12-20] MEDS: APIXABAN 5 MG TAB PO SCH ×2 (09:12→22:42)
[2020-12-20] MEDS: LISINOPRIL 20 MG TAB PO SCH (09:12)
[2020-12-20] MEDS: FUROSEMIDE 40 MG TAB PO SCH (09:12)
[2020-12-20] MEDS: carvediloL 6.25 MG TAB PO SCH (09:13)
[2020-12-20] MEDS: FLUoxetine 10 MG TAB PO SCH (09:13)
--- NOTE | 2020-12-20 09:13 | Progress Note ---
Assessment and Plan Impression * Acute kidney injury. Baseline creatinine approximately 1.0 * History of CVA * Altered mental status * Metabolic acidosis Recommendations * Suspect etiology of his acute kidney injury most likely prerenal * However need to consider a component of obstructive uropathy as well * His urine shows trace protein and only 2 RBCs per high-power field. Fractional excretion of sodium is 1%. * Renal function is improving with IV hydration. No indication for renal replacement therapy at this time * Continue IV hydration. * Follow-up results of renal ultrasound * Monitor fluid status and electrolytes closely * Avoid nephrotoxins Subjective Date of service: 12/20/20 Interval history: Patient is awake and alert. Appears comfortable. Condom catheter has been dislodged. Liquid material seen in patient's bed Objective - Vital Signs Vital signs: Vital Signs - 12hr 12/19/20 12/20/20 12/20/20 23:14 00:00 03:31 Temperature 98.2 F 98.4 F Pulse Rate 70 72 76 Respiratory 16 18 Rate Blood Pressure 127/88 124/82 O2 Sat by Pulse 98 96 Oximetry 12/20/20 08:35 Temperature 98.2 F Pulse Rate 74 Respiratory 18 Rate Blood Pressure 127/89 O2 Sat by Pulse 97 Oximetry - General Appearance General appearance: chronically ill, frail, other (Pleasant -[place]ian male) EENT: PERRL, mucous membranes moist Neck: no JVD, no thyromegaly Respiratory: Present: Clear to Ascultation Cardiology: regular, normal heart rate Gastrointestinal: normal, normoactive bowel sounds Integumentary: no rash, other (No edema) - Lab 12/20/20 05:21 12/20/20 05:21 Most recent lab results Calcium 8.8 mg/dL (8.4-10.2) 12/20/20 05:21 Magnesium 1.90 mg/dL (1.7-2.3) 12/12/20 14:01 Urine Creatinine 79.0 mg/dL (0.1-20.0) H 12/19/20 13:53 Urine Sodium 51 mmol/L 12/19/20 13:53 Medications & Allergies - Medications Allergies/Adverse Reactions: Allergies No Known Allergies Allergy (Verified 12/12/20 17:07) Home Medications: Home Medications Medication Instructions Recorded Confirmed Last Taken Type Pantoprazole [Protonix TAB] 40 mg PO QDAY #30 tablet 02/14/20 05/13/20 05/13/20 Rx Apixaban [Eliquis] 5 mg PO BID 05/13/20 05/13/20 05/12/20 History Aspirin [Adult Aspirin] 81 mg PO DAILY 05/13/20 05/13/20 05/13/20 History FLUoxetine [PROzac] 10 mg PO QDAY 05/13/20 05/13/20 05/13/20 History Melatonin [Melatonin 10MG CAP] 30 mg PO QHS 05/13/20 05/13/20 05/12/20 History Tamsulosin [Flomax] 0.4 mg PO QHS 05/13/20 05/13/20 05/12/20 History Apixaban [Eliquis] 5 mg PO Q12HR #60 tablet 05/16/20 Unknown Rx AtorvaSTATin [Lipitor] 80 mg PO QHS #30 tablet 05/16/20 Unknown Rx Furosemide [Lasix TAB] 40 mg PO QDAY #30 tablet 05/16/20 Unknown Rx ISOSORBIDE MONOnitrate [Imdur ER] 30 mg PO DAILY #30 tablet 05/16/20 Unknown Rx Spironolactone [Aldactone] 25 mg PO QDAY #30 tablet 05/16/20 Unknown Rx carvediloL [Coreg] 6.25 mg PO BID #60 tablet 05/16/20 Unknown Rx lisinopriL [Zestril TAB] 20 mg PO DAILY #30 tablet 05/16/20 Unknown Rx Active Medications: Generic Name Dose Route Start Last Admin Trade Name Freq PRN Reason Stop Dose Admin Acetaminophen 650 mg 12/13/20 11:49 Acetaminophen 325 Mg Tab PO Q6HR PRN PAIN Apixaban 5 mg 12/19/20 10:00 12/19/20 23:00 Apixaban 5 Mg Tab PO 5 mg Q12HR JOHANN Administration Aspirin 81 mg 12/19/20 10:00 12/19/20 09:21 Aspirin Ec 81 Mg Tab PO 81 mg DAILY JOHANN Administration Atorvastatin Calcium 80 mg 12/13/20 22:00 12/19/20 22:59 Atorvastatin 40 Mg Tab PO 80 mg QHS JOHANN Administration Carvedilol 6.25 mg 12/13/20 08:00 12/19/20 17:32 Carvedilol 6.25 Mg Tab PO 6.25 mg BID@0800,1700 JOHANN Administration Diphenhydramine HCl 50 mg 12/13/20 11:49 Diphenhydramine 25 Mg Cap PO QHS PRN Insomnia Fluoxetine HCl 10 mg 12/19/20 10:00 12/19/20 09:21 Fluoxetine 10 Mg Tab PO 10 mg QDAY JOHANN Administration Furosemide 40 mg 12/13/20 10:00 12/19/20 09:21 Furosemide 40 Mg Tab PO 40 mg QDAY JOHANN Administration Haloperidol Lactate 10 mg 12/12/20 22:57 12/15/20 16:14 Haloperidol Lactate 5 Mg/1 Ml Inj IM 10 mg Q8H PRN Administration Agitation Sodium Bicarbonate 50 meq/ 1,050 mls @ 75 mls/hr 12/19/20 10:30 Dextrose/Sodium Chloride IV DIRECT JOHANN Isosorbide Mononitrate 30 mg 12/13/20 10:00 12/19/20 09:20 Isosorbide Mononitrate Er 30 Mg Tab PO 30 mg DAILY JOHANN Administration Lisinopril 20 mg 12/13/20 10:00 12/19/20 09:21 Lisinopril 20 Mg Tab PO 20 mg DAILY JOHANN Administration Melatonin 30 mg 12/19/20 22:00 12/19/20 23:00 Melatonin 5 Mg Tab PO 30 mg QHS JOHANN Administration Pantoprazole Sodium 40 mg 12/13/20 10:00 12/19/20 13:45 Pantoprazole 40 Mg Tab PO 40 mg QDAY JOHANN Administration Spironolactone 25 mg 12/13/20 10:00 12/19/20 09:21 Spironolactone 25 Mg Tab PO 25 mg QDAY JOHANN Administration Tamsulosin HCl 0.4 mg 12/19/20 22:00 12/19/20 22:59 Tamsulosin 0.4 Mg Cap PO 0.4 mg QHS JOHANN Administration
[2020-12-20] MEDS: SODIUM BICARBONATE IV SCH (09:32)
[2020-12-20] MEDS: NACL IV SCH (09:32)
[2020-12-20] MEDS: D5W IV SCH (09:32)
--- NOTE | 2020-12-20 11:40 | Progress Note ---
Assessment and Plan Assessment and plan: (1) Acute encephalopathy Current Visit: Yes Status: Acute Plan to address problem: Ruled out Patient has underlying vascular dementia. Baseline is unknown MRI brain shows remote CVA on the right. (2) Strokelike symptoms Current Visit: Yes Status: Chronic Qualifiers: CVA mechanism: unspecified Qualified Code(s): I63.9 - Cerebral infarction, unspecified Plan to address problem: Has a history of CVA, and was noted to have some motor dysfunction in the ER. MRI brain negative for any acute CVA MRI cervical shows multiple disc bulges involving cervical vertebrae most prominent at C5-C6 level Neurosurgery consulted Patient remains on aspirin and statins Echocardiogram and ultrasound Doppler carotids pending Neurology evaluation PT Speech evaluation (3) PRIYA (acute kidney injury) Current Visit: Yes Status: Acute Plan to address problem: Possible ATN IV fluids for now Cr better - 1.7 Nephrology evaluation (4) Hypertension Current Visit: Yes Status: Chronic Qualifiers: Hypertension type: essential hypertension Qualified Code(s): I10 - Essential (primary) hypertension Plan to address problem: Hold BP medications for now (5) Coronary artery disease Current Visit: Yes Status: Chronic Qualifiers: Coronary Disease-Associated Artery/Lesion type: [place] artery [place] vs. transplanted heart: [place] heart Plan to address problem: Multiple stents in the past Aspirin Eliquis (6) CHF (congestive heart failure) Current Visit: Yes Status: Chronic Qualifiers: Heart failure type: combined systolic and diastolic Plan to address problem: Stable Continue diuretics (7) Hyperlipidemia Current Visit: Yes Status: Chronic Qualifiers: Hyperlipidemia type: mixed hyperlipidemia Qualified Code(s): E78.2 - Mixed hyperlipidemia Plan to address problem: On statins (8) DVT prophylaxis Current Visit: Yes Status: Acute Plan to address problem: On Eliquis and GI prophylaxis (9) Discharge planning issues Current Visit: Yes Status: Acute Plan to address problem: Needs placement Awaiting insurance authorization (10) Advance care planning Current Visit: Yes Status: Acute Plan to address problem: Patient is a full code. Discussed with family History Interval history: 60-year-old male brought in for altered sensorium. Patient has a history of previous cerebrovascular accident and the mother says that he has persistent confusion. Patient has been in the emergency room since December 12 and for some reason was not admitted at that point. The emergency room was trying to do the placement to [facility] and they wanted a Covid test which was negative. His creatinine was normal on December 12 and today it has increased from 20/1.0 on December 12 to 98/3.9. 2 to 3 weeks ago patient had a head concussion injury after a fall which resulted in admission to [facility]. Patient was kept in observation and was discharged. As per the mother patient was apparently confused all others and tries to leave the house. Apparently had 3 falls since his discharge from the last admission at [place]. The mother states that she is unable to care for the patient and is looking for long-term care. In the emergency room blood pressure was low in the 60s and was given 2 L of normal saline bolus after which the blood pressure came upto systolic 115 mm Hg. No fever or chills. No exposure to coronavirus. Patient toxin and low volume and says that is in the hospital. Patient is not able to give much history. Patient able to move the right side but not the left upper extremity. Also has weakness on the left lower extremity. Hospital course. 12/19. He is stable. BP better. Plan to get MRI brain to rule out CVA. His renal function is better. Cr 2.1 this AM. patient also needs cervical MRI to rule out severe degenerative disease. Echocardiogram, ultrasound carotids. Neurology evaluation appreciated 12/20. Renal function is better today. MRI brain shows no acute CVA -he has remote right-sided CVA. Ultrasound carotid and echocardiogram still pending. Cervical MRI shows degenerative disease involving the C3-C4, C5-C6, C6-C7. There is marked disc bulge at the C5, C6 level causing severe foraminal narrowing. Will consult neurosurgery for evaluation. Hospitalist Physical - Physical exam Narrative exam: VITAL SIGNS: Reviewed. GENERAL: Awake HEAD: No signs of head trauma. EYES: Pupils are equal. Extraocular motions intact. MOUTH: Oropharynx is normal. NECK: No adenopathy, no JVD. CHEST: Chest with diminished breath sounds bilaterally. No wheezes, rales, or rhonchi. CARDIAC: normal S1 and S2, without murmurs, gallops, or rubs. ABDOMEN: Soft, non tender and non distended. No rebound or guarding, and no masses palpated. Bowel Sounds normal. MUSCULOSKELETAL: No edema NEUROLOGIC EXAM: Alert and oriented x3. Has no aphasia. SKIN: No obvious lesions - Constitutional Vitals: Temp Pulse Resp BP Pulse Ox 98.2 F 74 20 127/89 97 12/20/20 08:35 12/20/20 09:13 12/20/20 09:00 12/20/20 09:13 12/20/20 08:35 HEART Score - HEART Score Age: 45-65 Risk factors: > 3 risk factors or hx of atherosclerotic disease Troponin: Troponin T 0.011 ng/mL (0.00-0.029) 12/12/20 14:01 Troponin: < normal limit - Critical Actions Critical Actions: 0-3 pts:0.9-1.7%risk of adverse cardiac event.Candidate for discharge Results - Labs CBC & Chem 7: 12/20/20 05:21 12/20/20 05:21 Labs: Laboratory Last Values WBC 4.8 K/mm3 (4.5-11.0) 12/20/20 05:21 RBC 3.54 M/mm3 (3.65-5.03) L 12/20/20 05:21 Hgb 11.3 gm/dl (11.8-15.2) L 12/20/20 05:21 Hct 33.1 % (35.5-45.6) L 12/20/20 05:21 MCV 94 fl (84-94) 12/20/20 05:21 MCH 32 pg (28-32) 12/20/20 05:21 MCHC 34 % (32-34) 12/20/20 05:21 RDW 14.2 % (13.2-15.2) 12/20/20 05:21 Plt Count 210 K/mm3 (140-440) 12/20/20 05:21 Lymph % (Auto) 17.0 % (13.4-35.0) 12/20/20 05:21 [place] % (Auto) 11.5 % (0.0-7.3) H 12/20/20 05:21 Eos % (Auto) 1.0 % (0.0-4.3) 12/20/20 05:21 Baso % (Auto) 0.6 % (0.0-1.8) 12/20/20 05:21 Lymph # (Auto) 0.8 K/mm3 (1.2-5.4) L 12/20/20 05:21 [place] # (Auto) 0.6 K/mm3 (0.0-0.8) 12/20/20 05:21 Eos # (Auto) 0.0 K/mm3 (0.0-0.4) 12/20/20 05:21 Baso # (Auto) 0.0 K/mm3 (0.0-0.1) 12/20/20 05:21 Add Manual Diff Complete 12/12/20 14:01 Total Counted 100 12/12/20 14:01 Seg Neutrophils % 69.9 % (40.0-70.0) 12/20/20 05:21 Seg Neuts % (Manual) 67.0 % (40.0-70.0) 12/12/20 14:01 Lymphocytes % (Manual) 22.0 % (13.4-35.0) 12/12/20 14:01 Monocytes % (Manual) 9.0 % (0.0-7.3) H 12/12/20 14:01 Eosinophils % (Manual) 2.0 % (0.0-4.3) 12/12/20 14:01 Promyelocytes % 0 % 12/12/20 14:01 Nucleated RBC % Not Reportable 12/12/20 14:01 Seg Neutrophils # 3.4 K/mm3 (1.8-7.7) 12/20/20 05: Seg Neutrophils # Man 2.7 K/mm3 (1.8-7.7) 12/12/20 14:01 Band Neutrophils # 0.0 K/mm3 12/12/20 14:01 Lymphocytes # (Manual) 0.9 K/mm3 (1.2-5.4) L 12/12/20 14:01 Abs React Lymphs (Man) 0.0 K/mm3 12/12/20 14:01 Monocytes # (Manual) 0.4 K/mm3 (0.0-0.8) 12/12/20 14:01 Eosinophils # (Manual) 0.1 K/mm3 (0.0-0.4) 12/12/20 14:01 Basophils # (Manual) 0.0 K/mm3 (0.0-0.1) 12/12/20 14:01 Metamyelocytes # 0.0 K/mm3 12/12/20 14:01 Myelocytes # 0.0 K/mm3 12/12/20 14:01 Promyelocytes # 0.0 K/mm3 12/12/20 14:01 Blast Cells # 0.0 K/mm3 12/12/20 14:01 WBC Morphology Not Reportable 12/12/20 14:01 Hypersegmented Neuts Not Reportable 12/12/20 14:01 Hyposegmented Neuts Not Reportable 12/12/20 14:01 Hypogranular Neuts Not Reportable 12/12/20 14:01 Smudge Cells Not Reportable 12/12/20 14:01 Toxic Granulation Not Reportable 12/12/20 14:01 Toxic Vacuolation Not Reportable 12/12/20 14:01 Dohle Bodies Not Reportable 12/12/20 14:01 Pelger-Huet Anomaly Not Reportable 12/12/20 14:01 Komal Rods Not Reportable 12/12/20 14:01 Platelet Estimate Consistent w auto 12/12/20 14:01 Clumped Platelets Not Reportable 12/12/20 14:01 Plt Clumps, EDTA Not Reportable 12/12/20 14:01 Large Platelets Not Reportable 12/12/20 14:01 Giant Platelets Not Reportable 12/12/20 14:01 Platelet Satelliting Not Reportable 12/12/20 14:01 Plt Morphology Comment Not Reportable 12/12/20 14:01 RBC Morphology Not Reportable 12/12/20 14:01 Dimorphic RBCs Not Reportable 12/12/20 14:01 Polychromasia Not Reportable 12/12/20 14:01 Hypochromasia Not Reportable 12/12/20 14:01 Poikilocytosis Not Reportable 12/12/20 14:01 Anisocytosis Not Reportable 12/12/20 14:01 Microcytosis Not Reportable 12/12/20 14:01 Macrocytosis Not Reportable 12/12/20 14:01 Spherocytes Not Reportable 12/12/20 14:01 Pappenheimer Bodies Not Reportable 12/12/20 14:01 Sickle Cells Not Reportable 12/12/20 14:01 Target Cells Not Reportable 12/12/20 14:01 Tear Drop Cells Not Reportable 12/12/20 14:01 Ovalocytes Few 12/12/20 14:01 Helmet Cells Not Reportable 12/12/20 14:01 [place] Bodies Not Reportable 12/12/20 14:01 [place] Rings Not Reportable 12/12/20 14:01 [place] Cells Not Reportable 12/12/20 14:01 Bite Cells Not Reportable 12/12/20 14:01 Crenated Cell Not Reportable 12/12/20 14:01 Elliptocytes Not Reportable 12/12/20 14:01 Acanthocytes (Spur) Not Reportable 12/12/20 14:01 Rouleaux Not Reportable 12/12/20 14:01 Hemoglobin C Crystals Not Reportable 12/12/20 14:01 Schistocytes Not Reportable 12/12/20 14:01 Malaria parasites Not Reportable 12/12/20 14:01 [place] Bodies Not Reportable 12/12/20 14:01 Hem Pathologist Commnt No 12/12/20 14:01 Sodium 137 mmol/L (137-145) 12/20/20 05:21 Potassium 3.9 mmol/L (3.6-5.0) 12/20/20 05:21 Chloride 105.1 mmol/L (98-107) 12/20/20 05:21 Carbon Dioxide 21 mmol/L (22-30) L 12/20/20 05:21 Anion Gap 15 mmol/L 12/20/20 05:21 BUN 60 mg/dL (9-20) H 12/20/20 05:21 Creatinine 1.7 mg/dL (0.8-1.3) H 12/20/20 05:21 Estimated GFR 50 ml/min 12/20/20 05:21 BUN/Creatinine Ratio 35 % 12/20/20 05:21 Glucose 87 mg/dL (75-100) 12/20/20 05:21 Lactic Acid 1.20 mmol/L (0.7-2.0) 12/18/20 14:35 Calcium 8.8 mg/dL (8.4-10.2) 12/20/20 05:21 Magnesium 1.90 mg/dL (1.7-2.3) 12/12/20 14:01 Total Bilirubin 0.70 mg/dL (0.1-1.2) 12/20/20 05:21 AST 170 units/L (5-40) H 12/20/20 05:21 ALT 47 units/L (7-56) 12/20/20 05:21 Alkaline Phosphatase 100 units/L (35-129) 12/20/20 05: Troponin T 0.011 ng/mL (0.00-0.029) 12/12/20 14:01 Total Protein 7.6 g/dL (6.3-8.2) 12/20/20 05: Albumin 3.2 g/dL (3.9-5) L 12/20/20 05:21 Albumin/Globulin Ratio 0.7 % 12/20/20 05:21 Urine Color Yellow (Yellow) 12/19/20 13:53 Urine Turbidity Clear (Clear) 12/19/20 13:53 Urine pH 6.0 (5.0-7.0) 12/19/20 13:53 Ur Specific [place] 1.013 (1.003-1.030) 12/19/20 13:53 Urine Protein <15 mg/dl mg/dL (Negative) 12/19/20 13:53 Urine Glucose (UA) Neg mg/dL (Negative) 12/19/20 13:53 Urine Ketones Neg mg/dL (Negative) 12/19/20 13:53 Urine Blood Mod (Negative) 12/19/20 13:53 Urine Nitrite Neg (Negative) 12/19/20 13:53 Urine Bilirubin Neg (Negative) 12/19/20 13:53 Urine Urobilinogen < 2.0 mg/dL (<2.0) 12/19/20 13:53 Ur Leukocyte Esterase Neg (Negative) 12/19/20 13:53 Urine WBC (Auto) 2.0 /HPF (0.0-6.0) 12/19/20 13:53 Urine RBC (Auto) 2.0 /HPF (0.0-6.0) 12/19/20 13:53 U Epithel Cells (Auto) < 1.0 /HPF (0-13.0) 12/19/20 13:53 Hyaline Casts 1 /LPF 12/12/20 21:04 Urine Mucus Few /HPF 12/19/20 13:53 Urine Eosinophils None seen (None Seen) 12/19/20 13:53 Urine Creatinine 79.0 mg/dL (0.1-20.0) H 12/19/20 13:53 Urine Sodium 51 mmol/L 12/19/20 13:53 Urine Chloride 36.0 mmolL (110-250) L 12/19/20 13:53 Urine Urea Nitrogen 949 12/19/20 13:53 Urine Opiates Screen Negative 12/12/20 21:04 Urine Methadone Screen Negative 12/12/20 21:04 Ur Barbiturates Screen Positive 12/12/20 21:04 Ur Phencyclidine Scrn Negative 12/12/20 21:04 Ur Amphetamines Screen Negative 12/12/20 21:04 U Benzodiazepines Scrn Negative 12/12/20 21:04 Urine Cocaine Screen Negative 12/12/20 21:04 U Marijuana (THC) Screen Negative 12/12/20 21:04 Drugs of Abuse Note Disclamer 12/12/20 21:04 Plasma/Serum Alcohol < 0.01 % (0-0.07) 12/12/20 14:00 Coronavirus (PCR) Negative (Negative) 12/16/20 11:18 Microbiology: Microbiology 12/18/20 14:35 Peripheral/Venous Blood Culture - Preliminary NO GROWTH AFTER 24 HOURS 12/18/20 14:42 Peripheral/Venous Blood Culture - Preliminary NO GROWTH AFTER 24 HOURS Funez/IV: Voiding Method Condom Catheter Active Medications - Current Medications Current Medications: Generic Name Dose Route Start Last Admin Trade Name Freq PRN Reason Stop Dose Admin Acetaminophen 650 mg 12/13/20 11:49 Acetaminophen 325 Mg Tab PO Q6HR PRN PAIN Apixaban 5 mg 12/19/20 10:00 12/20/20 09:12 Apixaban 5 Mg Tab PO 5 mg Q12HR JOHANN Administration Aspirin 81 mg 12/19/20 10:00 12/20/20 09:11 Aspirin Ec 81 Mg Tab PO 81 mg DAILY JOHANN Administration Atorvastatin Calcium 80 mg 12/13/20 22:00 12/19/20 22:59 Atorvastatin 40 Mg Tab PO 80 mg QHS JOHANN Administration Carvedilol 6.25 mg 12/13/20 08:00 12/20/20 09:13 Carvedilol 6.25 Mg Tab PO 6.25 mg BID@0800,1700 JOHANN Administration Diphenhydramine HCl 50 mg 12/13/20 11:49 Diphenhydramine 25 Mg Cap PO QHS PRN Insomnia Fluoxetine HCl 10 mg 12/19/20 10:00 12/20/20 09:13 Fluoxetine 10 Mg Tab PO 10 mg QDAY JOHANN Administration Furosemide 40 mg 12/13/20 10:00 12/20/20 09:12 Furosemide 40 Mg Tab PO 40 mg QDAY JOHANN Administration Haloperidol Lactate 10 mg 12/12/20 22:57 12/15/20 16:14 Haloperidol Lactate 5 Mg/1 Ml Inj IM 10 mg Q8H PRN Administration Agitation Sodium Bicarbonate 50 meq/ 1,050 mls @ 75 mls/hr 12/19/20 10:30 12/20/20 09:32 Dextrose/Sodium Chloride IV 75 mls/hr DIRECT JOHANN Administration Isosorbide Mononitrate 30 mg 12/13/20 10:00 12/20/20 09:12 Isosorbide Mononitrate Er 30 Mg Tab PO 30 mg DAILY JOHANN Administration Lisinopril 20 mg 12/13/20 10:00 12/20/20 09:12 Lisinopril 20 Mg Tab PO 20 mg DAILY JOHANN Administration Melatonin 30 mg 12/19/20 22:00 12/19/20 23:00 Melatonin 5 Mg Tab PO 30 mg QHS JOHANN Administration Pantoprazole Sodium 40 mg 12/13/20 10:00 12/20/20 09:12 Pantoprazole 40 Mg Tab PO 40 mg QDAY JOHANN Administration Spironolactone 25 mg 12/13/20 10:00 12/20/20 09:12 Spironolactone 25 Mg Tab PO 25 mg QDAY JOHANN Administration Tamsulosin HCl 0.4 mg 12/19/20 22:00 12/19/20 22:59 Tamsulosin 0.4 Mg Cap PO 0.4 mg QHS JOHANN Administration
--- NOTE | 2020-12-20 11:52 | Progress Note ---
Assessment and Plan Assessment and Plan (1) Acute encephalopathy Acute on on initial evaluation as well as aphasi as [place] [facility] [place] pt. is alert interactive respond to command orieted to place a nd date Recurrent falls and chronic confusion with diffuse weakness and increase tone left upper and both lower extremities Needs placement MRI of the brain showed no acute event MRI cervical spine showed degenerative disc disease with slight encrochment on spine C4-5 -Echo 30-35%EF -LDL#88 -Kidney function improved --Cr.#1.7 (2) CVA (cerebral vascular accident) Recent CVA with left-sided weakness Was admitted to [facility] and was in the emergency room here from December 12, 2018 for placement MRI brain no acute event is noted Placement to care home (3) PRIYA (acute kidney injury) Possible ATN IV fluids for now Creatinine was 1.0 on December 12 # on admission #3.9 today 1.7 (4) Hypertension Patient was hypotensive in the emergency room Resuscitated with IV normal saline We will restart antihypertensives as necessary and when the blood pressure goes up (5) Coronary artery disease Multiple stents in the past On isosorbide and Eliquis (6) CHF (congestive heart failure) Heart failure type: combined systolic and diastolic Continue diuretics Echocardiogram for ejection fraction We will try to get the records from [facility] Communication order put in (7) Hyperlipidemia On statins (8) DVT prophylaxis On Eliquis and GI prophylaxis (9) Discharge planning issues Patient is placement in subacute rehab versus half-way facility once the acute kidney injury is corrected (10) Advance care planning Patient is a full code. Discussed with family PLAN - Brain no new changes - neck mri showed deg. disc disease - maintain Eliquis and ASA - maintain lipitor - echo #30-35% -US is pending - Pt therapy - swallow evaluation will sign off. Subjective Date of service: 12/20/20 Principal diagnosis: confusion and weakness Interval history: doing better more alert interactive left side weakness unchanged he is oriented to place and date Objective - Vital Sign Vital Signs - 12hr 12/20/20 12/20/20 12/20/20 00:00 03:31 07:45 Temperature 98.4 F Pulse Rate 72 76 79 Respiratory 18 Rate Blood Pressure 124/82 O2 Sat by Pulse 96 Oximetry 12/20/20 12/20/20 12/20/20 08:35 09:00 09:12 Temperature 98.2 F Pulse Rate 74 74 Respiratory 18 20 Rate Blood Pressure 127/89 127/89 O2 Sat by Pulse 97 Oximetry 12/20/20 09:13 Temperature Pulse Rate 74 Respiratory Rate Blood Pressure 127/89 O2 Sat by Pulse Oximetry - General Apperance Constitutional: comfortable - EENT EENT: PERRL, mucous membranes moist - Respiratory Respiratory: chest non-tender, lungs clear, rhonchi - Cardiovascular Cardiovascular: regular rate, normal S1, normal S2 Extremities: no peripheral edema bilat - Gastrointestinal Gastrointestinal: normoactive bowel sounds - Integumentary Integumentary: normal - Neurologic Cranial nerve examination: PERRL, EOMI, intact Speech examination: intact Detailed motor examination: other (left side weakness upper > lower with increase tone both lower extremities and brisk reflexes bilteral) - Laboratory Findings CBC and BMP: 12/20/20 05:21 12/20/20 05:21 Abnormal Lab Findings: Abnormal Labs 12/12/20 12/12/20 12/18/20 14:01 14:01 14:35 WBC 4.0 L RBC Hgb 11.4 L Hct 34.4 L [place] % (Auto) 12.6 H Lymph # (Auto) 0.8 L Seg Neutrophils % 72.9 H Monocytes % (Manual) 9.0 H Lymphocytes # (Manual) 0.9 L Sodium 134 L Carbon Dioxide BUN Creatinine Glucose AST Albumin Urine Creatinine Urine Chloride 12/18/20 12/19/20 12/19/20 14:35 10:35 10:36 WBC RBC Hgb Hct 34.5 L [place] % (Auto) 9.1 H Lymph # (Auto) 0.9 L Seg Neutrophils % 73.3 H Monocytes % (Manual) Lymphocytes # (Manual) Sodium Carbon Dioxide 18 L 18 L BUN 98 H 77 H Creatinine 3.9 H 2.1 H Glucose 105 H AST 194 H Albumin 3.2 L Urine Creatinine Urine Chloride 12/19/20 12/19/20 12/20/20 13:53 23:02 05: WBC RBC 3.54 L Hgb 11.3 L Hct 33.1 L [place] % (Auto) 11.5 H Lymph # (Auto) 0.8 L Seg Neutrophils % Monocytes % (Manual) Lymphocytes # (Manual) Sodium 136 L Carbon Dioxide BUN Creatinine 1.7 H Glucose AST Albumin Urine Creatinine 79.0 H Urine Chloride 36.0 L 05/26/21 05:21 WBC RBC Hgb Hct [place] % (Auto) Lymph # (Auto) Seg Neutrophils % Monocytes % (Manual) Lymphocytes # (Manual) Sodium Carbon Dioxide 21 L BUN 60 H Creatinine 1.7 H Glucose AST 170 H Albumin 3.2 L Urine Creatinine Urine Chloride
--- NOTE | 2020-12-20 14:39 | Vascular Lab Report ---
BILATERAL CAROTID DOPPLER HISTORY: Stroke. Dementia. FINDINGS: Duplex Doppler evaluation of the carotid system was performed with spectral waveform analys is. Antegrade vertebral flow is seen bilaterally. Peak systolic velocity at the right internal carotid artery is 38 cm/s. Systolic velocity ratio is 0. 8. Peak systolic velocity at the left internal carotid artery is 59 cm/s. Systolic velocity ratio is 0.9 . Grayscale imaging demonstrates plaque at the common carotid arteries extending into the carotid bulbs and proximal internal carotid arteries. No flow limiting stenosis. IMPRESSION: Stenosis less than 50% bilaterally at the internal carotid arteries per NASCET criteria. Signer Name: Cristobal Stdodard MD Signed: 12/20/2020 2:35 PM Workstation Name: [id number]
--- NOTE | 2020-12-20 14:39 | Consultation ---
History of Present Illness Consult date: 12/20/20 Requesting physician: ADDY RINALDI Consult reason: other (?SSS) History of present illness: Pt is a 60-year-old AA male with a past medical hx of chronic right frontal, parietal, and occipital stroke (lastacute strokeaffected right hemisphere 01/2020 with right M2 and right vertebral stenosis), seizure disorder, PAF (anticoagulated with Eliquis as an outpatient), ischemic CMP (EF improved on echo 11/2020), and SLE, who presented for evaluation of altered mental status. Upon assessment today, pt's response time is slightly diminished, but he is otherwise alert and oriented. He states "I think I was confused and I fell." Pt reports recurrent falls at home and believes he "blacks out." He stats "I feel weak, and I'm thirsty." Echo 12/02/2020 - mod concentric LVH, EF 55-60%, dyskinetic apex LV wall, grade I diastolic dysfxn, LA mildly dilated, no evidence of PFO, mild-mod TR, mild pulm HTN. C 04/2020 - left main patent with mild luminal irregularity, LAD mid stent patent, diag 1 ostial 90%, diag 2 patient, Cfx distally has 95% lesion, OM1 small vessel patent, OM2 patent, RCA prox & distal stents patent, PDA & PLV patent, severe LV dysfxn. Past History Past Medical History: atrial fib, anemia, CAD, heart failure, hepatitis, hypertension, hyperlipidemia, stroke Past Surgical History: PTCA. denies: valve replacement, CABG Social history: smoking (former). denies: alcohol abuse Family history: CAD, diabetes, hypertension Medications and Allergies Allergies Allergy/AdvReac Type Severity Reaction Status Date / Time No Known Allergies Allergy Verified 12/12/20 17:07 Home Medications Medication Instructions Recorded Confirmed Last Taken Type Pantoprazole [Protonix TAB] 40 mg PO QDAY #30 tablet 02/14/20 05/13/20 05/13/20 Rx Apixaban [Eliquis] 5 mg PO BID 05/13/20 05/13/20 05/12/20 History Aspirin [Adult Aspirin] 81 mg PO DAILY 05/13/20 05/13/20 05/13/20 History FLUoxetine [PROzac] 10 mg PO QDAY 05/13/20 05/13/20 05/13/20 History Melatonin [Melatonin 10MG CAP] 30 mg PO QHS 05/13/20 05/13/20 05/12/20 History Tamsulosin [Flomax] 0.4 mg PO QHS 05/13/20 05/13/20 05/12/20 History Apixaban [Eliquis] 5 mg PO Q12HR #60 tablet 05/16/20 Unknown Rx AtorvaSTATin [Lipitor] 80 mg PO QHS #30 tablet 05/16/20 Unknown Rx Furosemide [Lasix TAB] 40 mg PO QDAY #30 tablet 05/16/20 Unknown Rx ISOSORBIDE MONOnitrate [Imdur ER] 30 mg PO DAILY #30 tablet 05/16/20 Unknown Rx Spironolactone [Aldactone] 25 mg PO QDAY #30 tablet 05/16/20 Unknown Rx carvediloL [Coreg] 6.25 mg PO BID #60 tablet 05/16/20 Unknown Rx lisinopriL [Zestril TAB] 20 mg PO DAILY #30 tablet 05/16/20 Unknown Rx Active Meds: Active Medications Acetaminophen (Acetaminophen 325 Mg Tab) 650 mg PO Q6HR PRN PRN Reason: PAIN Apixaban (Apixaban 5 Mg Tab) 5 mg PO Q12HR [facility] Last Admin: 12/20/20 09:12 Dose: 5 mg Documented by: Aspirin (Aspirin Ec 81 Mg Tab) 81 mg PO DAILY [facility] Last Admin: 12/20/20 09:11 Dose: 81 mg Documented by: Atorvastatin Calcium (Atorvastatin 40 Mg Tab) 80 mg PO QHS [facility] Last Admin: 12/19/20 22:59 Dose: 80 mg Documented by: Carvedilol (Carvedilol 6.25 Mg Tab) 6.25 mg PO BID@0800,1700 [facility] Last Admin: 12/20/20 09:13 Dose: 6.25 mg Documented by: Diphenhydramine HCl (Diphenhydramine 25 Mg Cap) 50 mg PO QHS PRN PRN Reason: Insomnia Fluoxetine HCl (Fluoxetine 10 Mg Tab) 10 mg PO QDAY [facility] Last Admin: 12/20/20 09:13 Dose: 10 mg Documented by: Furosemide (Furosemide 40 Mg Tab) 40 mg PO QDAY [facility] Last Admin: 12/20/20 09:12 Dose: 40 mg Documented by: Haloperidol Lactate (Haloperidol Lactate 5 Mg/1 Ml Inj) 10 mg IM Q8H PRN PRN Reason: Agitation Last Admin: 12/15/20 16:14 Dose: 10 mg Documented by: Sodium Bicarbonate 50 meq/ (Dextrose/Sodium Chloride) 1,050 mls @ 75 mls/hr IV DIRECT [facility] Last Admin: 12/20/20 09:32 Dose: 75 mls/hr Documented by: Isosorbide Mononitrate (Isosorbide Mononitrate Er 30 Mg Tab) 30 mg PO DAILY [facility] Last Admin: 12/20/20 09:12 Dose: 30 mg Documented by: Lisinopril (Lisinopril 20 Mg Tab) 20 mg PO DAILY [facility] Last Admin: 12/20/20 09:12 Dose: 20 mg Documented by: Melatonin (Melatonin 5 Mg Tab) 30 mg PO QHS [facility] Last Admin: 12/19/20 23:00 Dose: 30 mg Documented by: Pantoprazole Sodium (Pantoprazole 40 Mg Tab) 40 mg PO QDAY [facility] Last Admin: 12/20/20 09:12 Dose: 40 mg Documented by: Spironolactone (Spironolactone 25 Mg Tab) 25 mg PO QDAY [facility] Last Admin: 12/20/20 09:12 Dose: 25 mg Documented by: Tamsulosin HCl (Tamsulosin 0.4 Mg Cap) 0.4 mg PO QHS [facility] Last Admin: 12/19/20 22:59 Dose: 0.4 mg Documented by: Review of Systems Constitutional: weakness, no fever, no chills, no sweats Ears, nose, mouth and throat: no nasal congestion, no sore throat Cardiovascular: chest pain, syncope, no orthopnea, no palpitations, no rapid/irregular heart beat, no edema, no lightheadedness, no shortness of breath, no dyspnea on exertion, no paroxysmal nocturnal dyspnea, no claudication Respiratory: no cough, no shortness of breath, no dyspnea on exertion Gastrointestinal: no abdominal pain, no nausea, no vomiting, no diarrhea, no constipation Genitourinary Male: no dysuria, no flank pain Musculoskeletal: no neck stiffness, no neck pain, no myalgias Integumentary: no rash, no wounds Neurological: weakness, syncope, change in mentation, no head injury, no paralysis, no seizures, no tremors, no vertigo, no headaches Endocrine: no cold intolerance, no heat intolerance, no polydipsia, no polyuria Hematologic/Lymphatic: no easy bruising, no easy bleeding Allergic/Immunologic: no anaphylaxis Physical Examination Last Vital Signs Temp 98.2 F 12/20/20 08:35 Pulse 74 12/20/20 09:13 Resp 20 12/20/20 09:00 BP 127/89 12/20/20 09:13 Pulse Ox 97 12/20/20 08:35 General appearance: no acute distress HEENT: Positive: EOMI, Normocephaly, Mucus Membranes Moist Neck: Positive: neck supple, trachea midline. Negative: JVD/HJR Cardiac: Positive: Reg Rate and Rhythm, S1/S2. Negative: Audible Murmur Lungs: Positive: clear to auscultation (bilaterally) Neuro: Positive: Weakness Abdomen: Positive: Soft. Negative: Tender Skin: Negative: Rash Musculoskeletal: No Pain Extremities: Present: lower extr. pulses. Absent: edema Results 12/20/20 05:21 12/20/20 05:21 Cardiac Enzymes 12/20/20 Range/Units 05: AST 170 H (5-40) units/L CBC 12/20/20 Range/Units 05:21 WBC 4.8 (4.5-11.0) K/mm3 RBC 3.54 L (3.65-5.03) M/mm3 Hgb 11.3 L (11.8-15.2) gm/dl Hct 33.1 L (35.5-45.6) % Plt Count 210 (140-440) K/mm3 Lymph # (Auto) 0.8 L (1.2-5.4) K/mm3 [place] # (Auto) 0.6 (0.0-0.8) K/mm3 Eos # (Auto) 0.0 (0.0-0.4) K/mm3 Baso # (Auto) 0.0 (0.0-0.1) K/mm3 Comprehensive Metabolic Panel 12/19/20 12/20/20 Range/Units 23:02 05:21 Sodium 136 L 137 (137-145) mmol/L Potassium 3.9 (3.6-5.0) mmol/L Chloride 105.1 (98-107) mmol/L Carbon Dioxide 21 L (22-30) mmol/L BUN 60 H (9-20) mg/dL Creatinine 1.7 H 1.7 H (0.8-1.3) mg/dL Glucose 87 (75-100) mg/dL Calcium 8.8 (8.4-10.2) mg/dL AST 170 H (5-40) units/L ALT 47 (7-56) units/L Alkaline Phosphatase 100 (35-129) units/L Total Protein 7.6 (6.3-8.2) g/dL Albumin 3.2 L (3.9-5) g/dL - Imaging and Cardiology Echo: report reviewed (12/20/2020 - mild concentric LVH, EF 30-35%, mild diastolic dysfxn, hypokinetic septum & inferior wall, no evidence of PFO), other (12/02/2020 - mod concentric LVH, EF 55-60%, dyskinetic apex LV wall, grade I diastolic dysfxn, LA mildly dilated, no evidence of PFO, mild-mod TR, mild pulm HTN) Cardiac cath: report reviewed EKG: report reviewed, image reviewed - EKG Interpretation EKG: no acute changes EKG interpretations - Telemetry EKG Rhythm: Sinus Rhythm - EKG Sinus rhythms and dysrhythmias: sinus tachycardia Supraventricular dysrhythmia: atrial premature complexe Repolarization changes or abnormalities: nonspecific abnormality, ST segment, and/or T wave Myocardial infarction: inferior ND (old age inde Assessment and Plan Echo reviewed - mild concentric LVH, EF 30-35%, mild diastolic dysfxn, hypokinetic septum & inferior wall, no evidence of PFO. Tele reviewed - SR 70-80s, 6-bt run of NSVT noted, 3.5 sec pause noted today @ 1230, 2.6 sec pause noted today @ 1228. Hold BB for now. Recommend PRN correction of electrolytes. Continue tele monitoring. Pt seen in conjunction with Dr. Quiroz, who agrees with the assessment and plan of care. - Patient Problems (1) Acute encephalopathy Current Visit: Yes Status: Acute (2) CVA (cerebral vascular accident) Current Visit: Yes Status: Chronic Qualifiers: Precerebral and cerebral artery: middle cerebral artery Laterality of affected vessel: right (3) CVA (cerebral vascular accident) Current Visit: Yes Status: Chronic Qualifiers: Precerebral and cerebral artery: posterior cerebral artery Laterality of affected vessel: right (4) Seizure disorder Current Visit: Yes Status: Chronic (5) PRIYA (acute kidney injury) Current Visit: Yes Status: Acute (6) Atrial fibrillation Current Visit: Yes Status: Chronic Qualifiers: Atrial fibrillation type: paroxysmal Qualified Code(s): I48.0 - Paroxysmal atrial fibrillation (7) Sinus pause Current Visit: Yes Status: Acute (8) NSVT (nonsustained ventricular tachycardia) Current Visit: Yes Status: Chronic (9) Coronary artery disease Current Visit: Yes Status: Chronic Qualifiers: Coronary Disease-Associated Artery/Lesion type: [place] artery [place] vs. transplanted heart: [place] heart Associated angina: with stable angina Qualified Code(s): I25.118 - Atherosclerotic heart disease of [place] coronary artery with other forms of angina pectoris (10) Stented coronary artery Current Visit: Yes Status: Chronic (11) Ischemic cardiomyopathy Current Visit: Yes Status: Chronic (12) Chronic HFrEF (heart failure with reduced ejection fraction) Current Visit: Yes Status: Chronic (13) Hypertension Current Visit: Yes Status: Chronic Qualifiers: Hypertension type: essential hypertension Qualified Code(s): I10 - Essential (primary) hypertension (14) Hyperlipidemia Current Visit: Yes Status: Chronic Qualifiers: Hyperlipidemia type: mixed hyperlipidemia Qualified Code(s): E78.2 - Mixed hyperlipidemia (15) Lupus Current Visit: Yes Status: Chronic (16) Hepatitis C Current Visit: No Status: Chronic (17) Recurrent falls Current Visit: Yes Status: Chronic
[2020-12-20] MEDS: TAMSULOSIN 0.4 MG CAP PO SCH (22:42)
[2020-12-20] MEDS: MELATONIN 5 MG TAB PO SCH (22:42)
[2020-12-21 08:22] LABS: Basophils % (Auto) 0.7 % (0.0-1.8); Eosinophils # (Auto) 0.1 K/mm3 (0.0-0.4); Eosinophils % (Auto) 1.3 % (0.0-4.3); Hematocrit 33.5 % (35.5-45.6); Hemoglobin 11.6 gm/dl (11.8-15.2); Lymphocytes # (Auto) 0.7 K/mm3 (1.2-5.4); Lymphocytes % (Auto) 13.3 % (13.4-35.0); Mean Corpuscular HGB Conc 35 % (32-34); Mean Corpuscular Volume 93 fl (84-94); Monocytes # (Auto) 0.7 K/mm3 (0.0-0.8); Monocytes % (Auto) 12.5 % (0.0-7.3); Platelet Count 212 K/mm3 (140-440); Red Cell Distribution Width 14.4 % (13.2-15.2)
[2020-12-21 08:39] LABS: Alanine Aminotransferase 44 units/L (7-56); Albumin 3.1 g/dL (3.9-5); BUN/Creatinine Ratio 29; Blood Urea Nitrogen 35 mg/dL (9-20); Calcium 8.7 mg/dL (8.4-10.2); Hemolysis Index 29
--- NOTE | 2020-12-21 09:30 | Progress Note ---
Assessment and Plan Impression * Acute kidney injury. Baseline creatinine approximately 1.0 * History of CVA * Altered mental status * Metabolic acidosis Recommendations * Suspect etiology of his acute kidney injury most likely prerenal * He is currently nonoliguric. * His urine shows trace protein and only 2 RBCs per high-power field. Fractional excretion of sodium is 1%. * Renal function is improving with IV hydration. No indication for renal replacement therapy at this time * Continue IV hydration. * renal ultrasound is normal. No evidence of obstruction * Monitor fluid status and electrolytes closely * Avoid nephrotoxins Subjective Date of service: 12/21/20 Principal diagnosis: confusion and weakness Interval history: Patient is awake and alert. Appears comfortable. IV fluid with bicarbonate infusing Objective - Vital Signs Vital signs: Vital Signs - 12hr 12/20/20 12/21/20 12/21/20 23:06 00:00 03:28 Temperature 97.4 F L 97.7 F Pulse Rate 80 85 67 Respiratory 16 16 Rate Blood Pressure 115/81 129/97 O2 Sat by Pulse 97 96 Oximetry 12/21/20 07:53 Temperature 98.4 F Pulse Rate 89 Respiratory 18 Rate Blood Pressure 138/103 O2 Sat by Pulse 98 Oximetry - General Appearance General appearance: well-developed, well-nourished, appears stated age EENT: PERRL, mucous membranes moist Neck: no JVD, no thyromegaly, no carotid bruit, supple Respiratory: Present: Clear to Ascultation Cardiology: regular, normal heart rate Gastrointestinal: normal, normoactive bowel sounds Integumentary: other (No edema) - Lab 12/21/20 07:12 12/21/20 07:12 Most recent lab results Calcium 8.7 mg/dL (8.4-10.2) 12/21/20 07:12 Magnesium 2.20 mg/dL (1.7-2.3) 12/20/20 17:50 Urine Creatinine 79.0 mg/dL (0.1-20.0) H 12/19/20 13:53 Urine Sodium 51 mmol/L 12/19/20 13:53 Medications & Allergies - Medications Allergies/Adverse Reactions: Allergies No Known Allergies Allergy (Verified 12/12/20 17:07) Home Medications: Home Medications Medication Instructions Recorded Confirmed Last Taken Type Pantoprazole [Protonix TAB] 40 mg PO QDAY #30 tablet 02/14/20 05/13/20 05/13/20 Rx Apixaban [Eliquis] 5 mg PO BID 05/13/20 05/13/20 05/12/20 History Aspirin [Adult Aspirin] 81 mg PO DAILY 05/13/20 05/13/20 05/13/20 History FLUoxetine [PROzac] 10 mg PO QDAY 05/13/20 05/13/20 05/13/20 History Melatonin [Melatonin 10MG CAP] 30 mg PO QHS 05/13/20 05/13/20 05/12/20 History Tamsulosin [Flomax] 0.4 mg PO QHS 05/13/20 05/13/20 05/12/20 History Apixaban [Eliquis] 5 mg PO Q12HR #60 tablet 05/16/20 Unknown Rx AtorvaSTATin [Lipitor] 80 mg PO QHS #30 tablet 05/16/20 Unknown Rx Furosemide [Lasix TAB] 40 mg PO QDAY #30 tablet 05/16/20 Unknown Rx ISOSORBIDE MONOnitrate [Imdur ER] 30 mg PO DAILY #30 tablet 05/16/20 Unknown Rx Spironolactone [Aldactone] 25 mg PO QDAY #30 tablet 05/16/20 Unknown Rx carvediloL [Coreg] 6.25 mg PO BID #60 tablet 05/16/20 Unknown Rx lisinopriL [Zestril TAB] 20 mg PO DAILY #30 tablet 05/16/20 Unknown Rx Active Medications: Generic Name Dose Route Start Last Admin Trade Name Freq PRN Reason Stop Dose Admin Acetaminophen 650 mg 12/13/20 11:49 Acetaminophen 325 Mg Tab PO Q6HR PRN PAIN Apixaban 5 mg 12/19/20 10:00 12/20/20 22:42 Apixaban 5 Mg Tab PO 5 mg Q12HR JOHANN Administration Aspirin 81 mg 12/19/20 10:00 12/20/20 09:11 Aspirin Ec 81 Mg Tab PO 81 mg DAILY JOHANN Administration Atorvastatin Calcium 80 mg 12/13/20 22:00 12/20/20 22:42 Atorvastatin 40 Mg Tab PO 80 mg QHS JOHANN Administration Carvedilol 6.25 mg 12/21/20 10:00 Carvedilol 6.25 Mg Tab PO BID JOHANN Diphenhydramine HCl 50 mg 12/13/20 11:49 Diphenhydramine 25 Mg Cap PO QHS PRN Insomnia Fluoxetine HCl 10 mg 12/19/20 10:00 12/20/20 09:13 Fluoxetine 10 Mg Tab PO 10 mg QDAY JOHANN Administration Furosemide 40 mg 12/13/20 10:00 12/20/20 09:12 Furosemide 40 Mg Tab PO 40 mg QDAY JOHANN Administration Haloperidol Lactate 10 mg 12/12/20 22:57 12/15/20 16:14 Haloperidol Lactate 5 Mg/1 Ml Inj IM 10 mg Q8H PRN Administration Agitation Sodium Bicarbonate 50 meq/ 1,050 mls @ 75 mls/hr 12/19/20 10:30 12/20/20 09:32 Dextrose/Sodium Chloride IV 75 mls/hr DIRECT JOHANN Administration Isosorbide Mononitrate 30 mg 12/13/20 10:00 12/20/20 09:12 Isosorbide Mononitrate Er 30 Mg Tab PO 30 mg DAILY JOHANN Administration Lisinopril 20 mg 12/13/20 10:00 12/20/20 09:12 Lisinopril 20 Mg Tab PO 20 mg DAILY JOHANN Administration Melatonin 30 mg 12/19/20 22:00 12/20/20 22:42 Melatonin 5 Mg Tab PO 30 mg QHS JOHANN Administration Pantoprazole Sodium 40 mg 12/13/20 10:00 12/20/20 09:12 Pantoprazole 40 Mg Tab PO 40 mg QDAY JOHANN Administration Spironolactone 25 mg 12/13/20 10:00 12/20/20 09:12 Spironolactone 25 Mg Tab PO 25 mg QDAY JOHANN Administration Tamsulosin HCl 0.4 mg 12/19/20 22:00 12/20/20 22:42 Tamsulosin 0.4 Mg Cap PO 0.4 mg QHS JOHANN Administration
[2020-12-21] MEDS ORDERED: LISINOPRIL 20 MG TAB PO SCH (09:35)
--- NOTE | 2020-12-21 09:36 | Discharge Summary ---
Providers - Providers Date of Admission: 12/18/20 15:52 Date of discharge: 12/21/20 Attending physician: ADDY RINALDI 12/12/20 17:12 Consult to Case Management [CONS] Stat Services Needed at Discharge: Home Health Services Notified:: n Physical Therapy Evaluation and Treat [CONS] Stat Comment: Reason For Exam: Evaluate for frequent falls and placement 12/12/20 17:40 Consult to Mental Health [CONS] Stat Reason For Exam: Confusion, frequent wandering Speech Therapy Evaluation and Treat [CONS] Stat Reason For Exam: History of stroke 12/17/20 09:56 Occupational Therapy Evaluate and Treat [CONS] Stat Comment: Reason For Exam: frequent falls inability to perform adls Physical Therapy Evaluation and Treat [CONS] Stat Comment: Reason For Exam: frequent fall inability to complete adls 12/19/20 05:37 Speech Therapy Evaluation and Treat [CONS] Stat Reason For Exam: Dysphagia 12/19/20 06:34 Consult to Physician [CONS] Routine Comment: Consulting Provider: JEAN ANDRE Physician Instructions: Reason For Exam: PRIYA 12/19/20 06:35 Consult to Physician [CONS] Routine Comment: Consulting Provider: JASON MICHAELS Physician Instructions: Reason For Exam: CVA, 12/20/20 09:51 Speech Therapy Evaluation and Treat [CONS] Stat Reason For Exam: impaired swallowing 12/20/20 11:47 Consult to Physician [CONS] Routine Comment: Consulting Provider: PASCUAL BAILON II Physician Instructions: Reason For Exam: Cervical degenerative diseases 12/20/20 13:17 Consult to Physician [CONS] Routine Comment: Consulting Provider: NANDO TIDWELL Physician Instructions: Reason For Exam: ?sick sinus syndrome Hospitalization Condition: Stable Hospital course: 60-year-old male brought in for altered sensorium. Patient has a history of previous cerebrovascular accident and the mother says that he has persistent confusion. Patient has been in the emergency room since December 12 and for some reason was not admitted at that point. The emergency room was trying to do the placement to [facility] and they wanted a Covid test which was negative. His creatinine was normal on December 12 and today it has increased from 20/1.0 on December 12 to 98/3.9. 2 to 3 weeks ago patient had a head concussion injury after a fall which resulted in admission to [facility]. Patient was kept in observation and was discharged. As per the mother patient was apparently confused all others and tries to leave the house. Apparently had 3 falls since his discharge from the last admission at [place]. The mother states that she is unable to care for the patient and is looking for long-term care. In the emergency room blood pressure was low in the 60s and was given 2 L of normal saline bolus after which the blood pressure came upto systolic 115 mm Hg. No fever or chills. No exposure to coronavirus. Patient toxin and low volume and says that is in the hospital. Patient is not able to give much history. Keaton infante able to move the right side but not the left upper extremity. Also has weakness on the left lower extremity. Hospital course. 12/19. He is stable. BP better. Plan to get MRI brain to rule out CVA. His renal function is better. Cr 2.1 this AM. patient also needs cervical MRI to rule out severe degenerative disease. Echocardiogram, ultrasound carotids. Neurology evaluation appreciated 12/20. Renal function is better today. MRI brain shows no acute CVA -he has remote right-sided CVA. Ultrasound carotid and echocardiogram still pending. Cervical MRI shows degenerative disease involving the C3-C4, C5-C6, C6-C7. There is marked disc bulge at the C5, C6 level causing severe foraminal narrowing. Will consult neurosurgery for evaluation. He was found to have a 3.5 s pause on telemetry. Cardiology was consulted. His beta taj was held. 12/21. Spoke with neurosurgery - changes are not acute. he will be followed up in the office. Cardiology has adjusted his medications, he had nonsustained VT . He is stable to be discharged. He had a PT evaluation and will be going to a facility Disposition: DC-01 TO HOME OR SELFCARE Exam - Constitutional Vitals: Temp Pulse Resp BP Pulse Ox 98.4 F 89 18 138/103 98 12/21/20 07:53 12/21/20 07:53 12/21/20 07:53 12/21/20 07:53 12/21/20 07:53 Plan Follow up with: JOE[facility] [Other] - 3-5 Days
[2020-12-21] MEDS ORDERED: ENOXAPARIN 40 MG/0.4 ML INJ SUB-Q SCH (10:00)
[2020-12-21] MEDS ORDERED: carvediloL 6.25 MG TAB PO SCH ×2 (10:00→10:32)
--- NOTE | 2020-12-21 10:05 | Progress Note ---
Assessment and Plan Assessment and plan: #Acute metabolic encephalopathy Resolved Patient has underlying vascular dementia MRI brain shows no acute CVA-patient has remote CVA on the right #Strokelike symptoms Has a history of CVA, and was noted to have some motor dysfunction in the ER. MRI brain negative for any acute CVA MRI cervical shows multiple disc bulges involving cervical vertebrae most prominent at C5-C6 level Neurosurgery consulted Patient remains on aspirin and statins Echocardiogram and ultrasound Doppler carotids pending Neurology recommendations appreciated PT recommends rehab #PRIYA Secondary to dehydration -somewhat inappropriately Renal function improving Nephrology evaluation #Atrial fibrillation Anticoagulation Patient had a 3.5-second pause so cardiology was consulted Beta-taj was adjusted, patient noted to have nonsustained V. tach Cardiology to adjust beta-taj #Coronary artery disease Continue aspirin Coreg Eliquis #Hypertension Adjust blood pressure medications #Congestive heart failure Stable #Hyperlipidemia CODE STATUS DVT prophylaxis-on Eliquis Disposition-patient is stable for discharge. Cleared by neurology and cardiology but needs placement History Interval history: 60-year-old male brought in for altered sensorium. Patient has a history of previous cerebrovascular accident and the mother says that he has persistent confusion. Patient has been in the emergency room since December 12 and for some reason was not admitted at that point. The emergency room was trying to do the placement to [facility] and they wanted a Covid test which was negative. His creatinine was normal on December 12 and today it has increased from 20/1.0 on December 12 to 98/3.9. 2 to 3 weeks ago patient had a head concussion injury after a fall which resulted in admission to [facility]. Patient was kept in observation and was discharged. As per the mother patient was apparently confused all others and tries to leave the house. Apparently had 3 falls since his discharge from the last admission at [facility]. The mother states that she is unable to care for the patient and is looking for long-term care. In the emergency room blood pressure was low in the 60s and was given 2 L of normal saline bolus after which the blood pressure came upto systolic 115 mm Hg. No fever or chills. No exposure to coronavirus. Patient toxin and low volume and says that is in the hospital. Patient is not able to give much history. Patient able to move the right side but not the left upper extremity. Also has weakness on the left lower extremity. Hospital course. 12/19. He is stable. BP better. Plan to get MRI brain to rule out CVA. His renal function is better. Cr 2.1 this AM. patient also needs cervical MRI to rule out severe degenerative disease. Echocardiogram, ultrasound carotids. Neurology evaluation appreciated 12/20. Renal function is better today. MRI brain shows no acute CVA -he has remote right-sided CVA. Ultrasound carotid and echocardiogram still pending. Cervical MRI shows degenerative disease involving the C3-C4, C5-C6, C6-C7. There is marked disc bulge at the C5, C6 level causing severe foraminal narrowing. Will consult neurosurgery for evaluation. He was found to have a 3.5 s pause on telemetry. Cardiology was consulted. His beta taj was held. 12/21. Spoke with neurosurgery - changes are not acute. he will be followed up in the office. Cardiology has adjusted his medications, he had nonsustained VT . He is stable to be discharged. He had a PT evaluation and will be going to a facility Hospitalist Physical - Physical exam Narrative exam: VITAL SIGNS: Reviewed. GENERAL: Awake HEAD: No signs of head trauma. EYES: Pupils are equal. Extraocular motions intact. MOUTH: Oropharynx is normal. NECK: No adenopathy, no JVD. CHEST: Chest with diminished breath sounds bilaterally. No wheezes, rales, or rhonchi. CARDIAC: normal S1 and S2, without murmurs, gallops, or rubs. ABDOMEN: Soft, non tender and non distended. No rebound or guarding, and no masses palpated. Bowel Sounds normal. MUSCULOSKELETAL: No edema NEUROLOGIC EXAM: Alert and oriented x3. Has no aphasia. SKIN: No obvious lesions - Constitutional Vitals: Temp Pulse Resp BP Pulse Ox 98.4 F 89 18 138/103 98 12/21/20 07:53 12/21/20 07:53 12/21/20 07:53 12/21/20 07:53 12/21/20 07:53 HEART Score - HEART Score Age: 45-65 Risk factors: > 3 risk factors or hx of atherosclerotic disease Troponin: Troponin T 0.011 ng/mL (0.00-0.029) 12/12/20 14:01 Troponin: < normal limit - Critical Actions Critical Actions: 0-3 pts:0.9-1.7%risk of adverse cardiac event.Candidate for discharge Results - Labs CBC & Chem 7: 12/21/20 07:12 12/21/20 07:12 Labs: Laboratory Last Values WBC 5.3 K/mm3 (4.5-11.0) 12/21/20 07:12 RBC 3.60 M/mm3 (3.65-5.03) L 12/21/20 07:12 Hgb 11.6 gm/dl (11.8-15.2) L 12/21/20 07:12 Hct 33.5 % (35.5-45.6) L 12/21/20 07:12 MCV 93 fl (84-94) 12/21/20 07:12 MCH 32 pg (28-32) 12/21/20 07:12 MCHC 35 % (32-34) H 12/21/20 07:12 RDW 14.4 % (13.2-15.2) 12/21/20 07:12 Plt Count 212 K/mm3 (140-440) 12/21/20 07:12 Lymph % (Auto) 13.3 % (13.4-35.0) L 12/21/20 07:12 [place] % (Auto) 12.5 % (0.0-7.3) H 12/21/20 07:12 Eos % (Auto) 1.3 % (0.0-4.3) 12/21/20 07:12 Baso % (Auto) 0.7 % (0.0-1.8) 12/21/20 07:12 Lymph # (Auto) 0.7 K/mm3 (1.2-5.4) L 12/21/20 07:12 [place] # (Auto) 0.7 K/mm3 (0.0-0.8) 12/21/20 07:12 Eos # (Auto) 0.1 K/mm3 (0.0-0.4) 12/21/20 07:12 Baso # (Auto) 0.0 K/mm3 (0.0-0.1) 12/21/20 07:12 Add Manual Diff Complete 12/12/20 14:01 Total Counted 100 12/12/20 14:01 Seg Neutrophils % 72.2 % (40.0-70.0) H 12/21/20 07:12 Seg Neuts % (Manual) 67.0 % (40.0-70.0) 12/12/20 14:01 Lymphocytes % (Manual) 22.0 % (13.4-35.0) 12/12/20 14:01 Monocytes % (Manual) 9.0 % (0.0-7.3) H 12/12/20 14:01 Eosinophils % (Manual) 2.0 % (0.0-4.3) 12/12/20 14:01 Promyelocytes % 0 % 12/12/20 14:01 Nucleated RBC % Not Reportable 12/12/20 14:01 Seg Neutrophils # 3.8 K/mm3 (1.8-7.7) 12/21/20 07:12 Seg Neutrophils # Man 2.7 K/mm3 (1.8-7.7) 12/12/20 14:01 Band Neutrophils # 0.0 K/mm3 12/12/20 14:01 Lymphocytes # (Manual) 0.9 K/mm3 (1.2-5.4) L 12/12/20 14:01 Abs React Lymphs (Man) 0.0 K/mm3 12/12/20 14:01 Monocytes # (Manual) 0.4 K/mm3 (0.0-0.8) 12/12/20 14:01 Eosinophils # (Manual) 0.1 K/mm3 (0.0-0.4) 12/12/20 14:01 Basophils # (Manual) 0.0 K/mm3 (0.0-0.1) 12/12/20 14:01 Metamyelocytes # 0.0 K/mm3 12/12/20 14:01 Myelocytes # 0.0 K/mm3 12/12/20 14:01 Promyelocytes # 0.0 K/mm3 12/12/20 14:01 Blast Cells # 0.0 K/mm3 12/12/20 14:01 WBC Morphology Not Reportable 12/12/20 14:01 Hypersegmented Neuts Not Reportable 12/12/20 14:01 Hyposegmented Neuts Not Reportable 12/12/20 14:01 Hypogranular Neuts Not Reportable 12/12/20 14:01 Smudge Cells Not Reportable 12/12/20 14:01 Toxic Granulation Not Reportable 12/12/20 14:01 Toxic Vacuolation Not Reportable 12/12/20 14:01 Dohle Bodies Not Reportable 12/12/20 14:01 Pel[place]-Huet Anomaly Not Reportable 12/12/20 14:01 [place]omal Rods Not Reportable 12/12/20 14:01 Platelet Estimate Consistent w auto 12/12/20 14:01 Clumped Platelets Not Reportable 12/12/20 14:01 Plt Clumps, EDTA Not Reportable 12/12/20 14:01 Large Platelets Not Reportable 12/12/20 14:01 Giant Platelets Not Reportable 12/12/20 14:01 Platelet Satelliting Not Reportable 12/12/20 14:01 Plt Morphology Comment Not Reportable 12/12/20 14:01 RBC Morphology Not Reportable 12/12/20 14:01 Dimorphic RBCs Not Reportable 12/12/20 14:01 Polychromasia Not Reportable 12/12/20 14:01 Hypochromasia Not Reportable 12/12/20 14:01 Poikilocytosis Not Reportable 12/12/20 14:01 Anisocytosis Not Reportable 12/12/20 14:01 Microcytosis Not Reportable 12/12/20 14:01 Macrocytosis Not Reportable 12/12/20 14:01 Spherocytes Not Reportable 12/12/20 14:01 Pappenheimer Bodies Not Reportable 12/12/20 14:01 Sickle Cells Not Reportable 12/12/20 14:01 Target Cells Not Reportable 12/12/20 14:01 Tear Drop Cells Not Reportable 12/12/20 14:01 Ovalocytes Few 12/12/20 14:01 Helmet Cells Not Reportable 12/12/20 14:01 [place] Bodies Not Reportable 12/12/20 14:01 [place] Rings Not Reportable 12/12/20 14:01 [place] Cells Not Reportable 12/12/20 14:01 Bite Cells Not Reportable 12/12/20 14:01 Crenated Cell Not Reportable 12/12/20 14:01 Elliptocytes Not Reportable 12/12/20 14:01 Acanthocytes (Spur) Not Reportable 12/12/20 14:01 Rouleaux Not Reportable 12/12/20 14:01 Hemoglobin C Crystals Not Reportable 12/12/20 14:01 Schistocytes Not Reportable 12/12/20 14:01 Malaria parasites Not Reportable 12/12/20 14:01 [place] Bodies Not Reportable 12/12/20 14:01 Hem Pathologist Commnt No 12/12/20 14:01 Sodium 136 mmol/L (137-145) L 12/21/20 07:12 Potassium 4.2 mmol/L (3.6-5.0) 12/21/20 07:12 Chloride 104.0 mmol/L (98-107) 12/21/20 07:12 Carbon Dioxide 19 mmol/L (22-30) L 12/21/20 07:12 Anion Gap 17 mmol/L 12/21/20 07:12 BUN 35 mg/dL (9-20) H 12/21/20 07:12 Creatinine 1.2 mg/dL (0.8-1.3) 12/21/20 07:12 Estimated GFR > 60 ml/min 12/21/20 07:12 BUN/Creatinine Ratio 29 % 12/21/20 07:12 Glucose 89 mg/dL (75-100) 12/21/20 07:12 Lactic Acid 1.20 mmol/L (0.7-2.0) 12/18/20 14:35 Calcium 8.7 mg/dL (8.4-10.2) 12/21/20 07:12 Magnesium 2.20 mg/dL (1.7-2.3) 12/20/20 17:50 Total Bilirubin 0.70 mg/dL (0.1-1.2) 12/21/20 07:12 AST 138 units/L (5-40) H 12/21/20 07:12 ALT 44 units/L (7-56) 12/21/20 07:12 Alkaline Phosphatase 108 units/L (35-129) 12/21/20 07:12 Troponin T 0.011 ng/mL (0.00-0.029) 12/12/20 14:01 Total Protein 7.7 g/dL (6.3-8.2) 12/21/20 07:12 Albumin 3.1 g/dL (3.9-5) L 12/21/20 07:12 Albumin/Globulin Ratio 0.7 % 12/21/20 07:12 Urine Color Yellow (Yellow) 12/19/20 13:53 Urine Turbidity Clear (Clear) 12/19/20 13:53 Urine pH 6.0 (5.0-7.0) 12/19/20 13:53 Ur Specific [place] 1.013 (1.003-1.030) 12/19/20 13:53 Urine Protein <15 mg/dl mg/dL (Negative) 12/19/20 13:53 Urine Glucose (UA) Neg mg/dL (Negative) 12/19/20 13:53 Urine Ketones Neg mg/dL (Negative) 12/19/20 13:53 Urine Blood Mod (Negative) 12/19/20 13:53 Urine Nitrite Neg (Negative) 12/19/20 13:53 Urine Bilirubin Neg (Negative) 12/19/20 13:53 Urine Urobilinogen < 2.0 mg/dL (<2.0) 12/19/20 13:53 Ur Leukocyte Esterase Neg (Negative) 12/19/20 13:53 Urine WBC (Auto) 2.0 /HPF (0.0-6.0) 12/19/20 13:53 Urine RBC (Auto) 2.0 /HPF (0.0-6.0) 12/19/20 13:53 U Epithel Cells (Auto) < 1.0 /HPF (0-13.0) 12/19/20 13:53 Hyaline Casts 1 /LPF 12/12/20 21:04 Urine Mucus Few /HPF 12/19/20 13:53 Urine Eosinophils None seen (None Seen) 12/19/20 13:53 Urine Creatinine 79.0 mg/dL (0.1-20.0) H 12/19/20 13:53 Urine Sodium 51 mmol/L 12/19/20 13:53 Urine Chloride 36.0 mmolL (110-250) L 12/19/20 13:53 Urine Urea Nitrogen 949 12/19/20 13:53 Urine Opiates Screen Negative 12/12/20 21:04 Urine Methadone Screen Negative 12/12/20 21:04 Ur Barbiturates Screen Positive 12/12/20 21:04 Ur Phencyclidine Scrn Negative 12/12/20 21:04 Ur Amphetamines Screen Negative 12/12/20 21:04 U Benzodiazepines Scrn Negative 12/12/20 21:04 Urine Cocaine Screen Negative 12/12/20 21:04 U Marijuana (THC) Screen Negative 12/12/20 21:04 Drugs of Abuse Note Disclamer 12/12/20 21:04 Plasma/Serum Alcohol < 0.01 % (0-0.07) 12/12/20 14:00 Coronavirus (PCR) Negative (Negative) 12/16/20 11:18 Microbiology: Microbiology 12/18/20 14:35 Peripheral/Venous Blood Culture - Preliminary NO GROWTH AFTER 48 HOURS 12/18/20 14:42 Peripheral/Venous Blood Culture - Preliminary NO GROWTH AFTER 48 HOURS Funez/IV: Voiding Method Condom Catheter Active Medications - Current Medications Current Medications: Generic Name Dose Route Start Last Admin Trade Name Freq PRN Reason Stop Dose Admin Acetaminophen 650 mg 12/13/20 11:49 Acetaminophen 325 Mg Tab PO Q6HR PRN PAIN Apixaban 5 mg 12/19/20 10:00 12/20/20 22:42 Apixaban 5 Mg Tab PO 5 mg Q12HR JOHANN Administration Aspirin 81 mg 12/19/20 10:00 12/20/20 09:11 Aspirin Ec 81 Mg Tab PO 81 mg DAILY JOHANN Administration Atorvastatin Calcium 80 mg 12/13/20 22:00 12/20/20 22:42 Atorvastatin 40 Mg Tab PO 80 mg QHS JOHANN Administration Carvedilol 6.25 mg 12/21/20 10:00 Carvedilol 6.25 Mg Tab PO BID JOHANN Diphenhydramine HCl 50 mg 12/13/20 11:49 Diphenhydramine 25 Mg Cap PO QHS PRN Insomnia Fluoxetine HCl 10 mg 12/19/20 10:00 12/20/20 09:13 Fluoxetine 10 Mg Tab PO 10 mg QDAY JOHANN Administration Furosemide 40 mg 12/13/20 10:00 12/20/20 09:12 Furosemide 40 Mg Tab PO 40 mg QDAY JOHANN Administration Haloperidol Lactate 10 mg 12/12/20 22:57 12/15/20 16:14 Haloperidol Lactate 5 Mg/1 Ml Inj IM 10 mg Q8H PRN Administration Agitation Sodium Bicarbonate 50 meq/ 1,050 mls @ 75 mls/hr 12/19/20 10:30 12/20/20 09:32 Dextrose/Sodium Chloride IV 75 mls/hr DIRECT JOHANN Administration Isosorbide Mononitrate 30 mg 12/13/20 10:00 12/20/20 09:12 Isosorbide Mononitrate Er 30 Mg Tab PO 30 mg DAILY JOHANN Administration Lisinopril 10 mg 12/21/20 10:00 Lisinopril 10 Mg Tab PO QDAY JOHANN Melatonin 30 mg 12/19/20 22:00 12/20/20 22:42 Melatonin 5 Mg Tab PO 30 mg QHS JOHANN Administration Pantoprazole Sodium 40 mg 12/13/20 10:00 12/20/20 09:12 Pantoprazole 40 Mg Tab PO 40 mg QDAY JOHANN Administration Spironolactone 25 mg 12/13/20 10:00 12/20/20 09:12 Spironolactone 25 Mg Tab PO 25 mg QDAY JOHANN Administration Tamsulosin HCl 0.4 mg 12/19/20 22:00 12/20/20 22:42 Tamsulosin 0.4 Mg Cap PO 0.4 mg QHS JOHANN Administration
--- NOTE | 2020-12-21 10:25 | Progress Note ---
Assessment and Plan Will resume low-dose BB. Pt was previously fitted with LifeVest. Ultimately plan for ICD implantation to be arranged as an outpatient. Otherwise stable cardiac status. No objections to discharge from a Cardiology standpoint. Follow-up with Dr. Diaz on 01/11/2021 @ 2:45pm ([phone]). Pt seen in conjunction with Dr. Diaz, who agrees with the assessment and plan of care. - Patient Problems (1) Acute encephalopathy Current Visit: Yes Status: Resolved (2) CVA (cerebral vascular accident) Current Visit: Yes Status: Chronic Qualifiers: Precerebral and cerebral artery: middle cerebral artery Laterality of affected vessel: right (3) CVA (cerebral vascular accident) Current Visit: Yes Status: Chronic Qualifiers: Precerebral and cerebral artery: posterior cerebral artery Laterality of affected vessel: right (4) Seizure disorder Current Visit: Yes Status: Chronic (5) PRIYA (acute kidney injury) Current Visit: Yes Status: Resolved (6) Atrial fibrillation Current Visit: Yes Status: Chronic Qualifiers: Atrial fibrillation type: paroxysmal Qualified Code(s): I48.0 - Paroxysmal atrial fibrillation (7) Sinus pause Current Visit: Yes Status: Resolved (8) NSVT (nonsustained ventricular tachycardia) Current Visit: Yes Status: Chronic (9) Uses LifeVest defibrillator Current Visit: Yes Status: Chronic (10) Coronary artery disease Current Visit: Yes Status: Chronic Qualifiers: Coronary Disease-Associated Artery/Lesion type: [place] artery [place] vs. transplanted heart: [place] heart Associated angina: with stable angina Qualified Code(s): I25.118 - Atherosclerotic heart disease of [place] coronary artery with other forms of angina pectoris (11) Stented coronary artery Current Visit: Yes Status: Chronic (12) Ischemic cardiomyopathy Current Visit: Yes Status: Chronic (13) Chronic HFrEF (heart failure with reduced ejection fraction) Current Visit: Yes Status: Chronic (14) Hypertension Current Visit: Yes Status: Chronic Qualifiers: Hypertension type: essential hypertension Qualified Code(s): I10 - [place] tial (primary) hypertension (15) Hyperlipidemia Current Visit: Yes Status: Chronic Qualifiers: Hyperlipidemia type: mixed hyperlipidemia Qualified Code(s): E78.2 - Mixed hyperlipidemia (16) Lupus Current Visit: Yes Status: Chronic (17) Hepatitis C Current Visit: No Status: Chronic (18) Recurrent falls Current Visit: Yes Status: Chronic Subjective Date of service: 12/21/20 Principal diagnosis: AMS Interval history: Awake and responding to questions appropriately. States he feels good today. No cardiac complaints. Tele reviewed - SR 80s w/PACs, 15-bt run of NSVT noted overnight, no further pauses or additional events. Objective Last Vital Signs Temp 98.4 F 12/21/20 07:53 Pulse 89 12/21/20 07:53 Resp 18 12/21/20 07:53 BP 138/103 12/21/20 07:53 Pulse Ox 98 12/21/20 07:53 - Physical Examination General: No Apparent Distress HEENT: Positive: EOMI, Normocephaly, Mucus Membranes Moist Neck: Positive: neck supple, trachea midline. Negative: JVD/HJR Cardiac: Positive: Reg Rate and Rhythm, S1/S2 Lungs: Positive: clear to auscultation (bilaterally) Neuro: Positive: Grossly Intact, Weakness Abdomen: Positive: Soft. Negative: Tender Skin: Negative: Rash Musculoskeletal: No Pain Extremities: Present: lower extr. pulses. Absent: edema - Labs and Meds Cardiac Enzymes 12/21/20 Range/Units 07:12 AST 138 H (5-40) units/L CBC 12/21/20 Range/Units 07:12 WBC 5.3 (4.5-11.0) K/mm3 RBC 3.60 L (3.65-5.03) M/mm3 Hgb 11.6 L (11.8-15.2) gm/dl Hct 33.5 L (35.5-45.6) % Plt Count 212 (140-440) K/mm3 Lymph # (Auto) 0.7 L (1.2-5.4) K/mm3 [place] # (Auto) 0.7 (0.0-0.8) K/mm3 Eos # (Auto) 0.1 (0.0-0.4) K/mm3 Baso # (Auto) 0.0 (0.0-0.1) K/mm3 Comprehensive Metabolic Panel 12/21/20 Range/Units 07:12 Sodium 136 L (137-145) mmol/L Potassium 4.2 (3.6-5.0) mmol/L Chloride 104.0 (98-107) mmol/L Carbon Dioxide 19 L (22-30) mmol/L BUN 35 H (9-20) mg/dL Creatinine 1.2 (0.8-1.3) mg/dL Glucose 89 (75-100) mg/dL Calcium 8.7 (8.4-10.2) mg/dL AST 138 H (5-40) units/L ALT 44 (7-56) units/L Alkaline Phosphatase 108 (35-129) units/L Total Protein 7.7 (6.3-8.2) g/dL Albumin 3.1 L (3.9-5) g/dL - Imaging and Cardiology EKG: report reviewed, image reviewed Echo: report reviewed (12/20/2020 - mild concentric LVH, EF 30-35%, mild diastolic dysfxn, hypokinetic septum & inferior wall, no evidence of PFO), other (12/02/2020 - mod concentric LVH, EF 55-60%, dyskinetic apex LV wall, grade I diastolic dysfxn, LA mildly dilated, no evidence of PFO, mild-mod TR, mild pulm HTN) Cardiac cath: report reviewed (04/2020 - left main patent, LAD stent patent, LCx distal 95%, RCA stents patent, severe LV dysfunction) - Telemetry EKG Rhythm: Sinus Rhythm - EKG Sinus rhythms and dysrhythmias: sinus tachycardia Repolarization changes or abnormalities: nonspecific abnormality, ST segment, and/or T wave Myocardial infarction: inferior MT (old age inde
[2020-12-21] MEDS: ASPIRIN EC 81 MG TAB PO SCH (12:11)
[2020-12-21] MEDS: SPIRONOLACTONE 25 MG TAB PO SCH (12:14)
[2020-12-21] MEDS: ACETAMINOPHEN 325 MG TAB PO PRN (12:15)
[2020-12-21] MEDS: APIXABAN 5 MG TAB PO SCH ×2 (12:15→21:25)
[2020-12-21] MEDS: FLUoxetine 10 MG TAB PO SCH (12:17)
[2020-12-21] MEDS: PANTOPRAZOLE 40 MG TAB PO SCH (12:18)
[2020-12-21] MEDS: FUROSEMIDE 40 MG TAB PO SCH (12:18)
[2020-12-21] MEDS: LISINOPRIL 10 MG TAB PO SCH (12:32)
[2020-12-21] MEDS: carvediloL 3.125 MG TAB PO SCH ×2 (12:33→21:25)
[2020-12-21] MEDS: NACL IV SCH (19:42)
[2020-12-21] MEDS: D5W IV SCH (19:42)
[2020-12-21] MEDS: SODIUM BICARBONATE IV SCH (19:42)
[2020-12-21] MEDS: MELATONIN 5 MG TAB PO SCH (21:25)
[2020-12-21] MEDS: TAMSULOSIN 0.4 MG CAP PO SCH (21:25)
[2020-12-22 06:10] LABS: Basophils % (Auto) 0.5 % (0.0-1.8); Eosinophils # (Auto) 0.1 K/mm3 (0.0-0.4); Eosinophils % (Auto) 3.2 % (0.0-4.3); Hematocrit 33.3 % (35.5-45.6); Hemoglobin 11.5 gm/dl (11.8-15.2); Lymphocytes # (Auto) 0.7 K/mm3 (1.2-5.4); Lymphocytes % (Auto) 16.5 % (13.4-35.0); Mean Corpuscular HGB Conc 35 % (32-34); Mean Corpuscular Volume 94 fl (84-94); Monocytes # (Auto) 0.5 K/mm3 (0.0-0.8); Monocytes % (Auto) 10.9 % (0.0-7.3); Platelet Count 190 K/mm3 (140-440); Red Blood Count 3.55 M/mm3 (3.65-5.03); Red Cell Distribution Width 14.1 % (13.2-15.2)
[2020-12-22 06:35] LABS: Alanine Aminotransferase 37 units/L (7-56); Albumin 3.3 g/dL (3.9-5); BUN/Creatinine Ratio 23; Blood Urea Nitrogen 25 mg/dL (9-20); Calcium 8.9 mg/dL (8.4-10.2); Hemolysis Index 4
--- NOTE | 2020-12-22 06:48 | Progress Note ---
Subjective Date of service: 12/22/20 Principal diagnosis: AMS Interval history: Impression * Acute kidney injury. Baseline creatinine approximately 1.0 * History of CVA * Altered mental status * Metabolic acidosis Recommendations * Suspect etiology of his acute kidney injury most likely prerenal * He is currently nonoliguric. * His urine shows trace protein and only 2 RBCs per high-power field. F ractional excretion of sodium is 1%. * Renal function is improving with IV hydration. No indication for renal replacement therapy at this time * Continue IV hydration. * renal ultrasound is normal. No evidence of obstruction * Monitor fluid status and electrolytes closely * Avoid nephrotoxins * will see prn Subjective Principal diagnosis: confusion and weakness Interval history: Patient is awake and alert. Appears comfortable. IV fluid with bicarbonate infusing - General Appearance General appearance: well-developed, well-nourished, appears stated age EENT: PERRL, mucous membranes moist Neck: no JVD, no thyromegaly, no carotid bruit, supple Respiratory: Present: Clear to Ascultation Cardiology: regular, normal heart rate Gastrointestinal: normal, normoactive bowel sounds Integumentary: other (No edema) Objective - Vital Signs Vital signs: Vital Signs - 12hr 12/21/20 12/21/20 12/21/20 19:33 21:00 21:25 Temperature 97.8 F Pulse Rate 95 H 95 H Respiratory 18 20 Rate Blood Pressure 115/76 115/76 O2 Sat by Pulse 98 Oximetry 12/22/20 12/22/20 12/22/20 00:00 00:12 04:21 Temperature 98.6 F 98.0 F Pulse Rate 95 H 85 86 Respiratory 18 18 Rate Blood Pressure 130/83 130/90 O2 Sat by Pulse 98 99 Oximetry - Lab 12/22/20 05:32 12/22/20 05:32 Most recent lab results Calcium 8.9 mg/dL (8.4-10.2) 12/22/20 05:32 Magnesium 2.20 mg/dL (1.7-2.3) 12/20/20 17:50 Urine Creatinine 79.0 mg/dL (0.1-20.0) H 12/19/20 13:53 Urine Sodium 51 mmol/L 12/19/20 13:53 Medications & Allergies - Medications Allergies/Adverse Reactions: Allergies No Known Allergies Allergy (Verified 12/12/20 17:07) Home Medications: Home Medications Medication Instructions Recorded Confirmed Last Taken Type Pantoprazole [Protonix TAB] 40 mg PO QDAY #30 tablet 02/14/20 05/13/20 05/13/20 Rx Apixaban [Eliquis] 5 mg PO BID 05/13/20 05/13/20 05/12/20 History Aspirin [Adult Aspirin] 81 mg PO DAILY 05/13/20 05/13/20 05/13/20 History FLUoxetine [PROzac] 10 mg PO QDAY 05/13/20 05/13/20 05/13/20 History Melatonin [Melatonin 10MG CAP] 30 mg PO QHS 05/13/20 05/13/20 05/12/20 History Tamsulosin [Flomax] 0.4 mg PO QHS 05/13/20 05/13/20 05/12/20 History Apixaban [Eliquis] 5 mg PO Q12HR #60 tablet 05/16/20 Unknown Rx AtorvaSTATin [Lipitor] 80 mg PO QHS #30 tablet 05/16/20 Unknown Rx Furosemide [Lasix TAB] 40 mg PO QDAY #30 tablet 05/16/20 Unknown Rx ISOSORBIDE MONOnitrate [Imdur ER] 30 mg PO DAILY #30 tablet 05/16/20 Unknown Rx Spironolactone [Aldactone] 25 mg PO QDAY #30 tablet 05/16/20 Unknown Rx carvediloL [Coreg] 6.25 mg PO BID #60 tablet 05/16/20 Unknown Rx lisinopriL [Zestril TAB] 20 mg PO DAILY #30 tablet 05/16/20 Unknown Rx Active Medications: Generic Name Dose Route Start Last Admin Trade Name Freq PRN Reason Stop Dose Admin Acetaminophen 650 mg 12/13/20 11:49 12/21/20 12:15 Acetaminophen 325 Mg Tab PO 650 mg Q6HR PRN Administration PAIN Apixaban 5 mg 12/19/20 10:00 12/21/20 21:25 Apixaban 5 Mg Tab PO 5 mg Q12HR JOHANN Administration Aspirin 81 mg 12/19/20 10:00 12/21/20 12:11 Aspirin Ec 81 Mg Tab PO 81 mg DAILY JOHANN Administration Atorvastatin Calcium 80 mg 12/13/20 22:00 12/21/20 21:25 Atorvastatin 40 Mg Tab PO 80 mg QHS JOHANN Administration Carvedilol 3.125 mg 12/21/20 11:00 12/21/20 21:25 Carvedilol 3.125 Mg Tab PO 3.125 mg BID JOHANN Administration Diphenhydramine HCl 50 mg 12/13/20 11:49 Diphenhydramine 25 Mg Cap PO QHS PRN Insomnia Fluoxetine HCl 10 mg 12/19/20 10:00 12/21/20 12:17 Fluoxetine 10 Mg Tab PO 10 mg QDAY JOHANN Administration Furosemide 40 mg 12/13/20 10:00 12/21/20 12:18 Furosemide 40 Mg Tab PO 40 mg QDAY JOHANN Administration Haloperidol Lactate 10 mg 12/12/20 22:57 12/15/20 16:14 Haloperidol Lactate 5 Mg/1 Ml Inj IM 10 mg Q8H PRN Administration Agitation Sodium Bicarbonate 50 meq/ 1,050 mls @ 75 mls/hr 12/19/20 10:30 12/21/20 19:42 Dextrose/Sodium Chloride IV 75 mls/hr DIRECT JOHANN Administration Isosorbide Mononitrate 30 mg 12/13/20 10:00 12/21/20 12:17 Isosorbide Mononitrate Er 30 Mg Tab PO 30 mg DAILY JOHANN Administration Lisinopril 10 mg 12/21/20 10:00 12/21/20 12:32 Lisinopril 10 Mg Tab PO 10 mg QDAY JOHANN Administration Melatonin 30 mg 12/19/20 22:00 12/21/20 21:25 Melatonin 5 Mg Tab PO 30 mg QHS JOHANN Administration Pantoprazole Sodium 40 mg 12/13/20 10:00 12/21/20 12:18 Pantoprazole 40 Mg Tab PO 40 mg QDAY JOHANN Administration Spironolactone 25 mg 12/13/20 10:00 12/21/20 12:14 Spironolactone 25 Mg Tab PO 25 mg QDAY JOHANN Administration Tamsulosin HCl 0.4 mg 12/19/20 22:00 12/21/20 21:25 Tamsulosin 0.4 Mg Cap PO 0.4 mg QHS JOHANN Administration
[2020-12-22] MEDS: SODIUM CHLORIDE 0.9% 1000 ML 1,000 ML IV SCH ×2 (08:57→21:10)
[2020-12-22] MEDS: APIXABAN 5 MG TAB PO SCH ×2 (09:00→21:11)
[2020-12-22] MEDS: FLUoxetine 10 MG TAB PO SCH (09:00)
[2020-12-22] MEDS: ASPIRIN EC 81 MG TAB PO SCH (09:00)
[2020-12-22] MEDS: SPIRONOLACTONE 25 MG TAB PO SCH (09:00)
[2020-12-22] MEDS: PANTOPRAZOLE 40 MG TAB PO SCH (09:00)
[2020-12-22] MEDS: FUROSEMIDE 40 MG TAB PO SCH (09:01)
[2020-12-22] MEDS: carvediloL 3.125 MG TAB PO SCH ×2 (09:01→21:12)
[2020-12-22] MEDS: LISINOPRIL 10 MG TAB PO SCH (09:01)
--- NOTE | 2020-12-22 09:42 | Progress Note ---
Assessment and Plan Assessment and plan: Acute metabolic encephalopathy Resolved Patient has underlying vascular dementia MRI brain shows no acute CVA-patient has remote CVA on the right Strokelike symptoms Has a history of CVA, and was noted to have some motor dysfunction in the ER. MRI brain negative for any acute CVA MRI cervical shows multiple disc bulges involving cervical vertebrae most prominent at C5-C6 level Neurology consulted Cont. on aspirin and statins PT recommends rehab #PRIYA Secondary to dehydration -somewhat inappropriately Renal function improving Nephrology following #Atrial fibrillation Anticoagulation Patient had a 3.5-second pause so cardiology was consulted Beta-taj was adjusted, patient noted to have nonsustained V. tach Cardiology to adjust beta-taj #Coronary artery disease Continue aspirin Coreg Eliquis #Hypertension Adjust blood pressure medications #Congestive heart failure Stable #Hyperlipidemia CODE STATUS DVT prophylaxis-on Eliquis Disposition-patient is stable for discharge. Cleared by neurology and cardiology but needs placement Hospital course. 12/19. He is stable. BP better. Plan to get MRI brain to rule out CVA. His renal function is better. Cr 2.1 this AM. patient also needs cervical MRI to rule out severe degenerative disease. Echocardiogram, ultrasound carotids. Neurology evaluation appreciated 12/20. Renal function is better today. MRI brain shows no acute CVA -he has remote right-sided CVA. Ultrasound carotid and echocardiogram still pending. Cervical MRI shows degenerative disease involving the C3-C4, C5-C6, C6-C7. There is marked disc bulge at the C5, C6 level causing severe foraminal narrowing. Will consult neurosurgery for evaluation. He was found to have a 3.5 s pause on telemetry. Cardiology was consulted. His beta taj was held. 12/21. Spoke with neurosurgery - changes are not acute. he will be followed up in the office. Cardiology has adjusted his medications, he had nonsustained VT . He is stable to be discharged. He had a PT evaluation and will be going to a facility 12/22. Echocardiogram revealed left ventricular size normal with mild concentric left ventricular hypertrophy. Mild diastolic dysfunction with impaired relaxatio n. LVEF is 30 to 35%. Saline bubble contrast injection does not demonstrate PFO. Carotid ultrasound negative. PRIYA resolved with Cr. 1.1. Neuro recommends maintain eliquis and ASA History Interval history: No new issues overnight Hospitalist Physical - Constitutional Vitals: Temp Pulse Resp BP Pulse Ox 98.1 F 78 15 126/80 99 05/28/21 08:04 12/22/20 09:01 12/22/20 08:04 12/22/20 09:01 12/22/20 08:04 General appearance: Present: no acute distress - EENT Eyes: Present: PERRL, EOM intact ENT: hearing intact, clear oral mucosa, dentition normal - Neck Neck: Present: supple, normal ROM - Respiratory Respiratory effort: normal Respiratory: bilateral: CTA - Cardiovascular Rhythm: regular Heart Sounds: Present: S1 & S2. Absent: gallop, rub - Extremities Extremities: no ischemia, No edema, Full ROM - Abdominal General gastrointestinal: soft, non-tender, non-distended, normal bowel sounds - Integumentary Integumentary: Present: clear, warm, dry - Neurologic Neurologic: CNII-XII intact, moves all extremities HEART Score - HEART Score Age: 45-65 Risk factors: > 3 risk factors or hx of atherosclerotic disease Troponin: Troponin T 0.011 ng/mL (0.00-0.029) 12/12/20 14:01 Troponin: < normal limit - Critical Actions Critical Actions: 0-3 pts:0.9-1.7%risk of adverse cardiac event.Candidate for discharge Results - Labs CBC & Chem 7: 12/22/20 05:32 12/22/20 05:32 Labs: Laboratory Last Values WBC 4.5 K/mm3 (4.5-11.0) 12/22/20 05:32 RBC 3.55 M/mm3 (3.65-5.03) L 12/22/20 05:32 Hgb 11.5 gm/dl (11.8-15.2) L 12/22/20 05:32 Hct 33.3 % (35.5-45.6) L 12/22/20 05:32 MCV 94 fl (84-94) 12/22/20 05:32 MCH 32 pg (28-32) 12/22/20 05:32 MCHC 35 % (32-34) H 12/22/20 05:32 RDW 14.1 % (13.2-15.2) 12/22/20 05:32 Plt Count 190 K/mm3 (140-440) 12/22/20 05:32 Lymph % (Auto) 16.5 % (13.4-35.0) 12/22/20 05:32 [place] % (Auto) 10.9 % (0.0-7.3) H 12/22/20 05:32 Eos % (Auto) 3.2 % (0.0-4.3) 12/22/20 05:32 Baso % (Auto) 0.5 % (0.0-1.8) 12/22/20 05:32 Lymph # (Auto) 0.7 K/mm3 (1.2-5.4) L 12/22/20 05:32 [place] # (Auto) 0.5 K/mm3 (0.0-0.8) 12/22/20 05:32 Eos # (Auto) 0.1 K/mm3 (0.0-0.4) 12/22/20 05:32 Baso # (Auto) 0.0 K/mm3 (0.0-0.1) 12/22/20 05:32 Add Manual Diff Complete 12/12/20 14:01 Total Counted 100 12/12/20 14:01 Seg Neutrophils % 68.9 % (40.0-70.0) 12/22/20 05:32 Seg Neuts % (Manual) 67.0 % (40.0-70.0) 12/12/20 14:01 Lymphocytes % (Manual) 22.0 % (13.4-35.0) 12/12/20 14:01 Monocytes % (Manual) 9.0 % (0.0-7.3) H 12/12/20 14:01 Eosinophils % (Manual) 2.0 % (0.0-4.3) 12/12/20 14:01 Promyelocytes % 0 % 12/12/20 14:01 Nucleated RBC % Not Reportable 12/12/20 14:01 Seg Neutrophils # 3.1 K/mm3 (1.8-7.7) 12/22/20 05:32 Seg Neutrophils # Man 2.7 K/mm3 (1.8-7.7) 12/12/20 14:01 Band Neutrophils # 0.0 K/mm3 12/12/20 14:01 Lymphocytes # (Manual) 0.9 K/mm3 (1.2-5.4) L 12/12/20 14:01 Abs React Lymphs (Man) 0.0 K/mm3 12/12/20 14:01 Monocytes # (Manual) 0.4 K/mm3 (0.0-0.8) 12/12/20 14:01 Eosinophils # (Manual) 0.1 K/mm3 (0.0-0.4) 12/12/20 14:01 Basophils # (Manual) 0.0 K/mm3 (0.0-0.1) 12/12/20 14:01 Metamyelocytes # 0.0 K/mm3 12/12/20 14:01 Myelocytes # 0.0 K/mm3 12/12/20 14:01 Promyelocytes # 0.0 K/mm3 12/12/20 14:01 Blast Cells # 0.0 K/mm3 12/12/20 14:01 WBC Morphology Not Reportable 12/12/20 14:01 Hypersegmented Neuts Not Reportable 12/12/20 14:01 Hyposegmented Neuts Not Reportable 12/12/20 14:01 Hypogranular Neuts Not Reportable 12/12/20 14:01 Smudge Cells Not Reportable 12/12/20 14:01 Toxic Granulation Not Reportable 12/12/20 14:01 Toxic Vacuolation Not Reportable 12/12/20 14:01 Dohle Bodies Not Reportable 12/12/20 14:01 Pelger-Huet Anomaly Not Reportable 12/12/20 14:01 Komal Rods Not Reportable 12/12/20 14:01 Platelet Estimate Consistent w auto 12/12/20 14:01 Clumped Platelets Not Reportable 12/12/20 14:01 Plt Clumps, EDTA Not Reportable 12/12/20 14:01 Large Platelets Not Reportable 12/12/20 14:01 Giant Platelets Not Reportable 12/12/20 14:01 Platelet Satelliting Not Reportable 12/12/20 14:01 Plt Morphology Comment Not Reportable 12/12/20 14:01 RBC Morphology Not Reportable 12/12/20 14:01 Dimorphic RBCs Not Reportable 12/12/20 14:01 Polychromasia Not Reportable 12/12/20 14:01 Hypochromasia Not Reportable 12/12/20 14:01 Poikilocytosis Not Reportable 12/12/20 14:01 Anisocytosis Not Reportable 12/12/20 14:01 Microcytosis Not Reportable 12/12/20 14:01 Macrocytosis Not Reportable 12/12/20 14:01 Spherocytes Not Reportable 12/12/20 14:01 Pappenheimer Bodies Not Reportable 12/12/20 14:01 Sickle Cells Not Reportable 12/12/20 14:01 Target Cells Not Reportable 12/12/20 14:01 Tear Drop Cells Not Reportable 12/12/20 14:01 Ovalocytes Few 12/12/20 14:01 Helmet Cells Not Reportable 12/12/20 14:01 [place] Bodies Not Reportable 12/12/20 14:01 [place] Rings Not Reportable 12/12/20 14:01 Protection Cells Not Reportable 12/12/20 14:01 Bite Cells Not Reportable 12/12/20 14:01 Crenated Cell Not Reportable 12/12/20 14:01 Elliptocytes Not Reportable 12/12/20 14:01 Acanthocytes (Spur) Not Reportable 12/12/20 14:01 Rouleaux Not Reportable 12/12/20 14:01 Hemoglobin C Crystals Not Reportable 12/12/20 14:01 Schistocytes Not Reportable 12/12/20 14:01 Malaria parasites Not Reportable 12/12/20 14:01 [place] Bodies Not Reportable 12/12/20 14:01 Hem Pathologist Commnt No 12/12/20 14:01 Sodium 132 mmol/L (137-145) L 12/22/20 05:32 Potassium 3.8 mmol/L (3.6-5.0) 12/22/20 05:32 Chloride 99.7 mmol/L (98-107) 12/22/20 05:32 Carbon Dioxide 23 mmol/L (22-30) 12/22/20 05:32 Anion Gap 13 mmol/L 12/22/20 05:32 BUN 25 mg/dL (9-20) H 12/22/20 05:32 Creatinine 1.1 mg/dL (0.8-1.3) 12/22/20 05:32 Estimated GFR > 60 ml/min 12/22/20 05:32 BUN/Creatinine Ratio 23 % 12/22/20 05:32 Glucose 90 mg/dL (75-100) 12/22/20 05:32 Lactic Acid 1.20 mmol/L (0.7-2.0) 12/18/20 14:35 Calcium 8.9 mg/dL (8.4-10.2) 12/22/20 05:32 Magnesium 2.20 mg/dL (1.7-2.3) 12/20/20 17:50 Total Bilirubin 0.60 mg/dL (0.1-1.2) 12/22/20 05:32 AST 96 units/L (5-40) H 12/22/20 05:32 ALT 37 units/L (7-56) 12/22/20 05:32 Alkaline Phosphatase 119 units/L (35-129) 12/22/20 05:32 Troponin T 0.011 ng/mL (0.00-0.029) 12/12/20 14:01 Total Protein 7.2 g/dL (6.3-8.2) 12/22/20 05:32 Albumin 3.3 g/dL (3.9-5) L 12/22/20 05:32 Albumin/Globulin Ratio 0.8 % 12/22/20 05:32 Urine Color Yellow (Yellow) 12/19/20 13:53 Urine Turbidity Clear (Clear) 12/19/20 13:53 Urine pH 6.0 (5.0-7.0) 12/19/20 13:53 Ur Specific [place] 1.013 (1.003-1.030) 12/19/20 13:53 Urine Protein <15 mg/dl mg/dL (Negative) 12/19/20 13:53 Urine Glucose (UA) Neg mg/dL (Negative) 12/19/20 13:53 Urine Ketones Neg mg/dL (Negative) 12/19/20 13:53 Urine Blood Mod (Negative) 12/19/20 13:53 Urine Nitrite Neg (Negative) 12/19/20 13:53 Urine Bilirubin Neg (Negative) 12/19/20 13:53 Urine Urobilinogen < 2.0 mg/dL (<2.0) 12/19/20 13:53 Ur Leukocyte Esterase Neg (Negative) 12/19/20 13:53 Urine WBC (Auto) 2.0 /HPF (0.0-6.0) 12/19/20 13:53 Urine RBC (Auto) 2.0 /HPF (0.0-6.0) 12/19/20 13:53 U Epithel Cells (Auto) < 1.0 /HPF (0-13.0) 12/19/20 13:53 Hyaline Casts 1 /LPF 12/12/20 21:04 Urine Mucus Few /HPF 12/19/20 13:53 Urine Eosinophils None seen (None Seen) 12/19/20 13:53 Urine Creatinine 79.0 mg/dL (0.1-20.0) H 12/19/20 13:53 Urine Sodium 51 mmol/L 12/19/20 13:53 Urine Chloride 36.0 mmolL (110-250) L 12/19/20 13:53 Urine Urea Nitrogen 949 12/19/20 13:53 Urine Opiates Screen Negative 12/12/20 21:04 Urine Methadone Screen Negative 12/12/20 21:04 Ur Barbiturates Screen Positive 12/12/20 21:04 Ur Phencyclidine Scrn Negative 12/12/20 21:04 Ur Amphetamines Screen Negative 12/12/20 21:04 U Benzodiazepines Scrn Negative 12/12/20 21:04 Urine Cocaine Screen Negative 12/12/20 21:04 U Marijuana (THC) Screen Negative 12/12/20 21:04 Drugs of Abuse Note Disclamer 12/12/20 21:04 Plasma/Serum Alcohol < 0.01 % (0-0.07) 12/12/20 14:00 Coronavirus (PCR) Negative (Negative) 12/16/20 11:18 Microbiology: Microbiology 12/18/20 14:35 Peripheral/Venous Blood Culture - Preliminary NO GROWTH AFTER 72 HOURS 12/18/20 14:42 Peripheral/Venous Blood Culture - Preliminary NO GROWTH AFTER 72 HOURS Funez/IV: Voiding Method Condom Catheter Active Medications - Current Medications Current Medications: Generic Name Dose Route Start Last Admin Trade Name Freq PRN Reason Stop Dose Admin Acetaminophen 650 mg 12/13/20 11:49 12/21/20 12:15 Acetaminophen 325 Mg Tab PO 650 mg Q6HR PRN Administration PAIN Apixaban 5 mg 12/19/20 10:00 12/22/20 09:00 Apixaban 5 Mg Tab PO 5 mg Q12HR JOHANN Administration Aspirin 81 mg 12/19/20 10:00 12/22/20 09:00 Aspirin Ec 81 Mg Tab PO 81 mg DAILY JOHANN Administration Atorvastatin Calcium 80 mg 12/13/20 22:00 12/21/20 21:25 Atorvastatin 40 Mg Tab PO 80 mg QHS JOHANN Administration Carvedilol 3.125 mg 12/21/20 11:00 12/22/20 09:01 Carvedilol 3.125 Mg Tab PO 3.125 mg BID JOHANN Administration Diphenhydramine HCl 50 mg 12/13/20 11:49 Diphenhydramine 25 Mg Cap PO QHS PRN Insomnia Fluoxetine HCl 10 mg 12/19/20 10:00 12/22/20 09:00 Fluoxetine 10 Mg Tab PO 10 mg QDAY JOHANN Administration Furosemide 40 mg 12/13/20 10:00 12/22/20 09:01 Furosemide 40 Mg Tab PO 40 mg QDAY JOHANN Administration Haloperidol Lactate 10 mg 12/12/20 22:57 12/15/20 16:14 Haloperidol Lactate 5 Mg/1 Ml Inj IM 10 mg Q8H PRN Administration Agitation Sodium Chloride 1,000 mls @ 75 mls/hr 12/22/20 07:00 12/22/20 08:57 Nacl 0.9% 1000 Ml IV 75 mls/hr DIRECT JOHANN Administration Isosorbide Mononitrate 30 mg 12/13/20 10:00 12/22/20 09:00 Isosorbide Mononitrate Er 30 Mg Tab PO 30 mg DAILY JOHANN Administration Lisinopril 10 mg 12/21/20 10:00 12/22/20 09:01 Lisinopril 10 Mg Tab PO 10 mg QDAY JOHANN Administration Melatonin 30 mg 12/19/20 22:00 12/21/20 21:25 Melatonin 5 Mg Tab PO 30 mg QHS JOHANN Administration Pantoprazole Sodium 40 mg 12/13/20 10:00 12/22/20 09:00 Pantoprazole 40 Mg Tab PO 40 mg QDAY JOHANN Administration Spironolactone 25 mg 12/13/20 10:00 12/22/20 09:00 Spironolactone 25 Mg Tab PO 25 mg QDAY JOHANN Administration Tamsulosin HCl 0.4 mg 12/19/20 22:00 12/21/20 21:25 Tamsulosin 0.4 Mg Cap PO 0.4 mg QHS JOHANN Administration
--- NOTE | 2020-12-22 09:52 | Discharge Summary ---
Providers - Providers Date of Admission: 12/18/20 15:52 Date of discharge: 12/22/20 Attending physician: MICHELLE CARTER 12/12/20 17:12 Consult to Case Management [CONS] Stat Services Needed at Discharge: Home Health Services Notified:: n Physical Therapy Evaluation and Treat [CONS] Stat Comment: Reason For Exam: Evaluate for frequent falls and placement 12/12/20 17:40 Consult to Mental Health [CONS] Stat Reason For Exam: Confusion, frequent wandering Speech Therapy Evaluation and Treat [CONS] Stat Reason For Exam: History of stroke 12/17/20 09:56 Occupational Therapy Evaluate and Treat [CONS] Stat Comment: Reason For Exam: frequent falls inability to perform adls Physical Therapy Evaluation and Treat [CONS] Stat Comment: Reason For Exam: frequent fall inability to complete adls 12/19/20 05:37 Speech Therapy Evaluation and Treat [CONS] Stat Reason For Exam: Dysphagia 12/19/20 06:34 Consult to Physician [CONS] Routine Comment: Consulting Provider: JEAN ANDRE Physician Instructions: Reason For Exam: PRIYA 12/19/20 06:35 Consult to Physician [CONS] Routine Comment: Consulting Provider: JASON MICHAELS Physician Instructions: Reason For Exam: CVA, 12/20/20 09:51 Speech Therapy Evaluation and Treat [CONS] Stat Reason For Exam: impaired swallowing 12/20/20 11:47 Consult to Physician [CONS] Routine Comment: Consulting Provider: PASCUAL BAILON II Physician Instructions: Reason For Exam: Cervical degenerative diseases 12/20/20 13:17 Consult to Physician [CONS] Routine Comment: Consulting Provider: NANDO TIDWELL Physician Instructions: Reason For Exam: ?sick sinus syndrome Hospitalization Reason for admission: Acute encephalopathy Condition: Stable Hospital course: Acute metabolic encephalopathy Resolved Patient has underlying vascular dementia MRI brain shows no acute CVA-patient has remote CVA on the right Strokelike symptoms Has a history of CVA, and was noted to have some motor dysfunction in the ER. MRI brain negative for any acute CVA MRI cervical shows multiple disc bulges involving cervical vertebrae most prominent at C5-C6 level Neurology consulted Cont. on aspirin and statins PT recommends rehab #PRIYA Secondary to dehydration -somewhat inappropriately Renal function improving Nephrology following #Atrial fibrillation Anticoagulation Patient had a 3.5-second pause so cardiology was consulted Beta-taj was adjusted, patient noted to have nonsustained V. tach Cardiology to adjust beta-taj #Coronary artery disease Continue aspirin Coreg Eliquis #Hypertension Adjust blood pressure medications #Congestive heart failure Stable #Hyperlipidemia CODE STATUS DVT prophylaxis-on Eliquis Disposition-patient is stable for discharge. Cleared by neurology and cardiology but needs placement Hospital course. 12/19. He is stable. BP better. Plan to get MRI brain to rule out CVA. His renal function is better. Cr 2.1 this AM. patient also needs cervical MRI to rule out severe degenerative disease. Echocardiogram, ultrasound carotids. Neurology evaluation appreciated 12/20. Renal function is better today. MRI brain shows no acute CVA -he has remote right-sided CVA. Ultrasound carotid and echocardiogram still pending. Cervical MRI shows degenerative disease involving the C3-C4, C5-C6, C6-C7. There is marked disc bulge at the C5, C6 level causing severe foraminal narrowing. Will consult neurosurgery for evaluation. He was found to have a 3.5 s pause on telemetry. Cardiology was consulted. His beta taj was held. 12/21. Spoke with neurosurgery - changes are not acute. he will be followed up in the office. Cardiology has adjusted his medications, he had nonsustained VT . He is stable to be discharged. He had a PT evaluation and will be going to a facility 12/22. Echocardiogram revealed left ventricular size normal with mild concentric left ventricular hypertrophy. Mild diastolic dysfunction with impaired relaxation. LVEF is 30 to 35%. Saline bubble contrast injection does not demonstrate PFO. Carotid ultrasound negative. PRIYA resolved with Cr. 1.1. Renal ultrasound is normal. No evidence of obstruction. Neuro recommends maintain eliquis and ASA. Pt was previously fitted with LifeVest. Ultimately plan for ICD implantation to be arranged as an outpatient. Disposition: - TO HOME OR SELFCARE Core Measure Documentation - Palliative Care Palliative Care/ Comfort Measures: Not Applicable - Core Measures Any of the following diagnoses?: none Exam - Constitutional Vitals: Temp Pulse Resp BP Pulse Ox 98.1 F 78 15 126/80 99 12/22/20 08:04 12/22/20 09:01 12/22/20 08:04 12/22/20 09:01 12/22/20 08:04 General appearance: Present: no acute distress, well-nourished - EENT Eyes: Present: PERRL ENT: hearing intact, clear oral mucosa - Neck Neck: Present: supple, normal ROM - Respiratory Respiratory effort: normal Respiratory: bilateral: CTA - Cardiovascular Heart Sounds: Present: S1 & S2. Absent: rub, click - Extremities Extremities: pulses symmetrical, No edema Peripheral Pulses: within normal limits - Abdominal General gastrointestinal: Present: soft, non-tender, non-distended, normal bowel sounds Male genitourinary: Present: normal - Integumentary Integumentary: Present: clear, warm, dry - Musculoskeletal Musculoskeletal: gait normal, strength equal bilaterally - Psychiatric Psychiatric: appropriate mood/affect, intact judgment & insight - Neurologic Neurologic: CNII-XII intact, moves all extremities Plan Activity: advance as tolerated Weight Bearing Status: Weight Bear as Tolerated Diet: low fat, low cholesterol, low salt [facility] - 3-5 Days Prescriptions: FLUoxetine [PROzac] 10 mg PO QDAY #30
[2020-12-22] MEDS: ACETAMINOPHEN 325 MG TAB PO PRN ×3 (10:19→21:14)
--- NOTE | 2020-12-22 16:12 | Progress Note ---
Assessment and Plan Continue present cardiac mgmt. Pt remains stable for discharge from a Cardiology perspective. Follow-up with Dr. Diaz on 01/11/2021 @ 2:45pm ([phone]). Pt was previously fitted with LifeVest. Ultimately plan for ICD implantation to be arranged as an outpatient. Pt seen in conjunction with Dr. Diaz, who agrees with the assessment and plan of care. - Patient Problems (1) Acute encephalopathy Current Visit: Yes Status: Resolved (2) CVA (cerebral vascular accident) Current Visit: Yes Status: Chronic Qualifiers: Precerebral and cerebral artery: middle cerebral artery Laterality of affected vessel: right (3) CVA (cerebral vascular accident) Current Visit: Yes Status: Chronic Qualifiers: Precerebral and cerebral artery: posterior cerebral artery Laterality of affected vessel: right (4) Seizure disorder Current Visit: Yes Status: Chronic (5) PRIYA (acute kidney injury) Current Visit: Yes Status: Resolved (6) Atrial fibrillation Current Visit: Yes Status: Chronic Qualifiers: Atrial fibrillation type: paroxysmal Qualified Code(s): I48.0 - Paroxysmal atrial fibrillation (7) Sinus pause Current Visit: Yes Status: Resolved (8) NSVT (nonsustained ventricular tachycardia) Current Visit: Yes Status: Chronic (9) Uses LifeVest defibrillator Current Visit: Yes Status: Chronic (10) Coronary artery disease Current Visit: Yes Status: Chronic Qualifiers: Coronary Disease-Associated Artery/Lesion type: [place] artery [place] vs. transplanted heart: [place] heart Associated angina: with stable angina Qualified Code(s): I25.118 - Atherosclerotic heart disease of [place] coronary artery with other forms of angina pectoris (11) Stented coronary artery Current Visit: Yes Status: Chronic (12) Ischemic cardiomyopathy Current Visit: Yes Status: Chronic (13) Chronic HFrEF (heart failure with reduced ejection fraction) Current Visit: Yes Status: Chronic (14) Hypertension Current Visit: Yes Status: Chronic Qualifiers: Hypertension type: essential hypertension Qualified Code(s): I10 - Essential (primary) hypertension (15) Hyperlipidemia Current Visit: Yes Status: Chronic Qualifiers: Hyperlipidemia type: mixed hyperlipidemia Qualified Code(s): E78.2 - Mixed hyperlipidemia (16) Lupus Current Visit: Yes Status: Chronic (17) Hepatitis C Current Visit: No Status: Chronic (18) Recurrent falls Current Visit: Yes Status: Chronic Subjective Date of service: 12/22/20 Principal diagnosis: AMS Interval history: Awake and responding to questions appropriately. No cardiac complaints. Tele reviewed - SR 70s w/PACs. Objective Last Vital Signs Temp 97.9 F 12/22/20 16:03 Pulse 65 12/22/20 16:03 Resp 17 12/22/20 16:03 BP 118/74 12/22/20 16:03 Pulse Ox 98 12/22/20 16:03 - Physical Examination General: No Apparent Distress HEENT: Positive: EOMI, Normocephaly, Mucus Membranes Moist Neck: Positive: neck supple, trachea midline. Negative: JVD/HJR Cardiac: Positive: Reg Rate and Rhythm, S1/S2 Lungs: Positive: clear to auscultation (bilaterally) Neuro: Positive: Grossly Intact, Weakness Abdomen: Positive: Soft. Negative: Tender Skin: Negative: Rash Musculoskeletal: No Pain Extremities: Present: lower extr. pulses. Absent: edema - Labs and Meds Cardiac Enzymes 12/22/20 Range/Units 05:32 AST 96 H (5-40) units/L CBC 12/22/20 Range/Units 05:32 WBC 4.5 (4.5-11.0) K/mm3 RBC 3.55 L (3.65-5.03) M/mm3 Hgb 11.5 L (11.8-15.2) gm/dl Hct 33.3 L (35.5-45.6) % Plt Count 190 (140-440) K/mm3 Lymph # (Auto) 0.7 L (1.2-5.4) K/mm3 [place] # (Auto) 0.5 (0.0-0.8) K/mm3 Eos # (Auto) 0.1 (0.0-0.4) K/mm3 Baso # (Auto) 0.0 (0.0-0.1) K/mm3 Comprehensive Metabolic Panel 12/22/20 Range/Units 05:32 Sodium 132 L (137-145) mmol/L Potassium 3.8 (3.6-5.0) mmol/L Chloride 99.7 (98-107) mmol/L Carbon Dioxide 23 (22-30) mmol/L BUN 25 H (9-20) mg/dL Creatinine 1.1 (0.8-1.3) mg/dL Glucose 90 (75-100) mg/dL Calcium 8.9 (8.4-10.2) mg/dL AST 96 H (5-40) units/L ALT 37 (7-56) units/L Alkaline Phosphatase 119 (35-129) units/L Total Protein 7.2 (6.3-8.2) g/dL Albumin 3.3 L (3.9-5) g/dL - Imaging and Cardiology EKG: report reviewed, image reviewed Echo: report reviewed (12/20/2020 - mild concentric LVH, EF 30-35%, mild diastolic dysfxn, hypokinetic septum & inferior wall, no evidence of PFO), other (12/02/2020 - mod concentric LVH, EF 55-60%, dyskinetic apex LV wall, grade I diastolic dysfxn, LA mildly dilated, no evidence of PFO, mild-mod TR, mild pulm HTN) Cardiac cath: report reviewed (04/2020 - left main patent, LAD stent patent, LCx distal 95%, RCA stents patent, severe LV dysfunction) - Telemetry EKG Rhythm: Sinus Rhythm - EKG Sinus rhythms and dysrhythmias: sinus tachycardia Repolarization changes or abnormalities: nonspecific abnormality, ST segment, and/or T wave Myocardial infarction: inferior [place] (old age inde
[2020-12-22] MEDS: TAMSULOSIN 0.4 MG CAP PO SCH (21:11)
[2020-12-22] MEDS: MELATONIN 5 MG TAB PO SCH (21:11)
[2020-12-22] MEDS: diphenhydrAMINE 25 MG CAP PO PRN (21:11)
[2020-12-22] MEDS: HALOPERIDOL LACTATE 5 MG/1 ML INJ IM PRN (21:11)
[2020-12-22] MEDS: oxyCODONE /ACETAMINOPHEN 5-325MG TAB PO PRN (23:39)
[2020-12-23 06:31] LABS: Eosinophils # (Auto) 0.2 K/mm3 (0.0-0.4); Eosinophils % (Auto) 4.4 % (0.0-4.3); Hematocrit 32.6 % (35.5-45.6); Hemoglobin 11.1 gm/dl (11.8-15.2); Lymphocytes # (Auto) 1.1 K/mm3 (1.2-5.4); Lymphocytes % (Auto) 29.1 % (13.4-35.0); Mean Corpuscular HGB Conc 34 % (32-34); Mean Corpuscular Volume 93 fl (84-94); Monocytes # (Auto) 0.5 K/mm3 (0.0-0.8); Monocytes % (Auto) 14.3 % (0.0-7.3); Platelet Count 181 K/mm3 (140-440); Red Blood Count 3.51 M/mm3 (3.65-5.03); Red Cell Distribution Width 14.1 % (13.2-15.2)
[2020-12-23 06:47] LABS: Alanine Aminotransferase 31 units/L (7-56); Albumin 3.1 g/dL (3.9-5); BUN/Creatinine Ratio 18; Blood Urea Nitrogen 18 mg/dL (9-20); Calcium 8.9 mg/dL (8.4-10.2); Hemolysis Index 0
[2020-12-23] MEDS: LISINOPRIL 10 MG TAB PO SCH (09:00)
[2020-12-23] MEDS: FLUoxetine 10 MG TAB PO SCH (09:00)
[2020-12-23] MEDS: ASPIRIN EC 81 MG TAB PO SCH (09:00)
[2020-12-23] MEDS: PANTOPRAZOLE 40 MG TAB PO SCH (09:00)
[2020-12-23] MEDS: FUROSEMIDE 40 MG TAB PO SCH (09:00)
[2020-12-23] MEDS: SPIRONOLACTONE 25 MG TAB PO SCH (09:00)
[2020-12-23] MEDS: APIXABAN 5 MG TAB PO SCH ×2 (09:00→21:38)
[2020-12-23] MEDS: carvediloL 3.125 MG TAB PO SCH ×2 (09:01→21:38)
--- NOTE | 2020-12-23 09:11 | Progress Note ---
Assessment and Plan Assessment and plan: Acute metabolic encephalopathy Resolved Patient has underlying vascular dementia MRI brain shows no acute CVA-patient has remote CVA on the right Strokelike symptoms Has a history of CVA, and was noted to have some motor dysfunction in the ER. MRI brain negative for any acute CVA MRI cervical shows multiple disc bulges involving cervical vertebrae most prominent at C5-C6 level Neurology consulted Cont. on aspirin and statins PT recommends rehab #PRIYA Secondary to dehydration -somewhat inappropriately Renal function improving Nephrology following #Atrial fibrillation Anticoagulation Patient had a 3.5-second pause so cardiology was consulted Beta-taj was adjusted, patient noted to have nonsustained V. tach Cardiology to adjust beta-taj #Coronary artery disease Continue aspirin Coreg Eliquis #Hypertension Adjust blood pressure medications #Congestive heart failure Stable #Hyperlipidemia CODE STATUS DVT prophylaxis-on Eliquis Disposition-patient is stable for discharge. Cleared by neurology and cardiology but needs placement Hospital course. 12/19. He is stable. BP better. Plan to get MRI brain to rule out CVA. His renal function is better. Cr 2.1 this AM. patient also needs cervical MRI to rule out severe degenerative disease. Echocardiogram, ultrasound carotids. Neurology evaluation appreciated 12/20. Renal function is better today. MRI brain shows no acute CVA -he has remote right-sided CVA. Ultrasound carotid and echocardiogram still pending. Cervical MRI shows degenerative disease involving the C3-C4, C5-C6, C6-C7. There is marked disc bulge at the C5, C6 level causing severe foraminal narrowing. Will consult neurosurgery for evaluation. He was found to have a 3.5 s pause on telemetry. Cardiology was consulted. His beta taj was held. 12/21. Spoke with neurosurgery - changes are not acute. he will be followed up in the office. Cardiology has adjusted his medications, he had nonsustained VT . He is stable to be discharged. He had a PT evaluation and will be going to a facility 12/22. Echocardiogram revealed left ventricular size normal with mild concentric left ventricular hypertrophy. Mild diastolic dysfunction with impaired relaxatio n. LVEF is 30 to 35%. Saline bubble contrast injection does not demonstrate PFO. Carotid ultrasound negative. PRIYA resolved with Cr. 1.1. Neuro recommends maintain eliquis and ASA /. Patient with no new issues overnight. Awaiting placement. History Interval history: No new issues overnight Hospitalist Physical - Constitutional Vitals: Temp Pulse Resp BP Pulse Ox 98.1 F 71 17 138/74 97 12/23/20 08:01 12/23/20 09:01 12/23/20 08:34 12/23/20 09:01 12/23/20 08:34 General appearance: Present: no acute distress, well-nourished - EENT Eyes: Present: PERRL, EOM intact ENT: hearing intact, clear oral mucosa, dentition normal - Neck Neck: Present: supple, normal ROM - Respiratory Respiratory effort: normal Respiratory: bilateral: CTA - Cardiovascular Rhythm: regular Heart Sounds: Present: S1 & S2. Absent: gallop, rub - Extremities Extremities: no ischemia, No edema, Full ROM - Abdominal General gastrointestinal: soft, non-tender, non-distended, normal bowel sounds - Integumentary Integumentary: Present: clear, warm, dry - Neurologic Neurologic: CNII-XII intact, moves all extremities HEART Score - HEART Score Age: 45-65 Risk factors: > 3 risk factors or hx of atherosclerotic disease Troponin: Troponin T 0.011 ng/mL (0.00-0.029) 12/12/20 14:01 Troponin: < normal limit - Critical Actions Critical Actions: 0-3 pts:0.9-1.7%risk of adverse cardiac event.Candidate for discharge Results - Labs CBC & Chem 7: 12/23/20 05:37 12/23/20 05:37 Labs: Laboratory Last Values WBC 3.8 K/mm3 (4.5-11.0) L 12/23/20 05:37 RBC 3.51 M/mm3 (3.65-5.03) L 12/23/20 05:37 Hgb 11.1 gm/dl (11.8-15.2) L 12/23/20 05:37 Hct 32.6 % (35.5-45.6) L 12/23/20 05:37 MCV 93 fl (84-94) 12/23/20 05:37 MCH 32 pg (28-32) 12/23/20 05:37 MCHC 34 % (32-34) 12/23/20 05:37 RDW 14.1 % (13.2-15.2) 12/23/20 05:37 Plt Count 181 K/mm3 (140-440) 12/23/20 05:37 Lymph % (Auto) 29.1 % (13.4-35.0) 12/23/20 05:37 [place] % (Auto) 14.3 % (0.0-7.3) H 12/23/20 05:37 Eos % (Auto) 4.4 % (0.0-4.3) H 12/23/20 05:37 Baso % (Auto) 1.0 % (0.0-1.8) 12/23/20 05:37 Lymph # (Auto) 1.1 K/mm3 (1.2-5.4) L 12/23/20 05:37 [place] # (Auto) 0.5 K/mm3 (0.0-0.8) 12/23/20 05:37 Eos # (Auto) 0.2 K/mm3 (0.0-0.4) 12/23/20 05:37 Baso # (Auto) 0.0 K/mm3 (0.0-0.1) 12/23/20 05:37 Add Manual Diff Complete 12/12/20 14:01 Total Counted 100 12/12/20 14:01 Seg Neutrophils % 51.2 % (40.0-70.0) 12/23/20 05:37 Seg Neuts % (Manual) 67.0 % (40.0-70.0) 12/12/20 14:01 Lymphocytes % (Manual) 22.0 % (13.4-35.0) 12/12/20 14:01 Monocytes % (Manual) 9.0 % (0.0-7.3) H 12/12/20 14:01 Eosinophils % (Manual) 2.0 % (0.0-4.3) 12/12/20 14:01 Promyelocytes % 0 % 12/12/20 14:01 Nucleated RBC % Not Reportable 12/12/20 14:01 Seg Neutrophils # 1.9 K/mm3 (1.8-7.7) 12/23/20 05:37 Seg Neutrophils # Man 2.7 K/mm3 (1.8-7.7) 12/12/20 14:01 Band Neutrophils # 0.0 K/mm3 12/12/20 14:01 Lymphocytes # (Manual) 0.9 K/mm3 (1.2-5.4) L 12/12/20 14:01 Abs React Lymphs (Man) 0.0 K/mm3 12/12/20 14:01 Monocytes # (Manual) 0.4 K/mm3 (0.0-0.8) 12/12/20 14:01 Eosinophils # (Manual) 0.1 K/mm3 (0.0-0.4) 12/12/20 14:01 Basophils # (Manual) 0.0 K/mm3 (0.0-0.1) 12/12/20 14:01 Metamyelocytes # 0.0 K/mm3 12/12/20 14:01 Myelocytes # 0.0 K/mm3 12/12/20 14:01 Promyelocytes # 0.0 K/mm3 12/12/20 14:01 Blast Cells # 0.0 K/mm3 12/12/20 14:01 WBC Morphology Not Reportable 12/12/20 14:01 Hypersegmented Neuts Not Reportable 12/12/20 14:01 Hyposegmented Neuts Not Reportable 12/12/20 14:01 Hypogranular Neuts Not Reportable 12/12/20 14:01 Smudge Cells Not Reportable 12/12/20 14:01 Toxic Granulation Not Reportable 12/12/20 14:01 Toxic Vacuolation Not Reportable 12/12/20 14:01 Dohle Bodies Not Reportable 12/12/20 14:01 Pelger-Huet Anomaly Not Reportable 12/12/20 14:01 Komal Rods Not Reportable 12/12/20 14:01 Platelet Estimate Consistent w auto 12/12/20 14:01 Clumped Platelets Not Reportable 12/12/20 14:01 Plt Clumps, EDTA Not Reportable 12/12/20 14:01 Large Platelets Not Reportable 12/12/20 14:01 Giant Platelets Not Reportable 12/12/20 14:01 Platelet Satelliting Not Reportable 12/12/20 14:01 Plt Morphology Comment Not Reportable 12/12/20 14:01 RBC Morphology Not Reportable 12/12/20 14:01 Dimorphic RBCs Not Reportable 12/12/20 14:01 Polychromasia Not Reportable 12/12/20 14:01 Hypochromasia Not Reportable 12/12/20 14:01 Poikilocytosis Not Reportable 12/12/20 14:01 Anisocytosis Not Reportable 12/12/20 14:01 Microcytosis Not Reportable 12/12/20 14:01 Macrocytosis Not Reportable 12/12/20 14:01 Spherocytes Not Reportable 12/12/20 14:01 Pappenheimer Bodies Not Reportable 12/12/20 14:01 Sickle Cells Not Reportable 12/12/20 14:01 Target Cells Not Reportable 12/12/20 14:01 Tear Drop Cells Not Reportable 12/12/20 14:01 Ovalocytes Few 12/12/20 14:01 Helmet Cells Not Reportable 12/12/20 14:01 [place] Bodies Not Reportable 12/12/20 14:01 [place] Rings Not Reportable 12/12/20 14:01 [place] Cells Not Reportable 12/12/20 14:01 Bite Cells Not Reportable 12/12/20 14:01 Crenated Cell Not Reportable 12/12/20 14:01 Elliptocytes Not Reportable 12/12/20 14:01 Acanthocytes (Spur) Not Reportable 12/12/20 14:01 Rouleaux Not Reportable 12/12/20 14:01 Hemoglobin C Crystals Not Reportable 12/12/20 14:01 Schistocytes Not Reportable 12/12/20 14:01 Malaria parasites Not Reportable 12/12/20 14:01 [place] Bodies Not Reportable 12/12/20 14:01 Hem Pathologist Commnt No 12/12/20 14:01 Sodium 135 mmol/L (137-145) L 12/23/20 05:37 Potassium 4.0 mmol/L (3.6-5.0) 12/23/20 05:37 Chloride 104.6 mmol/L (98-107) 12/23/20 05:37 Carbon Dioxide 23 mmol/L (22-30) 12/23/20 05:37 Anion Gap 11 mmol/L 12/23/20 05:37 BUN 18 mg/dL (9-20) 12/23/20 05:37 Creatinine 1.0 mg/dL (0.8-1.3) 12/23/20 05:37 Estimated GFR > 60 ml/min 12/23/20 05:37 BUN/Creatinine Ratio 18 % 12/23/20 05:37 Glucose 91 mg/dL (75-100) 12/23/20 05:37 Lactic Acid 1.20 mmol/L (0.7-2.0) 12/18/20 14:35 Calcium 8.9 mg/dL (8.4-10.2) 12/23/20 05:37 Magnesium 2.20 mg/dL (1.7-2.3) 12/20/20 17:50 Total Bilirubin 0.40 mg/dL (0.1-1.2) 12/23/20 05:37 AST 70 units/L (5-40) H 12/23/20 05:37 ALT 31 units/L (7-56) 12/23/20 05:37 Alkaline Phosphatase 126 units/L (35-129) 12/23/20 05:37 Troponin T 0.011 ng/mL (0.00-0.029) 12/12/20 14:01 Total Protein 6.7 g/dL (6.3-8.2) 12/23/20 05:37 Albumin 3.1 g/dL (3.9-5) L 12/23/20 05:37 Albumin/Globulin Ratio 0.9 % 12/23/20 05:37 Urine Color Yellow (Yellow) 12/19/20 13:53 Urine Turbidity Clear (Clear) 12/19/20 13:53 Urine pH 6.0 (5.0-7.0) 12/19/20 13:53 Ur Specific [place] 1.013 (1.003-1.030) 12/19/20 13:53 Urine Protein <15 mg/dl mg/dL (Negative) 12/19/20 13:53 Urine Glucose (UA) Neg mg/dL (Negative) 12/19/20 13:53 Urine Ketones Neg mg/dL (Negative) 12/19/20 13:53 Urine Blood Mod (Negative) 12/19/20 13:53 Urine Nitrite Neg (Negative) 12/19/20 13:53 Urine Bilirubin Neg (Negative) 12/19/20 13:53 Urine Urobilinogen < 2.0 mg/dL (<2.0) 12/19/20 13:53 Ur Leukocyte Esterase Neg (Negative) 12/19/20 13:53 Urine WBC (Auto) 2.0 /HPF (0.0-6.0) 12/19/20 13:53 Urine RBC (Auto) 2.0 /HPF (0.0-6.0) 12/19/20 13:53 U Epithel Cells (Auto) < 1.0 /HPF (0-13.0) 12/19/20 13:53 Hyaline Casts 1 /LPF 12/12/20 21:04 Urine Mucus Few /HPF 12/19/20 13:53 Urine Eosinophils None seen (None Seen) 12/19/20 13:53 Urine Creatinine 79.0 mg/dL (0.1-20.0) H 12/19/20 13:53 Urine Sodium 51 mmol/L 12/19/20 13:53 Urine Chloride 36.0 mmolL (110-250) L 12/19/20 13:53 Urine Urea Nitrogen 949 12/19/20 13:53 Urine Opiates Screen Negative 12/12/20 21:04 Urine Methadone Screen Negative 12/12/20 21:04 Ur Barbiturates Screen Positive 12/12/20 21:04 Ur Phencyclidine Scrn Negative 12/12/20 21:04 Ur Amphetamines Screen Negative 12/12/20 21:04 U Benzodiazepines Scrn Negative 12/12/20 21:04 Urine Cocaine Screen Negative 12/12/20 21:04 U Marijuana (THC) Screen Negative 12/12/20 21:04 Drugs of Abuse Note Disclamer 12/12/20 21:04 Plasma/Serum Alcohol < 0.01 % (0-0.07) 12/12/20 14:00 Coronavirus (PCR) Negative (Negative) 12/16/20 11:18 Microbiology: Microbiology 12/18/20 14:35 Peripheral/Venous Blood Culture - Preliminary NO GROWTH AFTER 4 DAYS 12/18/20 14:42 Peripheral/Venous Blood Culture - Preliminary NO GROWTH AFTER 4 DAYS Funez/IV: Voiding Method Condom Catheter Active Medications - Current Medications Current Medications: Generic Name Dose Route Start Last Admin Trade Name Freq PRN Reason Stop Dose Admin Acetaminophen 650 mg 12/13/20 11:49 12/22/20 21:14 Acetaminophen 325 Mg Tab PO 650 mg Q6HR PRN Administration PAIN Apixaban 5 mg 12/19/20 10:00 12/23/20 09:00 Apixaban 5 Mg Tab PO 5 mg Q12HR JOHANN Administration Aspirin 81 mg 12/19/20 10:00 12/23/20 09:00 Aspirin Ec 81 Mg Tab PO 81 mg DAILY JOHANN Administration Atorvastatin Calcium 80 mg 12/13/20 22:00 12/22/20 21:11 Atorvastatin 40 Mg Tab PO 80 mg QHS JOHANN Administration Carvedilol 3.125 mg 12/21/20 11:00 12/23/20 09:01 Carvedilol 3.125 Mg Tab PO 3.125 mg BID JOHANN Administration Diphenhydramine HCl 50 mg 12/13/20 11:49 12/22/20 21:11 Diphenhydramine 25 Mg Cap PO 50 mg QHS PRN Administration Insomnia Fluoxetine HCl 10 mg 12/19/20 10:00 12/23/20 09:00 Fluoxetine 10 Mg Tab PO 10 mg QDAY JOHANN Administration Furosemide 40 mg 12/13/20 10:00 12/23/20 09:00 Furosemide 40 Mg Tab PO 40 mg QDAY JOHANN Administration Haloperidol Lactate 10 mg 12/12/20 22:57 12/22/20 21:11 Haloperidol Lactate 5 Mg/1 Ml Inj IM 10 mg Q8H PRN Administration Agitation Sodium Chloride 1,000 mls @ 75 mls/hr 12/22/20 07:00 12/22/20 21:10 Nacl 0.9% 1000 Ml IV 75 mls/hr DIRECT JOHANN Administration Isosorbide Mononitrate 30 mg 12/13/20 10:00 12/23/20 09:00 Isosorbide Mononitrate Er 30 Mg Tab PO 30 mg DAILY JOHANN Administration Lisinopril 10 mg 12/21/20 10:00 12/23/20 09:00 Lisinopril 10 Mg Tab PO 10 mg QDAY JOHANN Administration Melatonin 30 mg 12/19/20 22:00 12/22/20 21:11 Melatonin 5 Mg Tab PO 30 mg QHS JOHANN Administration Oxycodone/Acetaminophen 1 tab 12/22/20 13:31 12/22/20 23:39 Oxycodone /Acetaminophen 5-325mg Tab PO 1 tab Q6H PRN Administration Pain, Moderate (4-6) Pantoprazole Sodium 40 mg 12/13/20 10:00 12/23/20 09:00 Pantoprazole 40 Mg Tab PO 40 mg QDAY JOHANN Administration Spironolactone 25 mg 12/13/20 10:00 12/23/20 09:00 Spironolactone 25 Mg Tab PO 25 mg QDAY JOHANN Administration Tamsulosin HCl 0.4 mg 12/19/20 22:00 12/22/20 21:11 Tamsulosin 0.4 Mg Cap PO 0.4 mg QHS JOHANN Administration
[2020-12-23] MEDS: SODIUM CHLORIDE 0.9% 1000 ML 1,000 ML IV SCH ×2 (10:30→21:45)
[2020-12-23] MEDS: MELATONIN 5 MG TAB PO SCH (21:38)
[2020-12-23] MEDS: diphenhydrAMINE 25 MG CAP PO PRN (21:38)
[2020-12-23] MEDS: TAMSULOSIN 0.4 MG CAP PO SCH (21:39)
[2020-12-23] MEDS: oxyCODONE /ACETAMINOPHEN 5-325MG TAB PO PRN (21:39)
[2020-12-23] MEDS: HALOPERIDOL LACTATE 5 MG/1 ML INJ IM PRN (21:39)
[2020-12-24 05:34] LABS: Basophils # (Auto) 0.1 K/mm3 (0.0-0.1); Basophils % (Auto) 1.7 % (0.0-1.8); Eosinophils # (Auto) 0.2 K/mm3 (0.0-0.4); Hematocrit 34.8 % (35.5-45.6); Lymphocytes # (Auto) 1.3 K/mm3 (1.2-5.4); Lymphocytes % (Auto) 25.4 % (13.4-35.0); Mean Corpuscular HGB Conc 34 % (32-34); Mean Corpuscular Volume 92 fl (84-94); Monocytes # (Auto) 0.7 K/mm3 (0.0-0.8); Monocytes % (Auto) 12.5 % (0.0-7.3); Platelet Count 206 K/mm3 (140-440); Red Blood Count 3.77 M/mm3 (3.65-5.03); Red Cell Distribution Width 14.1 % (13.2-15.2)
[2020-12-24 06:01] LABS: Alanine Aminotransferase 29 units/L (7-56); Albumin 3.2 g/dL (3.9-5); BUN/Creatinine Ratio 13; Blood Urea Nitrogen 12 mg/dL (9-20); Calcium 8.6 mg/dL (8.4-10.2); Hemolysis Index 8
--- NOTE | 2020-12-24 08:50 | Progress Note ---
Assessment and Plan Assessment and plan: Acute metabolic encephalopathy Resolved Patient has underlying vascular dementia MRI brain shows no acute CVA-patient has remote CVA on the right Strokelike symptoms Has a history of CVA, and was noted to have some motor dysfunction in the ER. MRI brain negative for any acute CVA MRI cervical shows multiple disc bulges involving cervical vertebrae most prominent at C5-C6 level Neurology consulted Cont. on aspirin and statins PT recommends rehab #PRIYA Secondary to dehydration -somewhat inappropriately Renal function improving Nephrology following #Atrial fibrillation Anticoagulation Patient had a 3.5-second pause so cardiology was consulted Beta-taj was adjusted, patient noted to have nonsustained V. tach Cardiology to adjust beta-taj #Coronary artery disease Continue aspirin Coreg Eliquis #Hypertension Adjust blood pressure medications #Congestive heart failure Stable #Hyperlipidemia CODE STATUS DVT prophylaxis-on Eliquis Disposition-patient is stable for discharge. Cleared by neurology and cardiology but needs placement Hospital course. 12/19. He is stable. BP better. Plan to get MRI brain to rule out CVA. His renal function is better. Cr 2.1 this AM. patient also needs cervical MRI to rule out severe degenerative disease. Echocardiogram, ultrasound carotids. Neurology evaluation appreciated 12/20. Renal function is better today. MRI brain shows no acute CVA -he has remote right-sided CVA. Ultrasound carotid and echocardiogram still pending. Cervical MRI shows degenerative disease involving the C3-C4, C5-C6, C6-C7. There is marked disc bulge at the C5, C6 level causing severe foraminal narrowing. Will consult neurosurgery for evaluation. He was found to have a 3.5 s pause on telemetry. Cardiology was consulted. His beta taj was held. 12/21. Spoke with neurosurgery - changes are not acute. he will be followed up in the office. Cardiology has adjusted his medications, he had nonsustained VT . He is stable to be discharged. He had a PT evaluation and will be going to a facility 12/22. Echocardiogram revealed left ventricular size normal with mild concentric left ventricular hypertrophy. Mild diastolic dysfunction with impaired relaxatio n. LVEF is 30 to 35%. Saline bubble contrast injection does not demonstrate PFO. Carotid ultrasound negative. PRIYA resolved with Cr. 1.1. Neuro recommends maintain eliquis and ASA 12/23. Patient with no new issues overnight. Awaiting placement. 12/24. Patient with no new issues overnight. Awaiting placement. History Interval history: No new issues overnight Hospitalist Physical - Constitutional Vitals: Temp Pulse Resp BP Pulse Ox 98.2 F 65 20 140/101 97 12/24/20 08:24 12/24/20 08:24 12/24/20 08:24 12/24/20 08:24 12/24/20 08:24 General appearance: Present: no acute distress, well-nourished - EENT Eyes: Present: PERRL, EOM intact ENT: hearing intact, clear oral mucosa, dentition normal - Neck Neck: Present: supple, normal ROM - Respiratory Respiratory effort: normal Respiratory: bilateral: CTA - Cardiovascular Rhythm: regular Heart Sounds: Present: S1 & S2. Absent: gallop, rub - Extremities Extremities: no ischemia, No edema, Full ROM - Abdominal General gastrointestinal: soft, non-tender, non-distended, normal bowel sounds - Integumentary Integumentary: Present: clear, warm, dry - Neurologic Neurologic: CNII-XII intact, moves all extremities HEART Score - HEART Score Age: 45-65 Risk factors: > 3 risk factors or hx of atherosclerotic disease Troponin: Troponin T 0.011 ng/mL (0.00-0.029) 12/12/20 14:01 Troponin: < normal limit - Critical Actions Critical Actions: 0-3 pts:0.9-1.7%risk of adverse cardiac event.Candidate for discharge Results - Labs CBC & Chem 7: 12/24/20 05:02 12/24/20 05:02 Labs: Laboratory Last Values WBC 5.2 K/mm3 (4.5-11.0) 12/24/20 05:02 RBC 3.77 M/mm3 (3.65-5.03) 12/24/20 05:02 Hgb 12.0 gm/dl (11.8-15.2) 12/24/20 05:02 Hct 34.8 % (35.5-45.6) L 12/24/20 05:02 MCV 92 fl (84-94) 12/24/20 05:02 MCH 32 pg (28-32) 12/24/20 05:02 MCHC 34 % (32-34) 12/24/20 05:02 RDW 14.1 % (13.2-15.2) 12/24/20 05:02 Plt Count 206 K/mm3 (140-440) 12/24/20 05:02 Lymph % (Auto) 25.4 % (13.4-35.0) 12/24/20 05:02 [place] % (Auto) 12.5 % (0.0-7.3) H 12/24/20 05:02 Eos % (Auto) 3.0 % (0.0-4.3) 12/24/20 05:02 Baso % (Auto) 1.7 % (0.0-1.8) 12/24/20 05:02 Lymph # (Auto) 1.3 K/mm3 (1.2-5.4) 12/24/20 05:02 [place] # (Auto) 0.7 K/mm3 (0.0-0.8) 12/24/20 05:02 Eos # (Auto) 0.2 K/mm3 (0.0-0.4) 12/24/20 05:02 Baso # (Auto) 0.1 K/mm3 (0.0-0.1) 12/24/20 05:02 Add Manual Diff Complete 12/12/20 14:01 Total Counted 100 12/12/20 14:01 Seg Neutrophils % 57.4 % (40.0-70.0) 12/24/20 05:02 Seg Neuts % (Manual) 67.0 % (40.0-70.0) 12/12/20 14:01 Lymphocytes % (Manual) 22.0 % (13.4-35.0) 12/12/20 14:01 Monocytes % (Manual) 9.0 % (0.0-7.3) H 12/12/20 14:01 Eosinophils % (Manual) 2.0 % (0.0-4.3) 12/12/20 14:01 Promyelocytes % 0 % 12/12/20 14:01 Nucleated RBC % Not Reportable 12/12/20 14:01 Seg Neutrophils # 3.0 K/mm3 (1.8-7.7) 12/24/20 05:02 Seg Neutrophils # Man 2.7 K/mm3 (1.8-7.7) 12/12/20 14:01 Band Neutrophils # 0.0 K/mm3 12/12/20 14:01 Lymphocytes # (Manual) 0.9 K/mm3 (1.2-5.4) L 12/12/20 14:01 Abs React Lymphs (Man) 0.0 K/mm3 12/12/20 14:01 Monocytes # (Manual) 0.4 K/mm3 (0.0-0.8) 12/12/20 14:01 Eosinophils # (Manual) 0.1 K/mm3 (0.0-0.4) 12/12/20 14:01 Basophils # (Manual) 0.0 K/mm3 (0.0-0.1) 12/12/20 14:01 Metamyelocytes # 0.0 K/mm3 12/12/20 14:01 Myelocytes # 0.0 K/mm3 12/12/20 14:01 Promyelocytes # 0.0 K/mm3 12/12/20 14:01 Blast Cells # 0.0 K/mm3 12/12/20 14:01 WBC Morphology Not Reportable 12/12/20 14:01 Hypersegmented Neuts Not Reportable 12/12/20 14:01 Hyposegmented Neuts Not Reportable 12/12/20 14:01 Hypogranular Neuts Not Reportable 12/12/20 14:01 Smudge Cells Not Reportable 12/12/20 14:01 Toxic Granulation Not Reportable 12/12/20 14:01 Toxic Vacuolation Not Reportable 12/12/20 14:01 Dohle Bodies Not Reportable 12/12/20 14:01 Pelger-Huet Anomaly Not Reportable 12/12/20 14:01 Komal Rods Not Reportable 12/12/20 14:01 Platelet Estimate Consistent w auto 12/12/20 14:01 Clumped Platelets Not Reportable 12/12/20 14:01 Plt Clumps, EDTA Not Reportable 12/12/20 14:01 Large Platelets Not Reportable 12/12/20 14:01 Giant Platelets Not Reportable 12/12/20 14:01 Platelet Satelliting Not Reportable 12/12/20 14:01 Plt Morphology Comment Not Reportable 12/12/20 14:01 RBC Morphology Not Reportable 12/12/20 14:01 Dimorphic RBCs Not Reportable 12/12/20 14:01 Polychromasia Not Reportable 12/12/20 14:01 Hypochromasia Not Reportable 12/12/20 14:01 Poikilocytosis Not Reportable 12/12/20 14:01 Anisocytosis Not Reportable 12/12/20 14:01 Microcytosis Not Reportable 12/12/20 14:01 Macrocytosis Not Reportable 12/12/20 14:01 Spherocytes Not Reportable 12/12/20 14:01 Pappenheimer Bodies Not Reportable 12/12/20 14:01 Sickle Cells Not Reportable 12/12/20 14:01 Target Cells Not Reportable 12/12/20 14:01 Tear Drop Cells Not Reportable 12/12/20 14:01 Ovalocytes Few 12/12/20 14:01 Helmet Cells Not Reportable 12/12/20 14:01 [place]-Mont[place] Bodies Not Reportable 12/12/20 14:01 [place] Rings Not Reportable 12/12/20 14:01 Lenard Cells Not Reportable 12/12/20 14:01 Bite Cells Not Reportable 12/12/20 14:01 Crenated Cell Not Reportable 12/12/20 14:01 Elliptocytes Not Reportable 12/12/20 14:01 Acanthocytes (Spur) Not Reportable 12/12/20 14:01 Rouleaux Not Reportable 12/12/20 14:01 Hemoglobin C Crystals Not Reportable 12/12/20 14:01 Schistocytes Not Reportable 12/12/20 14:01 Malaria parasites Not Reportable 12/12/20 14:01 [place] Bodies Not Reportable 12/12/20 14:01 Hem Pathologist Commnt No 12/12/20 14:01 Sodium 135 mmol/L (137-145) L 12/24/20 05:02 Potassium 4.2 mmol/L (3.6-5.0) 12/24/20 05:02 Chloride 102.2 mmol/L (98-107) 12/24/20 05:02 Carbon Dioxide 23 mmol/L (22-30) 12/24/20 05:02 Anion Gap 14 mmol/L 12/24/20 05:02 BUN 12 mg/dL (9-20) 12/24/20 05:02 Creatinine 0.9 mg/dL (0.8-1.3) 12/24/20 05:02 Estimated GFR > 60 ml/min 12/24/20 05:02 BUN/Creatinine Ratio 13 % 12/24/20 05:02 Glucose 79 mg/dL (75-100) 12/24/20 05:02 Lactic Acid 1.20 mmol/L (0.7-2.0) 12/18/20 14:35 Calcium 8.6 mg/dL (8.4-10.2) 12/24/20 05:02 Magnesium 2.20 mg/dL (1.7-2.3) 12/20/20 17:50 Total Bilirubin 0.50 mg/dL (0.1-1.2) 12/24/20 05:02 AST 65 units/L (5-40) H 12/24/20 05:02 ALT 29 units/L (7-56) 12/24/20 05:02 Alkaline Phosphatase 111 units/L (35-129) 12/24/20 05:02 Troponin T 0.011 ng/mL (0.00-0.029) 12/12/20 14:01 Total Protein 7.0 g/dL (6.3-8.2) 12/24/20 05:02 Albumin 3.2 g/dL (3.9-5) L 12/24/20 05:02 Albumin/Globulin Ratio 0.8 % 12/24/20 05:02 Urine Color Yellow (Yellow) 12/19/20 13:53 Urine Turbidity Clear (Clear) 12/19/20 13:53 Urine pH 6.0 (5.0-7.0) 12/19/20 13:53 Ur Specific Rena Lara 1.013 (1.003-1.030) 12/19/20 13:53 Urine Protein <15 mg/dl mg/dL (Negative) 12/19/20 13:53 Urine Glucose (UA) Neg mg/dL (Negative) 12/19/20 13:53 Urine Ketones Neg mg/dL (Negative) 12/19/20 13:53 Urine Blood Mod (Negative) 12/19/20 13:53 Urine Nitrite Neg (Negative) 12/19/20 13:53 Urine Bilirubin Neg (Negative) 12/19/20 13:53 Urine Urobilinogen < 2.0 mg/dL (<2.0) 12/19/20 13:53 Ur Leukocyte Esterase Neg (Negative) 12/19/20 13:53 Urine WBC (Auto) 2.0 /HPF (0.0-6.0) 12/19/20 13:53 Urine RBC (Auto) 2.0 /HPF (0.0-6.0) 12/19/20 13:53 U Epithel Cells (Auto) < 1.0 /HPF (0-13.0) 12/19/20 13:53 Hyaline Casts 1 /LPF 12/12/20 21:04 Urine Mucus Few /HPF 12/19/20 13:53 Urine Eosinophils None seen (None Seen) 12/19/20 13:53 Urine Creatinine 79.0 mg/dL (0.1-20.0) H 12/19/20 13:53 Urine Sodium 51 mmol/L 12/19/20 13:53 Urine Chloride 36.0 mmolL (110-250) L 12/19/20 13:53 Urine Urea Nitrogen 949 12/19/20 13:53 Urine Opiates Screen Negative 12/12/20 21:04 Urine Methadone Screen Negative 12/12/20 21:04 Ur Barbiturates Screen Positive 12/12/20 21:04 Ur Phencyclidine Scrn Negative 12/12/20 21:04 Ur Amphetamines Screen Negative 12/12/20 21:04 U Benzodiazepines Scrn Negative 12/12/20 21:04 Urine Cocaine Screen Negative 12/12/20 21:04 U Marijuana (THC) Screen Negative 12/12/20 21:04 Drugs of Abuse Note Disclamer 12/12/20 21:04 Plasma/Serum Alcohol < 0.01 % (0-0.07) 12/12/20 14:00 Coronavirus (PCR) Negative (Negative) 12/16/20 11:18 Microbiology: Microbiology 12/18/20 14:35 Peripheral/Venous Blood Culture - Final NO GROWTH AFTER 5 DAYS 12/18/20 14:42 Peripheral/Venous Blood Culture - Final NO GROWTH AFTER 5 DAYS Funez/IV: Voiding Method Condom Catheter Active Medications - Current Medications Current Medications: Generic Name Dose Route Start Last Admin Trade Name Freq PRN Reason Stop Dose Admin Acetaminophen 650 mg 12/13/20 11:49 12/22/20 21:14 Acetaminophen 325 Mg Tab PO 650 mg Q6HR PRN Administration PAIN Apixaban 5 mg 12/19/20 10:00 12/23/20 21:38 Apixaban 5 Mg Tab PO 5 mg Q12HR JOHANN Administration Aspirin 81 mg 12/19/20 10:00 12/23/20 09:00 Aspirin Ec 81 Mg Tab PO 81 mg DAILY JOHANN Administration Atorvastatin Calcium 80 mg 12/13/20 22:00 12/23/20 21:38 Atorvastatin 40 Mg Tab PO 80 mg QHS JOHANN Administration Carvedilol 3.125 mg 12/21/20 11:00 12/23/20 21:38 Carvedilol 3.125 Mg Tab PO 3.125 mg BID JOHANN Administration Diphenhydramine HCl 50 mg 12/13/20 11:49 12/23/20 21:38 Diphenhydramine 25 Mg Cap PO 50 mg QHS PRN Administration Insomnia Fluoxetine HCl 10 mg 12/19/20 10:00 12/23/20 09:00 Fluoxetine 10 Mg Tab PO 10 mg QDAY JOHANN Administration Furosemide 40 mg 12/13/20 10:00 12/23/20 09:00 Furosemide 40 Mg Tab PO 40 mg QDAY JOHANN Administration Haloperidol Lactate 10 mg 12/12/20 22:57 12/23/20 21:39 Haloperidol Lactate 5 Mg/1 Ml Inj IM 10 mg Q8H PRN Administration Agitation Sodium Chloride 1,000 mls @ 75 mls/hr 12/22/20 07:00 12/23/20 21:45 Nacl 0.9% 1000 Ml IV 75 mls/hr DIRECT JOHANN Administration Isosorbide Mononitrate 30 mg 12/13/20 10:00 12/23/20 09:00 Isosorbide Mononitrate Er 30 Mg Tab PO 30 mg DAILY JOHANN Administration Lisinopril 10 mg 12/21/20 10:00 12/23/20 09:00 Lisinopril 10 Mg Tab PO 10 mg QDAY JOHANN Administration Melatonin 30 mg 12/19/20 22:00 12/23/20 21:38 Melatonin 5 Mg Tab PO 30 mg QHS JOHANN Administration Oxycodone/Acetaminophen 1 tab 12/22/20 13:31 12/23/20 21:39 Oxycodone /Acetaminophen 5-325mg Tab PO 1 tab Q6H PRN Administration Pain, Moderate (4-6) Pantoprazole Sodium 40 mg 12/13/20 10:00 12/23/20 09:00 Pantoprazole 40 Mg Tab PO 40 mg QDAY JOHANN Administration Spironolactone 25 mg 12/13/20 10:00 12/23/20 09:00 Spironolactone 25 Mg Tab PO 25 mg QDAY JOHANN Administration Tamsulosin HCl 0.4 mg 12/19/20 22:00 12/23/20 21:39 Tamsulosin 0.4 Mg Cap PO 0.4 mg QHS JOHANN Administration
[2020-12-24] MEDS: ASPIRIN EC 81 MG TAB PO SCH (11:05)
[2020-12-24] MEDS: LISINOPRIL 10 MG TAB PO SCH (11:05)
[2020-12-24] MEDS: FLUoxetine 10 MG TAB PO SCH (11:05)
[2020-12-24] MEDS: SPIRONOLACTONE 25 MG TAB PO SCH (11:05)
[2020-12-24] MEDS: FUROSEMIDE 40 MG TAB PO SCH (11:05)
[2020-12-24] MEDS: PANTOPRAZOLE 40 MG TAB PO SCH (11:05)
[2020-12-24] MEDS: APIXABAN 5 MG TAB PO SCH ×2 (11:05→21:10)
[2020-12-24] MEDS: carvediloL 3.125 MG TAB PO SCH ×2 (11:05→21:10)
[2020-12-24] MEDS ORDERED: AMIODARONE 150 MG in DEXTROSE 5% IN WATER 97 ML IV ONE (15:04)
[2020-12-24] MEDS: oxyCODONE /ACETAMINOPHEN 5-325MG TAB PO PRN ×2 (16:13→21:11)
[2020-12-24] MEDS: AMIODARONE 900 MG in DEXTROSE 5% IN WATER 482 ML IV SCH (16:14)
[2020-12-24] MEDS: MELATONIN 5 MG TAB PO SCH (21:09)
[2020-12-24] MEDS: HALOPERIDOL LACTATE 5 MG/1 ML INJ IM PRN (21:09)
[2020-12-24] MEDS: TAMSULOSIN 0.4 MG CAP PO SCH (21:10)
[2020-12-24] MEDS: diphenhydrAMINE 25 MG CAP PO PRN (21:10)
[2020-12-25 05:39] LABS: Eosinophils # (Auto) 0.1 K/mm3 (0.0-0.4); Eosinophils % (Auto) 3.4 % (0.0-4.3); Hematocrit 32.1 % (35.5-45.6); Hemoglobin 11.2 gm/dl (11.8-15.2); Lymphocytes # (Auto) 1.1 K/mm3 (1.2-5.4); Lymphocytes % (Auto) 29.7 % (13.4-35.0); Mean Corpuscular HGB Conc 35 % (32-34); Mean Corpuscular Volume 93 fl (84-94); Monocytes # (Auto) 0.5 K/mm3 (0.0-0.8); Monocytes % (Auto) 14.4 % (0.0-7.3); Platelet Count 173 K/mm3 (140-440); Red Blood Count 3.45 M/mm3 (3.65-5.03); Red Cell Distribution Width 14.3 % (13.2-15.2)
[2020-12-25 05:54] LABS: Alanine Aminotransferase 24 units/L (7-56); BUN/Creatinine Ratio 15; Blood Urea Nitrogen 15 mg/dL (9-20); Calcium 9.1 mg/dL (8.4-10.2); Hemolysis Index 1
--- NOTE | 2020-12-25 08:38 | Progress Note ---
Assessment and Plan Assessment and plan: Acute metabolic encephalopathy Resolved Patient has underlying vascular dementia MRI brain shows no acute CVA-patient has remote CVA on the right Strokelike symptoms Has a history of CVA, and was noted to have some motor dysfunction in the ER. MRI brain negative for any acute CVA MRI cervical shows multiple disc bulges involving cervical vertebrae most prominent at C5-C6 level Neurology consulted Cont. on aspirin and statins PT recommends rehab #PRIYA Secondary to dehydration -somewhat inappropriately Renal function improving Nephrology following #Atrial fibrillation Anticoagulation Patient had a 3.5-second pause so cardiology was consulted Beta-taj was adjusted, patient noted to have nonsustained V. tach Cardiology to adjust beta-taj #Coronary artery disease Continue aspirin Coreg Eliquis #Hypertension Adjust blood pressure medications #Congestive heart failure Stable #Hyperlipidemia CODE STATUS DVT prophylaxis-on Eliquis Disposition-patient is stable for discharge. Cleared by neurology and cardiology but needs placement Hospital course. 12/19. He is stable. BP better. Plan to get MRI brain to rule out CVA. His renal function is better. Cr 2.1 this AM. patient also needs cervical MRI to rule out severe degenerative disease. Echocardiogram, ultrasound carotids. Neurology evaluation appreciated 12/20. Renal function is better today. MRI brain shows no acute CVA -he has remote right-sided CVA. Ultrasound carotid and echocardiogram still pending. Cervical MRI shows degenerative disease involving the C3-C4, C5-C6, C6-C7. There is marked disc bulge at the C5, C6 level causing severe foraminal narrowing. Will consult neurosurgery for evaluation. He was found to have a 3.5 s pause on telemetry. Cardiology was consulted. His beta taj was held. 12/21. Spoke with neurosurgery - changes are not acute. he will be followed up in the office. Cardiology has adjusted his medications, he had nonsustained VT . He is stable to be discharged. He had a PT evaluation and will be going to a facility 12/22. Echocardiogram revealed left ventricular size normal with mild concentric left ventricular hypertrophy. Mild diastolic dysfunction with impaired relaxatio n. LVEF is 30 to 35%. Saline bubble contrast injection does not demonstrate PFO. Carotid ultrasound negative. PRIYA resolved with Cr. 1.1. Neuro recommends maintain eliquis and ASA 12/23. Patient with no new issues overnight. Awaiting placement. 12/24. Patient with no new issues overnight. Awaiting placement. 12/25. Patient with no new issues overnight. Awaiting placement. Cardiology cleared the pt. for d/c Follow-up with Dr. Diaz on 01/11/2021 @ 2:45pm ([phone]). Pt was previously fitted with LifeVest. Ultimately plan for ICD implantation to be arranged as an outpatient. Cr reamins stable History Interval history: No new issues overnight Hospitalist Physical - Constitutional Vitals: Temp Pulse Resp BP Pulse Ox 97.8 F 69 18 107/80 97 12/25/20 04:01 12/25/20 04:01 12/25/20 04:01 12/25/20 04:01 12/25/20 04:01 General appearance: Present: no acute distress, well-nourished - EENT Eyes: Present: PERRL, EOM intact ENT: hearing intact, clear oral mucosa, dentition normal - Neck Neck: Present: supple, normal ROM - Respiratory Respiratory effort: normal Respiratory: bilateral: CTA - Cardiovascular Rhythm: regular Heart Sounds: Present: S1 & S2. Absent: gallop, rub - Extremities Extremities: no ischemia, No edema, Full ROM - Abdominal General gastrointestinal: soft, non-tender, non-distended, normal bowel sounds - Integumentary Integumentary: Present: clear, warm, dry - Neurologic Neurologic: CNII-XII intact, moves all extremities HEART Score - HEART Score Age: 45-65 Risk factors: > 3 risk factors or hx of atherosclerotic disease Troponin: Troponin T 0.011 ng/mL (0.00-0.029) 12/12/20 14:01 Troponin: < normal limit - Critical Actions Critical Actions: 0-3 pts:0.9-1.7%risk of adverse cardiac event.Candidate for discharge Results - Labs CBC & Chem 7: 12/25/20 04:55 12/25/20 04:55 Labs: Laboratory Last Values WBC 3.7 K/mm3 (4.5-11.0) L 12/25/20 04:55 RBC 3.45 M/mm3 (3.65-5.03) L 12/25/20 04:55 Hgb 11.2 gm/dl (11.8-15.2) L 12/25/20 04:55 Hct 32.1 % (35.5-45.6) L 12/25/20 04:55 MCV 93 fl (84-94) 12/25/20 04:55 MCH 32 pg (28-32) 12/25/20 04:55 MCHC 35 % (32-34) H 12/25/20 04:55 RDW 14.3 % (13.2-15.2) 12/25/20 04:55 Plt Count 173 K/mm3 (140-440) 12/25/20 04:55 Lymph % (Auto) 29.7 % (13.4-35.0) 12/25/20 04:55 [place] % (Auto) 14.4 % (0.0-7.3) H 12/25/20 04:55 Eos % (Auto) 3.4 % (0.0-4.3) 12/25/20 04:55 Baso % (Auto) 1.0 % (0.0-1.8) 12/25/20 04:55 Lymph # (Auto) 1.1 K/mm3 (1.2-5.4) L 12/25/20 04:55 [place] # (Auto) 0.5 K/mm3 (0.0-0.8) 12/25/20 04:55 Eos # (Auto) 0.1 K/mm3 (0.0-0.4) 12/25/20 04:55 Baso # (Auto) 0.0 K/mm3 (0.0-0.1) 12/25/20 04:55 Add Manual Diff Complete 12/12/20 14:01 Total Counted 100 12/12/20 14:01 Seg Neutrophils % 51.5 % (40.0-70.0) 12/25/20 04:55 Seg Neuts % (Manual) 67.0 % (40.0-70.0) 12/12/20 14:01 Lymphocytes % (Manual) 22.0 % (13.4-35.0) 12/12/20 14:01 Monocytes % (Manual) 9.0 % (0.0-7.3) H 12/12/20 14:01 Eosinophils % (Manual) 2.0 % (0.0-4.3) 12/12/20 14:01 Promyelocytes % 0 % 12/12/20 14:01 Nucleated RBC % Not Reportable 12/12/20 14:01 Seg Neutrophils # 1.9 K/mm3 (1.8-7.7) 12/25/20 04:55 Seg Neutrophils # Man 2.7 K/mm3 (1.8-7.7) 12/12/20 14:01 Band Neutrophils # 0.0 K/mm3 12/12/20 14:01 Lymphocytes # (Manual) 0.9 K/mm3 (1.2-5.4) L 12/12/20 14:01 Abs React Lymphs (Man) 0.0 K/mm3 12/12/20 14:01 Monocytes # (Manual) 0.4 K/mm3 (0.0-0.8) 12/12/20 14:01 Eosinophils # (Manual) 0.1 K/mm3 (0.0-0.4) 12/12/20 14:01 Basophils # (Manual) 0.0 K/mm3 (0.0-0.1) 12/12/20 14:01 Metamyelocytes # 0.0 K/mm3 12/12/20 14:01 Myelocytes # 0.0 K/mm3 12/12/20 14:01 Promyelocytes # 0.0 K/mm3 12/12/20 14:01 Blast Cells # 0.0 K/mm3 12/12/20 14:01 WBC Morphology Not Reportable 12/12/20 14:01 Hypersegmented Neuts Not Reportable 12/12/20 14:01 Hyposegmented Neuts Not Reportable 12/12/20 14:01 Hypogranular Neuts Not Reportable 12/12/20 14:01 Smudge Cells Not Reportable 12/12/20 14:01 Toxic Granulation Not Reportable 12/12/20 14:01 Toxic Vacuolation Not Reportable 12/12/20 14:01 Dohle Bodies Not Reportable 12/12/20 14:01 Pelger-Huet Anomaly Not Reportable 12/12/20 14:01 Komal Rods Not Reportable 12/12/20 14:01 Platelet Estimate Consistent w auto 12/12/20 14:01 Clumped Platelets Not Reportable 12/12/20 14:01 Plt Clumps, EDTA Not Reportable 12/12/20 14:01 Large Platelets Not Reportable 12/12/20 14:01 Giant Platelets Not Reportable 12/12/20 14:01 Platelet Satelliting Not Reportable 12/12/20 14:01 Plt Morphology Comment Not Reportable 12/12/20 14:01 RBC Morphology Not Reportable 12/12/20 14:01 Dimorphic RBCs Not Reportable 12/12/20 14:01 Polychromasia Not Reportable 12/12/20 14:01 Hypochromasia Not Reportable 12/12/20 14:01 Poikilocytosis Not Reportable 12/12/20 14:01 Anisocytosis Not Reportable 12/12/20 14:01 Microcytosis Not Reportable 12/12/20 14:01 Macrocytosis Not Reportable 12/12/20 14:01 Spherocytes Not Reportable 12/12/20 14:01 Pappenheimer Bodies Not Reportable 12/12/20 14:01 Sickle Cells Not Reportable 12/12/20 14:01 Target Cells Not Reportable 12/12/20 14:01 Tear Drop Cells Not Reportable 12/12/20 14:01 Ovalocytes Few 12/12/20 14:01 Helmet Cells Not Reportable 12/12/20 14:01 [place] Bodies Not Reportable 12/12/20 14:01 [place] Rings Not Reportable 12/12/20 14:01 [place] Cells Not Reportable 12/12/20 14:01 Bite Cells Not Reportable 12/12/20 14:01 Crenated Cell Not Reportable 12/12/20 14:01 Elliptocytes Not Reportable 12/12/20 14:01 Acanthocytes (Spur) Not Reportable 12/12/20 14:01 Rouleaux Not Reportable 12/12/20 14:01 Hemoglobin C Crystals Not Reportable 12/12/20 14:01 Schistocytes Not Reportable 12/12/20 14:01 Malaria parasites Not Reportable 12/12/20 14:01 [place] Bodies Not Reportable 12/12/20 14:01 Hem Pathologist Commnt No 12/12/20 14:01 Sodium 133 mmol/L (137-145) L 12/25/20 04:55 Potassium 4.1 mmol/L (3.6-5.0) 12/25/20 04:55 Chloride 99.0 mmol/L (98-107) 12/25/20 04:55 Carbon Dioxide 25 mmol/L (22-30) 12/25/20 04:55 Anion Gap 13 mmol/L 12/25/20 04:55 BUN 15 mg/dL (9-20) 12/25/20 04:55 Creatinine 1.0 mg/dL (0.8-1.3) 12/25/20 04:55 Estimated GFR > 60 ml/min 12/25/20 04:55 BUN/Creatinine Ratio 15 % 12/25/20 04:55 Glucose 88 mg/dL (75-100) 12/25/20 04:55 Lactic Acid 1.20 mmol/L (0.7-2.0) 12/18/20 14:35 Calcium 9.1 mg/dL (8.4-10.2) 12/25/20 04:55 Magnesium 2.20 mg/dL (1.7-2.3) 12/20/20 17:50 Total Bilirubin 0.60 mg/dL (0.1-1.2) 12/25/20 04:55 AST 50 units/L (5-40) H 12/25/20 04:55 ALT 24 units/L (7-56) 12/25/20 04:55 Alkaline Phosphatase 100 units/L (35-129) 12/25/20 04:55 Troponin T 0.011 ng/mL (0.00-0.029) 12/12/20 14:01 Total Protein 6.6 g/dL (6.3-8.2) 12/25/20 04:55 Albumin 3.0 g/dL (3.9-5) L 12/25/20 04:55 Albumin/Globulin Ratio 0.8 % 12/25/20 04:55 Urine Color Yellow (Yellow) 12/19/20 13:53 Urine Turbidity Clear (Clear) 12/19/20 13:53 Urine pH 6.0 (5.0-7.0) 12/19/20 13:53 Ur Specific [place] 1.013 (1.003-1.030) 12/19/20 13:53 Urine Protein <15 mg/dl mg/dL (Negative) 12/19/20 13:53 Urine Glucose (UA) Neg mg/dL (Negative) 12/19/20 13:53 Urine Ketones Neg mg/dL (Negative) 12/19/20 13:53 Urine Blood Mod (Negative) 12/19/20 13:53 Urine Nitrite Neg (Negative) 12/19/20 13:53 Urine Bilirubin Neg (Negative) 12/19/20 13:53 Urine Urobilinogen < 2.0 mg/dL (<2.0) 12/19/20 13:53 Ur Leukocyte Esterase Neg (Negative) 12/19/20 13:53 Urine WBC (Auto) 2.0 /HPF (0.0-6.0) 12/19/20 13:53 Urine RBC (Auto) 2.0 /HPF (0.0-6.0) 12/19/20 13:53 U Epithel Cells (Auto) < 1.0 /HPF (0-13.0) 12/19/20 13:53 Hyaline Casts 1 /LPF 12/12/20 21:04 Urine Mucus Few /HPF 12/19/20 13:53 Urine Eosinophils None seen (None Seen) 12/19/20 13:53 Urine Creatinine 79.0 mg/dL (0.1-20.0) H 12/19/20 13:53 Urine Sodium 51 mmol/L 12/19/20 13:53 Urine Chloride 36.0 mmolL (110-250) L 12/19/20 13:53 Urine Urea Nitrogen 949 12/19/20 13:53 Urine Opiates Screen Negative 12/12/20 21:04 Urine Methadone Screen Negative 12/12/20 21:04 Ur Barbiturates Screen Positive 12/12/20 21:04 Ur Phencyclidine Scrn Negative 12/12/20 21:04 Ur Amphetamines Screen Negative 12/12/20 21:04 U Benzodiazepines Scrn Negative 12/12/20 21:04 Urine Cocaine Screen Negative 12/12/20 21:04 U Marijuana (THC) Screen Negative 12/12/20 21:04 Drugs of Abuse Note Disclamer 12/12/20 21:04 Plasma/Serum Alcohol < 0.01 % (0-0.07) 12/12/20 14:00 Coronavirus (PCR) Negative (Negative) 12/16/20 11:18 Funez/IV: Voiding Method Condom Catheter Active Medications - Current Medications Current Medications: Generic Name Dose Route Start Last Admin Trade Name Freq PRN Reason Stop Dose Admin Acetaminophen 650 mg 12/13/20 11:49 12/22/20 21:14 Acetaminophen 325 Mg Tab PO 650 mg Q6HR PRN Administration PAIN Apixaban 5 mg 12/19/20 10:00 12/24/20 21:10 Apixaban 5 Mg Tab PO 5 mg Q12HR JOHANN Administration Aspirin 81 mg 12/19/20 10:00 12/24/20 11:05 Aspirin Ec 81 Mg Tab PO 81 mg DAILY JOHANN Administration Atorvastatin Calcium 80 mg 12/13/20 22:00 12/24/20 21:10 Atorvastatin 40 Mg Tab PO 80 mg QHS JOHANN Administration Carvedilol 3.125 mg 12/21/20 11:00 12/24/20 21:10 Carvedilol 3.125 Mg Tab PO 3.125 mg BID JOHANN Administration Diphenhydramine HCl 50 mg 12/13/20 11:49 12/24/20 21:10 Diphenhydramine 25 Mg Cap PO 50 mg QHS PRN Administration Insomnia Fluoxetine HCl 10 mg 12/19/20 10:00 12/24/20 11:05 Fluoxetine 10 Mg Tab PO 10 mg QDAY JOHANN Administration Furosemide 40 mg 12/13/20 10:00 12/24/20 11:05 Furosemide 40 Mg Tab PO 40 mg QDAY JOHANN Administration Haloperidol Lactate 10 mg 12/12/20 22:57 12/24/20 21:09 Haloperidol Lactate 5 Mg/1 Ml Inj IM 10 mg Q8H PRN Administration Agitation Sodium Chloride 1,000 mls @ 75 mls/hr 12/22/20 07:00 12/23/20 21:45 Nacl 0.9% 1000 Ml IV 75 mls/hr DIRECT JOHANN Administration Amiodarone HCl 900 mg/ 500 mls @ 33.333 mls/hr 12/24/20 16:00 12/24/20 16:14 Dextrose IV 1 mg/min DIRECT JOHANN 33.333 mls/hr Administration Protocol 1 MG/MIN Isosorbide Mononitrate 30 mg 12/13/20 10:00 12/24/20 11:05 Isosorbide Mononitrate Er 30 Mg Tab PO 30 mg DAILY JOHANN Administration Lisinopril 10 mg 12/21/20 10:00 12/24/20 11:05 Lisinopril 10 Mg Tab PO 10 mg QDAY JOHANN Administration Melatonin 30 mg 12/19/20 22:00 12/24/20 21:09 Melatonin 5 Mg Tab PO 30 mg QHS JOHANN Administration Oxycodone/Acetaminophen 1 tab 12/22/20 13:31 12/24/20 21:11 Oxycodone /Acetaminophen 5-325mg Tab PO 1 tab Q6H PRN Administration Pain, Moderate (4-6) Pantoprazole Sodium 40 mg 12/13/20 10:00 12/24/20 11:05 Pantoprazole 40 Mg Tab PO 40 mg QDAY JOHANN Administration Spironolactone 25 mg 12/13/20 10:00 12/24/20 11:05 Spironolactone 25 Mg Tab PO 25 mg QDAY JOHANN Administration Tamsulosin HCl 0.4 mg 12/19/20 22:00 12/24/20 21:10 Tamsulosin 0.4 Mg Cap PO 0.4 mg QHS JOHANN Administration
[2020-12-25] MEDS: SODIUM CHLORIDE 0.9% 1000 ML 1,000 ML IV SCH ×2 (09:45→22:24)
[2020-12-25] MEDS: SPIRONOLACTONE 25 MG TAB PO SCH (09:46)
[2020-12-25] MEDS: FLUoxetine 10 MG TAB PO SCH (09:46)
[2020-12-25] MEDS: ASPIRIN EC 81 MG TAB PO SCH (09:46)
[2020-12-25] MEDS: LISINOPRIL 10 MG TAB PO SCH (09:47)
[2020-12-25] MEDS: PANTOPRAZOLE 40 MG TAB PO SCH (09:47)
[2020-12-25] MEDS: carvediloL 3.125 MG TAB PO SCH ×2 (09:47→21:27)
[2020-12-25] MEDS: FUROSEMIDE 40 MG TAB PO SCH (09:47)
[2020-12-25] MEDS: APIXABAN 5 MG TAB PO SCH ×2 (09:48→21:26)
--- NOTE | 2020-12-25 10:45 | Progress Note ---
Assessment and Plan Patient is clinically stable. Now back in sinus rhythm. Continue IV amiodarone for today. Will discontinue in a.m. - Patient Problems (1) Dementia Current Visit: Yes Status: Acute (2) Atrial fibrillation Current Visit: Yes Status: Chronic Qualifiers: Atrial fibrillation type: paroxysmal Qualified Code(s): I48.0 - Paroxysmal atrial fibrillation (3) CHF (congestive heart failure) Current Visit: Yes Status: Chronic Qualifiers: Heart failure type: combined systolic and diastolic (4) CVA (cerebral vascular accident) Current Visit: Yes Status: Chronic Qualifiers: Precerebral and cerebral artery: middle cerebral artery Laterality of affected vessel: right (5) Chronic HFrEF (heart failure with reduced ejection fraction) Current Visit: Yes Status: Chronic (6) Coronary artery disease Current Visit: Yes Status: Chronic Qualifiers: Coronary Disease-Associated Artery/Lesion type: [place] artery [place] vs. transplanted heart: [place] heart Associated angina: with stable angina Qualified Code(s): I25.118 - Atherosclerotic heart disease of [place] coronary artery with other forms of angina pectoris (7) History of ischemic cardiomyopathy Current Visit: Yes Status: Chronic (8) Hyperlipidemia Current Visit: Yes Status: Chronic Qualifiers: Hyperlipidemia type: mixed hyperlipidemia Qualified Code(s): E78.2 - Mixed hyperlipidemia (9) Hypertension Current Visit: Yes Status: Chronic Qualifiers: Hypertension type: essential hypertension Qualified Code(s): I10 - Essential (primary) hypertension (10) Ischemic cardiomyopathy Current Visit: Yes Status: Chronic (11) Lupus Current Visit: Yes Status: Chronic (12) Stented coronary artery Current Visit: Yes Status: Chronic (13) Uses LifeVest defibrillator Current Visit: Yes Status: Chronic (14) Acute encephalopathy Current Visit: Yes Status: Resolved Subjective Principal diagnosis: AMS Interval history: Events of yesterday noted. Patient is without complaints at this point. Objective Vital Signs Temp Pulse Pulse Pulse Resp BP BP 12/25/20 09:48 78 117/12/25/20 09:47 78 117/12/25/20 09:46 78 117/12/25/20 09:39 97.9 F 78 12 12/25/20 09:37 97.9 F 78 12/25/20 09:36 72 12 12/25/20 04:01 97.8 F 69 18 107/80 12/24/20 23:18 96 H 96 H 20 12/24/20 22:00 96 H 12/24/20 21:11 20 12/24/20 21:10 96 H 143/99 12/24/20 19:09 98.3 F 42 L 18 143/99 12/24/20 17:08 98.0 F 60 16 112/81 12/24/20 12:00 98.1 F 50 L 18 157/96 Pulse Ox 12/25/20 09:48 12/25/20 09:47 12/25/20 09:46 12/25/20 09:39 97 12/25/20 09:37 12/25/20 09:36 99 12/25/20 04:01 97 12/24/20 23:18 99 12/24/20 22:00 12/24/20 21:11 12/24/20 21:10 12/24/20 19:09 97 12/24/20 17:08 65 L 12/24/20 12:00 98 - Physical Examination General: No Apparent Distress HEENT: Positive: EOMI, Normocephaly, Mucus Membranes Moist Neck: Positive: neck supple, trachea midline. Negative: JVD/HJR Neuro: Positive: Grossly Intact, Weakness Abdomen: Positive: Soft. Negative: Tender Skin: Negative: Rash Musculoskeletal: No Pain Extremities: Present: lower extr. pulses. Absent: edema - Labs and Meds Cardiac Enzymes 12/25/20 Range/Units 04:55 AST 50 H (5-40) units/L CBC 12/25/20 Range/Units 04:55 WBC 3.7 L (4.5-11.0) K/mm3 RBC 3.45 L (3.65-5.03) M/mm3 Hgb 11.2 L (11.8-15.2) gm/dl Hct 32.1 L (35.5-45.6) % Plt Count 173 (140-440) K/mm3 Lymph # (Auto) 1.1 L (1.2-5.4) K/mm3 [place] # (Auto) 0.5 (0.0-0.8) K/mm3 Eos # (Auto) 0.1 (0.0-0.4) K/mm3 Baso # (Auto) 0.0 (0.0-0.1) K/mm3 Comprehensive Metabolic Panel 12/25/20 Range/Units 04:55 Sodium 133 L (137-145) mmol/L Potassium 4.1 (3.6-5.0) mmol/L Chloride 99.0 (98-107) mmol/L Carbon Dioxide 25 (22-30) mmol/L BUN 15 (9-20) mg/dL Creatinine 1.0 (0.8-1.3) mg/dL Glucose 88 (75-100) mg/dL Calcium 9.1 (8.4-10.2) mg/dL AST 50 H (5-40) units/L ALT 24 (7-56) units/L Alkaline Phosphatase 100 (35-129) units/L Total Protein 6.6 (6.3-8.2) g/dL Albumin 3.0 L (3.9-5) g/dL - Imaging and Cardiology EKG: report reviewed, image reviewed Echo: report reviewed (12/20/2020 - mild concentric LVH, EF 30-35%, mild diastolic dysfxn, hypokinetic septum & inferior wall, no evidence of PFO), other (12/02/2020 - mod concentric LVH, EF 55-60%, dyskinetic apex LV wall, grade I diastolic dysfxn, LA mildly dilated, no evidence of PFO, mild-mod TR, mild pulm HTN) Cardiac cath: report reviewed (04/2020 - left main patent, LAD stent patent, LCx distal 95%, RCA stents patent, severe LV dysfunction) - EKG Sinus rhythms and dysrhythmias: sinus tachycardia Repolarization changes or abnormalities: nonspecific abnormality, ST segment, and/or T wave Myocardial infarction: inferior [place] (old age inde
[2020-12-25] MEDS: AMIODARONE 900 MG in DEXTROSE 5% IN WATER 482 ML IV SCH (12:38)
[2020-12-25] MEDS: MELATONIN 5 MG TAB PO SCH (21:26)
[2020-12-25] MEDS: TAMSULOSIN 0.4 MG CAP PO SCH (21:26)
[2020-12-25] MEDS: oxyCODONE /ACETAMINOPHEN 5-325MG TAB PO PRN (22:28)
--- NOTE | 2020-12-26 09:07 | Progress Note ---
Assessment and Plan Assessment and plan: Acute metabolic encephalopathy Resolved Patient has underlying vascular dementia MRI brain shows no acute CVA-patient has remote CVA on the right Strokelike symptoms Has a history of CVA, and was noted to have some motor dysfunction in the ER. MRI brain negative for any acute CVA MRI cervical shows multiple disc bulges involving cervical vertebrae most prominent at C5-C6 level Neurology consulted Cont. on aspirin and statins PT recommends rehab #PRIYA Secondary to dehydration -somewhat inappropriately Renal function improving Nephrology following #Atrial fibrillation Anticoagulation Patient had a 3.5-second pause so cardiology was consulted Beta-taj was adjusted, patient noted to have nonsustained V. tach Cardiology to adjust beta-taj #Coronary artery disease Continue aspirin Coreg Eliquis #Hypertension Adjust blood pressure medications #Congestive heart failure Stable #Hyperlipidemia CODE STATUS DVT prophylaxis-on Eliquis Disposition-patient is stable for discharge. Cleared by neurology and cardiology but needs placement Hospital course. 12/19. He is stable. BP better. Plan to get MRI brain to rule out CVA. His renal function is better. Cr 2.1 this AM. patient also needs cervical MRI to rule out severe degenerative disease. Echocardiogram, ultrasound carotids. Neurology evaluation appreciated 12/20. Renal function is better today. MRI brain shows no acute CVA -he has remote right-sided CVA. Ultrasound carotid and echocardiogram still pending. Cervical MRI shows degenerative disease involving the C3-C4, C5-C6, C6-C7. There is marked disc bulge at the C5, C6 level causing severe foraminal narrowing. Will consult neurosurgery for evaluation. He was found to have a 3.5 s pause on telemetry. Cardiology was consulted. His beta taj was held. 12/21. Spoke with neurosurgery - changes are not acute. he will be followed up in the office. Cardiology has adjusted his medications, he had nonsustained VT . He is stable to be discharged. He had a PT evaluation and will be going to a facility 12/22. Echocardiogram revealed left ventricular size normal with mild concentric left ventricular hypertrophy. Mild diastolic dysfunction with impaired relaxatio n. LVEF is 30 to 35%. Saline bubble contrast injection does not demonstrate PFO. Carotid ultrasound negative. PRIYA resolved with Cr. 1.1. Neuro recommends maintain eliquis and ASA 12/23. Patient with no new issues overnight. Awaiting placement. 12/24. Patient with no new issues overnight. Awaiting placement. 12/25. Patient with no new issues overnight. Awaiting placement. Cardiology cleared the pt. for d/c Follow-up with Dr. Diaz on 01/11/2021 @ 2:45pm ([phone]). Pt was previously fitted with LifeVest. Ultimately plan for ICD implantation to be arranged as an outpatient. Cr reamins stable 12/26; pending placement. Patient was alert and oriented. Patient was not on oxygen. Did not have any shortness of breath or chest pain. Patient has generalized weakness. Patient is pending placement. History Interval history: Patient was seen and evaluated this morning Generalized weakness No shortness of breath or chest pain Hospitalist Physical - Physical exam Narrative exam: Not in cardiopulmonary distress. The patient appeared chronically sick looking Vital signs as documented. Head exam is unremarkable. No scleral icterus . Neck is without jugular venous distension, thyromegaly, or carotid bruits. Lungs are clear to auscultation. Cardiac exam reveals regular rate and Rhythm. Abdominal exam reveals normal bowel sounds, nontender, no organomegaly. Extremities are nonedematous and both femoral and pedal pulses are normal. [employer] PROJECT [employer]GER: Alert and oriented 3. No focal weakness. - Constitutional Vitals: Temp Pulse Resp BP Pulse Ox 98.2 F 82 20 129/92 98 12/26/20 03:17 12/26/20 03:17 12/26/20 03:17 12/26/20 03:17 12/26/20 03:17 General appearance: Present: no acute distress, well-nourished HEART Score - HEART Score Age: 45-65 Risk factors: > 3 risk factors or hx of atherosclerotic disease Troponin: Troponin T 0.011 ng/mL (0.00-0.029) 12/12/20 14:01 Troponin: < normal limit - Critical Actions Critical Actions: 0-3 pts:0.9-1.7%risk of adverse cardiac event.Candidate for discharge Results - Labs CBC & Chem 7: 12/25/20 04:55 12/25/20 04:55 Labs: Laboratory Last Values WBC 3.7 K/mm3 (4.5-11.0) L 12/25/20 04:55 RBC 3.45 M/mm3 (3.65-5.03) L 12/25/20 04:55 Hgb 11.2 gm/dl (11.8-15.2) L 12/25/20 04:55 Hct 32.1 % (35.5-45.6) L 12/25/20 04:55 MCV 93 fl (84-94) 12/25/20 04:55 MCH 32 pg (28-32) 12/25/20 04:55 MCHC 35 % (32-34) H 12/25/20 04:55 RDW 14.3 % (13.2-15.2) 12/25/20 04:55 Plt Count 173 K/mm3 (140-440) 12/25/20 04:55 Lymph % (Auto) 29.7 % (13.4-35.0) 12/25/20 04:55 [place] % (Auto) 14.4 % (0.0-7.3) H 12/25/20 04:55 Eos % (Auto) 3.4 % (0.0-4.3) 12/25/20 04:55 Baso % (Auto) 1.0 % (0.0-1.8) 12/25/20 04:55 Lymph # (Auto) 1.1 K/mm3 (1.2-5.4) L 12/25/20 04:55 [place] # (Auto) 0.5 K/mm3 (0.0-0.8) 12/25/20 04:55 Eos # (Auto) 0.1 K/mm3 (0.0-0.4) 12/25/20 04:55 Baso # (Auto) 0.0 K/mm3 (0.0-0.1) 12/25/20 04:55 Add Manual Diff Complete 12/12/20 14:01 Total Counted 100 12/12/20 14:01 Seg Neutrophils % 51.5 % (40.0-70.0) 12/25/20 04:55 Seg Neuts % (Manual) 67.0 % (40.0-70.0) 12/12/20 14:01 Lymphocytes % (Manual) 22.0 % (13.4-35.0) 12/12/20 14:01 Monocytes % (Manual) 9.0 % (0.0-7.3) H 12/12/20 14:01 Eosinophils % (Manual) 2.0 % (0.0-4.3) 12/12/20 14:01 Promyelocytes % 0 % 12/12/20 14:01 Nucleated RBC % Not Reportable 12/12/20 14:01 Seg Neutrophils # 1.9 K/mm3 (1.8-7.7) 12/25/20 04:55 Seg Neutrophils # Man 2.7 K/mm3 (1.8-7.7) 12/12/20 14:01 Band Neutrophils # 0.0 K/mm3 12/12/20 14:01 Lymphocytes # (Manual) 0.9 K/mm3 (1.2-5.4) L 12/12/20 14:01 Abs React Lymphs (Man) 0.0 K/mm3 12/12/20 14:01 Monocytes # (Manual) 0.4 K/mm3 (0.0-0.8) 12/12/20 14:01 Eosinophils # (Manual) 0.1 K/mm3 (0.0-0.4) 12/12/20 14:01 Basophils # (Manual) 0.0 K/mm3 (0.0-0.1) 12/12/20 14:01 Metamyelocytes # 0.0 K/mm3 12/12/20 14:01 Myelocytes # 0.0 K/mm3 12/12/20 14:01 Promyelocytes # 0.0 K/mm3 12/12/20 14:01 Blast Cells # 0.0 K/mm3 12/12/20 14:01 WBC Morphology Not Reportable 12/12/20 14:01 Hypersegmented Neuts Not Reportable 12/12/20 14:01 Hyposegmented Neuts Not Reportable 12/12/20 14:01 Hypogranular Neuts Not Reportable 12/12/20 14:01 Smudge Cells Not Reportable 12/12/20 14:01 Toxic Granulation Not Reportable 12/12/20 14:01 Toxic Vacuolation Not Reportable 12/12/20 14:01 Dohle Bodies Not Reportable 12/12/20 14:01 Pelger-Huet Anomaly Not Reportable 12/12/20 14:01 Komal Rods Not Reportable 12/12/20 14:01 Platelet Estimate Consistent w auto 12/12/20 14:01 Clumped Platelets Not Reportable 12/12/20 14:01 Plt Clumps, EDTA Not Reportable 12/12/20 14:01 Large Platelets Not Reportable 12/12/20 14:01 Giant Platelets Not Reportable 12/12/20 14:01 Platelet Satelliting Not Reportable 12/12/20 14:01 Plt Morphology Comment Not Reportable 12/12/20 14:01 RBC Morphology Not Reportable 12/12/20 14:01 Dimorphic RBCs Not Reportable 12/12/20 14:01 Polychromasia Not Reportable 12/12/20 14:01 Hypochromasia Not Reportable 12/12/20 14:01 Poikilocytosis Not Reportable 12/12/20 14:01 Anisocytosis Not Reportable 12/12/20 14:01 Microcytosis Not Reportable 12/12/20 14:01 Macrocytosis Not Reportable 12/12/20 14:01 Spherocytes Not Reportable 12/12/20 14:01 Pappenheimer Bodies Not Reportable 12/12/20 14:01 Sickle Cells Not Reportable 12/12/20 14:01 Target Cells Not Reportable 12/12/20 14:01 Tear Drop Cells Not Reportable 12/12/20 14:01 Ovalocytes Few 12/12/20 14:01 Helmet Cells Not Reportable 12/12/20 14:01 [place] Bodies Not Reportable 12/12/20 14:01 [place] Rings Not Reportable 12/12/20 14:01 [place] Cells Not Reportable 12/12/20 14:01 Bite Cells Not Reportable 12/12/20 14:01 Crenated Cell Not Reportable 12/12/20 14:01 Elliptocytes Not Reportable 12/12/20 14:01 Acanthocytes (Spur) Not Reportable 12/12/20 14:01 Rouleaux Not Reportable 12/12/20 14:01 Hemoglobin C Crystals Not Reportable 12/12/20 14:01 Schistocytes Not Reportable 12/12/20 14:01 Malaria parasites Not Reportable 12/12/20 14:01 [place] Bodies Not Reportable 12/12/20 14:01 Hem Pathologist Commnt No 12/12/20 14:01 Sodium 133 mmol/L (137-145) L 12/25/20 04:55 Potassium 4.1 mmol/L (3.6-5.0) 12/25/20 04:55 Chloride 99.0 mmol/L (98-107) 12/25/20 04:55 Carbon Dioxide 25 mmol/L (22-30) 12/25/20 04:55 Anion Gap 13 mmol/L 12/25/20 04:55 BUN 15 mg/dL (9-20) 12/25/20 04:55 Creatinine 1.0 mg/dL (0.8-1.3) 12/25/20 04:55 Estimated GFR > 60 ml/min 12/25/20 04:55 BUN/Creatinine Ratio 15 % 12/25/20 04:55 Glucose 88 mg/dL (75-100) 12/25/20 04:55 Lactic Acid 1.20 mmol/L (0.7-2.0) 12/18/20 14:35 Calcium 9.1 mg/dL (8.4-10.2) 12/25/20 04:55 Magnesium 2.20 mg/dL (1.7-2.3) 12/20/20 17:50 Total Bilirubin 0.60 mg/dL (0.1-1.2) 12/25/20 04:55 AST 50 units/L (5-40) H 12/25/20 04:55 ALT 24 units/L (7-56) 12/25/20 04:55 Alkaline Phosphatase 100 units/L (35-129) 12/25/20 04:55 Troponin T 0.011 ng/mL (0.00-0.029) 12/12/20 14:01 Total Protein 6.6 g/dL (6.3-8.2) 12/25/20 04:55 Albumin 3.0 g/dL (3.9-5) L 12/25/20 04:55 Albumin/Globulin Ratio 0.8 % 12/25/20 04:55 Urine Color Yellow (Yellow) 12/19/20 13:53 Urine Turbidity Clear (Clear) 12/19/20 13:53 Urine pH 6.0 (5.0-7.0) 12/19/20 13:53 Ur Specific [place] 1.013 (1.003-1.030) 12/19/20 13:53 Urine Protein <15 mg/dl mg/dL (Negative) 12/19/20 13:53 Urine Glucose (UA) Neg mg/dL (Negative) 12/19/20 13:53 Urine Ketones Neg mg/dL (Negative) 12/19/20 13:53 Urine Blood Mod (Negative) 12/19/20 13:53 Urine Nitrite Neg (Negative) 12/19/20 13:53 Urine Bilirubin Neg (Negative) 12/19/20 13:53 Urine Urobilinogen < 2.0 mg/dL (<2.0) 12/19/20 13:53 Ur Leukocyte Esterase Neg (Negative) 12/19/20 13:53 Urine WBC (Auto) 2.0 /HPF (0.0-6.0) 12/19/20 13:53 Urine RBC (Auto) 2.0 /HPF (0.0-6.0) 12/19/20 13:53 U Epithel Cells (Auto) < 1.0 /HPF (0-13.0) 12/19/20 13:53 Hyaline Casts 1 /LPF 12/12/20 21:04 Urine Mucus Few /HPF 12/19/20 13:53 Urine Eosinophils None seen (None Seen) 12/19/20 13:53 Urine Creatinine 79.0 mg/dL (0.1-20.0) H 12/19/20 13:53 Urine Sodium 51 mmol/L 12/19/20 13:53 Urine Chloride 36.0 mmolL (110-250) L 12/19/20 13:53 Urine Urea Nitrogen 949 12/19/20 13:53 Urine Opiates Screen Negative 12/12/20 21:04 Urine Methadone Screen Negative 12/12/20 21:04 Ur Barbiturates Screen Positive 12/12/20 21:04 Ur Phencyclidine Scrn Negative 12/12/20 21:04 Ur Amphetamines Screen Negative 12/12/20 21:04 U Benzodiazepines Scrn Negative 12/12/20 21:04 Urine Cocaine Screen Negative 12/12/20 21:04 U Marijuana (THC) Screen Negative 12/12/20 21:04 Drugs of Abuse Note Disclamer 12/12/20 21:04 Plasma/Serum Alcohol < 0.01 % (0-0.07) 12/12/20 14:00 Coronavirus (PCR) Negative (Negative) 12/16/20 11:18 Funez/IV: Voiding Method Condom Catheter Active Medications - Current Medications Current Medications: Generic Name Dose Route Start Last Admin Trade Name Freq PRN Reason Stop Dose Admin Acetaminophen 650 mg 12/13/20 11:49 12/22/20 21:14 Acetaminophen 325 Mg Tab PO 650 mg Q6HR PRN Administration PAIN Apixaban 5 mg 12/19/20 10:00 12/25/20 21:26 Apixaban 5 Mg Tab PO 5 mg Q12HR JOHANN Administration Aspirin 81 mg 12/19/20 10:00 12/25/20 09:46 Aspirin Ec 81 Mg Tab PO 81 mg DAILY JOHANN Administration Atorvastatin Calcium 80 mg 12/13/20 22:00 12/25/20 21:26 Atorvastatin 40 Mg Tab PO 80 mg QHS JOHANN Administration Carvedilol 3.125 mg 12/21/20 11:00 12/25/20 21:27 Carvedilol 3.125 Mg Tab PO 3.125 mg BID JOHANN Administration Diphenhydramine HCl 50 mg 12/13/20 11:49 12/24/20 21:10 Diphenhydramine 25 Mg Cap PO 50 mg QHS PRN Administration Insomnia Fluoxetine HCl 10 mg 12/19/20 10:00 12/25/20 09:46 Fluoxetine 10 Mg Tab PO 10 mg QDAY JOHANN Administration Furosemide 40 mg 12/13/20 10:00 12/25/20 09:47 Furosemide 40 Mg Tab PO 40 mg QDAY JOHANN Administration Haloperidol Lactate 10 mg 12/12/20 22:57 12/24/20 21:09 Haloperidol Lactate 5 Mg/1 Ml Inj IM 10 mg Q8H PRN Administration Agitation Sodium Chloride 1,000 mls @ 75 mls/hr 12/22/20 07:00 12/25/20 22:24 Nacl 0.9% 1000 Ml IV 75 mls/hr DIRECT JOHANN Administration Amiodarone HCl 900 mg/ 500 mls @ 33.333 mls/hr 12/24/20 16:00 12/25/20 12:38 Dextrose IV 0.5 mg/min DIRECT JOHANN 16.667 mls/hr Administration Protocol 1 MG/MIN Isosorbide Mononitrate 30 mg 12/13/20 10:00 12/25/20 09:48 Isosorbide Mononitrate Er 30 Mg Tab PO 30 mg DAILY JOHANN Administration Lisinopril 10 mg 12/21/20 10:00 12/25/20 09:47 Lisinopril 10 Mg Tab PO 10 mg QDAY JOHANN Administration Melatonin 30 mg 12/19/20 22:00 12/25/20 21:26 Melatonin 5 Mg Tab PO 30 mg QHS JOHANN Administration Oxycodone/Acetaminophen 1 tab 12/22/20 13:31 12/25/20 22:28 Oxycodone /Acetaminophen 5-325mg Tab PO 1 tab Q6H PRN Administration Pain, Moderate (4-6) Pantoprazole Sodium 40 mg 12/13/20 10:00 12/25/20 09:47 Pantoprazole 40 Mg Tab PO 40 mg QDAY JOHANN Administration Spironolactone 25 mg 12/13/20 10:00 12/25/20 09:46 Spironolactone 25 Mg Tab PO 25 mg QDAY JOHANN Administration Tamsulosin HCl 0.4 mg 12/19/20 22:00 12/25/20 21:26 Tamsulosin 0.4 Mg Cap PO 0.4 mg QHS JOHANN Administration Nutrition/Malnutrition Assess - Dietary Evaluation Nutrition/Malnutrition Findings: Nutrition Notes Start: 12/25/20 12:46 Freq: Status: Active Protocol: Document 12/25/20 12:46 (Rec: 12/25/20 12:51 [id number]) Nutrition Notes Need for Assessment generated from: LOS Initial or Follow up Brief Note Current Diagnosis Coronary Artery Disease, Hypertension,Heart Failure, Stroke Current Diet Pureed Labs/Tests Reviewed Pertinent Medications Reviewed Height 6 ft 3 in Weight 74.1 kg [place] Body Weight (kg) 89.09 BMI 20.4 Subjective/Other Information Screen for LOS. Pt reports eating 50-100% of meals. Pt diet was changed to pureed today. Burn Absent Trauma Absent Difficulty In Chewing Current % PO Fair (50-74%) Minimum of two criteria No physical signs of malnutrition #1 Nutrition Diagnosis Inadequate oral intake Etiology unknown As Evidenced by Signs and Symptoms pt eating 75% of meals Is patient on ventilator? No Is Patient Ambulatory and/or Out of Bed No REE-([facility]-confined to bed) 1962.912 Calculation Used for Recommendations [facility] Additional Notes Protein: (0.8-1g/kg) 59-74g Fluid: 1 ml/kcal Nutrition Intervention Change Diet Order: Continue Add Supplement/Snack (indicate name/kcal Ensure Enlive daily /protein ) Provides kCal: 350 Provides Protein (gm) 20 Goal #1 Meet at least 80% of protein and energy needs via PO and ONS intaks Anticipated Discharge Needs: Unable to determine at this time Follow-Up By: 12/27/20 Additional Comments FU for intakes and ONS tolerance
[2020-12-26] MEDS: SPIRONOLACTONE 25 MG TAB PO SCH (10:08)
[2020-12-26] MEDS: LISINOPRIL 10 MG TAB PO SCH (10:08)
[2020-12-26] MEDS: ASPIRIN EC 81 MG TAB PO SCH (10:08)
[2020-12-26] MEDS: FUROSEMIDE 40 MG TAB PO SCH (10:08)
[2020-12-26] MEDS: carvediloL 3.125 MG TAB PO SCH ×2 (10:08→22:16)
[2020-12-26] MEDS: APIXABAN 5 MG TAB PO SCH ×2 (10:09→22:17)
[2020-12-26] MEDS: PANTOPRAZOLE 40 MG TAB PO SCH (10:09)
[2020-12-26] MEDS: FLUoxetine 10 MG TAB PO SCH (10:15)
--- NOTE | 2020-12-26 12:26 | Progress Note ---
Assessment and Plan Telemetry reviewed: Sinus tach 104 with frequent PACs. No events #Afib * Anticoagulated with Eliquis 5 mg twice daily * Discontinue amiodarone gtt., initiate amiodarone 200 mg twice daily. Continue to monitor on telemetry #Chronic HFrEF in setting of Cardiomyopathy * Echocardiogram reviewed: 12/20/2020 - mild concentric LVH, EF 30-35%, mild diastolic dysfxn, hypokinetic septum & inferior wall, no evidence of PFO * Patient is routinely followed by [facility] cardiology. He reports that "Dr Stein" originally ordered LifeVest placement for the patient, but that approximately 3 to 4 months ago a "Dr. Grant" told him it was no longer indicated. Patient has been without LifeVest for approximately 3 months. Continue to monitor on telemetry. Recommend to follow-up with EP through [facility] cardiology. * Continue current cardiac regimen of ASA 81 mg, Coreg 3.125 mg twice daily, Lasix 40 mg p.o. daily, atorvastatin 80 mg nightly, Imdur 30 mg daily * Consult request for outpatient cardiac rehab placed #Coronary Artery Disease hx Coronary Artery Stent * [facility] reviewed: 04/2020 - left main patent, LAD stent patent, LCx distal 95%, RCA stents patent, severe LV dysfunction #DVT prophylaxis * On Eliquis Patient is currently in stable cardiac status. Continue to monitor on telemetry. Will follow. This patient was seen in conjunction with Dr Emil Del Toro who agrees with this assessment and plan of care. - Patient Problems (1) Dementia Current Visit: Yes Status: Acute (2) Atrial fibrillation Current Visit: Yes Status: Chronic Qualifiers: Atrial fibrillation type: paroxysmal Qualified Code(s): I48.0 - Paroxysmal atrial fibrillation (3) CHF (congestive heart failure) Current Visit: Yes Status: Chronic Qualifiers: Heart failure type: combined systolic and diastolic (4) CVA (cerebral vascular accident) Current Visit: Yes Status: Chronic Qualifiers: Precerebral and cerebral artery: middle cerebral artery Laterality of affected vessel: right (5) Chronic HFrEF (heart failure with reduced ejection fraction) Current Visit: Yes Status: Chronic (6) Coronary artery disease Current Visit: Yes Status: Chronic Qualifiers: Coronary Disease-Associated Artery/Lesion type: [place] artery [place] vs. transplanted heart: [place] heart Associated angina: with stable angina Qualified Code(s): I25.118 - Atherosclerotic heart disease of [place] coronary artery with other forms of angina pectoris (7) History of ischemic cardiomyopathy Current Visit: Yes Status: Chronic (8) Hyperlipidemia Current Visit: Yes Status: Chronic Qualifiers: Hyperlipidemia type: mixed hyperlipidemia Qualified Code(s): E78.2 - Mixed hyperlipidemia (9) Hypertension Current Visit: Yes Status: Chronic Qualifiers: Hypertension type: essential hypertension Qualified Code(s): I10 - Essential (primary) hypertension (10) Ischemic cardiomyopathy Current Visit: Yes Status: Chronic (11) Lupus Current Visit: Yes Status: Chronic (12) Stented coronary artery Current Visit: Yes Status: Chronic (13) Uses LifeVest defibrillator Current Visit: Yes Status: Chronic (14) Acute encephalopathy Current Visit: Yes Status: Resolved Subjective Date of service: 12/26/20 Principal diagnosis: AMS Interval history: Patient resting comfortably in bed. No shortness of breath or chest pain overnight. Telemetry reviewed: Sinus tach 104 with frequent PACs. No events Objective Last Vital Signs Temp 98.2 F 12/26/20 03:17 Pulse 70 12/26/20 10:00 Resp 120 H 12/26/20 10:00 BP 129/92 12/26/20 03:17 Pulse Ox 98 12/26/20 03:17 - Physical Examination General: No Apparent Distress HEENT: Positive: EOMI, Normocephaly, Mucus Membranes Moist Neck: Positive: neck supple, trachea midline. Negative: JVD/HJR Cardiac: Positive: Regular Rhythm, S1/S2 Lungs: Positive: Normal Exam, Normal Breath Sounds Neuro: Positive: Grossly Intact, Weakness Abdomen: Positive: Soft. Negative: Tender Skin: Negative: Rash Musculoskeletal: No Pain Extremities: Present: upper extr. pulses, lower extr. pulses. Absent: edema - Imaging and Cardiology EKG: report reviewed, image reviewed Echo: report reviewed (12/20/2020 - mild concentric LVH, EF 30-35%, mild diastolic dysfxn, hypokinetic septum & inferior wall, no evidence of PFO), other (12/02/2020 - mod concentric LVH, EF 55-60%, dyskinetic apex LV wall, grade I diastolic dysfxn, LA mildly dilated, no evidence of PFO, mild-mod TR, mild pulm HTN) Cardiac cath: report reviewed (04/2020 - left main patent, LAD stent patent, LCx distal 95%, RCA stents patent, severe LV dysfunction) - Telemetry EKG Rhythm: Sinus Tachycardia - EKG Sinus rhythms and dysrhythmias: sinus tachycardia Repolarization changes or abnormalities: nonspecific abnormality, ST segment, and/or T wave Myocardial infarction: inferior [place] (old age inde
[2020-12-26] MEDS: SODIUM CHLORIDE 0.9% 1000 ML 1,000 ML IV SCH (15:09)
[2020-12-26] MEDS: AMIODARONE 200 MG TAB PO SCH ×2 (15:14→22:16)
[2020-12-26] MEDS ORDERED: AMIODARONE 200 MG TAB PO SCH (22:00)
[2020-12-26] MEDS: MELATONIN 5 MG TAB PO SCH (22:16)
[2020-12-26] MEDS: TAMSULOSIN 0.4 MG CAP PO SCH (22:17)
[2020-12-27] MEDS: SODIUM CHLORIDE 0.9% 1000 ML 1,000 ML IV SCH (03:52)
[2020-12-27 05:51] LABS: Hemoglobin 11.3 gm/dl (11.8-15.2); Mean Corpuscular HGB Conc 34 % (32-34); Mean Corpuscular Volume 93 fl (84-94); Platelet Count 195 K/mm3 (140-440); Red Blood Count 3.56 M/mm3 (3.65-5.03); Red Cell Distribution Width 14.2 % (13.2-15.2)
[2020-12-27 06:05] LABS: BUN/Creatinine Ratio 14; Blood Urea Nitrogen 13 mg/dL (9-20); Hemolysis Index 4
--- NOTE | 2020-12-27 09:14 | Progress Note ---
Assessment and Plan Assessment and plan: Acute metabolic encephalopathy Resolved Patient has underlying vascular dementia MRI brain shows no acute CVA-patient has remote CVA on the right Strokelike symptoms Has a history of CVA, and was noted to have some motor dysfunction in the ER. MRI brain negative for any acute CVA MRI cervical shows multiple disc bulges involving cervical vertebrae most prominent at C5-C6 level Neurology consulted Cont. on aspirin and statins PT recommends rehab #PRIYA Secondary to dehydration -somewhat inappropriately Renal function improving Nephrology following #Atrial fibrillation Anticoagulation Patient had a 3.5-second pause so cardiology was consulted Beta-taj was adjusted, patient noted to have nonsustained V. tach Cardiology to adjust beta-taj #Coronary artery disease Continue aspirin Coreg Eliquis #Hypertension Adjust blood pressure medications #Congestive heart failure Stable #Hyperlipidemia CODE STATUS DVT prophylaxis-on Eliquis Disposition-patient is stable for discharge. Cleared by neurology and cardiology but needs placement Hospital course. 12/19. He is stable. BP better. Plan to get MRI brain to rule out CVA. His renal function is better. Cr 2.1 this AM. patient also needs cervical MRI to rule out severe degenerative disease. Echocardiogram, ultrasound carotids. Neurology evaluation appreciated 12/20. Renal function is better today. MRI brain shows no acute CVA -he has remote right-sided CVA. Ultrasound carotid and echocardiogram still pending. Cervical MRI shows degenerative disease involving the C3-C4, C5-C6, C6-C7. There is marked disc bulge at the C5, C6 level causing severe foraminal narrowing. Will consult neurosurgery for evaluation. He was found to have a 3.5 s pause on telemetry. Cardiology was consulted. His beta taj was held. 12/21. Spoke with neurosurgery - changes are not acute. he will be followed up in the office. Cardiology has adjusted his medications, he had nonsustained VT . He is stable to be discharged. He had a PT evaluation and will be going to a facility 12/22. Echocardiogram revealed left ventricular size normal with mild concentric left ventricular hypertrophy. Mild diastolic dysfunction with impaired relaxatio n. LVEF is 30 to 35%. Saline bubble contrast injection does not demonstrate PFO. Carotid ultrasound negative. PRIYA resolved with Cr. 1.1. Neuro recommends maintain eliquis and ASA 12/23. Patient with no new issues overnight. Awaiting placement. 12/24. Patient with no new issues overnight. Awaiting placement. 12/25. Patient with no new issues overnight. Awaiting placement. Cardiology cleared the pt. for d/c Follow-up with Dr. Diaz on 01/11/2021 @ 2:45pm ([phone]). Pt was previously fitted with LifeVest. Ultimately plan for ICD implantation to be arranged as an outpatient. Cr reamins stable 12/26; pending placement. Patient was alert and oriented. Patient was not on oxygen. Did not have any shortness of breath or chest pain. Patient has generalized weakness. Patient is pending placement. 12/27/2020; patient stable and pending placement. Patient with abdominal pain and lower extremity pain. I ordered bilateral Doppler ultrasound of the lower extremities, CT abdomen pelvis without contrast. History Interval history: Patient was seen and evaluated this morning Generalized weakness Patient was complaining abdominal pain and bilateral lower extremity pain Hospitalist Physical - Physical exam Narrative exam: Not in cardiopulmonary distress. The patient appeared chronically sick looking Vital signs as documented. Head exam is unremarkable. No scleral icterus . Neck is without jugular venous distension, thyromegaly, or carotid bruits. Lungs are clear to auscultation. Cardiac exam reveals regular rate and Rhythm. Abdominal exam reveals left upper quadrant pain. Extremities are nonedematous and both femoral and pedal pulses are normal. RESPONDER: Alert and oriented 3. No focal weakness. - Constitutional Vitals: Temp Pulse Resp BP Pulse Ox 97.9 F 46 L 17 154/119 99 12/27/20 03:25 12/27/20 03:25 12/27/20 03:25 12/27/20 03:25 12/27/20 03:25 General appearance: Present: no acute distress, well-nourished HEART Score - HEART Score Age: 45-65 Risk factors: > 3 risk factors or hx of atherosclerotic disease Troponin: Troponin T 0.011 ng/mL (0.00-0.029) 12/12/20 14:01 Troponin: < normal limit - Critical Actions Critical Actions: 0-3 pts:0.9-1.7%risk of adverse cardiac event.Candidate for discharge Results - Labs CBC & Chem 7: 12/27/20 05:10 12/27/20 05:10 Labs: Laboratory Last Values WBC 6.0 K/mm3 (4.5-11.0) 12/27/20 05:10 RBC 3.56 M/mm3 (3.65-5.03) L 12/27/20 05:10 Hgb 11.3 gm/dl (11.8-15.2) L 12/27/20 05:10 Hct 33.0 % (35.5-45.6) L 12/27/20 05:10 MCV 93 fl (84-94) 12/27/20 05:10 MCH 32 pg (28-32) 12/27/20 05:10 MCHC 34 % (32-34) 12/27/20 05:10 RDW 14.2 % (13.2-15.2) 12/27/20 05:10 Plt Count 195 K/mm3 (140-440) 12/27/20 05:10 Lymph % (Auto) 29.7 % (13.4-35.0) 12/25/20 04:55 [place] % (Auto) 14.4 % (0.0-7.3) H 12/25/20 04:55 Eos % (Auto) 3.4 % (0.0-4.3) 12/25/20 04:55 Baso % (Auto) 1.0 % (0.0-1.8) 12/25/20 04:55 Lymph # (Auto) 1.1 K/mm3 (1.2-5.4) L 12/25/20 04:55 [place] # (Auto) 0.5 K/mm3 (0.0-0.8) 12/25/20 04:55 Eos # (Auto) 0.1 K/mm3 (0.0-0.4) 12/25/20 04:55 Baso # (Auto) 0.0 K/mm3 (0.0-0.1) 12/25/20 04:55 Add Manual Diff Complete 12/12/20 14:01 Total Counted 100 12/12/20 14:01 Seg Neutrophils % 51.5 % (40.0-70.0) 12/25/20 04:55 Seg Neuts % (Manual) 67.0 % (40.0-70.0) 12/12/20 14:01 Lymphocytes % (Manual) 22.0 % (13.4-35.0) 12/12/20 14:01 Monocytes % (Manual) 9.0 % (0.0-7.3) H 12/12/20 14:01 Eosinophils % (Manual) 2.0 % (0.0-4.3) 12/12/20 14:01 Promyelocytes % 0 % 12/12/20 14:01 Nucleated RBC % Not Reportable 12/12/20 14:01 Seg Neutrophils # 1.9 K/mm3 (1.8-7.7) 12/25/20 04:55 Seg Neutrophils # Man 2.7 K/mm3 (1.8-7.7) 12/12/20 14:01 Band Neutrophils # 0.0 K/mm3 12/12/20 14:01 Lymphocytes # (Manual) 0.9 K/mm3 (1.2-5.4) L 12/12/20 14:01 Abs React Lymphs (Man) 0.0 K/mm3 12/12/20 14:01 Monocytes # (Manual) 0.4 K/mm3 (0.0-0.8) 12/12/20 14:01 Eosinophils # (Manual) 0.1 K/mm3 (0.0-0.4) 12/12/20 14:01 Basophils # (Manual) 0.0 K/mm3 (0.0-0.1) 12/12/20 14:01 Metamyelocytes # 0.0 K/mm3 12/12/20 14:01 Myelocytes # 0.0 K/mm3 12/12/20 14:01 Promyelocytes # 0.0 K/mm3 12/12/20 14:01 Blast Cells # 0.0 K/mm3 12/12/20 14:01 WBC Morphology Not Reportable 12/12/20 14:01 Hypersegmented Neuts Not Reportable 12/12/20 14:01 Hyposegmented Neuts Not Reportable 12/12/20 14:01 Hypogranular Neuts Not Reportable 12/12/20 14:01 Smudge Cells Not Reportable 12/12/20 14:01 Toxic Granulation Not Reportable 12/12/20 14:01 Toxic Vacuolation Not Reportable 12/12/20 14:01 Dohle Bodies Not Reportable 12/12/20 14:01 Pelger-Huet Anomaly Not Reportable 12/12/20 14:01 Komal Rods Not Reportable 12/12/20 14:01 Platelet Estimate Consistent w auto 12/12/20 14:01 Clumped Platelets Not Reportable 12/12/20 14:01 Plt Clumps, EDTA Not Reportable 12/12/20 14:01 Large Platelets Not Reportable 12/12/20 14:01 Giant Platelets Not Reportable 12/12/20 14:01 Platelet Satelliting Not Reportable 12/12/20 14:01 Plt Morphology Comment Not Reportable 12/12/20 14:01 RBC Morphology Not Reportable 12/12/20 14:01 Dimorphic RBCs Not Reportable 12/12/20 14:01 Polychromasia Not Reportable 12/12/20 14:01 Hypochromasia Not Reportable 12/12/20 14:01 Poikilocytosis Not Reportable 12/12/20 14:01 Anisocytosis Not Reportable 12/12/20 14:01 Microcytosis Not Reportable 12/12/20 14:01 Macrocytosis Not Reportable 12/12/20 14:01 Spherocytes Not Reportable 12/12/20 14:01 Pappenheimer Bodies Not Reportable 12/12/20 14:01 Sickle Cells Not Reportable 12/12/20 14:01 Target Cells Not Reportable 12/12/20 14:01 Tear Drop Cells Not Reportable 12/12/20 14:01 Ovalocytes Few 12/12/20 14:01 Helmet Cells Not Reportable 12/12/20 14:01 Matta-Theba Bodies Not Reportable 12/12/20 14:01 [place] Rings Not Reportable 12/12/20 14:01 Lenard Cells Not Reportable 12/12/20 14:01 Bite Cells Not Reportable 12/12/20 14:01 Crenated Cell Not Reportable 12/12/20 14:01 Elliptocytes Not Reportable 12/12/20 14:01 Acanthocytes (Spur) Not Reportable 12/12/20 14:01 Rouleaux Not Reportable 12/12/20 14:01 Hemoglobin C Crystals Not Reportable 12/12/20 14:01 Schistocytes Not Reportable 12/12/20 14:01 Malaria parasites Not Reportable 12/12/20 14:01 [place] Bodies Not Reportable 12/12/20 14:01 Hem Pathologist Commnt No 12/12/20 14:01 Sodium 133 mmol/L (137-145) L 12/27/20 05:10 Potassium 3.9 mmol/L (3.6-5.0) 12/27/20 05:10 Chloride 98.5 mmol/L (98-107) 12/27/20 05:10 Carbon Dioxide 25 mmol/L (22-30) 12/27/20 05:10 Anion Gap 13 mmol/L 12/27/20 05:10 BUN 13 mg/dL (9-20) 12/27/20 05:10 Creatinine 0.9 mg/dL (0.8-1.3) 12/27/20 05:10 Estimated GFR > 60 ml/min 12/27/20 05:10 BUN/Creatinine Ratio 14 % 12/27/20 05:10 Glucose 100 mg/dL (75-100) 12/27/20 05:10 Lactic Acid 1.20 mmol/L (0.7-2.0) 12/18/20 14:35 Calcium 9.0 mg/dL (8.4-10.2) 12/27/20 05:10 Magnesium 2.20 mg/dL (1.7-2.3) 12/20/20 17:50 Total Bilirubin 0.60 mg/dL (0.1-1.2) 12/25/20 04:55 AST 50 units/L (5-40) H 12/25/20 04:55 ALT 24 units/L (7-56) 12/25/20 04:55 Alkaline Phosphatase 100 units/L (35-129) 12/25/20 04:55 Troponin T 0.011 ng/mL (0.00-0.029) 12/12/20 14:01 Total Protein 6.6 g/dL (6.3-8.2) 12/25/20 04:55 Albumin 3.0 g/dL (3.9-5) L 12/25/20 04:55 Albumin/Globulin Ratio 0.8 % 12/25/20 04:55 Urine Color Yellow (Yellow) 12/19/20 13:53 Urine Turbidity Clear (Clear) 12/19/20 13:53 Urine pH 6.0 (5.0-7.0) 12/19/20 13:53 Ur Specific [place] 1.013 (1.003-1.030) 12/19/20 13:53 Urine Protein <15 mg/dl mg/dL (Negative) 12/19/20 13:53 Urine Glucose (UA) Neg mg/dL (Negative) 12/19/20 13:53 Urine Ketones Neg mg/dL (Negative) 12/19/20 13:53 Urine Blood Mod (Negative) 12/19/20 13:53 Urine Nitrite Neg (Negative) 12/19/20 13:53 Urine Bilirubin Neg (Negative) 12/19/20 13:53 Urine Urobilinogen < 2.0 mg/dL (<2.0) 12/19/20 13:53 Ur Leukocyte Esterase Neg (Negative) 12/19/20 13:53 Urine WBC (Auto) 2.0 /HPF (0.0-6.0) 12/19/20 13:53 Urine RBC (Auto) 2.0 /HPF (0.0-6.0) 12/19/20 13:53 U Epithel Cells (Auto) < 1.0 /HPF (0-13.0) 12/19/20 13:53 Hyaline Casts 1 /LPF 12/12/20 21:04 Urine Mucus Few /HPF 12/19/20 13:53 Urine Eosinophils None seen (None Seen) 12/19/20 13:53 Urine Creatinine 79.0 mg/dL (0.1-20.0) H 12/19/20 13:53 Urine Sodium 51 mmol/L 12/19/20 13:53 Urine Chloride 36.0 mmolL (110-250) L 12/19/20 13:53 Urine Urea Nitrogen 949 12/19/20 13:53 Urine Opiates Screen Negative 12/12/20 21:04 Urine Methadone Screen Negative 12/12/20 21:04 Ur Barbiturates Screen Positive 12/12/20 21:04 Ur Phencyclidine Scrn Negative 12/12/20 21:04 Ur Amphetamines Screen Negative 12/12/20 21:04 U Benzodiazepines Scrn Negative 12/12/20 21:04 Urine Cocaine Screen Negative 12/12/20 21:04 U Marijuana (THC) Screen Negative 12/12/20 21:04 Drugs of Abuse Note Disclamer 12/12/20 21:04 Plasma/Serum Alcohol < 0.01 % (0-0.07) 12/12/20 14:00 Coronavirus (PCR) Negative (Negative) 12/16/20 11:18 Funez/IV: Voiding Method Condom Catheter Active Medications - Current Medications Current Medications: Generic Name Dose Route Start Last Admin Trade Name Freq PRN Reason Stop Dose Admin Acetaminophen 650 mg 12/13/20 11:49 12/22/20 21:14 Acetaminophen 325 Mg Tab PO 650 mg Q6HR PRN Administration PAIN Amiodarone HCl 100 mg 12/27/20 09:04 Amiodarone 200 Mg Tab PO BID JOHANN Apixaban 5 mg 12/19/20 10:00 12/26/20 22:17 Apixaban 5 Mg Tab PO 5 mg Q12HR JOHANN Administration Aspirin 81 mg 12/19/20 10:00 12/26/20 10:08 Aspirin Ec 81 Mg Tab PO 81 mg DAILY JOHANN Administration Atorvastatin Calcium 80 mg 12/13/20 22:00 12/26/20 22:17 Atorvastatin 40 Mg Tab PO 80 mg QHS JOHANN Administration Carvedilol 3.125 mg 12/21/20 11:00 12/26/20 22:16 Carvedilol 3.125 Mg Tab PO 3.125 mg BID JOHANN Administration Diphenhydramine HCl 50 mg 12/13/20 11:49 12/24/20 21:10 Diphenhydramine 25 Mg Cap PO 50 mg QHS PRN Administration Insomnia Fluoxetine HCl 10 mg 12/19/20 10:00 12/26/20 10:15 Fluoxetine 10 Mg Tab PO 10 mg QDAY JOHANN Administration Furosemide 40 mg 12/13/20 10:00 12/26/20 10:08 Furosemide 40 Mg Tab PO 40 mg QDAY JOHANN Administration Haloperidol Lactate 10 mg 12/12/20 22:57 12/24/20 21:09 Haloperidol Lactate 5 Mg/1 Ml Inj IM 10 mg Q8H PRN Administration Agitation Sodium Chloride 1,000 mls @ 75 mls/hr 12/22/20 07:00 12/27/20 03:52 Nacl 0.9% 1000 Ml IV 75 mls/hr DIRECT JOHANN Administration Isosorbide Mononitrate 30 mg 12/13/20 10:00 12/26/20 10:09 Isosorbide Mononitrate Er 30 Mg Tab PO 30 mg DAILY JOHANN Administration Lisinopril 10 mg 12/21/20 10:00 12/26/20 10:08 Lisinopril 10 Mg Tab PO 10 mg QDAY JOHANN Administration Melatonin 30 mg 12/19/20 22:00 12/26/20 22:16 Melatonin 5 Mg Tab PO 30 mg QHS JOHANN Administration Oxycodone/Acetaminophen 1 tab 12/22/20 13:31 12/25/20 22:28 Oxycodone /Acetaminophen 5-325mg Tab PO 1 tab Q6H PRN Administration Pain, Moderate (4-6) Pantoprazole Sodium 40 mg 12/13/20 10:00 12/26/20 10:09 Pantoprazole 40 Mg Tab PO 40 mg QDAY JOHANN Administration Spironolactone 25 mg 12/13/20 10:00 12/26/20 10:08 Spironolactone 25 Mg Tab PO 25 mg QDAY JOHANN Administration Tamsulosin HCl 0.4 mg 12/19/20 22:00 12/26/20 22:17 Tamsulosin 0.4 Mg Cap PO 0.4 mg QHS JOHANN Administration Nutrition/Malnutrition Assess - Dietary Evaluation Nutrition/Malnutrition Findings: Nutrition Notes Start: 12/25/20 12:46 Freq: Status: Active Protocol: Document 12/25/20 12:46 (Rec: 12/25/20 12:51 [id number]) Nutrition Notes Need for Assessment generated from: LOS Initial or Follow up Brief Note Current Diagnosis Coronary Artery Disease, Hypertension,Heart Failure, Stroke Current Diet Pureed Labs/Tests Reviewed Pertinent Medications Reviewed Height 6 ft 3 in Weight 74.1 kg [place] Body Weight (kg) 89.09 BMI 20.4 Subjective/Other Information Screen for LOS. Pt reports eating 50-100% of meals. Pt diet was changed to pureed today. Burn Absent Trauma Absent Difficulty In Chewing Current % PO Fair (50-74%) Minimum of two criteria No physical signs of malnutrition #1 Nutrition Diagnosis Inadequate oral intake Etiology unknown As Evidenced by Signs and Symptoms pt eating 75% of meals Is patient on ventilator? No Is Patient Ambulatory and/or Out of Bed No REE-([facility]-confined to bed) 1962.912 Calculation Used for Recommendations [facility] Additional Notes Protein: (0.8-1g/kg) 59-74g Fluid: 1 ml/kcal Nutrition Intervention Change Diet Order: Continue Add Supplement/Snack (indicate name/kcal Ensure Enlive daily /protein ) Provides kCal: 350 Provides Protein (gm) 20 Goal #1 Meet at least 80% of protein and energy needs via PO and ONS intaks Anticipated Discharge Needs: Unable to determine at this time Follow-Up By: 12/27/20 Additional Comments FU for intakes and ONS tolerance
[2020-12-27] MEDS: PANTOPRAZOLE 40 MG TAB PO SCH (10:28)
[2020-12-27] MEDS: ASPIRIN EC 81 MG TAB PO SCH (10:28)
[2020-12-27] MEDS: carvediloL 3.125 MG TAB PO SCH (10:28)
[2020-12-27] MEDS: APIXABAN 5 MG TAB PO SCH ×2 (10:28→21:41)
[2020-12-27] MEDS: FLUoxetine 10 MG TAB PO SCH (10:28)
[2020-12-27] MEDS: AMIODARONE 200 MG TAB PO SCH ×2 (10:29→21:41)
[2020-12-27] MEDS: SPIRONOLACTONE 25 MG TAB PO SCH (10:29)
[2020-12-27] MEDS: FUROSEMIDE 40 MG TAB PO SCH (10:29)
[2020-12-27] MEDS: LISINOPRIL 10 MG TAB PO SCH (10:30)
[2020-12-27] MEDS ORDERED: carvediloL 3.125 MG TAB PO SCH (13:28)
--- NOTE | 2020-12-27 13:29 | Progress Note ---
Assessment and Plan Telemetry reviewed: Sinus tach 104 with frequent PACs. No events #Afib * Anticoagulated with Eliquis 5 mg twice daily * Optimize rate control: Reduce amiodarone to 100 mg p.o. twice daily. Increase Coreg to 6.25 mg p.o. twice daily. * Continue to monitor on telemetry. #Chronic HFrEF in setting of Cardiomyopathy * Echocardiogram reviewed: 12/20/2020 - mild concentric LVH, EF 30-35%, mild diastolic dysfxn, hypokinetic septum & inferior wall, no evidence of PFO * Patient is routinely followed by [facility]. He reports that "Dr Stein" originally ordered LifeVest placement for the patient, but that approximately 3 to 4 months ago a "Dr. Grant" told him it was no longer indicated. Patient has been without LifeVest for approximately 3 months. Continue to monitor on telemetry. Recommend to follow-up with [facility]. * Continue current cardiac regimen of ASA 81 mg, Coreg 6.25 mg twice daily, Lasix 40 mg p.o. daily, atorvastatin 80 mg nightly, Imdur 30 mg daily * Consult request for outpatient cardiac rehab placed #Coronary Artery Disease, hx Coronary Artery Stent * [facility] reviewed: 04/2020 - left main patent, LAD stent patent, LCx distal 95%, RCA stents patent, severe LV dysfunction #DVT prophylaxis * On Eliquis Patient is currently in stable cardiac status. Continue to monitor on telemetry. Patient may discharge from cardiology standpoint, pending appropriate placement. Will follow. Patient should follow-up with primary cardiology: [facility] within 1 to 2 weeks of discharge. This patient was seen in conjunction with Dr Emil Del Toro who agrees with this assessment and plan of care. - Patient Problems (1) Dementia Current Visit: Yes Status: Acute (2) Atrial fibrillation Current Visit: Yes Status: Chronic Qualifiers: Atrial fibrillation type: paroxysmal Qualified Code(s): I48.0 - Paroxysmal atrial fibrillation (3) CHF (congestive heart failure) Current Visit: Yes Status: Chronic Qualifiers: Heart failure type: combined systolic and diastolic (4) CVA (cerebral vascular accident) Current Visit: Yes Status: Chronic Qualifiers: Precerebral and cerebral artery: middle cerebral artery Laterality of affected vessel: right (5) Chronic HFrEF (heart failure with reduced ejection fraction) Current Visit: Yes Status: Chronic (6) Coronary artery disease Current Visit: Yes Status: Chronic Qualifiers: Coronary Disease-Associated Artery/Lesion type: [place] artery [place] vs. transplanted heart: [place] heart Associated angina: with stable angina Qualified Code(s): I25.118 - Atherosclerotic heart disease of [place] coronary artery with other forms of angina pectoris (7) History of ischemic cardiomyopathy Current Visit: Yes Status: Chronic (8) Hyperlipidemia Current Visit: Yes Status: Chronic Qualifiers: Hyperlipidemia type: mixed hyperlipidemia Qualified Code(s): E78.2 - Mixed hyperlipidemia (9) Hypertension Current Visit: Yes Status: Chronic Qualifiers: Hypertension type: essential hypertension Qualified Code(s): I10 - Essential (primary) hypertension (10) Ischemic cardiomyopathy Current Visit: Yes Status: Chronic (11) Lupus Current Visit: Yes Status: Chronic (12) Stented coronary artery Current Visit: Yes Status: Chronic (13) Uses LifeVest defibrillator Current Visit: Yes Status: Chronic (14) Acute encephalopathy Current Visit: Yes Status: Resolved Subjective Date of service: 12/27/20 Principal diagnosis: AMS Interval history: Patient resting comfortably in bed. No shortness of breath or chest pain overnight. Telemetry reviewed: Sinus tach 109 with occasional PJCs. No events Objective Last Vital Signs Temp 98.4 F 12/27/20 07:52 Pulse 102 H 12/27/20 12:00 Resp 20 12/27/20 07:52 BP 143/96 12/27/20 07:52 Pulse Ox 99 12/27/20 07:52 - Physical Examination General: No Apparent Distress HEENT: Positive: EOMI, Normocephaly, Mucus Membranes Moist Neck: Positive: neck supple, trachea midline. Negative: JVD/HJR Cardiac: Positive: Reg Rate and Rhythm, S1/S2 Lungs: Positive: Normal Exam, Normal Breath Sounds Neuro: Positive: Grossly Intact, Weakness Abdomen: Positive: Soft. Negative: Tender Skin: Negative: Rash Musculoskeletal: No Pain Extremities: Present: upper extr. pulses, lower extr. pulses. Absent: edema - Labs and Meds CBC 12/27/20 Range/Units 05:10 WBC 6.0 (4.5-11.0) K/mm3 RBC 3.56 L (3.65-5.03) M/mm3 Hgb 11.3 L (11.8-15.2) gm/dl Hct 33.0 L (35.5-45.6) % Plt Count 195 (140-440) K/mm3 Comprehensive Metabolic Panel 12/27/20 Range/Units 05:10 Sodium 133 L (137-145) mmol/L Potassium 3.9 (3.6-5.0) mmol/L Chloride 98.5 (98-107) mmol/L Carbon Dioxide 25 (22-30) mmol/L BUN 13 (9-20) mg/dL Creatinine 0.9 (0.8-1.3) mg/dL Glucose 100 (75-100) mg/dL Calcium 9.0 (8.4-10.2) mg/dL - Imaging and Cardiology EKG: report reviewed, image reviewed Echo: report reviewed (12/20/2020 - mild concentric LVH, EF 30-35%, mild diastolic dysfxn, hypokinetic septum & inferior wall, no evidence of PFO), other (12/02/2020 - mod concentric LVH, EF 55-60%, dyskinetic apex LV wall, grade I diastolic dysfxn, LA mildly dilated, no evidence of PFO, mild-mod TR, mild pulm HTN) Cardiac cath: report reviewed (04/2020 - left main patent, LAD stent patent, LCx distal 95%, RCA stents patent, severe LV dysfunction) - Telemetry EKG Rhythm: Sinus Tachycardia - EKG Sinus rhythms and dysrhythmias: sinus tachycardia Repolarization changes or abnormalities: nonspecific abnormality, ST segment, and/or T wave Myocardial infarction: inferior OR (old age inde
[2020-12-27] MEDS: carvediloL 6.25 MG TAB PO SCH ×2 (14:20→21:42)
--- NOTE | 2020-12-27 14:54 | Cat Scan Report ---
CT ABDOMEN AND PELVIS WITHOUT CONTRAST INDICATION / CLINICAL INFORMATION: Abdominal pain. TECHNIQUE: Axial CT images were obtained through the abdomen and pelvis without IV contrast. Sagittal and garcia l reformatted images. All CT scans at this location are performed using CT dose reduction for ALARA b y means of automated exposure control. COMPARISON: None available. FINDINGS: LOWER CHEST: The visualized lung bases are clear. Normal heart size. Small hiatal hernia is noted. LIVER: No significant abnormality. GALLBLADDER: No significant abnormality. BILE DUCTS: No significant abnormality. PANCREAS: No significant abnormality. SPLEEN: No significant abnormality. ADRENALS: No significant abnormality. RIGHT KIDNEY and URETER: No significant abnormality. LEFT KIDNEY and URETER: No significant abnormality. STOMACH and SMALL BOWEL: No significant abnormality. COLON: There is moderate fecal retention in the colon. No obstruction, focal inflammation or obvious mass. APPENDIX: No significant abnormality. PERITONEUM: No free fluid. No free air. No fluid collection. LYMPH NODES: No significant adenopathy. AORTA and ARTERIES: Mild diffuse aortic and iliac calcifications without aneurysm. IVC and VEINS: No significant abnormality. URINARY BLADDER: No significant abnormality. REPRODUCTIVE ORGANS: No significant abnormality. ADDITIONAL FINDINGS: None. SKELETAL SYSTEM: Mild osteopenia is suspected. Moderate degenerative changes at L5-S1. Previous inter nal fixation of the proximal left femur is noted. Sclerotic changes are identified in the right femor al head consistent with osteonecrosis. IMPRESSION: No acute inflammatory process is identified in the abdomen or pelvis. Constipation. Small hiatal hernia. Skeletal findings as described above. Signer Name: Milton Hernandes Jr, MD Signed: 12/27/2020 2:50 PM Workstation Name: [id number]
--- NOTE | 2020-12-27 15:15 | Vascular Lab Report ---
DUPLEX DOPPLER LOWER EXTREMITY VEINS, BILATERAL INDICATION: Complaints bilateral lower extremity pain. TECHNIQUE: Duplex doppler imaging was performed through the veins of both lower extremities using venous jill mandy and other maneuvers. COMPARISON: No relevant prior imaging study available. FINDINGS: Right Common femoral vein: Negative. Right Superficial femoral vein: Negative. Right Popliteal vein: Negative. Right Calf veins: Negative. Left Common femoral vein: Negative. Left Superficial femoral vein: Negative. Left Popliteal vein: Negative. Left Calf veins: Negative. Additional findings: None.. IMPRESSION: 1. No sonographic evidence for DVT in either lower extremity. Signer Name: Loc Clemons MD Signed: 12/27/2020 3:11 PM Workstation Name: [id number]
[2020-12-27] MEDS: MELATONIN 5 MG TAB PO SCH (21:39)
[2020-12-27] MEDS: TAMSULOSIN 0.4 MG CAP PO SCH (21:41)
[2020-12-28] MEDS: oxyCODONE /ACETAMINOPHEN 5-325MG TAB PO PRN (03:29)
[2020-12-28] MEDS: SODIUM CHLORIDE 0.9% 1000 ML 1,000 ML IV SCH (03:30)
--- NOTE | 2020-12-28 08:15 | Progress Note ---
Assessment and Plan Assessment and plan: Acute metabolic encephalopathy Resolved Patient has underlying vascular dementia MRI brain shows no acute CVA-patient has remote CVA on the right Strokelike symptoms Has a history of CVA, and was noted to have some motor dysfunction in the ER. MRI brain negative for any acute CVA MRI cervical shows multiple disc bulges involving cervical vertebrae most prominent at C5-C6 level Neurology consulted Cont. on aspirin and statins PT recommends rehab #PRIYA Secondary to dehydration -somewhat inappropriately Renal function improving Nephrology following #Atrial fibrillation Anticoagulation Patient had a 3.5-second pause so cardiology was consulted Beta-taj was adjusted, patient noted to have nonsustained V. tach Cardiology to adjust beta-taj #Coronary artery disease Continue aspirin Coreg Eliquis #Hypertension Adjust blood pressure medications #Congestive heart failure Stable #Hyperlipidemia CODE STATUS DVT prophylaxis-on Eliquis Disposition-patient is stable for discharge. Cleared by neurology and cardiology but needs placement Hospital course. 12/19. He is stable. BP better. Plan to get MRI brain to rule out CVA. His renal function is better. Cr 2.1 this AM. patient also needs cervical MRI to rule out severe degenerative disease. Echocardiogram, ultrasound carotids. Neurology evaluation appreciated 12/20. Renal function is better today. MRI brain shows no acute CVA -he has remote right-sided CVA. Ultrasound carotid and echocardiogram still pending. Cervical MRI shows degenerative disease involving the C3-C4, C5-C6, C6-C7. There is marked disc bulge at the C5, C6 level causing severe foraminal narrowing. Will consult neurosurgery for evaluation. He was found to have a 3.5 s pause on telemetry. Cardiology was consulted. His beta taj was held. 12/21. Spoke with neurosurgery - changes are not acute. he will be followed up in the office. Cardiology has adjusted his medications, he had nonsustained VT . He is stable to be discharged. He had a PT evaluation and will be going to a facility 12/22. Echocardiogram revealed left ventricular size normal with mild concentric left ventricular hypertrophy. Mild diastolic dysfunction with impaired relaxatio n. LVEF is 30 to 35%. Saline bubble contrast injection does not demonstrate PFO. Carotid ultrasound negative. PRIYA resolved with Cr. 1.1. Neuro recommends maintain eliquis and ASA 12/23. Patient with no new issues overnight. Awaiting placement. 12/24. Patient with no new issues overnight. Awaiting placement. 12/25. Patient with no new issues overnight. Awaiting placement. Cardiology cleared the pt. for d/c Follow-up with Dr. Diaz on 01/11/2021 @ 2:45pm ([phone]). Pt was previously fitted with LifeVest. Ultimately plan for ICD implantation to be arranged as an outpatient. Cr reamins stable 12/26; pending placement. Patient was alert and oriented. Patient was not on oxygen. Did not have any shortness of breath or chest pain. Patient has generalized weakness. Patient is pending placement. 12/27/2020; patient stable and pending placement. Patient with abdominal pain and lower extremity pain. I ordered bilateral Doppler ultrasound of the lower extremities, CT abdomen pelvis without contrast. 12/28/2020; and stable and pending for placement. Doppler ultrasound of the lower extremities was negative for DVT, CT abdomen pelvis was unremarkable. History Interval history: Patient was seen and evaluated this morning Generalized weakness Patient was complaining abdominal pain and bilateral lower extremity pain Hospitalist Physical - Physical exam Narrative exam: Not in cardiopulmonary distress. The patient appeared chronically sick looking Vital signs as documented. Head exam is unremarkable. No scleral icterus . Neck is without jugular venous distension, thyromegaly, or carotid bruits. Lungs are clear to auscultation. Cardiac exam reveals regular rate and Rhythm. Abdominal exam reveals left upper quadrant pain. Extremities are nonedematous and both femoral and pedal pulses are normal. 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 No focal weakness. - Constitutional Vitals: Temp Pulse Resp BP Pulse Ox 98.0 F 67 17 96/71 97 12/28/20 03:08 12/28/20 07:55 12/28/20 07:55 12/28/20 03:08 12/28/20 07:55 General appearance: Present: no acute distress, well-nourished HEART Score - HEART Score Age: 45-65 Risk factors: > 3 risk factors or hx of atherosclerotic disease Troponin: Troponin T 0.011 ng/mL (0.00-0.029) 12/12/20 14:01 Troponin: < normal limit - Critical Actions Critical Actions: 0-3 pts:0.9-1.7%risk of adverse cardiac event.Candidate for discharge Results - Labs CBC & Chem 7: 12/27/20 05:10 12/27/20 05:10 Labs: Laboratory Last Values WBC 6.0 K/mm3 (4.5-11.0) 12/27/20 05:10 RBC 3.56 M/mm3 (3.65-5.03) L 12/27/20 05:10 Hgb 11.3 gm/dl (11.8-15.2) L 12/27/20 05:10 Hct 33.0 % (35.5-45.6) L 12/27/20 05:10 MCV 93 fl (84-94) 12/27/20 05:10 MCH 32 pg (28-32) 12/27/20 05:10 MCHC 34 % (32-34) 12/27/20 05:10 RDW 14.2 % (13.2-15.2) 12/27/20 05:10 Plt Count 195 K/mm3 (140-440) 12/27/20 05:10 Lymph % (Auto) 29.7 % (13.4-35.0) 12/25/20 04:55 [place] % (Auto) 14.4 % (0.0-7.3) H 12/25/20 04:55 Eos % (Auto) 3.4 % (0.0-4.3) 12/25/20 04:55 Baso % (Auto) 1.0 % (0.0-1.8) 12/25/20 04:55 Lymph # (Auto) 1.1 K/mm3 (1.2-5.4) L 12/25/20 04:55 [place] # (Auto) 0.5 K/mm3 (0.0-0.8) 12/25/20 04:55 Eos # (Auto) 0.1 K/mm3 (0.0-0.4) 12/25/20 04:55 Baso # (Auto) 0.0 K/mm3 (0.0-0.1) 12/25/20 04:55 Add Manual Diff Complete 12/12/20 14:01 Total Counted 100 12/12/20 14:01 Seg Neutrophils % 51.5 % (40.0-70.0) 12/25/20 04:55 Seg Neuts % (Manual) 67.0 % (40.0-70.0) 12/12/20 14:01 Lymphocytes % (Manual) 22.0 % (13.4-35.0) 12/12/20 14:01 Monocytes % (Manual) 9.0 % (0.0-7.3) H 12/12/20 14:01 Eosinophils % (Manual) 2.0 % (0.0-4.3) 12/12/20 14:01 Promyelocytes % 0 % 12/12/20 14:01 Nucleated RBC % Not Reportable 12/12/20 14:01 Seg Neutrophils # 1.9 K/mm3 (1.8-7.7) 12/25/20 04:55 Seg Neutrophils # Man 2.7 K/mm3 (1.8-7.7) 12/12/20 14:01 Band Neutrophils # 0.0 K/mm3 12/12/20 14:01 Lymphocytes # (Manual) 0.9 K/mm3 (1.2-5.4) L 12/12/20 14:01 Abs React Lymphs (Man) 0.0 K/mm3 12/12/20 14:01 Monocytes # (Manual) 0.4 K/mm3 (0.0-0.8) 12/12/20 14:01 Eosinophils # (Manual) 0.1 K/mm3 (0.0-0.4) 12/12/20 14:01 Basophils # (Manual) 0.0 K/mm3 (0.0-0.1) 12/12/20 14:01 Metamyelocytes # 0.0 K/mm3 12/12/20 14:01 Myelocytes # 0.0 K/mm3 12/12/20 14:01 Promyelocytes # 0.0 K/mm3 12/12/20 14:01 Blast Cells # 0.0 K/mm3 12/12/20 14:01 WBC Morphology Not Reportable 12/12/20 14:01 Hypersegmented Neuts Not Reportable 12/12/20 14:01 Hyposegmented Neuts Not Reportable 12/12/20 14:01 Hypogranular Neuts Not Reportable 12/12/20 14:01 Smudge Cells Not Reportable 12/12/20 14:01 Toxic Granulation Not Reportable 12/12/20 14:01 Toxic Vacuolation Not Reportable 12/12/20 14:01 Dohle Bodies Not Reportable 12/12/20 14:01 Pelger-Huet Anomaly Not Reportable 12/12/20 14:01 Komal Rods Not Reportable 12/12/20 14:01 Platelet Estimate Consistent w auto 12/12/20 14:01 Clumped Platelets Not Reportable 12/12/20 14:01 Plt Clumps, EDTA Not Reportable 12/12/20 14:01 Large Platelets Not Reportable 12/12/20 14:01 Giant Platelets Not Reportable 12/12/20 14:01 Platelet Satelliting Not Reportable 12/12/20 14:01 Plt Morphology Comment Not Reportable 12/12/20 14:01 RBC Morphology Not Reportable 12/12/20 14:01 Dimorphic RBCs Not Reportable 12/12/20 14:01 Polychromasia Not Reportable 12/12/20 14:01 Hypochromasia Not Reportable 12/12/20 14:01 Poikilocytosis Not Reportable 12/12/20 14:01 Anisocytosis Not Reportable 12/12/20 14:01 Microcytosis Not Reportable 12/12/20 14:01 Macrocytosis Not Reportable 12/12/20 14:01 Spherocytes Not Reportable 12/12/20 14:01 Pappenheimer Bodies Not Reportable 12/12/20 14:01 Sickle Cells Not Reportable 12/12/20 14:01 Target Cells Not Reportable 12/12/20 14:01 Tear Drop Cells Not Reportable 12/12/20 14:01 Ovalocytes Few 12/12/20 14:01 Helmet Cells Not Reportable 12/12/20 14:01 [place] Bodies Not Reportable 12/12/20 14:01 [place] Rings Not Reportable 12/12/20 14:01 [place] Cells Not Reportable 12/12/20 14:01 Bite Cells Not Reportable 12/12/20 14:01 Crenated Cell Not Reportable 12/12/20 14:01 Elliptocytes Not Reportable 12/12/20 14:01 Acanthocytes (Spur) Not Reportable 12/12/20 14:01 Rouleaux Not Reportable 12/12/20 14:01 Hemoglobin C Crystals Not Reportable 12/12/20 14:01 Schistocytes Not Reportable 12/12/20 14:01 Malaria parasites Not Reportable 12/12/20 14:01 [place] Bodies Not Reportable 12/12/20 14:01 Hem Pathologist Commnt No 12/12/20 14:01 Sodium 133 mmol/L (137-145) L 12/27/20 05:10 Potassium 3.9 mmol/L (3.6-5.0) 12/27/20 05:10 Chloride 98.5 mmol/L (98-107) 12/27/20 05:10 Carbon Dioxide 25 mmol/L (22-30) 12/27/20 05:10 Anion Gap 13 mmol/L 12/27/20 05:10 BUN 13 mg/dL (9-20) 12/27/20 05:10 Creatinine 0.9 mg/dL (0.8-1.3) 12/27/20 05:10 Estimated GFR > 60 ml/min 12/27/20 05:10 BUN/Creatinine Ratio 14 % 12/27/20 05:10 Glucose 100 mg/dL (75-100) 12/27/20 05:10 POC Glucose 113 mg/dL (70-105) H 12/27/20 11:52 Lactic Acid 1.20 mmol/L (0.7-2.0) 12/18/20 14:35 Calcium 9.0 mg/dL (8.4-10.2) 12/27/20 05:10 Magnesium 2.20 mg/dL (1.7-2.3) 12/20/20 17:50 Total Bilirubin 0.60 mg/dL (0.1-1.2) 12/25/20 04:55 AST 50 units/L (5-40) H 12/25/20 04:55 ALT 24 units/L (7-56) 12/25/20 04:55 Alkaline Phosphatase 100 units/L (35-129) 12/25/20 04:55 Troponin T 0.011 ng/mL (0.00-0.029) 12/12/20 14:01 Total Protein 6.6 g/dL (6.3-8.2) 12/25/20 04:55 Albumin 3.0 g/dL (3.9-5) L 12/25/20 04:55 Albumin/Globulin Ratio 0.8 % 12/25/20 04:55 Lipase 97 units/L (13-60) H 12/27/20 13:23 Urine Color Yellow (Yellow) 12/19/20 13:53 Urine Turbidity Clear (Clear) 12/19/20 13:53 Urine pH 6.0 (5.0-7.0) 12/19/20 13:53 Ur Specific [place] 1.013 (1.003-1.030) 12/19/20 13:53 Urine Protein <15 mg/dl mg/dL (Negative) 12/19/20 13:53 Urine Glucose (UA) Neg mg/dL (Negative) 12/19/20 13:53 Urine Ketones Neg mg/dL (Negative) 12/19/20 13:53 Urine Blood Mod (Negative) 12/19/20 13:53 Urine Nitrite Neg (Negative) 12/19/20 13:53 Urine Bilirubin Neg (Negative) 12/19/20 13:53 Urine Urobilinogen < 2.0 mg/dL (<2.0) 12/19/20 13:53 Ur Leukocyte Esterase Neg (Negative) 12/19/20 13:53 Urine WBC (Auto) 2.0 /HPF (0.0-6.0) 12/19/20 13:53 Urine RBC (Auto) 2.0 /HPF (0.0-6.0) 12/19/20 13:53 U Epithel Cells (Auto) < 1.0 /HPF (0-13.0) 12/19/20 13:53 Hyaline Casts 1 /LPF 12/12/20 21:04 Urine Mucus Few /HPF 12/19/20 13:53 Urine Eosinophils None seen (None Seen) 12/19/20 13:53 Urine Creatinine 79.0 mg/dL (0.1-20.0) H 12/19/20 13:53 Urine Sodium 51 mmol/L 12/19/20 13:53 Urine Chloride 36.0 mmolL (110-250) L 12/19/20 13:53 Urine Urea Nitrogen 949 12/19/20 13:53 Urine Opiates Screen Negative 12/12/20 21:04 Urine Methadone Screen Negative 12/12/20 21:04 Ur Barbiturates Screen Positive 12/12/20 21:04 Ur Phencyclidine Scrn Negative 12/12/20 21:04 Ur Amphetamines Screen Negative 12/12/20 21:04 U Benzodiazepines Scrn Negative 12/12/20 21:04 Urine Cocaine Screen Negative 12/12/20 21:04 U Marijuana (THC) Screen Negative 12/12/20 21:04 Drugs of Abuse Note Disclamer 12/12/20 21:04 Plasma/Serum Alcohol < 0.01 % (0-0.07) 12/12/20 14:00 Coronavirus (PCR) Negative (Negative) 12/16/20 11:18 Funez/IV: Voiding Method Condom Catheter Active Medications - Current Medications Current Medications: Generic Name Dose Route Start Last Admin Trade Name Freq PRN Reason Stop Dose Admin Acetaminophen 650 mg 12/13/20 11:49 12/22/20 21:14 Acetaminophen 325 Mg Tab PO 650 mg Q6HR PRN Administration PAIN Amiodarone HCl 100 mg 12/27/20 10:00 12/27/20 21:41 Amiodarone 200 Mg Tab PO 100 mg BID JOHANN Administration Apixaban 5 mg 12/19/20 10:00 12/27/20 21:41 Apixaban 5 Mg Tab PO 5 mg Q12HR JOHANN Administration Aspirin 81 mg 12/19/20 10:00 12/27/20 10:28 Aspirin Ec 81 Mg Tab PO 81 mg DAILY JOHANN Administration Atorvastatin Calcium 80 mg 12/13/20 22:00 12/27/20 21:40 Atorvastatin 40 Mg Tab PO 80 mg QHS JOHANN Administration Carvedilol 6.25 mg 12/27/20 14:00 12/27/20 21:42 Carvedilol 6.25 Mg Tab PO 6.25 mg BID JOHANN Administration Diphenhydramine HCl 50 mg 12/13/20 11:49 12/24/20 21:10 Diphenhydramine 25 Mg Cap PO 50 mg QHS PRN Administration Insomnia Fluoxetine HCl 10 mg 12/19/20 10:00 12/27/20 10:28 Fluoxetine 10 Mg Tab PO 10 mg QDAY JOHANN Administration Furosemide 40 mg 12/13/20 10:00 12/27/20 10:29 Furosemide 40 Mg Tab PO 40 mg QDAY JOHANN Administration Haloperidol Lactate 10 mg 12/12/20 22:57 12/24/20 21:09 Haloperidol Lactate 5 Mg/1 Ml Inj IM 10 mg Q8H PRN Administration Agitation Sodium Chloride 1,000 mls @ 75 mls/hr 12/22/20 07:00 12/28/20 03:30 Nacl 0.9% 1000 Ml IV 75 mls/hr DIRECT JOHANN Administration Isosorbide Mononitrate 30 mg 12/13/20 10:00 12/27/20 10:29 Isosorbide Mononitrate Er 30 Mg Tab PO 30 mg DAILY JOHANN Administration Lisinopril 10 mg 12/21/20 10:00 12/27/20 10:30 Lisinopril 10 Mg Tab PO 10 mg QDAY JOHANN Administration Melatonin 30 mg 12/19/20 22:00 12/27/20 21:39 Melatonin 5 Mg Tab PO 30 mg QHS JOHANN Administration Oxycodone/Acetaminophen 1 tab 12/22/20 13:31 12/28/20 03:29 Oxycodone /Acetaminophen 5-325mg Tab PO 1 tab Q6H PRN Administration Pain, Moderate (4-6) Pantoprazole Sodium 40 mg 12/13/20 10:00 12/27/20 10:28 Pantoprazole 40 Mg Tab PO 40 mg QDAY JOHANN Administration Polyethylene Glycol 17 gm 12/28/20 08:09 Polyethylene Glycol 3350 17 Gm Powder PO BID PRN Constipation Spironolactone 25 mg 12/13/20 10:00 12/27/20 10:29 Spironolactone 25 Mg Tab PO 25 mg QDAY JOHANN Administration Tamsulosin HCl 0.4 mg 12/19/20 22:00 12/27/20 21:41 Tamsulosin 0.4 Mg Cap PO 0.4 mg QHS JOHANN Administration Nutrition/Malnutrition Assess - Dietary Evaluation Nutrition/Malnutrition Findings: Nutrition Notes Start: 12/25/20 12:46 Freq: Status: Active Protocol: Document 12/27/20 12:32 (Rec: 12/27/20 12:35 [email or web address]) Nutrition Notes Initial or Follow up Reassessment Current Diagnosis Coronary Artery Disease, Hypertension,Heart Failure, Stroke Current Diet Pureed Labs/Tests Na 133 Pertinent Medications Lasix NS at 75 ml/hr Height 6 ft 3 in Weight 73.5 kg [place] Body Weight (kg) 89.09 BMI 20.2 Weight Status Appropriate Subjective/Other Information FU for intakes. Pt was cleared for regular diet however, would like pureed due to tongue pain which he states is better today. Pt eating 25% of meals and 100% of ONS. Percent of energy/protein needs met: 41%/67% Burn Absent Trauma Absent Difficulty In Chewing Current % PO Good (75-100%) Minimum of two criteria No physical signs of malnutrition #1 Nutrition Diagnosis Inadequate oral intake Etiology tongue pain As Evidenced by Signs and Symptoms pt meeting 41%/67% of needs Diagnosis Progress(for reassessment Worsened documentation) Is patient on ventilator? No Is Patient Ambulatory and/or Out of Bed No REE-([facility]-confined to bed) 1954.724 Calculation Used for Recommendations [facility] Additional Notes Protein: (0.8-1g/kg) 59-74g Fluid: 1 ml/kcal Nutrition Intervention Change Diet Order: Continue Add Supplement/Snack (indicate name/kcal Ensure Enlive TID /protein ) Provides kCal: 1,050 Provides Protein (gm) 60 Goal #1 Meet at least 80% of protein and energy needs via PO and ONS intaks Anticipated Discharge Needs: Cardiac Follow-Up By: 12/29/20 Additional Comments FU for intakes
[2020-12-28] MEDS ORDERED: POLYETHYLENE GLYCOL 3350 17 GM POWDER PO PRN (09:00)
[2020-12-28] MEDS: APIXABAN 5 MG TAB PO SCH ×2 (09:29→21:34)
[2020-12-28] MEDS: ASPIRIN EC 81 MG TAB PO SCH (09:29)
[2020-12-28] MEDS: FLUoxetine 10 MG TAB PO SCH (09:29)
[2020-12-28] MEDS: AMIODARONE 200 MG TAB PO SCH ×2 (09:29→21:34)
[2020-12-28] MEDS: PANTOPRAZOLE 40 MG TAB PO SCH (09:30)
[2020-12-28] MEDS: FUROSEMIDE 40 MG TAB PO SCH (09:30)
[2020-12-28] MEDS: SPIRONOLACTONE 25 MG TAB PO SCH (09:30)
[2020-12-28] MEDS: LISINOPRIL 10 MG TAB PO SCH (09:32)
[2020-12-28] MEDS: carvediloL 6.25 MG TAB PO SCH ×2 (09:33→21:35)
--- NOTE | 2020-12-28 16:34 | Progress Note ---
Assessment and Plan Continue present cardiac mgmt. Pt remains stable for discharge from a Cardiology perspective. Awaiting placement. Follow-up with Dr. Diaz on 01/11/2021 @ 2:45pm ([phone]). Pt was previously fitted with LifeVest. Ultimately plan for ICD implantation to be arranged as an outpatient. Pt seen in conjunction with Dr. Quiroz, who agrees with the assessment and plan of care. - Patient Problems (1) Acute encephalopathy Current Visit: Yes Status: Resolved (2) CVA (cerebral vascular accident) Current Visit: Yes Status: Chronic Qualifiers: Precerebral and cerebral artery: middle cerebral artery Laterality of affected vessel: right (3) CVA (cerebral vascular accident) Current Visit: Yes Status: Chronic Qualifiers: Precerebral and cerebral artery: posterior cerebral artery Laterality of affected vessel: right (4) Seizure disorder Current Visit: Yes Status: Chronic (5) Atrial fibrillation Current Visit: Yes Status: Chronic Qualifiers: Atrial fibrillation type: paroxysmal Qualified Code(s): I48.0 - Paroxysmal atrial fibrillation (6) Sinus pause Current Visit: Yes Status: Resolved (7) NSVT (nonsustained ventricular tachycardia) Current Visit: Yes Status: Chronic (8) Uses LifeVest defibrillator Current Visit: Yes Status: Chronic (9) Coronary artery disease Current Visit: Yes Status: Chronic Qualifiers: Coronary Disease-Associated Artery/Lesion type: [place] artery [place] vs. transplanted heart: [place] heart Associated angina: with stable angina Qualified Code(s): I25.118 - Atherosclerotic heart disease of [place] coronary artery with other forms of angina pectoris (10) Stented coronary artery Current Visit: Yes Status: Chronic (11) Ischemic cardiomyopathy Current Visit: Yes Status: Chronic (12) Chronic HFrEF (heart failure with reduced ejection fraction) Current Visit: Yes Status: Chronic (13) Hypertension Current Visit: Yes Status: Chronic Qualifiers: Hypertension type: essential hypertension Qualified Code(s): I10 - Essential (primary) hypertension (14) Hyperlipidemia Current Visit: Yes Status: Chronic Qualifiers: Hyperlipidemia type: mixed hyperlipidemia Qualified Code(s): E78.2 - Mixed hyperlipidemia (15) Lupus Current Visit: Yes Status: Chronic (16) Hepatitis C Current Visit: No Status: Chronic (17) Recurrent falls Current Visit: Yes Status: Chronic Subjective Date of service: 12/28/20 Principal diagnosis: AMS Interval history: No cardiac complaints. Tele reviewed - SR 70-80s w/PACs, intermittent AF noted. Objective Last Vital Signs Temp 97.8 F 12/28/20 11:12 Pulse 79 12/28/20 11:12 Resp 18 12/28/20 11:12 BP 133/69 12/28/20 11:12 Pulse Ox 91 12/28/20 11:12 - Physical Examination General: No Apparent Distress HEENT: Positive: EOMI, Normocephaly, Mucus Membranes Moist Neck: Positive: neck supple, trachea midline. Negative: JVD/HJR Cardiac: Positive: Reg Rate and Rhythm Lungs: Positive: clear to auscultation (bilaterally) Neuro: Positive: Grossly Intact, Weakness Abdomen: Positive: Soft. Negative: Tender Skin: Negative: Rash Musculoskeletal: No Pain Extremities: Present: lower extr. pulses. Absent: edema - Imaging and Cardiology EKG: report reviewed, image reviewed Echo: report reviewed (12/20/2020 - mild concentric LVH, EF 30-35%, mild diastolic dysfxn, hypokinetic septum & inferior wall, no evidence of PFO), other (12/02/2020 - mod concentric LVH, EF 55-60%, dyskinetic apex LV wall, grade I diastolic dysfxn, LA mildly dilated, no evidence of PFO, mild-mod TR, mild pulm HTN) Cardiac cath: report reviewed (04/2020 - left main patent, LAD stent patent, LCx distal 95%, RCA stents patent, severe LV dysfunction) - Telemetry EKG Rhythm: Sinus Rhythm - EKG Sinus rhythms and dysrhythmias: sinus tachycardia Repolarization changes or abnormalities: nonspecific abnormality, ST segment, and/or T wave Myocardial infarction: inferior IL (old age inde
[2020-12-28] MEDS: MELATONIN 5 MG TAB PO SCH (21:34)
[2020-12-28] MEDS: TAMSULOSIN 0.4 MG CAP PO SCH (21:34)
--- NOTE | 2020-12-29 08:12 | Progress Note ---
Assessment and Plan Assessment and plan: Acute metabolic encephalopathy Resolved Patient has underlying vascular dementia MRI brain shows no acute CVA-patient has remote CVA on the right Strokelike symptoms Has a history of CVA, and was noted to have some motor dysfunction in the ER. MRI brain negative for any acute CVA MRI cervical shows multiple disc bulges involving cervical vertebrae most prominent at C5-C6 level Neurology consulted Cont. on aspirin and statins PT recommends rehab #PRIYA Secondary to dehydration -somewhat inappropriately Renal function improving Nephrology following #Atrial fibrillation Anticoagulation Patient had a 3.5-second pause so cardiology was consulted Beta-taj was adjusted, patient noted to have nonsustained V. tach Cardiology to adjust beta-taj #Coronary artery disease Continue aspirin Coreg Eliquis #Hypertension Adjust blood pressure medications #Congestive heart failure Stable #Hyperlipidemia CODE STATUS DVT prophylaxis-on Eliquis Disposition-patient is stable for discharge. Cleared by neurology and cardiology but needs placement Hospital course. 12/19. He is stable. BP better. Plan to get MRI brain to rule out CVA. His renal function is better. Cr 2.1 this AM. patient also needs cervical MRI to rule out severe degenerative disease. Echocardiogram, ultrasound carotids. Neurology evaluation appreciated 12/20. Renal function is better today. MRI brain shows no acute CVA -he has remote right-sided CVA. Ultrasound carotid and echocardiogram still pending. Cervical MRI shows degenerative disease involving the C3-C4, C5-C6, C6-C7. There is marked disc bulge at the C5, C6 level causing severe foraminal narrowing. Will consult neurosurgery for evaluation. He was found to have a 3.5 s pause on telemetry. Cardiology was consulted. His beta taj was held. 12/21. Spoke with neurosurgery - changes are not acute. he will be followed up in the office. Cardiology has adjusted his medications, he had nonsustained VT . He is stable to be discharged. He had a PT evaluation and will be going to a facility 12/22. Echocardiogram revealed left ventricular size normal with mild concentric left ventricular hypertrophy. Mild diastolic dysfunction with impaired relaxatio n. LVEF is 30 to 35%. Saline bubble contrast injection does not demonstrate PFO. Carotid ultrasound negative. PRIYA resolved with Cr. 1.1. Neuro recommends maintain eliquis and ASA 12/23. Patient with no new issues overnight. Awaiting placement. 12/24. Patient with no new issues overnight. Awaiting placement. 12/25. Patient with no new issues overnight. Awaiting placement. Cardiology cleared the pt. for d/c Follow-up with Dr. Diaz on 01/11/2021 @ 2:45pm ([phone]). Pt was previously fitted with LifeVest. Ultimately plan for ICD implantation to be arranged as an outpatient. Cr reamins stable 12/26; pending placement. Patient was alert and oriented. Patient was not on oxygen. Did not have any shortness of breath or chest pain. Patient has generalized weakness. Patient is pending placement. 12/27/2020; patient stable and pending placement. Patient with abdominal pain and lower extremity pain. I ordered bilateral Doppler ultrasound of the lower extremities, CT abdomen pelvis without contrast. 12/28/2020; Patient is stable and pending for placement. Doppler ultrasound of the lower extremities was negative for DVT, CT abdomen pelvis was unremarkable. 12/29/2020; awaiting placement History Interval history: Patient was seen and evaluated this morning Generalized weakness Hospitalist Physical - Physical exam Narrative exam: Not in cardiopulmonary distress. The patient appeared chronically sick looking Vital signs as documented. Head exam is unremarkable. No scleral icterus . Neck is without jugular venous distension, thyromegaly, or carotid bruits. Lungs are clear to auscultation. Cardiac exam reveals regular rate and Rhythm. Abdominal exam reveals left upper quadrant pain. Extremities are nonedematous and both femoral and pedal pulses are normal. MANAGER LPN: Alert and oriented 3. No focal weakness. - Constitutional Vitals: Temp Pulse Resp BP Pulse Ox 98.4 F 52 L 18 156/84 95 12/29/20 05:01 12/29/20 05:01 12/29/20 05:01 12/29/20 05:01 12/29/20 05:01 General appearance: Present: no acute distress, well-nourished HEART Score - HEART Score Age: 45-65 Risk factors: > 3 risk factors or hx of atherosclerotic disease Troponin: Troponin T 0.011 ng/mL (0.00-0.029) 12/12/20 14:01 Troponin: < normal limit - Critical Actions Critical Actions: 0-3 pts:0.9-1.7%risk of adverse cardiac event.Candidate for discharge Results - Labs CBC & Chem 7: 12/27/20 05:10 12/27/20 05:10 Labs: Laboratory Last Values WBC 6.0 K/mm3 (4.5-11.0) 12/27/20 05:10 RBC 3.56 M/mm3 (3.65-5.03) L 12/27/20 05:10 Hgb 11.3 gm/dl (11.8-15.2) L 12/27/20 05:10 Hct 33.0 % (35.5-45.6) L 12/27/20 05:10 MCV 93 fl (84-94) 12/27/20 05:10 MCH 32 pg (28-32) 12/27/20 05:10 MCHC 34 % (32-34) 12/27/20 05:10 RDW 14.2 % (13.2-15.2) 12/27/20 05:10 Plt Count 195 K/mm3 (140-440) 12/27/20 05:10 Lymph % (Auto) 29.7 % (13.4-35.0) 12/25/20 04:55 [place] % (Auto) 14.4 % (0.0-7.3) H 12/25/20 04:55 Eos % (Auto) 3.4 % (0.0-4.3) 12/25/20 04:55 Baso % (Auto) 1.0 % (0.0-1.8) 12/25/20 04:55 Lymph # (Auto) 1.1 K/mm3 (1.2-5.4) L 12/25/20 04:55 [place] # (Auto) 0.5 K/mm3 (0.0-0.8) 12/25/20 04:55 Eos # (Auto) 0.1 K/mm3 (0.0-0.4) 12/25/20 04:55 Baso # (Auto) 0.0 K/mm3 (0.0-0.1) 12/25/20 04:55 Add Manual Diff Complete 12/12/20 14:01 Total Counted 100 12/12/20 14:01 Seg Neutrophils % 51.5 % (40.0-70.0) 12/25/20 04:55 Seg Neuts % (Manual) 67.0 % (40.0-70.0) 12/12/20 14:01 Lymphocytes % (Manual) 22.0 % (13.4-35.0) 12/12/20 14:01 Monocytes % (Manual) 9.0 % (0.0-7.3) H 12/12/20 14:01 Eosinophils % (Manual) 2.0 % (0.0-4.3) 12/12/20 14:01 Promyelocytes % 0 % 12/12/20 14:01 Nucleated RBC % Not Reportable 12/12/20 14:01 Seg Neutrophils # 1.9 K/mm3 (1.8-7.7) 12/25/20 04:55 Seg Neutrophils # Man 2.7 K/mm3 (1.8-7.7) 12/12/20 14:01 Band Neutrophils # 0.0 K/mm3 12/12/20 14:01 Lymphocytes # (Manual) 0.9 K/mm3 (1.2-5.4) L 12/12/20 14:01 Abs React Lymphs (Man) 0.0 K/mm3 12/12/20 14:01 Monocytes # (Manual) 0.4 K/mm3 (0.0-0.8) 12/12/20 14:01 Eosinophils # (Manual) 0.1 K/mm3 (0.0-0.4) 12/12/20 14:01 Basophils # (Manual) 0.0 K/mm3 (0.0-0.1) 12/12/20 14:01 Metamyelocytes # 0.0 K/mm3 12/12/20 14:01 Myelocytes # 0.0 K/mm3 12/12/20 14:01 Promyelocytes # 0.0 K/mm3 12/12/20 14:01 Blast Cells # 0.0 K/mm3 12/12/20 14:01 WBC Morphology Not Reportable 12/12/20 14:01 Hypersegmented Neuts Not Reportable 12/12/20 14:01 Hyposegmented Neuts Not Reportable 12/12/20 14:01 Hypogranular Neuts Not Reportable 12/12/20 14:01 Smudge Cells Not Reportable 12/12/20 14:01 Toxic Granulation Not Reportable 12/12/20 14:01 Toxic Vacuolation Not Reportable 12/12/20 14:01 Dohle Bodies Not Reportable 12/12/20 14:01 Pelger-Huet Anomaly Not Reportable 12/12/20 14:01 Komal Rods Not Reportable 12/12/20 14:01 Platelet Estimate Consistent w auto 12/12/20 14:01 Clumped Platelets Not Reportable 12/12/20 14:01 Plt Clumps, EDTA Not Reportable 12/12/20 14:01 Large Platelets Not Reportable 12/12/20 14:01 Giant Platelets Not Reportable 12/12/20 14:01 Platelet Satelliting Not Reportable 12/12/20 14:01 Plt Morphology Comment Not Reportable 12/12/20 14:01 RBC Morphology Not Reportable 12/12/20 14:01 Dimorphic RBCs Not Reportable 12/12/20 14:01 Polychromasia Not Reportable 12/12/20 14:01 Hypochromasia Not Reportable 12/12/20 14:01 Poikilocytosis Not Reportable 12/12/20 14:01 Anisocytosis Not Reportable 12/12/20 14:01 Microcytosis Not Reportable 12/12/20 14:01 Macrocytosis Not Reportable 12/12/20 14:01 Spherocytes Not Reportable 12/12/20 14:01 Pappenheimer Bodies Not Reportable 12/12/20 14:01 Sickle Cells Not Reportable 12/12/20 14:01 Target Cells Not Reportable 12/12/20 14:01 Tear Drop Cells Not Reportable 12/12/20 14:01 Ovalocytes Few 12/12/20 14:01 Helmet Cells Not Reportable 12/12/20 14:01 [place] Bodies Not Reportable 12/12/20 14:01 [place] Rings Not Reportable 12/12/20 14:01 [place] Cells Not Reportable 12/12/20 14:01 Bite Cells Not Reportable 12/12/20 14:01 Crenated Cell Not Reportable 12/12/20 14:01 Elliptocytes Not Reportable 12/12/20 14:01 Acanthocytes (Spur) Not Reportable 12/12/20 14:01 Rouleaux Not Reportable 12/12/20 14:01 Hemoglobin C Crystals Not Reportable 12/12/20 14:01 Schistocytes Not Reportable 12/12/20 14:01 Malaria parasites Not Reportable 12/12/20 14:01 [place] Bodies Not Reportable 12/12/20 14:01 Hem Pathologist Commnt No 12/12/20 14:01 Sodium 133 mmol/L (137-145) L 12/27/20 05:10 Potassium 3.9 mmol/L (3.6-5.0) 12/27/20 05:10 Chloride 98.5 mmol/L (98-107) 12/27/20 05:10 Carbon Dioxide 25 mmol/L (22-30) 12/27/20 05:10 Anion Gap 13 mmol/L 12/27/20 05:10 BUN 13 mg/dL (9-20) 12/27/20 05:10 Creatinine 0.9 mg/dL (0.8-1.3) 12/27/20 05:10 Estimated GFR > 60 ml/min 12/27/20 05:10 BUN/Creatinine Ratio 14 % 12/27/20 05:10 Glucose 100 mg/dL (75-100) 12/27/20 05:10 POC Glucose 113 mg/dL (70-105) H 12/27/20 11:52 Lactic Acid 1.20 mmol/L (0.7-2.0) 12/18/20 14:35 Calcium 9.0 mg/dL (8.4-10.2) 12/27/20 05:10 Magnesium 2.20 mg/dL (1.7-2.3) 12/20/20 17:50 Total Bilirubin 0.60 mg/dL (0.1-1.2) 12/25/20 04:55 AST 50 units/L (5-40) H 12/25/20 04:55 ALT 24 units/L (7-56) 12/25/20 04:55 Alkaline Phosphatase 100 units/L (35-129) 12/25/20 04:55 Troponin T 0.011 ng/mL (0.00-0.029) 12/12/20 14:01 Total Protein 6.6 g/dL (6.3-8.2) 12/25/20 04:55 Albumin 3.0 g/dL (3.9-5) L 12/25/20 04:55 Albumin/Globulin Ratio 0.8 % 12/25/20 04:55 Lipase 97 units/L (13-60) H 12/27/20 13:23 Urine Color Yellow (Yellow) 12/19/20 13:53 Urine Turbidity Clear (Clear) 12/19/20 13:53 Urine pH 6.0 (5.0-7.0) 12/19/20 13:53 Ur Specific Dawson 1.013 (1.003-1.030) 12/19/20 13:53 Urine Protein <15 mg/dl mg/dL (Negative) 12/19/20 13:53 Urine Glucose (UA) Neg mg/dL (Negative) 12/19/20 13:53 Urine Ketones Neg mg/dL (Negative) 12/19/20 13:53 Urine Blood Mod (Negative) 12/19/20 13:53 Urine Nitrite Neg (Negative) 12/19/20 13:53 Urine Bilirubin Neg (Negative) 12/19/20 13:53 Urine Urobilinogen < 2.0 mg/dL (<2.0) 12/19/20 13:53 Ur Leukocyte Esterase Neg (Negative) 12/19/20 13:53 Urine WBC (Auto) 2.0 /HPF (0.0-6.0) 12/19/20 13:53 Urine RBC (Auto) 2.0 /HPF (0.0-6.0) 12/19/20 13:53 U Epithel Cells (Auto) < 1.0 /HPF (0-13.0) 12/19/20 13:53 Hyaline Casts 1 /LPF 12/12/20 21:04 Urine Mucus Few /HPF 12/19/20 13:53 Urine Eosinophils None seen (None Seen) 12/19/20 13:53 Urine Creatinine 79.0 mg/dL (0.1-20.0) H 12/19/20 13:53 Urine Sodium 51 mmol/L 12/19/20 13:53 Urine Chloride 36.0 mmolL (110-250) L 12/19/20 13:53 Urine Urea Nitrogen 949 12/19/20 13:53 Urine Opiates Screen Negative 12/12/20 21:04 Urine Methadone Screen Negative 12/12/20 21:04 Ur Barbiturates Screen Positive 12/12/20 21:04 Ur Phencyclidine Scrn Negative 12/12/20 21:04 Ur Amphetamines Screen Negative 12/12/20 21:04 U Benzodiazepines Scrn Negative 12/12/20 21:04 Urine Cocaine Screen Negative 12/12/20 21:04 U Marijuana (THC) Screen Negative 05/18/21 21:04 Drugs of Abuse Note Disclamer 12/12/20 21:04 Plasma/Serum Alcohol < 0.01 % (0-0.07) 12/12/20 14:00 Coronavirus (PCR) Negative (Negative) 12/16/20 11:18 Funez/IV: Voiding Method Condom Catheter Active Medications - Current Medications Current Medications: Generic Name Dose Route Start Last Admin Trade Name Freq PRN Reason Stop Dose Admin Acetaminophen 650 mg 12/13/20 11:49 12/22/20 21:14 Acetaminophen 325 Mg Tab PO 650 mg Q6HR PRN Administration PAIN Amiodarone HCl 100 mg 12/27/20 10:00 12/28/20 21:34 Amiodarone 200 Mg Tab PO 100 mg BID JOHANN Administration Apixaban 5 mg 12/19/20 10:00 12/28/20 21:34 Apixaban 5 Mg Tab PO 5 mg Q12HR JOHANN Administration Aspirin 81 mg 12/19/20 10:00 12/28/20 09:29 Aspirin Ec 81 Mg Tab PO 81 mg DAILY JOHANN Administration Atorvastatin Calcium 80 mg 12/13/20 22:00 12/28/20 21:34 Atorvastatin 40 Mg Tab PO 80 mg QHS JOHANN Administration Carvedilol 6.25 mg 12/27/20 14:00 12/28/20 21:35 Carvedilol 6.25 Mg Tab PO 6.25 mg BID JOHANN Administration Diphenhydramine HCl 50 mg 12/13/20 11:49 12/24/20 21:10 Diphenhydramine 25 Mg Cap PO 50 mg QHS PRN Administration Insomnia Fluoxetine HCl 10 mg 12/19/20 10:00 12/28/20 09:29 Fluoxetine 10 Mg Tab PO 10 mg QDAY JOHANN Administration Furosemide 40 mg 12/13/20 10:00 12/28/20 09:30 Furosemide 40 Mg Tab PO 40 mg QDAY JOHANN Administration Haloperidol Lactate 10 mg 12/12/20 22:57 12/24/20 21:09 Haloperidol Lactate 5 Mg/1 Ml Inj IM 10 mg Q8H PRN Administration Agitation Isosorbide Mononitrate 30 mg 12/13/20 10:00 12/28/20 09:33 Isosorbide Mononitrate Er 30 Mg Tab PO 30 mg DAILY JOHANN Administration Lisinopril 10 mg 12/21/20 10:00 12/28/20 09:32 Lisinopril 10 Mg Tab PO 10 mg QDAY JOHANN Administration Melatonin 30 mg 12/19/20 22:00 12/28/20 21:34 Melatonin 5 Mg Tab PO 30 mg QHS JOHANN Administration Oxycodone/Acetaminophen 1 tab 12/22/20 13:31 12/28/20 03:29 Oxycodone /Acetaminophen 5-325mg Tab PO 1 tab Q6H PRN Administration Pain, Moderate (4-6) Pantoprazole Sodium 40 mg 12/13/20 10:00 12/28/20 09:30 Pantoprazole 40 Mg Tab PO 40 mg QDAY JOHNAN Administration Polyethylene Glycol 17 gm 12/28/20 09:00 Polyethylene Glycol 3350 17 Gm Powder PO BID PRN Constipation Spironolactone 25 mg 12/13/20 10:00 12/28/20 09:30 Spironolactone 25 Mg Tab PO 25 mg QDAY JOHANN Administration Tamsulosin HCl 0.4 mg 12/19/20 22:00 12/28/20 21:34 Tamsulosin 0.4 Mg Cap PO 0.4 mg QHS JOHANN Administration Nutrition/Malnutrition Assess - Dietary Evaluation Nutrition/Malnutrition Findings: Nutrition Notes Start: 12/25/20 12:46 Freq: Status: Active Protocol: Document 12/27/20 12:32 (Rec: 12/27/20 12:35 [id number]) Nutrition Notes Initial or Follow up Reassessment Current Diagnosis Coronary Artery Disease, Hypertension,Heart Failure, Stroke Current Diet Pureed Labs/Tests Na 133 Pertinent Medications Lasix NS at 75 ml/hr Height 6 ft 3 in Weight 73.5 kg [place] Body Weight (kg) 89.09 BMI 20.2 Weight Status Appropriate Subjective/Other Information FU for intakes. Pt was cleared for regular diet however, would like pureed due to tongue pain which he states is better today. Pt eating 25% of meals and 100% of ONS. Percent of energy/protein needs met: 41%/67% Burn Absent Trauma Absent Difficulty In Chewing Current % PO Good (75-100%) Minimum of two criteria No physical signs of malnutrition #1 Nutrition Diagnosis Inadequate oral intake Etiology tongue pain As Evidenced by Signs and Symptoms pt meeting 41%/67% of needs Diagnosis Progress(for reassessment Worsened documentation) Is patient on ventilator? No Is Patient Ambulatory and/or Out of Bed No REE-([place]-confined to bed) 7025.724 Calculation Used for Recommendations [facility] Additional Notes Protein: (0.8-1g/kg) 59-74g Fluid: 1 ml/kcal Nutrition Intervention Change Diet Order: Continue Add Supplement/Snack (indicate name/kcal Ensure Enlive TID /protein ) Provides kCal: 1,050 Provides Protein (gm) 60 Goal #1 Meet at least 80% of protein and energy needs via PO and ONS intaks Anticipated Discharge Needs: Cardiac Follow-Up By: 12/29/20 Additional Comments FU for intakes
--- NOTE | 2020-12-29 11:33 | Discharge Summary ---
Providers - Providers Date of Admission: 12/18/20 15:52 Date of discharge: 12/29/20 Attending physician: RALF SAMUEL MD 12/12/20 17:12 Consult to Case Management [CONS] Stat Services Needed at Discharge: Home Health Services Notified:: n Physical Therapy Evaluation and Treat [CONS] Stat Comment: Reason For Exam: Evaluate for frequent falls and placement 12/12/20 17:40 Consult to Mental Health [CONS] Stat Reason For Exam: Confusion, frequent wandering Speech Therapy Evaluation and Treat [CONS] Stat Reason For Exam: History of stroke 12/17/20 09:56 Occupational Therapy Evaluate and Treat [CONS] Stat Comment: Reason For Exam: frequent falls inability to perform adls Physical Therapy Evaluation and Treat [CONS] Stat Comment: Reason For Exam: frequent fall inability to complete adls 12/19/20 05:37 Speech Therapy Evaluation and Treat [CONS] Stat Reason For Exam: Dysphagia 12/19/20 06:34 Consult to Physician [CONS] Routine Comment: Consulting Provider: JEAN ANDRE Physician Instructions: Reason For Exam: PRIYA 12/19/20 06:35 Consult to Physician [CONS] Routine Comment: Consulting Provider: JASON MICHAELS Physician Instructions: Reason For Exam: CVA, 12/20/20 09:51 Speech Therapy Evaluation and Treat [CONS] Stat Reason For Exam: impaired swallowing 12/20/20 11:47 Consult to Physician [CONS] Routine Comment: Consulting Provider: PASCUAL BAILON II Physician Instructions: Reason For Exam: Cervical degenerative diseases 12/20/20 13:17 Consult to Physician [CONS] Routine Comment: Consulting Provider: NANDO TIDWELL Physician Instructions: Reason For Exam: ?sick sinus syndrome 12/24/20 18:17 Speech Therapy Evaluation and Treat [CONS] Routine Reason For Exam: reduced chewy of solid food 12/26/20 12:31 Consult to Cardiac Rehabilitation [CONS] Routine Reason For Exam: Cardiomyopathy Additional Notes/Special Instructions: Please evaluate patient for outpatient cardiac rehab in setting of new or worsening diagnosis of severe cardiomyopathy Hospitalization Reason for admission: A. fib, chronic systolic CHF, history of CVA, debility Condition: Stable Hospital course: History of present illness: 60-year-old male brought in for altered sensorium. Patient has a history of previous cerebrovascular accident and the mother says that he has persistent confusion. Patient has been in the emergency room since December 12 and for some reason was not admitted at that point. The emergency room was trying to do the placement to [facility] and they wanted a Covid test which was negative. His creatinine was normal on December 12 and today it has increased from 20/1.0 on December 12 to 98/3.9 2 to 3 weeks ago patient had a head concussion injury after a fall which resulted in admission to [facility]. Patient was kept in observation and was discharged. As per the mother patient was apparently confused all others and tries to leave the house. Apparently had 3 falls since his discharge from the last admission at [facility]. The mother states that she is unable to care for the patient and is looking for long-term care. In the emergency room blood pressure was low in the 60s and was given 2 L of normal saline bolus after which the blood pressure came upto systolic 115 mm Hg. No fever or chills. No exposure to coronavirus. Patient toxin and low volume and says that is in the hospital. Patient is not able to give much history. Patient able to move the right side but not the left upper extremity. Also has weakness on the left lower extremity. Hospital course Acute metabolic encephalopathy Resolved Patient has underlying vascular dementia MRI brain shows no acute CVA-patient has remote CVA on the right Strokelike symptoms Has a history of CVA, and was noted to have some motor dysfunction in the ER. MRI brain negative for any acute CVA MRI cervical shows multiple disc bulges involving cervical vertebrae most prominent at C5-C6 level Neurology consulted Cont. on aspirin and statins PT recommends rehab #PRIYA Secondary to dehydration -somewhat inappropriately Renal function improving Nephrology following #Atrial fibrillation Anticoagulation Patient had a 3.5-second pause so cardiology was consulted Beta-taj was adjusted, patient noted to have nonsustained V. tach Cardiology to adjust beta-taj #Coronary artery disease Continue aspirin Coreg Eliquis #Hypertension Adjust blood pressure medications #Congestive heart failure Stable #Hyperlipidemia CODE STATUS DVT prophylaxis-on Eliquis Disposition-patient is stable for discharge. Cleared by neurology and cardiology but needs placement Hospital course. 12/19. He is stable. BP better. Plan to get MRI brain to rule out CVA. His renal function is better. Cr 2.1 this AM. patient also needs cervical MRI to rule out severe degenerative disease. Echocardiogram, ultrasound carotids. Neurology evaluation appreciated 12/20. Renal function is better today. MRI brain shows no acute CVA -he has remote right-sided CVA. Ultrasound carotid and echocardiogram still pending. Cervical MRI shows degenerative disease involving the C3-C4, C5-C6, C6-C7. There is marked disc bulge at the C5, C6 level causing severe foraminal narrowing. Will consult neurosurgery for evaluation. He was found to have a 3.5 s pause on telemetry. Cardiology was consulted. His beta taj was held. 12/21. Spoke with neurosurgery - changes are not acute. he will be followed up in the office. Cardiology has adjusted his medications, he had nonsustained VT . He is stable to be discharged. He had a PT evaluation and will be going to a facility 12/22. Echocardiogram revealed left ventricular size normal with mild concentric left ventricular hypertrophy. Mild diastolic dysfunction with impaired relaxation. LVEF is 30 to 35%. Saline bubble contrast injection does not demonstrate PFO. Carotid ultrasound negative. PRIYA resolved with Cr. 1.1. Neuro recommends maintain eliquis and ASA 12/23. Patient with no new issues overnight. Awaiting placement. 12/24. Patient with no new issues overnight. Awaiting placement. 12/25. Patient with no new issues overnight. Awaiting placement. Cardiology cleared the pt. for d/c Follow-up with Dr. Diaz on 01/11/2021 @ 2:45pm ([phone]). Pt was previously fitted with LifeVest. Ultimately plan for ICD implantation to be arranged as an outpatient. Cr reamins stable 12/26; pending placement. Patient was alert and oriented. Patient was not on oxygen. Did not have any shortness of breath or chest pain. Patient has generalized weakness. Patient is pending placement. 12/27/2020; patient stable and pending placement. Patient with abdominal pain and lower extremity pain. I ordered bilateral Doppler ultrasound of the lower extremities, CT abdomen pelvis without contrast. 12/28/2020; Patient is stable and pending for placement. Doppler ultrasound of the lower extremities was negative for DVT, CT abdomen pelvis was unremarkable. 12/29/2020; Awaiting placement. Patient will follow with cardiology as an outpatient for ICD placement. Cardiology cleared the patient for discharge. Patient accepted by SNF/rehab facility. Disposition: [id number] SNF W [facility] CERT Final Discharge Diagnosis (Prints w/discharge instructions): A. fib, history of CVA, debility, CAD. Chronic heart failure with reduced ejection fraction. Hypertension. Lupus Time spent for discharge: 45 minutes - Discharge Diagnoses (1) Dementia Status: Acute (2) Discharge planning issues Status: Acute (3) Atrial fibrillation Status: Chronic Qualifiers: Atrial fibrillation type: paroxysmal Qualified Code(s): I48.0 - Paroxysmal atrial fibrillation (4) CHF (congestive heart failure) Status: Chronic Qualifiers: Heart failure type: combined systolic and diastolic (5) Chronic HFrEF (heart failure with reduced ejection fraction) Status: Chronic (6) Coronary artery disease Status: Chronic Qualifiers: Coronary Disease-Associated Artery/Lesion type: [place] artery [place] vs. transplanted heart: [place] heart Associated angina: with stable angina Qualified Code(s): I25.118 - Atherosclerotic heart disease of [place] coronary artery with other forms of angina pectoris (7) History of ischemic cardiomyopathy Status: Chronic (8) Hypertension Status: Chronic Qualifiers: Hypertension type: essential hypertension Qualified Code(s): I10 - Essential (primary) hypertension (9) Lupus Status: Chronic (10) NSVT (nonsustained ventricular tachycardia) Status: Chronic (11) Seizure disorder Status: Chronic (12) Stented coronary artery Status: Chronic (13) Uses LifeVest defibrillator Status: Chronic (14) PRIYA (acute kidney injury) Status: Resolved (15) Acute encephalopathy Status: Resolved Core Measure Documentation - Palliative Care Palliative Care/ Comfort Measures: Not Applicable - Core Measures Any of the following diagnoses?: none - Heart Failure Discharge Requirements BARTOLO/ARB for LVSD if EF <40%: Yes Beta taj at discharge: Yes Exam - Physical Exam Narrative exam: Not in cardiopulmonary distress. The patient appeared chronically sick looking Vital signs as documented. Head exam is unremarkable. No scleral icterus . Neck is without jugular venous distension, thyromegaly, or carotid bruits. Lungs are clear to auscultation. Cardiac exam reveals regular rate and Rhythm. Abdominal exam reveals left upper quadrant pain. Extremities are nonedematous and both femoral and pedal pulses are normal. SUPERVISORY FORESTER: Alert and oriented 3. No focal weakness. - Constitutional Vitals: Temp Pulse Resp BP Pulse Ox 99.0 F 54 L 18 161/113 96 12/29/20 08:24 12/29/20 08:24 12/29/20 08:24 12/29/20 08:24 12/29/20 08:24 Plan Activity: advance as tolerated Weight Bearing Status: Weight Bear as Tolerated Diet: low cholesterol, low salt [facility] - 3-5 Days SHADY DE OLIVEIRA MD [Staff Physician] - 7 Days IAN MOORE MD [Staff Physician] - 7 Days Prescriptions: Amiodarone [Cordarone 200 MG TAB] 100 mg PO BID #60 tablet FLUoxetine [PROzac] 10 mg PO QDAY #30
[2020-12-29] MEDS: carvediloL 6.25 MG TAB PO SCH (12:16)
[2020-12-29] MEDS: PANTOPRAZOLE 40 MG TAB PO SCH (12:18)
[2020-12-29] MEDS: FUROSEMIDE 40 MG TAB PO SCH (12:18)
[2020-12-29] MEDS: LISINOPRIL 10 MG TAB PO SCH (12:18)
[2020-12-29] MEDS: SPIRONOLACTONE 25 MG TAB PO SCH (12:19)
[2020-12-29] MEDS: APIXABAN 5 MG TAB PO SCH (12:19)
[2020-12-29] MEDS: AMIODARONE 200 MG TAB PO SCH (12:19)
[2020-12-29] MEDS: ASPIRIN EC 81 MG TAB PO SCH (12:20)
[2020-12-29] MEDS: FLUoxetine 10 MG TAB PO SCH (12:21)
[2020-12-29 12:24] VITALS: BP 145/88
== END 2020-12-29 15:15 | DRG 71 ==
LOC: ED 09:49 → 4A 12-18 15:52
PROVIDERS: ADMIT Internal Medicine; ATTEND Internal Medicine
DX: G93.41 Metabolic encephalopathy (principal); I50.42 Chronic combined systolic (congestive) and diastolic (congestive) heart failure; N17.9 Acute kidney failure, unspecified; Z20.822 Contact with and (suspected) exposure to COVID-19; I11.0 Hypertensive heart disease with heart failure; K21.9 Gastro-esophageal reflux disease without esophagitis; F01.50 Vascular dementia, unspecified severity, without behavioral disturbance, psychotic disturbance, mood disturbance, and anxiety; J44.9 Chronic obstructive pulmonary disease, unspecified; G43.909 Migraine, unspecified, not intractable, without status migrainosus; N40.0 Benign prostatic hyperplasia without lower urinary tract symptoms; F32.9 Major depressive disorder, single episode, unspecified; E78.2 Mixed hyperlipidemia; I25.10 Atherosclerotic heart disease of native coronary artery without angina pectoris; E86.0 Dehydration; I48.91 Unspecified atrial fibrillation; G40.909 Epilepsy, unspecified, not intractable, without status epilepticus; Z79.899 Other long term (current) drug therapy; Z79.82 Long term (current) use of aspirin; Z87.891 Personal history of nicotine dependence
CPT/HCPCS: 36415; 70450; 70551; 71045; 72141; 74176; 76770; 80048; 80053; 80307; 80320; 81001; 82140; 82436; 82565; 82570; 82962; 83690; 83735; 84295; 84300; 84484; 84520; 85007; 85025; 85027; 87040; 89050; 93005; 93306; 93880; 93970; 96372; G0378; A9270-GY; G0480; J0282; J1200; J1630; J7030; J7060; U0003

== ENCOUNTER 2022-02-09 15:46 | Emergency (ER) | payer MEDICARE ==
--- NOTE | 2022-02-09 16:08 | Emergency Department Report ---
ED Seizure HPI - General Chief Complaint: Seizure Stated Complaint: SEIZURES Time Seen by Provider: 02/09/22 16:04 Source: EMS Mode of arrival: Stretcher Limitations: Physical Limitation - History of Present Illness Initial Comments: Patient is a 61-year-old male with history of remote CVA with left-sided hemiplegia brought in from residential after having 3 [id number] episodes of seizure-like activity witnessed by residential staff. Patient reports that he had a seizure several years ago. Denies any recent illness or injury. - Related Data Home Medications Medication Instructions Recorded Confirmed Last Taken Apixaban [Eliquis] 5 mg PO BID 05/13/20 12/23/20 05/12/20 Aspirin [Adult Aspirin] 81 mg PO DAILY 05/13/20 12/23/20 05/13/20 Melatonin [Melatonin 10MG CAP] 30 mg PO QHS 05/13/20 12/23/20 05/12/20 Tamsulosin [Flomax] 0.4 mg PO QHS 05/13/20 12/23/20 05/12/20 Previous Rx's Medication Instructions Recorded Last Taken Type Pantoprazole [Protonix TAB] 40 mg PO QDAY #30 tablet 02/14/20 05/13/20 Rx Apixaban [Eliquis] 5 mg PO Q12HR #60 tablet 05/16/20 Unknown Rx AtorvaSTATin [Lipitor] 80 mg PO QHS #30 tablet 05/16/20 Unknown Rx Furosemide [Lasix TAB] 40 mg PO QDAY #30 tablet 05/16/20 Unknown Rx ISOSORBIDE MONOnitrate [Imdur ER] 30 mg PO DAILY #30 tablet 05/16/20 Unknown Rx Spironolactone [Aldactone] 25 mg PO QDAY #30 tablet 05/16/20 Unknown Rx FLUoxetine [PROzac] 10 mg PO QDAY #30 12/22/20 Unknown Rx carvediloL [Coreg] 3.125 mg PO BID tablet 12/22/20 Unknown Rx lisinopriL [Zestril TAB] 10 mg PO QDAY tablet 12/22/20 Unknown Rx Amiodarone [Cordarone 200 MG TAB] 100 mg PO BID #60 tablet 12/29/20 Unknown Rx Allergies Allergy/AdvReac Type Severity Reaction Status Date / Time No Known Allergies Allergy Verified 02/09/22 15:52 ED Review of Systems ROS: Stated complaint: SEIZURES Other details as noted in HPI Constitutional: denies: chills, fever Respiratory: denies: cough, shortness of breath, wheezing Cardiovascular: denies: chest pain, palpitations Gastrointestinal: denies: abdominal pain, nausea, diarrhea Genitourinary: denies: urgency, dysuria Musculoskeletal: denies: back pain, joint swelling, arthralgia Skin: denies: rash, lesions Neurological: denies: headache, weakness, paresthesias Psychiatric: denies: anxiety, depression ED Past Medical Hx - Past Medical History Previous Medical History?: Yes Hx Hypertension: Yes Hx CVA: No Hx Heart Attack/AMI: Yes Hx Congestive Heart Failure: Yes Hx Deep Vein Thrombosis: No Hx Pulmonary Embolism: No Hx GERD: Yes Hx Liver Disease: No Hx Renal Disease: Yes Hx Sickle Cell Disease: No Hx Arthritis: No Hx Headaches / Migraines: Yes Hx Seizures: Yes Hx Kidney Stones: Yes Hx Psychiatric Treatment: No Hx Asthma: No Hx COPD: Yes Hx Tuberculosis: No Hx HIV: No Additional medical history: Lupus, nerve damage, blind in right eye, ADD - Surgical History Hx Coronary Stent: Yes Hx Open Heart Surgery: No Hx Internal Defibrillator: No Hx Appendectomy: No Additional Surgical History: 10 stents placed in heart, broken femur - Social History Smoking Status: Never Smoker - Medications Home Medications: Home Medications Medication Instructions Recorded Confirmed Last Taken Type Pantoprazole [Protonix TAB] 40 mg PO QDAY #30 tablet 02/14/20 12/23/20 05/13/20 Rx Apixaban [Eliquis] 5 mg PO BID 05/13/20 12/23/20 05/12/20 History Aspirin [Adult Aspirin] 81 mg PO DAILY 05/13/20 12/23/20 05/13/20 History Melatonin [Melatonin 10MG CAP] 30 mg PO QHS 05/13/20 12/23/20 05/12/20 History Tamsulosin [Flomax] 0.4 mg PO QHS 05/13/20 12/23/20 05/12/20 History Apixaban [Eliquis] 5 mg PO Q12HR #60 tablet 05/16/20 12/23/20 Unknown Rx AtorvaSTATin [Lipitor] 80 mg PO QHS #30 tablet 05/16/20 12/23/20 Unknown Rx Furosemide [Lasix TAB] 40 mg PO QDAY #30 tablet 05/16/20 12/23/20 Unknown Rx ISOSORBIDE MONOnitrate [Imdur ER] 30 mg PO DAILY #30 tablet 05/16/20 12/23/20 Unknown Rx Spironolactone [Aldactone] 25 mg PO QDAY #30 tablet 05/16/20 12/23/20 Unknown Rx FLUoxetine [PROzac] 10 mg PO QDAY #30 12/22/20 Unknown Rx carvediloL [Coreg] 3.125 mg PO BID tablet 12/22/20 Unknown Rx lisinopriL [Zestril TAB] 10 mg PO QDAY tablet 12/22/20 Unknown Rx Amiodarone [Cordarone 200 MG TAB] 100 mg PO BID #60 tablet 12/29/20 Unknown Rx ED Physical Exam - General Limitations: Physical Limitation General appearance: alert, in no apparent distress - Head Head exam: Present: atraumatic, normocephalic - Respiratory Respiratory exam: Present: normal lung sounds bilaterally. Absent: respiratory distress - Cardiovascular Cardiovascular Exam: Present: regular rate, normal rhythm, normal heart sounds - GI/Abdominal GI/Abdominal exam: Present: soft. Absent: distended, tenderness - Rectal Rectal exam: Present: deferred - Extremities Exam Extremities exam: Present: other (Contracture of left arm) - Neurological Exam Neurological exam: Present: alert, oriented X3 - Psychiatric Psychiatric exam: Present: normal affect, normal mood - Skin Skin exam: Present: warm, dry, intact, normal color ED Course Vital Signs 02/09/22 02/09/22 02/09/22 15:48 16:03 16:15 Temperature 97.4 F L Pulse Rate 89 82 84 Respiratory 16 21 16 Rate Blood Pressure Blood Pressure 146/105 [Left] O2 Sat by Pulse 96 97 98 Oximetry 02/09/22 02/09/22 02/09/22 16:30 16:31 16:46 Temperature Pulse Rate 80 78 Respiratory 22 13 Rate Blood Pressure 139/99 Blood Pressure [Left] O2 Sat by Pulse 100 96 97 Oximetry 02/09/22 02/09/22 02/09/22 17:31 17:45 18:01 Temperature Pulse Rate 80 75 71 Respiratory 22 16 17 Rate Blood Pressure 139/99 148/96 Blood Pressure [Left] O2 Sat by Pulse 95 98 82 L Oximetry 02/09/22 02/09/22 02/09/22 18:15 18:31 18:45 Temperature Pulse Rate 72 72 74 Respiratory 16 16 16 Rate Blood Pressure 148/96 148/96 148/96 Blood Pressure [Left] O2 Sat by Pulse 86 86 Oximetry 02/09/22 02/09/22 02/09/22 19:01 19:15 19:31 Temperature Pulse Rate 71 74 72 Respiratory 17 19 19 Rate Blood Pressure 143/104 143/104 143/104 Blood Pressure [Left] O2 Sat by Pulse Oximetry 02/09/22 19:45 Temperature Pulse Rate 72 Respiratory 16 Rate Blood Pressure 143/104 Blood Pressure [Left] O2 Sat by Pulse Oximetry ED Medical Decision Making - Lab Data Result diagrams: 02/09/22 17:16 02/09/22 17:16 - Medical Decision Making CT head shows no acute intracranial abnormality however shows chronic changes/encephalomalacia. No significant abnormalities on CBC or CMP. Patient monitored in ED for several hours with no complications. He is stable for discharge back to nursing facility. Critical care attestation.: If time is entered above; I have spent that time in minutes in the direct care of this critically ill patient, excluding procedure time. ED Disposition Clinical Impression: Seizure-like activity Disposition: 01 HOME / SELF CARE / HOMELESS Is pt being admited?: No Condition: Stable Instructions: Seizure, Adult, [id number] Time of Disposition: 20:29
--- NOTE | 2022-02-09 17:14 | Cat Scan Report ---
CT head/brain wo con INDICATION: Seizure. TECHNIQUE: Routine CT head. All CT scans at this location are performed using CT dose reduction for A ENMANUEL by means of automated exposure control. COMPARISON: 12/19/2020 FINDINGS: Intracranial: [place]-white matter differentiation is maintained. No intracranial hemorrhage. No extra a xial collection. No hydrocephalus. No herniation. Atherosclerotic calcifications involving the anteri or and posterior circulation. Periventricular and centrum semiovale white matter hypoattenuation most consistent with sequela of chronic microvascular disease. There is multifocal encephalomalacia seen within the right supratentorial brain parenchyma involving the frontal lobe, centrum semiovale, parie dario lobe, occipital lobe, and temporal lobe. The morphology and distribution involving the right fron dario and parietal lobe suggest prior watershed distribution infarction. Punctate remote right cerebell ar lacunar infarctions. Sinuses: Paranasal sinuses and mastoid air cells are essentially clear. Orbits: Globes are intact. Calvarium: No acute fracture. IMPRESSION: 1. No acute intracranial abnormality. 2. Multifocal right supratentorial and infratentorial infarctions as described above. Signer Name: Buck Virk MD Signed: 02/09/2022 5:09 PM Workstation Name: [id number]
[2022-02-09 18:02] LABS: Hematocrit 28.9 % (35.5-45.6); Hemoglobin 9.7 gm/dl (11.8-15.2); Mean Corpuscular HGB Conc 34 % (32-34); Mean Corpuscular Volume 91 fl (84-94); Platelet Count 221 K/mm3 (140-440); Red Blood Count 3.16 M/mm3 (3.65-5.03)
[2022-02-09 18:08] LABS: Alanine Aminotransferase 20 units/L (7-56); Albumin 3.2 g/dL (3.9-5); BUN/Creatinine Ratio 14; Blood Urea Nitrogen 14 mg/dL (9-20); Calcium 8.7 mg/dL (8.4-10.2); Hemolysis Index 23
[2022-02-09 18:35] LABS: Basophils % (Auto) 0.8 % (0.0-1.8); Eosinophils % (Auto) 0.2 % (0.0-4.3); Lymphocytes # (Auto) 0.5 K/mm3 (1.2-5.4); Lymphocytes % (Auto) 15.8 % (13.4-35.0); Monocytes # (Auto) 0.2 K/mm3 (0.0-0.8); Monocytes % (Auto) 7.5 % (0.0-7.3)
[2022-02-09 19:46] VITALS: BP 143/104
--- NOTE | 2022-02-10 15:19 | Electrocardiograph Report ---
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
== END 2022-02-09 21:00 | disposition home or self-care (01) ==
LOC: ED 15:46
DX: R56.9 Unspecified convulsions (principal); I10 Essential (primary) hypertension
CPT/HCPCS: 36415; 70450; 80053; 85025; 93005; 99284